=== PATIENT | female | born 1955 | race Caucasian/White ===

== ENCOUNTER 2019-09-19 19:36 | Emergency (ER) | payer OTHER, SELFPAY ==
[2019-09-19] MEDS: TETANUS,DIPHTHERIA,AC PERTUSSIS ADULT 0.5 ML (ADACEL) IM (19:48)
[2019-09-19 19:49] VITALS: BP 107/81; PULSE 84; RESP 18; TEMP 36.9; O2SAT 99
--- NOTE | 2019-09-19 20:05 | ED.LOWEXIN ---
HPI - Extremity Injury (Lower) General Chief Complaint: Extremity Injury, Lower Stated Complaint: RIGHT FOOT PAIN Time Seen by Provider: 09/19/19 19:52 Source: patient and RN notes reviewed Mode of arrival: ambulatory Limitations: no limitations History of Present Illness HPI Narrative: Patient presents today after stepping on a nail at home 1 hour prior to arrival. The nail did go through her Crocs clog shoes and into her foot. The nail did not embed itself in the foot and was removed when patient lifted her foot up. She is not up-to-date on her tetanus vaccine. History of rheumatoid arthritis for which she takes methotrexate and prednisone. MD complaint: foot injury Related Data Home Medications Medication Instructions Recorded Confirmed amitriptyline 09/19/19 escitalopram oxalate mg 09/19/19 ferrous sulfate 09/19/19 folic acid 09/19/19 leflunomide mg 09/19/19 methotrexate sodium 09/19/19 prednisone 09/19/19 Allergies Allergy/AdvReac Type Severity Reaction Status Date / Time Penicillins Allergy Mild Unknown Verified 08/25/19 15:46 Review of Systems Review of Systems: Narrative: CONSTITUTIONAL: Denies body aches, fever, chills, or sweats. EYES: Denies visual changes, redness, or discharge. ENT: Denies rhinorrhea, congestion, sore throat, or otalgia. CARDIOVASCULAR: Denies chest pain, palpitations, or edema. RESPIRATORY: Denies cough or dyspnea. GASTROINTESTINAL: Denies abdominal pain, nausea, vomiting, or diarrhea. GENITOURINARY: Denies dysuria or hematuria. SKIN: Denies rash, itching. +: Right foot puncture wound MUSCULOSKELETAL: Denies back pain, joint pain, or myalgia. NEUROLOGIC: Denies headache, numbness, tingling, or weakness. PSYCH: Denies depression or anxiety. [facility] Past Medical History Medical History (Updated 09/20/19 @ 00:00 by Sandy Mathias) Rheumatoid arthritis Social History Social History (System 08/25/19 @ 15:46 by Apoorva Ryan) Gender identity (if verbalized by the patient): Female Comments At time of signature, I have reviewed and agree with nursing past medical, surgical, social and family history unless otherwise noted. Please see nursing chart for further information. There is no relevant family history pertinent to the presenting complaint Exam Narrative: Exam Narrative: GENERAL: Well-appearing, well-nourished, and in no acute distress. HEAD: Normocephalic, atraumatic. EYES: EOMI. No redness or drainage. Conjunctivae normal. ENT: Mucous membranes pink and moist. NECK: Normal AROM. CHEST: No respiratory distress. EXTREMITIES: Normal range of motion. No edema. SKIN: Warm, dry, no rash. Normal skin turgor. 2-3mm puncture wound to the dorsum of the right foot, just distal to the arch. Upon visualization, the wound seems rather superficial, but there are small dark foreign bodies noted just under the skin. Mildly tender to palpation. No surrounding erythema, edema, induration. No active drainage. Distal sensation intact. Capillary refill normal. Pedal pulse normal. NEURO: No focal deficits. Alert and oriented x3. Gait steady. PSYCH: Normal affect. No signs of depression or anxiety. Course Course Emergency Course: Instructed patient that due to immunosuppression, she should start a course of antibiotics to cover for staph and Pseudomonas. Patient states, I do not do well on antibiotics. Discussed at least starting the antibiotics with any signs of infection. Will provide with paper prescriptions. Instructed on what to look for for signs of infection, red streaking, swelling, increased pain or drainage. Vital Signs Vital signs: Vital Signs Temperature 98.5 F 09/19/19 19:49 Pulse Rate 84 09/19/19 19:49 Respiratory Rate 18 09/19/19 19:49 Blood Pressure 107/81 09/19/19 19:49 Pulse Oximetry 99 09/19/19 19:49 Temperature 98.5 F 09/19/19 19:49 Pulse Rate 84 09/19/19 19:49 Respiratory Rate 18 09/19/19 19:49
== END 2019-09-19 20:16 | disposition home or self-care (01) ==
PROVIDERS: Emergency Provider Nurse Practitioner
DX: S91.341A Puncture wound with foreign body, right foot, initial encounter (principal); Z23 Encounter for immunization; M06.9 Rheumatoid arthritis, unspecified; F32.9 Major depressive disorder, single episode, unspecified; W45.0XXA Nail entering through skin, initial encounter
CPT/HCPCS: 90471; 90715; 99213; G0463

== ENCOUNTER 2020-10-01 07:53 | Emergency (ER) | payer OTHER, SELFPAY ==
--- NOTE | ~2020-10-01 | XR_ITS ---
XR knee LT 3V 10/01/2020 08:54 Indication: Left knee pain. Arthritis. Procedure: 4 views left knee Comparison: No prior studies for comparison. Findings: Moderate tricompartment osteoarthritis. Large joint effusion. No acute fracture or subluxat ion. No foreign bodies. Impression: 1: Moderate osteoarthritis of the left knee. 2: Large joint effusion. Reviewed, dictated and finalized at location B. Impression: 1: Moderate osteoarthritis of the left knee. 2: Large joint effusion.
--- NOTE | ~2020-10-01 | XR_ITS ---
EXAMINATION: XR foot LT min 3V EXAM DATE: 10/01/2020 08:53 INDICATION: Nontraumatic pain; gen pain Lt foot; onset x months. TECHNIQUE: Left foot dorsoplantar, lateral and oblique projections obtained and reviewed. There is n o prior study for comparison. FINDINGS: There is moderate hallux valgus, mild to moderate 1st metatarsophalangeal joint primary os teoarthritis. Mild scattered primary osteoarthritis of the mid and forefoot. No periosteal reaction o r band of sclerosis to suggest subacute stress fracture. There are no acute fractures or dislocations identified. There is no subcutaneous gas. The soft tissue is unremarkable. There are no radiopaq ue foreign bodies. IMPRESSION: 1. Hallux valgus, mild to moderate 1st MTP osteoarthritis. 2. Otherwise mild polyarticular osteoarthritis. 3. No acute findings. Reviewed, dictated and finalized at location A.
--- NOTE | 2020-10-01 08:10 | ED.LOWEXIN ---
HPI - Extremity Injury (Lower) General Chief Complaint: Extremity Injury, Lower Stated Complaint: left leg pain Time Seen by Provider: 10/01/20 08:08 Source: patient, family and RN notes reviewed Mode of arrival: ambulatory Limitations: no limitations History of Present Illness HPI Narrative: 65 years old white female presents with pain at left knee and left foot started last night. History of rheumatoid arthritis, on Humira, methotrexate and prednisone. Patient denies any recent trauma or injury. Patient also denies any fever, chills, nausea, vomiting. History of right knee I personally supervised and checked placement of the splint, neurovascular function is intact after placement.. Patient does not smoke or drink or uses drugs. Patient feels better if she keeps rubbing the front of her left knee Related Data Home Medications Medication Instructions Recorded Confirmed amitriptyline 09/19/19 escitalopram oxalate mg 09/19/19 ferrous sulfate 09/19/19 folic acid 09/19/19 leflunomide mg 09/19/19 methotrexate sodium 09/19/19 prednisone 09/19/19 Allergies Allergy/AdvReac Type Severity Reaction Status Date / Time Penicillins Allergy Mild Unknown Verified 08/25/19 15:46 Review of Systems Review of Systems: Narrative: CONSTITUTIONAL: Denies fever, chills, or sweats. EYES: Denies visual changes, redness, or discharge. ENT: Denies rhinorrhea, congestion, sore throat, or otalgia. CARDIOVASCULAR: Denies chest pain, palpitations, or edema. RESPIRATORY: Denies cough or dyspnea. GASTROINTESTINAL: Denies abdominal pain, nausea, vomiting, or diarrhea. GENITOURINARY: Denies dysuria or hematuria. SKIN: Denies rash or itching. MUSCULOSKELETAL: Left knee and foot pain NEUROLOGIC: Denies headache, numbness, or weakness. PSYCHIATRIC: Denies anxiety or depression. PMFSH Past Medical History Medical History Rheumatoid arthritis Social History Social History Gender identity (if verbalized by the patient): Female Exam Narrative: Exam Narrative: General appearance: Well-developed, well-nourished Skin: Normal color Head: Normocephalic, nontraumatic Eyes: Clear conjunctiva ENT: Oropharynx normal, ears normal, nose normal Neck: Supple, nontender Chest and respiratory: Airway patent, no respiratory distress, no accessory muscle use Heart: Regular rate/rhythm Abdomen: Soft, nontender, no organomegaly, quiet bowel sounds Vascular: Normal peripheral pulses, normal capillary refill. Musculoskeletal: Left knee is diffusely tender, no warmth, no erythema, positive deformity, left calf muscle is soft, left ankle and foot showed no deformity or localized tenderness, good range of motion. 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 1: Joint Aspiration Date: 10/01/20 Joint Aspiration Time: 11:20 Time Out Performed: Yes Side of body: left Joint Aspirated: knee Ultrasound Guidance: No Skin Prep: sterile prep and drape Local Anesthetic: lidocaine 1% a
[2020-10-01 08:37] VITALS: BP 124/55; PULSE 78; RESP 14; TEMP 36.7; O2SAT 99
[2020-10-01] MEDS: HYDROmorphone HCL INJ (*CRX) 1 MG/ML SYR IM (09:06)
[2020-10-01] MEDS: ONDANSETRON HCL ODT 4 MG TABLET PO (09:06)
[2020-10-01 11:00] VITALS: BP 117/72; PULSE 70; RESP 12; O2SAT 98
[2020-10-01 13:36] LABS: Appearance Synovial Fluid Cloudy (Clear); Color Synovial Fluid Yellow (Colorless); Source Synovial Fluid Synovial fluid
[2020-10-01 13:43] LABS: Lymphocytes Synovial Fluid 23 %; Monocytes Synovial Fluid 33 %; Neutrophils Synovial Fluid 44 % (0-25)
[2020-10-01 14:22] LABS: Crystals Synovial Fluid None Seen (None Seen)
[2020-10-04 19:19] LABS: Glucose Synovial Fluid <10 mg/dL
== END 2020-10-01 14:24 | disposition home or self-care (01) ==
PROVIDERS: Emergency Provider Emergency Medicine; PCP Internal Medicine
DX: M25.462 Effusion, left knee (principal); M06.9 Rheumatoid arthritis, unspecified; M20.12 Hallux valgus (acquired), left foot; M19.072 Primary osteoarthritis, left ankle and foot; M17.12 Unilateral primary osteoarthritis, left knee
CPT/HCPCS: 20610; 73562; 73630; 82945; 84157; 87070; 87075; 87205; 89051; 89060; 96372; 99284; A9270; J1170

== ENCOUNTER 2021-12-30 17:49 | Emergency (ER) | payer MEDICARE, SELFPAY ==
--- NOTE | ~2021-12-30 | XR_ITS ---
EXAMINATION: XR hip LT 2V w AP pelvis DATE: 12/30/2021 20:15 INDICATION: Left hip pain post fall TECHNIQUE: Anteroposterior view of the pelvis and anteroposterior and frog-leg lateral views of the l eft hip were obtained. COMPARISON: None FINDINGS: Mild thoracolumbar levoscoliosis with moderate spondylosis. Normal alignment at the bilateral hips. N o fracture or suspected avascular necrosis. Mild osteoarthritis at the bilateral sacroiliac joints. B ilateral hip joint spaces are relatively preserved. IMPRESSION: 1. No acute osseous abnormalities. 2. Mild lower lumbar levoscoliosis with moderate spondylosis. Reviewed, dictated and finalized at location A.
--- NOTE | ~2021-12-30 | XR_ITS ---
EXAMINATION: XR knee LT 2V DATE: 12/30/2021 20:15 INDICATION: Fall with swelling at the left knee. TECHNIQUE: AP and lateral views of the left knee were obtained.. COMPARISON: 10/01/2020 FINDINGS: Again seen is mild genu valgus with moderate to severe joint space narrowing in the lateral compartme nt. Marginal osteophytes in all 3 compartments of the knee. No fracture or left knee joint effusion. Prominent soft tissue swelling with increased density in the subcutaneous fat at the medial aspect of the distal left thigh suggesting a postmenopausal contusion/hematoma. IMPRESSION: 1. Moderate to severe osteoarthritis at the lateral compartment left knee. No joint effusion or acute osseous abnormality. 2. Prominent subcutaneous contusion/hematoma at the medial aspect of the distal left thigh. Reviewed, dictated and finalized at location A. IMPRESSION: 1. Moderate to severe osteoarthritis at the lateral compartment left knee. No j oint effusion or acute osseous abnormality. 2. Prominent subcutaneous contusion/hematoma at the medial aspect of the distal left thigh.
[2021-12-30 18:01] VITALS: BP 128/65; PULSE 88; RESP 20; TEMP 36.4; O2SAT 98
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
[2021-12-30 20:34] LABS: Basophils Percent Auto 0.5 % (0.2-1.2); Eosinophils Absolute Auto 0.2 K/mm3 (0-0.3); Eosinophils Percent Auto 2.1 % (0-4.4); Hematocrit 32.5 % (37.0-47.0); Hemoglobin 10.5 g/dL (12.0-15.0); Immature Granulocyte Absolute 0.03 K/mm3 (0.00-0.031); Immature Granulocyte Percent A 0.4 % (0-0.5); Lymphocytes Absolute Auto 1.09 K/mm3 (0.9-3.2); Lymphocytes Percent Auto 13.7 % (18.3-44.2); Mean Corpuscular HGB Conc 32.3 g/dl (32-36); Mean Corpuscular Hemoglobin 30.8 pg (26-34); Mean Corpuscular Volume 95.3 fl (80-100); Mean Platelet Volume 10.7 fl (7.4-10.4); Monocytes Percent Auto 12.2 % (2.6-8.5); Neutrophils Absolute Auto 5.7 K/mm3 (1.3-6.7); Neutrophils Percent Auto 71.1 % (45.5-73.1); Platelet Count Result 204 k/mm3 (150-375); Red Blood Count 3.41 M/mm3 (4.2-5.4); Red Cell Distribution Width 16.8 % (11.5-14.5)
[2021-12-30 20:40] LABS: Alanine Aminotransferase 56 U/L (6-35); Albumin Level 3.8 g/dL (3.5-5.1); Alkaline Phosphatase 88 U/L (38-126); Anion Gap 10 mmol/L (8-16); Aspartate Amino Transferase 46 U/L (14-36); Bilirubin,Total 0.6 mg/dL (0.2-1.3); Blood Urea Nitrogen 17 mg/dL (7-17); Calcium 9.7 mg/dL (8.4-10.2); Carbon Dioxide 24 mmol/L (22-30); Chloride 103 mmol/L (98-107); Estimated CRCL calculation 66 ml/min; Estimated Glomerular Filt Rate > 60; Glucose 103 mg/dL (65-110); Potassium 3.7 mmol/L (3.4-5.0); Sodium 137 mmol/L (137-145)
[2021-12-30 20:41] LABS: INR 0.9
[2021-12-30 20:42] LABS: Partial Thromboplastin Time 25.9 SECONDS (22.3-36.8)
[2021-12-30 21:52] VITALS: BP 144/60; PULSE 82; RESP 16; TEMP 36.8; O2SAT 89
[2021-12-30 21:53] VITALS: O2SAT 94
[2021-12-30] MEDS: HYDROmorphone HCL INJ (*CRX) 1 MG/ML SYR 0.5 MG IV PUSH (21:56)
[2021-12-30] MEDS: ONDANSETRON INJ 4 MG/2 ML VIAL IV PUSH (21:56)
[2021-12-30 22:30] VITALS: BP 148/60; PULSE 81; RESP 16; TEMP 36.3; O2SAT 100
[2021-12-30 23:30] VITALS: BP 145/61; PULSE 80; RESP 16; TEMP 36.4; O2SAT 99
== END 2021-12-31 00:53 | disposition short-term general hospital (02) ==
PROVIDERS: Emergency Provider Emergency Medicine; PCP Internal Medicine
DX: S70.12XA Contusion of left thigh, initial encounter (principal); G89.29 Other chronic pain; M25.552 Pain in left hip; M54.50 Low back pain, unspecified; M06.9 Rheumatoid arthritis, unspecified; M47.816 Spondylosis without myelopathy or radiculopathy, lumbar region; M17.12 Unilateral primary osteoarthritis, left knee; V19.9XXA Pedal cyclist (driver) (passenger) injured in unspecified traffic accident, initial encounter; Y93.55 Activity, bike riding
CPT/HCPCS: 36415; 73502; 73560; 80053; 85025; 85610; 85730; 96374; 96375; 99285; J1170; J2405

== ENCOUNTER 2023-08-23 15:30 | Outpatient (CLI) | payer MEDICARE, SELFPAY ==
--- NOTE | ~2023-08-23 | MR_ITS ---
EXAMINATION: MR lumbar spine wo con DATE: 08/23/2023 16:14 INDICATION: Low back pain. TECHNIQUE: Magnetic resonance imaging (MRI) of the lumbar spine was performed without intravenous con trast. Sequences included sagittal T2-weighted FSE, sagittal T2-weighted FS FSE, sagittal T1-weighted FSE, and axial T2-weighted FSE. COMPARISON: None FINDINGS: There is 22 degrees dextroscoliosis of thoracolumbar spine and 23 degrees levoscoliosis of lumbar spine. There is a chronic compression fracture of T12. There is mildly decreased disc height a t T12-L1. There is severely decreased disc height from L1-L2 through L5-S1 with endplate remodeling. The distal spinal cord signal intensity is normal. The conus medullaris is at T12-L1. There is periph eral displacement of the cauda equina at L5 and S1, consistent with arachnoiditis. The following disc levels are specifically discussed: L1-L2: The disc is bulging and has an annular fissure. There is moderate right and severe left facet joint osteoarthritis. There is mild right and moderate left neural foraminal stenosis. There is mild central canal stenosis. L2-L3: The disc is bulging with superimposed central extrusion. There is severe bilateral facet joint osteoarthritis. There is moderate right and mild left neural foraminal stenosis. There is mild centr al canal stenosis. There is severe stenosis of right lateral recess at the L3 infrapedicular level. L3-L4: The disc is bulging and has an annular fissure. There is severe bilateral facet joint osteoart hritis. There is moderate right and mild left neural foraminal stenosis. There is moderate central ca nal stenosis. L4-L5: The disc is bulging and has an annular fissure. There is severe bilateral facet joint osteoart hritis. There is moderate bilateral neural foraminal stenosis. There is mild central canal stenosis. There is moderate stenosis of the lateral recesses. L5-S1: The disc is bulging and has an annular fissure. There is severe bilateral facet joint osteoart hritis. There is mild right and moderate left neural foraminal stenosis. There is mild central canal stenosis. There is severe stenosis of left lateral recess. IMPRESSION: 1. Severe lumbar spondylosis. 2. Scoliosis. 3. Arachnoiditis. Reviewed, dictated and finalized at location E.
== END 2023-08-23 15:31 ==
LOC: GOSHIMG 15:31
PROVIDERS: PCP Internal Medicine; Visit Provider Nurse Practitioner Family
DX: M54.16 Radiculopathy, lumbar region (principal); M43.06 Spondylolysis, lumbar region; M41.86 Other forms of scoliosis, lumbar region; G03.9 Meningitis, unspecified
CPT/HCPCS: 72148

== ENCOUNTER 2024-01-06 11:03 | Emergency (ER) | payer MEDICARE, SELFPAY ==
--- NOTE | ~2024-01-06 | XR_ITS ---
EXAMINATION: XR foot LT 2V DATE: 01/06/2024 12:57 INDICATION: Lateral left foot pain TECHNIQUE: Dorsoplantar and lateral views of the left foot were obtained. COMPARISON: None. FINDINGS: Diffuse osteopenia. 30 degree hallux valgus. Alignment is otherwise normal. No fracture. Mild polyart icular osteoarthritis throughout the left foot. Prominent dorsal osteophyte at the neck of the talus. Soft tissues are otherwise unremarkable. IMPRESSION: 1. Mild polyarticular osteoarthritis throughout the left foot. No acute osseous abnormality. Reviewed, dictated and finalized at location A.
--- NOTE | ~2024-01-06 | US_ITS ---
EXAMINATION: US venous doppler [facility] DATE: 01/06/2024 11:47 INDICATION: Left lower limb pain TECHNIQUE: Grayscale ultrasound images without and with compression and Doppler ultrasound images of the left lower extremity veins were obtained. COMPARISON: None. FINDINGS: The visualized portions of left common femoral vein, profunda (deep) femoral vein, femoral vein, popl iteal vein, peroneal veins, posterior tibial veins, gastrocnemius vein and greater saphenous vein out flow are patent. IMPRESSION: 1. No deep venous thrombosis in the left lower limb. Reviewed, dictated and finalized at location A.
--- NOTE | 2024-01-06 12:39 | ED.EXTPRO ---
HPI - Extremity Problem General Chief complaint: Extremity Problem,Nontraumatic Stated complaint: LLE pain Time Seen by Provider: 01/06/24 12:33 History of Present Illness HPI Narrative: 68-year-old female presenting with left foot pain. States that she has had for the last several days. Feels like it goes along the side of her left foot and up into her calf. No swelling or redness. No injuries. She went to urgent care today who told her to come in for an ultrasound. No chest pain or shortness of breath. No further complaints. Related Data Home Medications Medication Instructions Recorded Confirmed folic acid 1 mg tablet 09/19/19 leflunomide 10 mg tablet mg 09/19/19 methotrexate sodium 2.5 mg tablet 09/19/19 prednisone 5 mg tablet 09/19/19 adalimumab 40 mg/0.8 mL 40 mg subcut ONCE 12/03/23 subcutaneous syringe kit (Humira) amlodipine 5 mg tablet 5 mg PO DAILY 12/03/23 duloxetine 30 mg capsule,delayed mg PO 12/03/23 release fluoxetine 20 mg capsule 20 mg PO DAILY 12/03/23 leflunomide 20 mg tablet 20 mg PO DAILY 12/03/23 montelukast 10 mg tablet 10 mg PO DAILY 12/03/23 vitamin#30 30 mg iron-10 cap PO 12/03/23 mg iron-folic acid 1 mg-omg3 capsule Allergies Allergy/AdvReac Type Severity Reaction Status Date / Time acetaminophen Allergy Severe Unknown Verified 01/06/24 13:12 cefdinir Allergy Severe Itching Verified 01/06/24 13:12 fluticasone Allergy Severe Itching Verified 01/06/24 13:12 Latex, Natural Rubber Allergy Severe Itching Verified 01/06/24 13:12 oxycodone [From Percocet] Allergy Severe itch Verified 01/06/24 13:12 Penicillins Allergy Mild Unknown Verified 01/06/24 13:12 codeine AdvReac Itching Verified 01/06/24 13:12 Review of Systems Review of Systems: All systems reviewed & are unremarkable except as noted in HPI and below PMFSH Past Medical History Medical History Rheumatoid arthritis Surgical History Surgical History H/O knee surgery Family History Family History Father Heart disease Cerebrovascular accident Mother Diabetes mellitus Hypertension Depression Sibling Alcoholism Cancer Grandparent Diabetes mellitus Social History Social History Smoking status: Never smoker Alcohol intake: never Substance use: never Substance use type: does not use Do You Feel Safe in your Home?: Yes Lack of Transportation: No Lack of Food: Never True Current Housing: I Have Housing Concerned About Future Housing: No Difficulty Paying Gas/Electric Bills: No Difficulty Paying for Meds: No Currently Unemployed: No Education: Master's Degree or Higher Difficulty w/ Childcare or Family Care: No Gender identity (if verbalized by the patient): Female Exam Narrative: GENERAL: Well-appearing, well-nourished, and in no acute distress. HEAD: Normocephalic, atraumatic. EYES: PERRLA and EOMI. ENT: Grossly unremarkable NECK: Supple. CHEST: Clear to auscultation. No respiratory distress. HEART: Regular rate and rhythm. No murmur heard. Normal peripheral pulses. EXTREMITIES: Normal range of motion. No edema. Left foot is tender along the bottom of the foot and to the lateral aspect and into her left lower calf, there is no swelling, no redness, no deformities, she is neurovascularly intact, no tenderness over Achilles tendon SKIN: Warm, dry, no rash. NEURO: No focal deficits. Alert and oriented x3. PSYCH: Normal mood and affect. MDM - Extremity (Nontraumatic) MDM Narrative Medical decision making narrative: 68-year-old female presenting with left foot pain. Ultrasound shows no DVT in the left leg. X-ray shows no acute abnormalities. There is evidence of polyarticular arthritis. Discussed the reass
== END 2024-01-06 13:40 | disposition home or self-care (01) ==
PROVIDERS: Emergency Provider Emergency Medicine; PCP Internal Medicine
DX: M79.672 Pain in left foot (principal); M06.9 Rheumatoid arthritis, unspecified
CPT/HCPCS: 73620; 93971; 99284

== ENCOUNTER 2024-03-17 10:53 | Outpatient (CLI) | payer MEDICARE, SELFPAY ==
--- NOTE | ~2024-03-17 | MR_ITS ---
EXAMINATION: MR ankle LT wo con DATE: 03/17/2024 11:44 INDICATION: Enthesopathy of the left foot and ankle. Lateral ankle pain with inability to bear weight for 3 months. TECHNIQUE: Magnetic resonance imaging (MRI) of the left ankle was performed without intravenous contr ast. Sequences included sagittal, coronal, and axial proton-density weighted fast spin echo without a nd with fat saturation. COMPARISON: None. FINDINGS: Medial ankle ligaments: Deep deltoid ligament is normal. Attenuation of the superomedial component of the spring ligament com plex with associated tear of the anterior tibia spring and tibionavicular components of the superfici al deltoid ligament. Lateral ankle ligaments: The anterior and posterior inferior tibiofibular ligaments are normal. The anterior talofibular, calc aneofibular and posterior talofibular ligaments are normal. Tendons: Small enthesophyte at the calcaneal insertion of the normal Achilles tendon. The peroneus longus and brevis tendons are normal. The tibialis anterior and extensor hallucis longus and extensor digitorum longus tendons are normal. The flexor digitorum longus and flexor hallucis longus tendons are normal. 1.5 cm separation of the proximal and distal margins of a full-thickness tear of the tibialis tax adjuster ior tendon which occurs between the levels of the distal tibia the medial malleolus and the medial ma rgin of the sustentaculum isaura. Plantar fascia: Plantar aponeurosis is normal. Bones/other: There is pes planus with collapse of the longitudinal arch. There is also suggestion of hindfoot valg us although this would be evaluated on weightbearing radiographs of the foot. Both findings are likel y secondary to the posterior tibial tendon tear and insufficiency of the attenuated superomedial comp onent of the spring ligament complex. Prominent periosteal reaction and some soft tissue edema surrou nding a subacute nondisplaced transverse fracture of the distal fibular diaphysis. Polyarticular oste oarthritis, moderate severity at the ankle and mild at each of the visualized joints in the mid and h indfoot. There is a somewhat poorly defined 1.8 x 1.3 x 1.1 cm region of decreased signal on both PD weighted and fluid sensitive sequences replacing the normal fat signal at the heel plantar fat pad sl ightly anterior to the calcaneal origin of the plantar aponeurosis most likely fat-pad fibrosis. Fluid: Physiologic amount fluid in the joint spaces. There is mild subcutaneous edema at the lateral aspect of the distal lower leg, ankle, mid and hindfoot. No tenosynovitis or other abnormal fluid collection s. IMPRESSION: 1. Nondisplaced subacute fracture of the distal left fibular diaphysis. 2. Complete tear of the tibialis posterior tendon and partial tear of the attenuated superomedial com ponent of the spring ligament complex and anterior superficial deltoid ligament which likely contribu barry to the apparent pes planus and hindfoot valgus. 3. Polyarticular osteoarthritis, mild to moderate at the ankle joint and mild at multiple joints in t he mid and hindfoot. 4. Small region of loss of the normal fat signal at the heel fat pad most likely due to fibrosis in s etting of heel fat pad syndrome with differential including bursitis, gouty tophus or rheumatoid nodu les in the appropriate clinical settings. Reviewed, dictated and finalized at location A. ER AND PULPER FEEDER IMPRESSION: 1. Nondisplaced subacute fracture of the distal left fibular diaphysis. 2. Complete tear of the tibialis posterior tendon and partial tear of the atten uated superomedial component of the spring ligament complex and anterior superf icial deltoid ligament which likely contributes to the apparent pes planus and hindfoot valgus. 3. Polyarticular osteoarthritis, mild to moderate at the ankle joint and mild a t multiple joints in the mid and hindfoot. 4. Small region of loss of the normal fat signal at the heel fat pad most likel y due to fibrosis in setting of heel fat pad syndrome with differential includi ng bursitis, gouty tophus or rheumatoid nodules in the appropriate clinical set tings.
== END 2024-03-17 10:54 | disposition home or self-care (01) ==
LOC: MICIMG 10:54
PROVIDERS: PCP Internal Medicine; Visit Provider Podiatrist Foot & Ankle Surgery
DX: M77.52 Other enthesopathy of left foot and ankle (principal); M13.872 Other specified arthritis, left ankle and foot; X58.XXXA Exposure to other specified factors, initial encounter; S92.145A Nondisplaced dome fracture of left talus, initial encounter for closed fracture; M66.372 Spontaneous rupture of flexor tendons, left ankle and foot
CPT/HCPCS: 73721

== ENCOUNTER 2024-06-14 08:59 | Outpatient (CLI) | payer MEDICARE, SELFPAY ==
--- NOTE | ~2024-06-14 | MR_ITS ---
EXAMINATION: MR ankle LT wo con DATE: 06/14/2024 09:40 INDICATION: Spontaneous rupture of the flexor tendon at the left ankle present with pain TECHNIQUE: Magnetic resonance imaging (MRI) of the left ankle was performed without intravenous contr ast. Sequences included sagittal, coronal, and axial proton-density weighted fast spin echo without a nd with fat saturation. COMPARISON: None. FINDINGS: Medial ankle ligaments: Deep deltoid ligament is normal. Again seen is attenuation of the superomedial component of the sprin g ligament complex with tear of the tibia spring tibionavicular component of the superficial deltoid ligament. Lateral ankle ligaments: The anterior and posterior inferior tibiofibular ligaments are normal. The anterior talofibular, calc aneofibular and posterior talofibular ligaments are normal. Tendons: Achilles tendon is normal with small enthesophytes at the calcaneal insertion. The peroneus longus an d brevis tendons are normal. The tibialis anterior and extensor hallucis longus and extensor digitoru m longus tendons are normal. The tibialis flexor digitorum longus and flexor hallucis longus tendons are normal. End seen is a full-thickness tear of the talus posterior tendon with 2.3 cm separation of the proximal distal tear margins. The proximal tear margin is located near the level of the tip of t he medial malleolus. Plantar fascia: Plantar aponeurosis is normal. There is normal signal intensity likely fibrosis present T1 hyperinten se signal the fat pad plantar to the calcaneal origin of the plantar aponeurosis. Bones/other: Pes planus with collapse of the longitudinal arch and likely associated hindfoot valgus. End seen is callus formation surrounding a transverse fracture of the distal fibular diaphysis is still readily d iscernible fracture plane suggesting delayed union. Mild to moderate polyarticular osteoarthritis at the ankle joint and multiple joints in the mid and hindfoot. Low signal intensity likely corticated m argins and a small erosion at the plantar aspect of the cuboid. Fluid: Physiologic amount fluid in the joint space. No bursitis, tenosynovitis or other abnormal fluid colle ctions. IMPRESSION: 1. Changes of healing at a nondisplaced fracture of the distal left fibular diaphysis with distal matt larry discernible fracture plane suggesting delayed union although this would be better evaluated with plain radiographs or CT. 2. Complete tear of the tibialis posterior tendon and partial tear of the attenuated medial compartme nt of the spring ligament complex and anterior aspect of the superficial deltoid ligament there is li torin secondary pes planus and hindfoot valgus. 3. Mild to moderate polyarticular osteoarthritis at the ankle and multiple joints in the mid and hind foot. 4. Unchanged small region of loss of the normal fat signal at the heel fat pad most likely due to fib rosis in setting of heel fat pad syndrome with differential including bursitis, gouty tophus or rheum atoid nodules in the appropriate clinical settings. Reviewed, dictated and finalized at location A. INE FITTER IMPRESSION: 1. Changes of healing at a nondisplaced fracture of the distal left fibular nic physis with distal clearly discernible fracture plane suggesting delayed union although this would be better evaluated with plain radiographs or CT. 2. Complete tear of the tibialis posterior tendon and partial tear of the atten uated medial compartment of the spring ligament complex and anterior aspect of the superficial deltoid ligament there is likely secondary pes planus and hindf oot valgus. 3. Mild to moderate polyarticular osteoarthritis at the ankle and multiple join ts in the mid and hindfoot. 4. Unchanged small region of loss of the normal fat signal at the heel fat pad most likely due to fibrosis in setting of heel fat pad syndrome with differenti al including bursitis, gouty tophus or rheumatoid nodules in the appropriate cl inical settings.
== END 2024-06-14 09:00 | disposition home or self-care (01) ==
LOC: MICIMG 09:00
PROVIDERS: PCP Internal Medicine; Visit Provider Podiatrist Foot & Ankle Surgery
DX: M66.372 Spontaneous rupture of flexor tendons, left ankle and foot (principal); M76.822 Posterior tibial tendinitis, left leg; M84.372D Stress fracture, left ankle, subsequent encounter for fracture with routine healing; M19.072 Primary osteoarthritis, left ankle and foot
CPT/HCPCS: 73721

== ENCOUNTER 2024-06-25 07:56 | Outpatient (CLI) | payer MEDICARE, SELFPAY ==
--- OUTSIDE RECORDS SUMMARY | 2024-06-25 08:02 | XMS_ITS | Encounter Summary ---
Author Organization [facility] Healthcare Address [address] [place] [address] Care Team Providers Care Retirement Sales Consultant Name Role Phone David Roberts MD Primary Care Provider + Encounter Details Date Type Department Care Team (Late st Contact Info) Description 04/13/2017 9:00 AM METAL BALER Hospital Encounter [facility] Procedure Holding [address] [place] [id number] Ryan Farias MD [address] [facility] [address] [address] Social History Tobacco Use Types Packs/Day Years Used Date Smoking Tobacco: Never Smokeless Tobacco: Never Alcohol Use Standard Drinks/Week Comments No 0 (1 standard drink = 0.6 oz pur e alcohol) AUDIT-C Answer Date Recorded Q1: How often do you have a drink containing alcohol? Never 03/26/2024 Q2: How many drinks containi ng alcohol do you have on a typical day when you are drinking? Patient does not drink Q3: How often do you have si x or more drinks on one occasion? Never 03/26/2024 PHQ-2 Answer Date Recorded PHQ-2 Total Score (If total score is 3 or more points, staff should administer the PHQ-9) 6 03/26/2024 Comments No Sex and Gender Information Value Date Recorded Sex Assigned at Not on file Legal Sex Female 1:48 AM METAL BALER Gender Identity Not on file Sexual Orientation Choose not to disclose 2018 12:47 PM CDT COVID-19 Exposure Response Date Recorded In the last month, have you been in contact with someone who was confirmed or suspected to have Coronavirus / COVID-19? No / Unsure 07/21/2019 2:04 PM CDT documented as of this encounter Functional Status * Audit-C Score Answer Date of Assessment Author 0 03/26/2024 3:17 PM METAL BALER Divina Cabrera MA * Question Answer Date of Assessment Author Q1: How often do you have a drink containing alcohol? Never 03/26/2024 3:17 PM METAL BALER Divina Mei MA Q2: How many drinks containing alcohol do you have on a typical day when you are drinking? Patient does not drink 03/26/2024 3:17 PM METAL BALER Divina Mei MA Q3: How often do you have six or more drinks on one occasion? Never 03/26/2024 3:17 PM METAL BALER Divina Mei MA documented as of this [...] COVID: Suspected 03/19/2023 03/19/2023 03/19/2023 11:31 PM METAL BALER COVID: Suspected 10/16/2023 10/16/2023 10/16/2023 3:46 PM CDT COVID19 10/16/2023 10/22/2023 11/01/2023 3:0 6 AM CDT COVID: Recovered Comment:Added based on recent COVID infection. 11/01/2023 11/01/2023 01/30/2024 3:05 AM C DT COVID: Suspected 03/28/2024 03/28/2024 03/28/2024 10:22 AM METAL BALER COVID: Suspected 06/03/2024 06/03/2024 06/03/2024 9:51 AM METAL BALER COVID: Suspected 06/03/2024 06/03/2024 06/03/2024 4:55 PM METAL BALER documented as of this encounter Care Teams Retirement Sales Consultant Relationship Specialty Start Date End Date David Roberts MD [address] [place] [address] PCP - General 07/21/16 12/25/17 documented as of this encounter
--- OUTSIDE RECORDS SUMMARY | 2024-06-25 08:02 | XMS_ITS | Encounter Summary ---
Author Organization [facility] Address [address] [place] [address] Phone Care Team Providers Care Paper Wrapping Machine Operator Name Role Phone David Roberts MD Primary Care Provider + Tico Mars MD Primary Care Provider [phone] Encounter Details Date Type Department Care Team (Late st Contact Info) Description 07/06/2017 Orders Only [facility] ProviderCherry [place] [address] Social History Tobacco Use Types Packs/Day Years Used Date Smoking Tobacco: Never Smokeless Tobacco: Never Alcohol Use Standard Drinks/Week Comments No 0 (1 standard drink = 0.6 oz pur e alcohol) Comments Unknown Sex and Gender Information Value Date Recorded Sex Assigned at Not on file Legal Sex Female 1:48 AM PLATE CUTTER Gender Identity Not on file Sexual Orientation Choose not to disclose 2018 12:47 PM CDT documented as of this encounter Plan of Treatment Not on file documented as of this encounter Procedures Procedure Name Priority Date/Time Associated Diagnosis Comments DISCHARGE LABORATORY CUMULATIVE REPORT 07/06/2017 12:00 AM CDT documented in this encounter Results * DISCHARGE LABORATORY CUMULATIVE REPORT (07/06/2017 12:00 AM CDT) Narrative 07/06/2017 12:00 AM CDT Ordered by an unspecified provider. us Historical Provider LAB BLOOD ORDERABLES Iva l Result documented in this encounter Visit Diagnoses Not on filedocumented [...] COVID: Suspected 03/19/2023 03/19/2023 03/19/2023 11:31 PM PLATE CUTTER COVID: Suspected 10/16/2023 10/16/2023 10/16/2023 3:46 PM CDT COVID19 10/16/2023 10/22/2023 11/01/2023 3:06 AM CDT COVID: Recovered Comment:Added based on recent COVID infection. 11/01/2023 11/01/2023 01/30/2024 3:05 AM C DT COVID: Suspected 03/28/2024 03/28/2024 03/28/2024 10:22 AM PLATE CUTTER COVID: Suspected 06/03/2024 06/03/2024 06/03/2024 9:51 AM PLATE CUTTER COVID: Suspected 06/03/2024 06/03/2024 06/03/2024 4:55 PM PLATE CUTTER documented as of this encounter Care Teams Paper Wrapping Machine Operator Relationship Specialty Start Date End Date David Roberts MD [address] [facility] [address] [place] [address] PCP - General 07/21/16 12/25/17 Tico Mars MD [address] [place] [address] PCP - General Internal Medicine 01/14/18 documented as of this encounter
--- OUTSIDE RECORDS SUMMARY | 2024-06-25 08:03 | XMS_ITS ---
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 Name Role Phone Jerad CHRISTOPHER, [place] Primary Care Provider Edita Shook Unavailable [phone] Allergies Allergen (clinical drug ingredient) Drug/Non Drug Allergy documented on EMR Reaction Allergy Type Onset Date Status Penicillin Unknown Drug Allergy Active REASON FOR VISIT follow up Medications Medication SIG (Take, Route, Frequency, Duration) Notes Start Date End Date Status Folic Acid 1 MG 1 tablet Orally Once a day Active tiZANidine HCl 2 MG 1 capsule at bedtime as needed Orally Once a day Active predniSONE 5 MG 1 tablet Orally Once a day Active amLODIPine Besylate 5 MG 1 tablet Orally Once a day Active Leflunomide 20 MG 1 tablet Orally Once a day Active Methotrexate take 6 tablets once a week Active Active Apple Cider Vinegar Active Tyrvaya Active Hair Skin & Nails Ac tive Propranolol HCl 10 MG 1 tablet Orally once a day for 90 days As needed Active buPROPion HCl ER (XL) 300 MG 1 tablet in the morning Orally Once a day for 30 days Active Miebo Active Humira Pen 40 mg sub q twice a month Active Propranolol HCl 10 MG 1 tablet Orally twice a day As needed- Do not take with Tazanidine, as it can increase concentration of Tazanidine Active Social History Tobacco Use: Social History Observation Description Date Details (start date - stop date) Never Smoker NA - NA Sex Assigned At : Social History Observation Description Sex Assigned At Female Household Question Answer Notes Marital status: Tobacco Control (Standard) Question Answer Notes Tobacco use: Nonsmoker Encounters Encounter Location Date Provider Diagnosis [facility] [employer] [address] [place] [address] 02/15/2024 Edita Aldridge Major depressive disorder, recurrent, severe with psychotic symptoms F33.3 and TUCKER (generalized anxiety disorder) F41.1 Assessments Encounter Date Diagnosis (ICD Code) Assessment Notes Treatment Notes Treatment Clinical Notes Section Notes 02/15/2024 Major depressive disorder, recurrent, severe with psychotic symptoms (ICD-10 - F33.3) Common side effects to SSRI medications include headaches, dry mouth/eye, GI upset (including indigestion, nausea, diarrhea), sleeping problems (insomnia or drowsiness), decreased libido, blurred vision, dizziness. Generally, side effects will subside or lessen with time and are common during drug initiation and dose changes. If they persist please contact the office. 02/15/2024 TUCKER (generalized anxiety disorder) (ICD-10 - F41.1) Common side effects of Wellbutrin include insomnia, increased anxiety, nausea, dizziness, decreased appetite, restlessness, irritability and anger, increased sweating or hot flashes, tremors, joint pain. Wellbutrin is not recommended in individuals with a history of seizures. If side effects persist, please contact the office. 02/15/2024 Other Stop fluoxetine-could be contributing to diarrhea. Appears to be responding well to Wellbutrin-increa se to 300mg daily. Continue propranolol 10mg qHS Patient educated on all medications including potential benefits, side effects, risks. Educated on proper dosing schedule and importance of compliance. Plan Of Treatment Medication Medication Name Sig Start Date Stop Date Notes Propranolol HCl 10 MG 1 tablet Orally on ce a day for 90 days buPROPion HCl ER (XL) 300 MG 1 tablet in the morning Orally Once a day for 30 days FLUoxetine HCl 10 MG 1 capsule Orally On ce a day for 30 days Treatment Notes Assessment Notes Major depressive disorder, r ecurrent, severe with psychotic symptoms Common side effects to SSRI medications include headaches, dry mouth/eye, GI upset (including indigestion, nausea, diarrhea), sleeping problems (insomnia or drowsiness), decreased libido, blurred vision, dizziness. Generally, side effects will subside or lessen with time and are common during drug initiation and dose changes. If they persist please contact the office. TUCKER (generalized anxiety disorder) Commo n side effects of Wellbutrin include insomnia, increased anxiety, nausea, dizziness, decreased appetite, restlessness, irritability and anger, increased sweating or hot flashes, tremors, joint pain. Wellbutrin is not recommended in individuals with a history of seizures. If side effects persist, please contact the office. Other Stop fluoxetine-could be contributing to diarrhea. Appears to be responding well to Wellbutrin-increase to 300mg daily. Continue propranolol 10mg qHS Patient educated on all medications including potential benefits, side effects, risks. Educated on proper dosing schedule and importance of compliance. Next Appt Details Follow Up: 4 Weeks, Reason: medication follow up Provider Name:Edita Aldridge, 08/04/2024 02:15:00 PM, [address], [facility] [address], [place], [address], Progress Notes * MAY CHÁVEZ:1 06/12/1954 (68 yo F)Acc No.[id number]:02/15/2024 Patient: BHARGAVI OLIVA Provider: Eliceo ALDRIDGE PMHNP :1955 A ge:68 Y S ex:Female Date:02/15/2024 Phone: Address:[address], [id number] Pcp:Tico Mars MD Subjective: * Chief Complaints: * 1 . Follow up. * HPI: H istory of Presenting Problem: Anxiety R ates anxiety 8/10 with 10 being most severe. Denies recent panic attacks. . D epression R ates depression 7/10 with 10 being most severe. Denies SI. . M ood lability n o hx kenzie. P sychosis n o hx psychosis. S leep disturbance w ith difficulty falling asleep, with difficulty staying asleep. S uicidal ideation d enies. Here for follow up. Fluoxetine decreased and Wellbutrin increased last apt. Reports her general practitioner advised her to take the propranolol at bedtime. had a brain injury, she has been trying to care for him. She also sustained a leg injury and is going through physical therapy. I have a lot to handle . Athough states the medicine must be helping , feels she would not be handling stressors as well. Feels hopeless secondary to foot pain. Denies suicidal ideation. Feels anxiety is my biggest problem . Reports she has been struggling with diarrhea for the past year, seeing a GI physician soon. Sleep is fair, getting about 7-8 hours nightly. Appetite is fair. P ast Psychiatric Hospitalizations: Previous medications: sertraline, abilify (headaches), fluoxetine. D epression screening: PHQ-9 L ittle interest or pleasure in doing things M ore than half the days, F eeling down, depressed, or hopeless M ore than half the days, T rouble falling or staying asleep, or sleeping too much N early every day, F eeling tired or having little energy N early every day, P oor appetite or overeating N ot at all, F eeling bad about yourself or that you are a failure, or have let yourself or your family down N early every day, T rouble concentrating on things, such as reading the newspaper or watching television S everal days, M oving or speaking so slowly that other people could have noticed; or the opposite, being so fidgety or restless that you have been moving around a lot more than usual?Several days, T houghts that you would be better off or of hurting yourself in some way N ot at all, T otal Score 1 5, I nterpretation M oderately Severe Depression.?Intervention D epression Screening Findings Marnie Alvarado ollow-Up for Depression Emotional support education, Management of mental health treatment, A dditional Evaluation for Depression P sychiatric interview and evaluation, N jai of the standardized tool used for adult depression screening: P atient Health Questionnaire (PHQ-9). D epression Screening: TUCKER-7 (2018 Edition) F eeling nervous, anxious, or on edge?Several days, N ot being able to stop or control worrying S everal days, W orrying too much about different things S everal days, T rouble relaxing S everal days, B eing so restless that it is hard to sit still S everal days, B ecoming easily annoyed or irritable N early every day, F eeling afraid as if something awful might happen M ore than half the days, T otal TUCKER-7 Score 1 0, I nterpretation of Total ( 10 to 14) Moderate.? * ROS: P sychiatric: Patient denies s uicidal thoughts, kenzie, psychosis. P atient complains of a nxiety, difficulty sleeping, depressed mood. Yoanna lopez [facility] for details. * Medical History: H TN, RA, OA, Dry eyes, Chronic pain. * Surgical History: h ysterectomy , Right knee replacement . * Social History: T obacco Use: T obacco Control (Standard) T obacco use: N onsmoker. D rug/Alcohol: D rugs H ave you used drugs other than those for medical reasons in the past 12 months??No. H ousehold: H ousehold M arital status: m arried. * Medications: T aking Propranolol HCl 10 MG Tablet 1 tablet Orally twice a day As needed- Do not take with Tazanidine, as it can increase concentration of Tazanidine, Taking Humira Pen , Notes to Pharmacist: 40 mg sub q twice a month, Taking Miebo , Taking Apple Cider Vinegar , Taking Hair Skin & Nails , Taking Tyrvaya , Taking , Taking Methotrexate , Notes to Pharmacist: take 6 tablets once a week, Taking Folic Acid 1 MG Tablet 1 tablet Orally Once a day , Taking predniSONE 5 MG Tablet 1 tablet Orally Once a day , Taking tiZANidine HCl 2 MG Capsule 1 capsule at bedtime as needed Orally Once a day , Taking Leflunomide 20 MG Tablet 1 tablet Orally Once a day , Taking amLODIPine Besylate 5 MG Tablet 1 tablet Orally Once a day , Taking FLUoxetine HCl 10 MG Capsule 1 capsule Orally Once a day , Taking buPROPion HCl ER (XL) 150 MG Tablet Extended Release 24 Hour 1 tablet in the morning Orally Once a day , Taking Propranolol HCl 10 MG Tablet 1 tablet Orally once a day As needed, Medication List reviewed and reconciled with the patient * Allergies: P enicillin. Objective: * Vitals: * Examination: P sychiatry: Appearance: w ell-groomed. Abnormal body movements: n one. Affect / mood: d epressed. Attention: g ood. Attitude: c ooperative. Homicidal ideation: n one. Suicidal ideation: n one. Degree of awareness of surroundings: w ithin normal limits.? Delusions: n o. Hallucinations: n o. Insight: g ood. Judgement: g ood. Orientation: a wake, alert and oriented x 3. Perceptual disorders: n o perceptual disorder noted. Psychomotor activity: w ithin normal range. Speech / language: n ormal rate, volume, and articulation (RVR), clear and coherent. Thought content: a ppropriate. Thought process: i ntact. Assessment: * Assessment: 1. M ajor depressive disorder, recurrent, severe with psychotic symptoms - F33.3 (Primary) 2 . G AD (generalized anxiety disorder) - F41.1 Plan: * Treatment: 2. G AD (generalized anxiety disorder) Increase buPROPion HCl ER (XL) Tablet Extended Release 24 Hour, 300 MG, 1 tablet in the morning, Orally, Once a day, 30 days, 30, Refills 1; R efill Propranolol HCl Tablet, 10 MG, 1 tablet, Orally, once a day As needed, 90 days, 90 Tablet, Refills 0. Notes: Common side effects of Wellbutrin include insomnia, increased anxiety, nausea, dizziness, decreased appetite, restlessness, irritability and anger, increased sweating or hot flashes, tremors, joint pain. Wellbutrin is not recommended in individuals with a history of seizures. If side effects persist, please contact the office. 3. O thers Notes: Stop fluoxetine-could be contributing to diarrhea. Appears to be responding well to Wellbutrin-increase to 300mg daily. Continue propranolol 10mg qHS Patient educated on all medications including potential benefits, side effects, risks. Educated on proper dosing schedule and importance of compliance. * Procedure Codes: 9 6127 BEHAV ASSMT W/SCORE & DOCD/STAND INSTRUMENT, G2211 VISIT COMPLEXITY INHERENT TO ONGOING CARE RELATED TO A PATIENT'S SINGLE, SERIOUS CONDITION OR A COMPLEX CONDITION, G8431 CLIN DEPRESSION SCREEN DOC, 1124F ACP DISCUSS-NO DSCNMKR DOCD * Follow Up: 4 Weeks (Reason: medication follow up) * Billing Information: * Visit Code: 67404 OFFICE OUTPATIENT VISIT 25 MINUTES DETAILED HISTORY AND EXAM/MODERATE MEDICAL DECISION MAKING. * Procedure Codes: 98538 BEHAV ASSMT W/SCORE & DOCD/STAND INSTRUMENT. G2211 VISIT COMPLEXITY INHERENT TO ONGOING CARE RELATED TO A PATIENT'S SINGLE, SERIOUS CONDITION OR A COMPLEX CONDITION. G8431 CLIN DEPRESSION SCREEN DOC. 1124F ACP DISCUSS-NO DSCNMKR DOCD. * Sign off status: Completed true * Provider: Eliceo ALDRIDGE, HNP Date: 1 Generated for Missy villagomez/Phoebe/Familia on: 0 06/25/2024 08:03 AM [employer]IMER [employer]GER History and Physical Notes * HPI (History of Present Illness) Category Sub-Category Detail Notes Category Not es History of Presenting Problem Anxiety Rates anxiety 8/10 with 10 b eing most severe. Denies recent panic attacks. Here for follow up. Fluoxetine decreased and Wellbutrin increased last apt. Reports her general practitioner advised her to take the propranolol at bedtime. had a brain injury, she has been trying to care for him. She also sustained a leg injury and is going through physical therapy. I have a lot to handle . Athough states the medicine must be helping , feels she would not be handling stressors as well. Feels hopeless secondary to foot pain. Denies suicidal ideation. Feels anxiety is my biggest problem . Reports she has been struggling with diarrhea for the past year, seeing a GI physician soon. Sleep is fair, getting about 7-8 hours nightly. Appetite is fair. Depression Rates depression 7/ 0 with 10 being most severe. Denies SI. Suicidal ideation denies Sleep disturbance with difficulty fall ing asleep, with difficulty staying asleep Psychosis no hx psychosis Mood lability no hx kenzie Past Psychiatric Hospitalizations Previous medications : sertraline, abilify (headaches), fluoxetine. Depression screening PHQ-9 Little inte rest or pleasure in doing things: More than half the days Feeling down, depressed, or hopeless: Mo re than half the days Trouble falling or staying asleep, or sl eeping too much: Nearly every day Feeling tired or having little energy: N early every day Poor appetite or overeating: Not at all Feeling bad about yourself o r that you are a failure, or have let yourself or your family down: Nearly every day Trouble concentrating on thi ngs, such as reading the newspaper or watching television: Several days Moving or speaking so slowly that other people could have noticed; or the opposite, being so fidgety or restless that you have been moving around a lot more than usual: Several days Thoughts that you would be b nathalie off or of hurting yourself in some way: Not at all Total Score: 15 Interpretation: Moderately Severe Depres martha Intervention Depression Screening Findings: P ositve Follow-Up for Depression: Em otional support education, Management of mental health treatment Additional Evaluation for Depression: Ps ychiatric interview and evaluation Name of the standardized too l used for adult depression screening:: Patient Health Questionnaire (PHQ-9) Depression Screening TUCKER-7 (2018 Edition) Feelin g nervous, anxious, or on edge: Several days Not being able to stop or control worryi ng: Several days Worrying too much about different things : Several days Trouble relaxing: Several days Being so restless that it is hard to sit still: Several days Becoming easily annoyed or irritable: Ne larry every day Feeling afraid as if something awful jennie ht happen: More than half the days Total TUCKER-7 Score: 10 Interpretation of Total: (10 to 14) Mode rate Examination Category Sub-Category Detail Notes Category Not es Psychiatry Appearance: well-groomed Attitude: cooperative Psychomotor activity: within normal rang e Abnormal body movements: none Attention: good Degree of awareness of surroundings: wit hin normal limits Orientation: awake, alert and wanda ented x 3 Affect / mood: depressed Speech / language: normal rate, volume, and articulation (RVR), clear and coherent Insight: good Judgement: good Thought process: intact Thought content: appropriate Perceptual disorders: no perceptual diso rder noted Suicidal ideation: none Homicidal ideation: none Delusions: no Hallucinations: no
--- OUTSIDE RECORDS SUMMARY | 2024-06-25 08:03 | XMS_ITS ---
Author Organization [facility] Address [address] [facility] [address] [place] [address] Care Team Providers Care Retail Management Trainee Name Role Phone Jerad CHRISTOPHER, [place] Primary Care Provider Edita Shook Unavailable [phone] Allergies Allergen (clinical drug ingredient) Drug/Non Drug Allergy documented on EMR Reaction Allergy Type Onset Date Status Penicillin Unknown Drug Allergy Active REASON FOR VISIT follow up Medications Medication SIG (Take, Route, Frequency, Duration) Notes Start Date End Date Status amLODIPine Besylate 5 MG 1 tablet Orally Once a day Active Propranolol HCl 10 MG 1 tablet Orally once a day for 90 days As needed Active buPROPion HCl ER (XL) 300 MG 1 tablet in the morning Orally Once a day for 90 days Active buPROPion HCl ER (XL) 300 MG 1 tablet every morning Oral Once a day for 90 days Active Folic Acid 1 MG 1 tablet Orally Once a day Active tiZANidine HCl 2 MG 1 capsule at bedtime as needed Orally Once a day Active predniSONE 5 MG 1 tablet Orally Once a day Active Leflunomide 20 MG 1 tablet Orally Once a day Active Methotrexate take 6 tablets once a week Active Apple Cider Vinegar Active Miebo Active Tyrvaya Active Hair Skin & Nails Ac tive Active Humira Pen 40 mg sub q [...] Nonsmoker Encounters Encounter Location Date Provider Diagnosis [facility] [address] [place] [address] 03/17/2024 Edita Aldridge Major depressive disorder, recurrent, severe with psychotic symptoms F33.3 and TUCKER (generalized anxiety disorder) F41.1 Assessments Encounter Date Diagnosis (ICD Code) Assessment Notes Treatment Notes Treatment Clinical Notes Section Notes 03/17/2024 Major depressive disorder, recurrent, severe with psychotic symptoms (ICD-10 - F33.3) 03/17/2024 TUCKER (generalized anxiety disorder) (ICD-10 - F41.1) Common side effects of Wellbutrin include insomnia, increased anxiety, nausea, dizziness, decreased appetite, restlessness, irritability and anger, increased sweating or hot flashes, tremors, joint pain. Wellbutrin is not recommended in individuals with a history of seizures. If side effects persist, please contact the office. CancelRx Response got Denied on 2024-05-05 14:06:34 for 'buPROPion HCl ER (XL) 300 MG Tablet Extended Release 24 Hour'Pharmacy Notes: Prescription not found. Contact Pharmacy by other means 03/17/2024 Other Declines need for medication adjustment today; holiday season generally trigger increased depression for her, wants to re-evaluate need for medication adjustment after . Refills sent today. Patient educated on all medications including potential benefits, side effects, risks. Educated on proper dosing schedule and importance of compliance. Plan Of Treatment Medication Medication Name Sig Start Date Stop Date Notes Propranolol HCl 10 MG 1 tablet Orally on ce a day for 90 days buPROPion HCl ER (XL) 300 MG 1 tablet in the morning Orally Once a day for 90 days Treatment Notes Assessment Notes TUCKER (generalized anxiety disorder) Commo n side effects of Wellbutrin include insomnia, increased anxiety, nausea, dizziness, decreased appetite, restlessness, irritability and anger, increased sweating or hot flashes, tremors, joint pain. Wellbutrin is not recommended in individuals with a history of seizures. If side effects persist, please contact the office. CancelRx Response got Denied on 2024-05-05 14:06:34 for 'buPROPion HCl ER (XL) 300 MG Tablet Extended Release 24 Hour'Pharmacy Notes: Prescription not found. Contact Pharmacy by other means Other Declines need for medication adjustment today; holiday season generally trigger increased depression for her, wants to re-evaluate need for medication adjustment after [place]. Refills sent today. Patient educated on all medications including potential benefits, side effects, risks. Educated on proper dosing schedule and importance of compliance. Next Appt Details Follow Up: 6 Weeks, Reason: med follow up Provider Name:Edita Aldridge, 08/04/2024 02:15:00 PM, [address], [facility] [address], [place], [address], Progress Notes * SANAZ CHÁVEZNICOLEB:1 06/12/1954 (68 yo F)Acc No.[id number]:03/17/2024 Patient: BHARGAVI OLIVA Provider: DESTINY YOUSSEF :1955 A ge:68 Y S ex:Female Date:03/17/2024 Phone: Address:[address] [place] [address] , [facility] Pcp:Tico Mars MD Subjective: * Chief Complaints: * F ollow up * HPI: H istory of Presenting Problem: Anxiety R ates anxiety 8/10 with 10 being most severe. Denies recent panic attacks. . D epression R ates depression 8/10 with 10 being most severe. Denies SI. . M ood lability n o hx kenzie. P sychosis n o hx psychosis. S leep disturbance w ith difficulty falling asleep, with difficulty staying asleep. S uicidal ideation d enies. Here for follow up. Fluoxetine discontinued and Wellbutrin increased last apt. Reports she has not noted a significant difference, although maybe a little better . Continues to feel depressed, denies feeling hopeless and helpless, no suicidal ideation. Diarrhea has improved since coming off of the fluoxetine. Anxiety is slightly worse, denies recent panic attacks. Reports the holidays are generally a tough time for her. Had MRI of ankle today, awaiting results. Sleep is good, getting about 8 hours nightly. Although reports low energy, motivation is fair. Appetite is good. P ast Psychiatric Hospitalizations: Previous medications: sertraline, abilify (headaches), fluoxetine. D epression screening: PHQ-9 L ittle interest or pleasure in doing things M ore than half the days, F eeling down, depressed, or hopeless N early every day, T rouble falling or staying asleep, or sleeping too much M ore than half the days, F eeling tired or having little energy M ore than half the days, P oor appetite or overeating M ore than half the days, F eeling bad about yourself or that you are a failure, or have let yourself or your family down M ore than half the days, T rouble concentrating on things, such as reading the newspaper or watching television N ot at all, M oving or speaking so slowly that other people could have noticed; or the opposite, being so fidgety or restless that you have been moving around a lot more than usual M ore than half the days, T houghts that you would be better off or of hurting yourself in some way N ot at all, T otal Score 1 5, I nterpretation?Moderately Severe Depression. I ntervention D epression Screening Findings P ositve, F ollow-Up for Depression [facility] treatment [facility], Patient follow-up to return when and if necessary, A dditional Evaluation for Depression P sychiatric interview and evaluation, N jai of the standardized tool used for adult depression screening: P [facility] Health Questionnaire (PHQ-9). D epression Screening: TUCKER-7 (2018 Edition) F eeling nervous, anxious, or on edge?More than half the days, N ot being able to stop or control worrying M ore than half the days, W orrying too much about different things M ore than hafl the days, T rouble relaxing M ore than half the days, B eing so restless that it is hard to sit still M ore than half the days, B ecoming easily annoyed or irritable N early every day, F eeling afraid as if something awful might happen ever, T otal TUCKER-7 Score 1 4, I nterpretation of Total ( 10 to 14) Moderate. * ROS: P sychiatric: Patient denies s uicidal thoughts, kenzie, psychosis, auditory / visual hallucinations, delusions. P atient complains of a nxiety, depressed mood. C omlaila S ee HPI for details. * Medical History: * Surgical History: h ysterectomy Right knee replacement * Hospitalization/Major Diagno stic Procedure: * Social History: T obacco Use: T obacco Control (Standard) T obacco use: N onsmoker. D rug/Alcohol: D rugs H ave you used drugs other than those for medical reasons in the past 12 months??No. H ousehold: H ousehold M arital status: m arried. * Medications: T akingPropranolol HCl 10 MG Tablet 1 tablet Orally twice a day As needed- Do not take with Tazanidine, as it can increase concentration of TazanidineHumira Pen , Notes to Pharmacist: 40 mg sub q twice a monthMiebo Apple Cider Vinegar Hair Skin & Nails Tyrvaya Methotrexate , Notes to Pharmacist: take 6 tablets once a weekFolic Acid 1 MG Tablet 1 tablet Orally Once a day predniSONE 5 MG Tablet 1 tablet Orally Once a day tiZANidine HCl 2 MG Capsule 1 capsule at bedtime as needed Orally Once a day Leflunomide 20 MG Tablet 1 tablet Orally Once a day amLODIPine Besylate 5 MG Tablet 1 tablet Orally Once a day Propranolol HCl 10 MG Tablet 1 tablet Orally once a day As neededbuPROPion HCl ER (XL) 300 MG Tablet Extended Release 24 Hour 1 tablet every morning Oral Once a day Taking Propranolol HCl 10 MG Tablet 1 tablet Orally twice a day As needed- Do not take with Tazanidine, as it can increase concentration of TazanidineTaking Humira Pen , Notes to Pharmacist: 40 mg sub q twice a monthTaking Miebo Taking Apple Cider Vinegar Taking Hair Skin & Nails Taking Tyrvaya Taking Taking Methotrexate , Notes to Pharmacist: take 6 tablets once a weekTaking Folic Acid 1 MG Tablet 1 tablet Orally Once a day Taking predniSONE 5 MG Tablet 1 tablet Orally Once a day Taking tiZANidine HCl 2 MG Capsule 1 capsule at bedtime as needed Orally Once a day Taking Leflunomide 20 MG Tablet 1 tablet Orally Once a day Taking amLODIPine Besylate 5 MG Tablet 1 tablet Orally Once a day Taking Propranolol HCl 10 MG Tablet 1 tablet Orally once a day As neededTaking buPROPion HCl ER (XL) 300 MG Tablet Extended Release 24 Hour 1 tablet every morning Oral Once a day DiscontinuedbuPROPion HCl ER (XL) 150 MG Tablet Extended Release 24 Hour 1 tablet in the morning Orally Once a day Medication List reviewed and reconciled with the patientDiscontinued buPROPion HCl ER (XL) 150 MG Tablet Extended Release 24 Hour 1 tablet in the morning Orally Once a day Medication List reviewed and reconciled with the patient * Allergies: P enicillinno[Allergies Verified] Objective: * Vitals: * Examination: P sychiatry: [...] disorder) - F41.1 Plan: * Treatment: 2. O thers Notes: Declines need for medication adjustment today; holiday season generally trigger increased depression for her, wants to re-evaluate need for medication adjustment after [place]. Refills sent today. Patient educated on all medications including potential benefits, side effects, risks. Educated on proper dosing schedule and importance of compliance. * Procedure Codes: 9 6127 BEHAV ASSMT W/SCORE & DOCD/STAND [id number] VISIT COMPLEXITY INHERENT TO ONGOING CARE RELATED TO A PATIENT'S SINGLE, SERIOUS CONDITION OR A COMPLEX [id number] CLIN DEPRESSION SCREEN DOC * Follow Up: 6 Weeks (Reason: med follow up) * Billing Information: * Visit Code: 82053 OFFICE OUTPATIENT VISIT 15 MINUTES EXPANDED HISTORY AND EXAM/LOW MEDICAL DECISION MAKING. * Procedure Codes: 09228 BEHAV ASSMT W/SCORE & DOCD/STAND INSTRUMENT. G2211 VISIT COMPLEXITY INHERENT TO ONGOING CARE RELATED TO A PATIENT'S SINGLE, SERIOUS CONDITION OR A COMPLEX CONDITION. G8431 CLIN DEPRESSION SCREEN DOC. * NSIC DNA ANALYST Sign off status: Completed true * Provider: Eliceo ALDRIDGE, HNP Date: 1 05/17/2023 Generated for Missy villagomez/Phoebe/Familia on: 0 06/25/2024 08:03 AM FORENSIC DNA ANALYST History and Physical Notes * HPI (History of Present Illness) Category Sub-Category Detail Notes Category Not es History of Presenting Problem Anxiety Rates anxiety 8/10 with 10 b eing most severe. Denies recent panic attacks. Here for follow up. Fluoxetine discontinued and Wellbutrin increased last apt. Reports she has not noted a significant difference, although maybe a little better . Continues to feel depressed, denies feeling hopeless and helpless, no suicidal ideation. Diarrhea has improved since coming off of the fluoxetine. Anxiety is slightly worse, denies recent panic attacks. Reports the holidays are generally a tough time for her. Had MRI of ankle today, awaiting results. Sleep is good, getting about 8 hours nightly. Although reports low energy, motivation is fair. Appetite is good. Depression Rates depression 8/1 0 with 10 being most severe. Denies SI. Suicidal ideation denies Sleep disturbance with difficulty fall ing asleep, with difficulty staying asleep Psychosis no hx psychosis Mood lability no hx kenzie Past Psychiatric Hospitalizations Previous medications : sertraline, abilify (headaches), fluoxetine. Depression screening PHQ-9 Little inte rest or pleasure in doing things: More than half the days Feeling down, depressed, or hopeless: Ne larry every day Trouble falling or staying a sleep, or sleeping too much: More than half the days Feeling tired or having little energy: M ore than half the days Poor appetite or overeating: More than h jairo the days Feeling bad about yourself o r that you are a failure, or have let yourself or your family down: More than half the days Trouble concentrating on thi ngs, such as reading the newspaper or watching television: Not at all Moving or speaking so slowly that other people could have noticed; or the opposite, being so fidgety or restless that you have been moving around a lot more than usual: More than half the days Thoughts that you would be b nathalie off or of hurting yourself in some way: Not at all Total Score: 15 Interpretation: Moderately Severe Depres martha Intervention Depression Screening Findings: P ositve Follow-Up for Depression: Me ntal health treatment assessment, Patient follow-up to return when and if necessary Additional Evaluation for Depression: Ps ychiatric interview and evaluation Name of the standardized too l used for adult depression screening:: Patient Health Questionnaire (PHQ-9) Depression Screening TUCKER-7 (2018 Edition) Feelin g nervous, anxious, or on edge: More than half the days Not being able to stop or control worryi ng: More than half the days Worrying too much about different things : More than hafl the days Trouble relaxing: More than half the day s Being so restless that it is hard to sit still: More than half the days Becoming easily annoyed or irritable: Ne larry every day Feeling afraid as if something awful jennie ht happen: Several days Total TUCKER-7 Score: 14 Interpretation of Total: (10 to 14) Mode [...]
--- OUTSIDE RECORDS SUMMARY | 2024-06-25 08:03 | XMS_ITS | Encounter Summary ---
Author Organization [facility] Address 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
--- OUTSIDE RECORDS SUMMARY | 2024-06-25 08:03 | XMS_ITS ---
Author Organization [facility] [employer] Address [address] [place] [address] Care Team Providers Care Security Officer Name Role Phone Jerad CHRISTOPHER, [place] Primary Care Provider Edita Shook Unavailable [phone] Allergies Allergen (clinical drug ingredient) Drug/Non Drug Allergy documented on EMR Reaction Allergy Type Onset Date Status Penicillin Unknown Drug Allergy Active REASON FOR VISIT follow up Medications Medication SIG (Take, Route, Frequency, Duration) Notes Start Date End Date Status predniSONE 5 MG 1 tablet Orally Once a day Active Folic Acid 1 MG 1 tablet Orally Once a day Active Leflunomide 20 MG 1 tablet Orally Once a day Active tiZANidine HCl 2 MG 1 capsule at bedtime as needed Orally Once a day Active amLODIPine Besylate 5 MG 1 tablet Orally Once a day Active Methotrexate take 6 tablets once a week Active Hair Skin & Nails Ac tive Apple Cider Vinegar Active Active Tyrvaya Active Miebo Active Humira Pen 40 mg sub q twice a month Active Propranolol HCl 10 MG 1 tablet Orally twice a day for 90 days Active Social History Tobacco Use: Social History Observation Description Date Details (start date - stop date) Never Smoker NA - NA Sex Assigned At : Social History Observation Description Sex Assigned At Female Household Question Answer Notes Marital status: Tobacco Control (Standard) Question Answer Notes Tobacco use: Nonsmoker Encounters Encounter Location Date Provider Diagnosis [facility] [address] [place] [address] 05/05/2024 Edita Aldridge Major depressive disorder, recurrent, severe with psychotic symptoms F33.3 and TUCKER (generalized anxiety disorder) F41.1 Assessments Encounter Date Diagnosis (ICD Code) Assessment Notes Treatment Notes Treatment Clinical Notes Section Notes 05/05/2024 Major depressive disorder, recurrent, severe with psychotic symptoms (ICD-10 - F33.3) 05/05/2024 TUCKER (generalized anxiety disorder) (ICD-10 - F41.1) 05/05/2024 Other Stop Wellbutrin per patient, no noteable difference since stopping. Increase propranolol 10mg BID for anxiety. Patient educated on all medications including potential benefits, side effects, risks. Educated on proper dosing schedule and importance of compliance. *Monitor blood pressure at next visits* -Assessment and treatment plan reviewed with patient. -Compliance with treatment plan importance discussed. -Discussed the risks/benefits of this medication -Discussed medication side effects. -Contact office if symptoms worsen. -Discussed that it can take up to 6-8 weeks to see full therapeutic effects of psychotropic medications. -Crisis prevention hotline 908. Plan Of Treatment Medication Medication Name Sig Start Date Stop Date Notes Propranolol HCl 10 MG 1 tablet Orally tw ice a day for 90 days buPROPion HCl ER (XL) 300 MG 1 tablet in the morning Orally Once a day for 90 days Treatment Notes Assessment Notes Other Stop Wellbutrin per patient, no noteable difference since stopping. Increase propranolol 10mg BID for anxiety. Patient educated on all medications including potential benefits, side effects, risks. Educated on proper dosing schedule and importance of compliance. *Monitor blood pressure at next visits* Next Appt Details Follow Up: 3 Months, Reason: medication follow up Provider Name:Edita Aldridge, 08/04/2024 02:15:00 PM, [address] [facility], [facility] [address], [address], Progress Notes * DORENE CHÁVEZB:1 06/12/1954 (69 yo F)Acc No.[id number]:05/05/2024 Patient: Yoanna BHARGAVI JAEGER Provider: EVERTON YOUSSEFHNP :1955 A ge:69 Y S ex:Female Date:05/05/2024 Phone: Address:[address], [facility] Pcp:Tico Mars MD Subjective: * Chief Complaints: * F ollow up * HPI: H istory of Presenting Problem: Anxiety R ates anxiety 7/10 with 10 being most severe. Denies recent panic attacks. . D epression R ates depression 5/10 with 10 being most severe. Denies SI. . M ood lability n o hx kenzie. P sychosis n o hx psychosis. S leep disturbance w ith difficulty falling asleep, with difficulty staying asleep. S uicidal ideation d enies. Here for follow up. No medication changes made last apt. Reports she was depressed over the holiday season, although has started to improve since getting through the holiday. Denies feeling hopeless or helpless, no suicidal ideation. Reports she generally gets more depressed in the winter. She has been going to the and exercising/physical activity almost daily. Has also been going physical therapy for her ankle. Continues to feel anxious, I worry a lot about everything . Reports she stopped taking the Wellbutrin due to diarrhea since last apt, did not notice a significant difference in depression. She had a fall a couple of weeks ago, broke her finger. Sleep is good, getting about 8-9 hours nightly. Energy is fair. Appetite is good. P ast Psychiatric Hospitalizations: Previous medications: sertraline, abilify (headaches), fluoxetine. D epression Screening: PHQ-2 (2015 Edition) L ittle interest or pleasure in doing things? M ore than half the days, F eeling down, depressed, or hopeless? M ore than half the days, T otal Score 4 . D epression screening: PHQ-9 L ittle interest or pleasure in doing things M ore than half the days, F eeling down, depressed, or hopeless M ore than half the days, T rouble falling or staying asleep, or sleeping too much S everal days, F eeling tired or having little energy M ore than half the days, P oor appetite or overeating S ever days,?Feeling bad about yourself or that you are a failure, or have let yourself or your family down Several days, T rouble concentrating on things, such as reading the newspaper or watching television S ever days, M oving or speaking so slowly that other people could have noticed; or the opposite, being so fidgety or restless that you have been moving around a lot more than usual?Not at all, T houghts that you would be better off or of hurting yourself in some way Not at all, T otal Score 1 0, I nterpretation M oderate Depression. I ntervention D epression Screening Findings P ositsundeep F ollow-Up for Depression M ental health treatment assessment, Patient follow-up to return when and if necessary, S uicide Risk Assessment Performed 0 05/05/2024, A dditional Evaluation for Depression P sychiatric interview and evaluation, N jai of the standardized tool used for adult depression screening: [facility] (PHQ-9). * ROS: P sychiatric: Patient denies s uicidal thoughts, kenzie, psychosis, auditory / visual hallucinations, delusions. P atient complains of a nxiety, depressed mood. Yoanna Wilder [facility] for details. * Medical History: * Surgical [...] M arital status: m arried. * Medications: Siddhartha Smith , Notes to Pharmacist: 40 mg sub [...] tablet Orally once a day As neededTaking Nemo Smith , Notes to Pharmacist: 40 mg sub [...] 1 tablet Orally once a day As neededNot-TakingbuPROPion HCl ER (XL) 300 MG Tablet Extended Release 24 Hour 1 tablet in the morning Orally Once a day Medication List reviewed and reconciled with the patientNot-Taking buPROPion HCl ER (XL) 300 MG Tablet Extended Release 24 Hour 1 tablet in the morning Orally Once a day Medication List reviewed and reconciled with the patient * Allergies: P enicillinno[Allergies Verified] Objective: * Vitals: * Examination: P sychiatry: Dementia S afety concern screening for dangerousness to self and environment risks provided: Y esWhat action was taken to mitigate the risk? E ducation providedTopics discussed for environmental risks: H ome safety risks that could arise from cooking or smoking, Access to firearms or other weapons, Access to potentially dangerous chemicals and other materialsTopics discussed for dangerousness to self: M edication misuse, Financial mismanagementSafety concern mitigation recommendation provided: N ot requiredScreening Result: N egativeCaregiver education and support provided Y es. Appearance: w ell-groomed. Abnormal body movements: n [...] content: a ppropriate. Thought process: i ntact. F unctional Assessment: Borjas Index of ADL S core: 6 1 point for independence, 0 for help. Physical Functioning P ersonal hygiene: including combing hair, brushing teeth, shaving, applying makeup, washing/drying face and hands (exclude baths and showers) I ndependentBathing: how client takes full-body bath/shower or sponge bath (exclude washing of back and hair). Includes how each part of body is bathed: arms, upper and lower legs, chest, abdomen, perineal area. (code for most dependent episode in last 7 days) I ndependentDressing upper body: how client dresses and undresses (street clothes, underwear) above the waist, includes prostheses, orthotics, fasteners, pullovers, etc. I ndependentEating - Including taking in food by any method, including tube feedings I ndependentToilet use: including using the toilet room or commode, bedpan, urinal, transferring on/off toilet, cleaning self after toilet use or incontinent episode, changing pad, managing any special devices required (ostomy or catheter), and adjusting clothes. I ndependentTransfer: including moving to and between surfaces--to/from bed, chair, wheelchair, standing position (excludes to/from bath/toilet) I ndependentContinence: I ndependent (1). 1 point for independence, 0 for help. Assessment: * Assessment: 1. M ajor depressive disorder, recurrent, severe with psychotic symptoms - F33.3 (Primary) 2 . G AD (generalized anxiety disorder) - F41.1 Plan: * Treatment: 2. O thers Notes: Stop Wellbutrin per patient, no noteable difference since stopping. Increase propranolol 10mg BID for anxiety. Patient educated on all medications including potential benefits, side effects, risks. Educated on proper dosing schedule and importance of compliance. *Monitor blood pressure at next visits* Clinical Notes: -Assessment and treatment plan reviewed with patient. -Compliance with treatment plan importance discussed. -Discussed the risks/benefits of this medication -Discussed medication side effects. -Contact office if symptoms worsen. -Discussed that it can take up to 6-8 weeks to see full therapeutic effects of psychotropic medications. -Crisis prevention hotline 685. * Procedure Codes: 9 6127 BEHAV ASSMT W/SCORE & DOCD/STAND [id number] VISIT COMPLEXITY INHERENT TO ONGOING CARE RELATED TO A PATIENT'S SINGLE, SERIOUS CONDITION OR A COMPLEX [id number] CLIN DEPRESSION SCREEN DOC * Preventive Medicine: Counseling: S afety: f all risk / avoidance: Y es. Screenings: F all risk screening F all Risk Assessment: O ne fall with injury in the past year. * Follow Up: 3 Months (Reason: medication follow up) * Billing Information: * Visit Code: 71586 OFFICE OUTPATIENT VISIT 25 MINUTES DETAILED HISTORY AND EXAM/MODERATE MEDICAL DECISION MAKING. * Procedure Codes: 20763 BEHAV ASSMT W/SCORE & DOCD/STAND INSTRUMENT. G2211 VISIT COMPLEXITY INHERENT TO ONGOING CARE RELATED TO A PATIENT'S SINGLE, SERIOUS CONDITION OR A COMPLEX CONDITION. G8431 CLIN DEPRESSION SCREEN DOC. * SUPERVISOR Sign off status: Completed true * Provider: DESTINY YOUSSEF Date: 0 05/05/2024 Generated for Missy villagomez/Phoebe/Familia on: 0 06/25/2024 08:02 AM DIKE SUPERVISOR History and Physical Notes * HPI (History of Present Illness) Category Sub-Category Detail Notes Category Not es History of Presenting Problem Anxiety Rates anxiety 7/10 with 10 b eing most severe. Denies recent panic attacks. Here for follow up. No medication changes made last apt. Reports she was depressed over the holiday season, although has started to improve since getting through the holiday. Denies feeling hopeless or helpless, no suicidal ideation. Reports she generally gets more depressed in the winter. She has been going to the and exercising/physical activity almost daily. Has also been going physical therapy for her ankle. Continues to feel anxious, I worry a lot about everything . Reports she stopped taking the Wellbutrin due to diarrhea since last apt, did not notice a significant difference in depression. She had a fall a couple of weeks ago, broke her finger. Sleep is good, getting about 8-9 hours nightly. Energy is fair. Appetite is good. Depression Rates depression 5/1 0 with 10 being most severe. Denies [...] staying asleep, or sl eeping too much: Several days Feeling tired or having little energy: M ore than half the days Poor appetite or overeating: Several day s Feeling bad about yourself o r that you are a failure, or have let yourself or your family down: Several days Trouble concentrating on thi ngs, such as reading the newspaper or watching television: Several days Moving or speaking so slowly that other people could have noticed; or the opposite, being so fidgety or restless that you have been moving around a lot more than usual: Not at all Thoughts that you would be b nathalie off or of hurting yourself in some way: Not at all Total Score: 10 Interpretation: Moderate Depression Intervention Depression Screening Findings: P unique Follow-Up for Depression: [facility] treatment assessment, Patient follow-up to return when and if necessary Suicide Risk Assessment Performed: 05/05 Additional Evaluation for Depression: Ps ychiatric interview and evaluation Name of the standardized too l used for adult depression screening:: Patient Health Questionnaire (PHQ-9) Depression Screening PHQ-2 (2015 Edition) Little interest or pleasure in doing things?: More than half the days Feeling down, depressed, or hopeless?: M ore than half the days Total Score: 4 Examination Category Sub-Category Detail Notes Category Not [...] Homicidal ideation: none Delusions: no Hallucinations: no Dementia Safety concern scree morales for dangerousness to self and environment risks provided:: Yes What action was taken to mitigate the risk?: Education provided Topics discussed for environmental risks:: Home safety risks that could arise from cooking or smoking, Access to firearms or other weapons, Access to potentially dangerous chemicals and other materials Topics discussed for dangerousness to self:: Medication misuse, Financial mismanagement Safety concern mitigation recommendation provided:: Not required Screening Result:: Negative Caregiver education and support provided : Yes Functional Assessment Borjas Index of ADL Score:: 6 1 point for independence, 0 for help 1 point for independence, 0 for help Physical Functioning Personal hygiene: i ncluding combing hair, brushing teeth, shaving, applying makeup, washing/drying face and hands (exclude baths and showers): Independent Bathing: how client takes fu ll-body bath/shower or sponge bath (exclude washing of back and hair). Includes how each part of body is bathed: arms, upper and lower legs, chest, abdomen, perineal area. (code for most dependent episode in last 7 days): Independent Dressing upper body: how cli ent dresses and undresses (street clothes, underwear) above the waist, includes prostheses, orthotics, fasteners, pullovers, etc.: Independent Eating - Including taking in food by any method, including tube feedings: Independent Toilet use: including using the toilet room or commode, bedpan, urinal, transferring on/off toilet, cleaning self after toilet use or incontinent episode, changing pad, managing any special devices required (ostomy or catheter), and adjusting clothes.: Independent Transfer: including moving t o and between surfaces--to/from bed, chair, wheelchair, standing position (excludes to/from bath/toilet): Independent Continence:: Independent (1)
--- OUTSIDE RECORDS SUMMARY | 2024-06-25 08:03 | XMS_ITS | Encounter Summary ---
Author Organization [facility] Address [address] [place] [address] Phone Care Team Providers Care Plate Worker Name Role Phone Tico Mars MD Primary Care Provider [phone] Toribio Pinedo MD Unavailable Geri Nath MD Unavailable [phone] Tori Pinedo APRN, PRUNE WASHER Unavailable Sandi Hicks RIGHT OF WAY CLEARER Unavailable Unavailab Lidia Cabrera MD Primary Care Provide r Tico Mars MD Primary Care Provider [phone] Reason for Visit * Reason Comments Medication Refill Encounter Details Date Type Department Care Team (Late st Contact Info) Description 05/15/2023 Refill [facility] - Internal Medicine - [place] [address] [address] Tyra Higgins, [facility] [address] [address] Medication Refill Social History Tobacco Use Types Packs/Day Years Used Date Smoking Tobacco: Never Passive Smoke Exposure: Never Smokeless Tobacco: Never Alcohol Use Standard Drinks/Week Comments Not Currently 0 (1 standard drink = 0.6 oz pur e alcohol) PHQ-2 Answer Date Recorded Total Score - Questions 1-9 0 10/3 Sexually Active Control Partners Comments Not Currently Male Comments No Sex and Gender Information Value Date Recorded Sex Assigned at Not on file Legal Sex Female 1:45 PM CDT Gender Identity Not on file Sexual Orientation Not on file 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 Not on file Not on file Not on file documented as of this encounter Plan of Treatment Upcoming Encounters Date Type Department Care Team (Late st Contact Info) Description 08/27/2024 11:15 AM CDT Office Visit [facility] - Internal Medicine [address] [place] [address] Tico Mars MD [address] [place] [address] documented as of this encounter Visit Diagnoses Not on filedocumented in this encounter Additional Health Concerns Assessment Noted Time PHQ-9 Depression Total Score: 0 02/20/20 23 9:40 AM CDT documented as of this encounter Care Teams Plate Worker Relationship Specialty Start Date End Date Tico Mars MD [address] [place] [address] PCP - General Internal Medicine 03/18/18 02/06/24 Lidia Srinivasan MD [address] [facility] [address] [place] [address] PCP - General Rheumatology 02/07/24 03/02/24 Tico Mars MD [address] [place] [address] PCP - General Internal Medicine 03/03/24 Toribio Pinedo MD [address] [address] Consulting Physician Colon and Rectal Surgery 05/17/22 Geri Nath MD [address] [place] [address] Consulting Physician Gastroenterology 06/29/22 Tori Pinedo APRN, CAMIL[facility] [address] [place] [address] Nurse Practitioner Advanced Practice Nurse 01/04/24 Sandi Hicks LSW [place] Appraiser Timber Equipment Worker 01/24/24 02/01/24 documented as of this encounter
--- OUTSIDE RECORDS SUMMARY | 2024-06-25 08:03 | XMS_ITS | Encounter Summary ---
Author Organization [facility] Address [address] [place] [address] Phone Care Team Providers Care Methods Engineer Name Role Phone Tico Mars MD Primary Care Provider [phone] Toribio Pinedo MD Unavailable Geri Nath MD Unavailable [phone] Tori Pinedo APRN, ELECTRICIAN SHIP Unavailable Sandi Hicks STRAIGHTEDGE WORKER Unavailable Unavailab Lidia Cabrera MD Primary Care Provide r Tico Mars MD Primary Care Provider Reason for Visit * Reason Comments Medication Refill Encounter Details Date Type Department Care Team (Late st Contact Info) Description 08/19/2023 Refill [facility] - Internal Medicine - [place] [address] [place] [address] Tico Mars MD [address] [place] [address] Medication Refill Social History Tobacco Use Types Packs/Day Years Used Date Smoking Tobacco: Never Passive Smoke Exposure: Never Smokeless Tobacco: Never Alcohol Use Standard Drinks/Week Comments Not Currently 0 (1 standard drink = 0.6 oz pur e alcohol) [facility] Utilities Answer Date Recorded In the past 12 months has th e electric, gas, oil, or water [employer] threatened to shut off services in your home? Patient unable to answer 05/24/2023 Social Connection and Isolation Panel [NHANES] A nswer Date Recorded In a typical week, how many times do you talk on the phone with family, friends, or neighbors? Patient unable to answer 05/24/2023 How often do you get togethe r with friends or relatives? Patient unable to answer 05/24/2023 How often do you attend chur or amish services? Patient unable to answer 05/24/2023 Do you belong to any clubs o r organizations such as baptist groups, unions, fraternal or athletic groups, or school groups? Patient unable to answer 05/24/2023 How often do you attend meet ings of the clubs or organizations you belong to? Patient unable to answer 05/24/2023 Are you , , di vorced, , never , or living with a partner? Patient unable to answer 05/24/2023 AUDIT-C Answer Date Recorded Q1: How often do you have a drink containing alcohol? Patient unable to answer 05/24/2023 Q2: How many drinks containi ng alcohol do you have on a typical day when you are drinking? Patient unable to answer Q3: How often do you have si x or more drinks on one occasion? Patient unable to answer 05/24/2023 Overall Financial Resource Strain (CARDIA) Answe r Date Recorded How hard is it for you to pa y for the very basics like food, housing, medical care, and heating? Patient unable to answer 05/24/2023 PHQ-2 Answer Date Recorded Total Score - Questions 1-9 0 05/0 04/2023 [facility] Occupat ional Health - Occupational Stress Questionnaire Answer Date Recorded Do you feel stress - tense, restless, nervous, or anxious, or unable to sleep at night because your mind is troubled all the time - these days? Patient unable to answer 05/24/2023 Exercise Vital Sign Answer Date Recorde d On average, how many days pe r week do you engage in moderate to strenuous exercise (like a brisk walk)? Patient unable to answer 05/24/2023 On average, how many minutes do you engage in exercise at this level? Patient unable to answer 05/24/2023 Hunger Vital Sign Answer Date Recorded Within the past 12 months, y ou worried that your food would run out before you got the money to buy more. Patient unable to answer 05/24/2023 Within the past 12 months, t he food you bought just didn't last and you didn't have money to get more. Patient unable to answer 05/24/2023 PRAPARE - Transportation Answer Date Re corded In the past 12 months, has l ack of transportation kept you from medical appointments or from getting medications? Patient unable to answer 05/24/2023 In the past 12 months, has l ack of transportation kept you from meetings, work, or from getting things needed for daily living? Patient unable to answer 05/24/2023 Housing Stability Vital Sign Answer Clive e Recorded In the last 12 months, was t here a time when you were not able to pay the mortgage or rent on time? Patient unable to answer 05/24/2023 Number of Places Lived in the Last Year Not on f ile 05/24/2023 In the last 12 months, was t here a time when you did not have a steady place to sleep or slept in a usp (including now)? 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 Question Answer Date of Assessment Author Patient Health Questionnaire -2 Score 0 08/22/2023 11:35 AM Kirsten Rascon CMA documented as of this encounter Miscellaneous Notes * Telephone Encounter - Yoanna Rush RN - 08/20/2023 10:57 AM CDT Medication(s) refilled and signed per [facility] Chronic Medication Refill Standing Order for Pediatricand Adult Patients. Requested Prescriptions Pending Prescriptions Disp Refills montelukast (SINGULAIR) 10 MG Tablet [Pharmacy Med Name: MONTELUKAST SOD 10 MG TABLET] 90 Tablet 1 Sig: TAKE 1 TABLET BY MOUTH EVERY DAY IN THE EVENING Leukotriene Inhibitors Protocol Passed - 08/19/2023 7:02 AM Passed - Visit with relevant provider in past 12 months or upcoming 90 days Recent Visits Date Type Provider Dept 05/24/23 Office Visit Tico Mars MD [facility] [place] 02/19/23 Office Visit Tico Mars MD [facility] [place] 11/07/22 Office Visit Tico Mars MD [facility] [place] Showing recent visits within past 365 days and meeting all other requirements Future Appointments Date Type Provider Dept 08/22/23 Appointment Tico Mars MD [facility] [place] Showing future appointments within next 90 days and meeting all other requirements documented in this encounter Plan of Treatment Upcoming Encounters Date Type Department Care Team (Late st Contact Info) Description 08/27/2024 11:15 AM CDT Office Visit [facility] - Internal Medicine [place] [address] [place] [address] Tico Mars MD [address] [place] [address] documented as of this encounter Visit Diagnoses Not on filedocumented in this encounter Additional Health Concerns Assessment Noted Time PHQ-9 Depression Total Score: 0 05/24/19 9:59 AM STAMP PAD FINISHER documented as of this encounter Care Teams Methods Engineer Relationship Specialty Start Date End Date Tico Mars MD [address] [place] [address] PCP - General Internal Medicine 03/18/18 02/06/24 Lidia Srinivasan MD [address] [facility] [address] [place] [address] PCP - General Rheumatology 02/07/24 03/02/24 Tico Mars MD [address] [place] [address] PCP - General Internal Medicine 03/03/24 Toribio Pinedo MD [address] [address] Consulting Physician Colon and Rectal Surgery 05/17/22 Geri Nath MD [address] [place] [address] Consulting Physician Gastroenterology 06/29/22 Tori Pinedo APRN, ELECTRICIAN SHIP [address] [place] [address] Nurse Practitioner Advanced Practice Nurse 01/04/24 Sandi Hicks LSW [place] Burlap Spreader Mold Breaker 01/24/24 02/01/24 documented as of this encounter
--- OUTSIDE RECORDS SUMMARY | 2024-06-25 08:03 | XMS_ITS | Encounter Summary ---
Author Organization [facility] Address [address] [place] [address] Phone Care Team Providers Care Claim Processing Specialist Name Role Phone Tico Mars MD Primary Care Provider Toribio Pinedo MD Unavailable Geri Nath MD Unavailable [phone] Tori Pinedo APRN, MARINE PIPE WELDER Unavailable Sandi Hicks DEPUTY SHERIFF Unavailable Unavailab Lidia Cabrera MD Primary Care Provide r Tico Mars MD Primary Care Provider [phone] Reason for Visit * Reason Comments Medication Refill Encounter Details Date Type Department Care Team (Late st Contact Info) Description 06/13/2020 Refill [facility] - Internal Medicine - [place] [address] [address] Tico Mars MD [address] [place] [address] Medication Refill Social History Tobacco Use Types Packs/Day Years Used Date Smoking Tobacco: Never Smokeless Tobacco: Never Alcohol Use Standard Drinks/Week Comments No 0 (1 standard drink = 0.6 oz pur e alcohol) PHQ-2 Answer Date Recorded Total Score - Questions 1-9 2 02/23 Sexually Active Control Partners Comments Yes Male Comments No Sex and Gender Information Value Date Recorded Sex Assigned at Not on file Legal Sex Female 1:45 PM CDT Gender Identity Not on file Sexual Orientation Not on file 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 TY DEMONSTRATOR * Telephone Encounter - Tori Murphy RN - 06/14/2020 8:32 AM CST Please review and sign. TY DEMONSTRATOR documented in this encounter Plan of Treatment Upcoming Encounters Date Type Department Care Team (Late st Contact Info) Description 08/27/2024 11:15 AM CDT Office Visit [facility] - Internal Medicine - [place] [address] [place] [id number] Tico Mars MD [address] [place] [address] documented as of this encounter Visit Diagnoses Not on filedocumented in this encounter Additional Health Concerns Assessment Noted Time PHQ-9 Depression Total Score: 2 03/22/20 20 1:00 PM COUNTY DEMONSTRATOR documented as of this encounter Care Teams Claim Processing Specialist Relationship Specialty Start Date End Date Tico Mars MD [address] [place] [address] PCP - General Internal Medicine 03/18/18 02/06/24 Lidia Srinivasan MD [address] [facility] [address] [place] [address] PCP - General Rheumatology 02/07/24 03/02/24 Tico Mars MD [address] [facility] [address] [address] PCP - General Internal Medicine 03/03/24 Toribio Pinedo MD [address] [address] Consulting Physician Colon and Rectal Surgery 05/17/22 Geri Nath MD [address] [place] [address] Consulting Physician Gastroenterology 06/29/22 Tori Pinedo APRN, MARINE PIPE WELDER [address] [place] [address] Nurse Practitioner Advanced Practice Nurse 01/04/24 Sandi Hicks, KAYY [place] Swat Team Member Professor Of Theatre 01/24/24 02/01/24 documented as of this encounter
--- OUTSIDE RECORDS SUMMARY | 2024-06-25 08:03 | XMS_ITS | Encounter Summary ---
Author Organization [facility] Address [address] [place] [address] Phone Care Team Providers Care Digital Analyst Name Role Phone Tico Mars MD Primary Care Provider Toribio Pinedo MD Unavailable Geri Nath MD Unavailable [phone] Tori Pinedo APRN, COMPUTER CLERK Unavailable Sandi Hicks NITRATING ACID MIXER Unavailable Unavailab Lidia Cabrera MD Primary Care Provide r Tico Mars MD Primary Care Provider Reason for Visit * Reason Comments Medication Refill Encounter Details Date Type Department Care Team (Late st Contact Info) Description 02/02/2023 Refill [facility] - Internal Medicine - [place] [address] [place] [address] Tico Mars MD [address] [place] [address] Medication Refill Social History Tobacco Use Types Packs/Day Years Used Date Smoking Tobacco: Never Passive Smoke Exposure: Never Smokeless Tobacco: Never Alcohol Use Standard Drinks/Week Comments Not Currently 0 (1 standard drink = 0.6 oz pur e alcohol) PHQ-2 Answer Date Recorded Total Score - Questions 1-9 0 12/23 Sexually Active Control Partners Comments Not Currently [...] Telephone Encounter - Yoanna Rush RN - 02/02/2023 8:24 AM CDT Medication failed the protocol, provider to review and approve the medication order if appropriate. Requested Prescriptions Pending Prescriptions Disp Refills DULoxetine (CYMBALTA) [address] Teri [Pharmacy Med Name: DULOXETINE HCL DR 30 MG CAP] 90 Capsule 1 Sig: TAKE 1 CAPSULE BY MOUTH EVERY DAY SNRI (6 Month Refill Only) Protocol Failed - 02/02/2023 1:04 AM Failed - Has an encounter in the past 6 months with a depression or anxiety visit diagnosis Failed - Patient has established therapy with Serotonin-Norepinephrine Reuptake Inhibitors for at least 6 months Passed - Visit with relevant provider in past 6 months or upcoming 90 days Recent Visits Date Type Provider Dept 11/07/22 Office Visit Tico Mars MD [facility] [place] 08/07/22 Office Visit [facility] [place] Showing recent visits within past 182 days and meeting all other requirements Future Appointments Date Type Provider Dept 02/08/23 Appointment Tico Mars MD [facility] [place] Showing future appointments within next 90 days and meeting all other requirements documented in this encounter Plan of Treatment Upcoming Encounters Date Type Department Care Team (Late st Contact Info) Description 08/27/2024 11:15 AM CDT Office Visit [facility] - Internal Medicine - [place] [address] [place] [id number] Tico Mars MD [address] [place] [address] documented as of this encounter Visit Diagnoses Not on filedocumented in this encounter Additional Health Concerns Assessment Noted Time PHQ-9 Depression Total Score: 0 01/13/20 22 2:58 PM CDT documented as of this encounter Care Teams Digital Analyst Relationship Specialty Start Date End Date Tico Mars MD [address] [place] [address] PCP - General Internal Medicine 03/18/18 02/06/24 Lidia Srinivasan MD [address] [facility] [address] [place] [address] PCP - General Rheumatology 02/07/24 03/02/24 Tico Mars MD [address] [place] [address] PCP - General Internal Medicine 03/03/24 Toribio Pinedo MD [address] [address] Consulting Physician Colon and Rectal Surgery 05/17/22 Geri Nath MD [address] [place] [address] Consulting Physician Gastroenterology 06/29/22 Tori Pinedo APRN, COMPUTER CLERK [address] [place] [address] Nurse Practitioner Advanced Practice Nurse 01/04/24 Sandi Hicks LSW [place] Sleeve Turner Paint Grinder 01/24/24 02/01/24 documented as of this encounter
--- OUTSIDE RECORDS SUMMARY | 2024-06-25 08:03 | XMS_ITS | Clinical Summary ---
Author Organization [facility] CALL C ENTER Address [address] [place] [address] Phone Care Team Providers Care Commercial Credit Specialist Name Role Phone Toribio Pinedo MD Unavailable Geri Nath MD Unavailable [phone] Tori Piendo APRN, POLYETHYLENE COMBINER Unavailable Tico Mars MD Primary Care Provider Allergies Active Allergy Reactions Criticality Noted Date Comments Cefdinir Swelling 09/03/2018 Latex Itching 09/28/2021 Penicillins Rash,Unknown 03/18/2018 Acetaminophen-Codeine Itching 09/03/2018 Medications methotrexate 2.5 MG Tablet Take by mouth every 7 days 6 tabs Active Multiple Vitamins-Mine rals (HAIR SKIN & NAILS ADVANCED) Tablet Take by mouth daily. Active Adalimumab (Humira Pen) 40 MG/0.4ML Pen-injector Kit Inject one pen subcutaneously once every two weeks. 11/20/19 20 Active Cyanocobalami n (B-12) 100 MCG Tablet Take by mouth. Acti ve folic acid (FOLVITE) 1 MG Tablet 08/28/19 22 Active cycloSPORINE (RESTASIS) 0.05 % Emulsion INSTILL 1 DROP INTO BOTH EYES TWICE A DAY 09/16/19 23 Active leflunomide (ARAVA) 20 MG Tablet Take 20 mg by mouth daily. 09/12/19 23 Active Miebo 1.338 GM/ML Solution 01/20/20 24 Active FML Forte 0.25 % Suspension Place 1 Drop in affected eye(s) every 12 hours. Active Varenicline Tartrate (Tyrvaya) 0.03 MG/ACT Solution 1 [place] by Nasal route every 12 hours. Active Multivitamin- Minerals (Hair Skin & Nails Advanced) Tablet Hair Skin & Nails Ac tive Misc. Devices Misc Lightweight wheelchair-1 DX- Impaired gait/mobility (M06.89); Rheumatoid arthritis (M06.89) 1 Each 01/21/20 24 Active colestipol (Colestid) 1 GM Tablet Take 1 g by mouth 2 times daily. Active predniSONE (DELTASONE) 5 MG Tablet Take 1 Tablet by mouth daily. 1 tab 90 Tablet 05/26/19 25 Active amLODIPine (NORVASC) 5 MG Tablet TAKE 1 TABLET BY MOUTH EVERY DAY 90 Tablet 06/18/19 25 Active amLODIPine (NORVASC) 5 MG Tablet TAKE 1 TABLET BY MOUTH EVERY DAY 90 Tablet 03/24/20 24 2024 Discontinued Active Problems Problem Noted Date Diagnosed Date Allergic rhinitis 05/24/2023 Chronic left-sided low back pain without sciatic a 02/19/2023 Essential hypertension, benign 09/28/2021 Irritable bowel syndrome wit h both constipation and diarrhea 03/22/2020 Dysthymic disorder 03/22/2020 Other specified rheumatoid arthritis, multiple s ites 03/22/2020 Generalized anxiety disorder 03/22/2020 Chronic disease anemia 03/22/2020 DNS (deviated nasal septum) 05/02/2018 Resolved Problems Problem Noted Date Diagnosed Date Resolved Date Nasal septal perforation 05/02/201812/2020 Nasal septal ulcer 05/02/2018 Epistaxis 05/02/2018 03/01/2021 Encounters Date Type Department Care Team Description 06/20/2024 Telephone [facility] - Internal Medicine [facility] [address] [place] [address] Tico Mars MD 06/18/2024 Refill [facility] Internal Medicine [facility] [address] [place] [place] [address] Tico Mars MD Medication Refill 05/28/2024 Patient Outreach [facility] Dental Scheduling Coordinator Management [address] [place] [address] Sandi Hicks LSW Care Management (Patient outreach/ referral) 05/26/2024 9:00 AM PROGRAM PROPOSALS COORDINATOR Office Visit [facility] - Internal Medicine [facility] [address] [place] [address] Tico Mars MD Impaired gait and mobility (Primary Dx); Chronic right hip pain; Other specified rheumatoid arthritis, multiple sites (HCC); Encounter for screening involving social determinants of health (SDoH); Essential hypertension, benign Discharge Disposition: Discharged to home or Selfcare 05/26/2024 Travel from Last 3 Months Immunizations Immunization Administration Dates Next Due COVID-19, MRNA, LNP-S, BIVAL ENT , PFIZER, 30 MCG/0.3 ML (12+ Y/O) 10/09/2022 Covid-19, Mrna, Lnp-s, Pf, 30 Mcg/0.3 Ml Dose (P fizer) 06/24/2020,06/05/2020 Covid-19, Mrna, Lnp-s, Pf, T ris-sucrose, 30 Mcg/0.3 Ml (Pfizer) 12/30/2023,02/02/2023 Influenza Vaccine 01/19/2014 Influenza Vaccine, Quadrivalent, PF 02/08/2021,1 Influenza, High-dose, Quadrivalent 12/22/2013 Influenza, Intradermal, Quad rivalent, Preservative Free 04/26/2016 Influenza, Quadrivalent, Adjuvanted 02/02/2023,0 01/12/2022 Influenza, Recombinant, Quadrivalent,injectable, Pf 04/26/2016 Influenza, high-dose, trivalent, PF 12/30/2023 Pneumococcal Vaccine Adult - 23 Valent 2 Pneumococcal conjugate PCV20 , polysaccharide [id number] conjugate, adjuvant, PF 03/13/2023 RSV, Recombinant, Protein Carlson bunit Rsvpref, Adjuvant Recon (Arexvy) 03/01/2023 TDAP Vaccine 02/09/2020,01/19/2014 Zoster Vaccine Recombinant 03/26/2023 Family History Medical History Relation Name Comments Cancer Brother pancratic No Known Problems Daughter Congestive Heart Failure Father Heart Disease Father Stroke Father No Known Problems Maternal Grandfather Diabetes Maternal Grandmother Diabetes Mother Hypertension Mother Other-comment Paternal Grandfather Black Lung Stroke Paternal Grandmother Rheumatoid Arthritis Sister Bipolar Disorder Son Relation Name Status Comments Brother Daughter Alive Father Maternal Grandfather Maternal Grandmother Mother Paternal Grandfather Paternal Grandmother Sister Alive Son Alive Social History Tobacco Use Types Packs/Day Years Used Date Smoking Tobacco: Never Passive Smoke Exposure: Never Smokeless Tobacco: Never Tobacco Cessation:Counseling Given: No Alcohol Use Standard Drinks/Week Comments Not Currently 0 (1 standard drink = 0.6 oz pur e alcohol) [facility] Utilities Answer Date Recorded In the past 12 months has e Max[employer], gas, oil, or water company threatened to shut off services in your home? No 05/30/2024 Social Connection and Isolat ion Panel [NHANES] Answer Date Recorded In a typical week, how many times do you talk on the phone with family, friends, or neighbors? Once a week 05/30/2024 How often do you get togethe r with friends or relatives? Once a week 05/30/2024 How often do you attend chur ch or mormonism services? 1 to 4 times per year 05/30/2024 Do you belong to any clubs o r organizations such as holiness groups, unions, fraternal or athletic groups, or school groups? Yes 05/30/2024 How often do you attend meet ings of the clubs or organizations you belong to? More than 4 times per year 05/30/2024 Are you , , di vorced, , never , or living with a partner? Living with partner 05/30/2024 AUDIT-C Answer Date Recorded Q1: How often do you have a drink containing alcohol? Never 05/30/2024 Q2: How many drinks containi ng alcohol do you have on a typical day when you are drinking? Patient does not drink Q3: How often do you have si x or more drinks on one occasion? Never 05/30/2024 Overall Financial Resource Strain (CARDIA) Answe r Date Recorded How hard is it for you to pa y for the very basics like food, housing, medical care, and heating? Not very hard 05/30/2024 PHQ-2 Answer Date Recorded Total Score - Questions 1-9 0 10/2024 [facility] Occupational Stress Questionnaire Answer Date Recorded Do you feel stress - tense, restless, nervous, or anxious, or unable to sleep at night because your mind is troubled all the time - these days? Rather much 05/30/2024 Exercise Vital Sign Answer Date Recorde d On average, how many days pe r week do you engage in moderate to strenuous exercise (like a brisk walk)? 5 days 05/30/2024 On average, how many minutes do you engage in exercise at this level? 50 min 05/30/2024 Hunger Vital Sign Answer Date Recorded Within the past 12 months, y ou worried that your food would run out before you got the money to buy more. Never true 05/30/19 25 Within the past 12 months, t he food you bought just didn't last and you didn't have money to get more. Never true 05/30/2024 PRAPARE - Transportation Answer Date Re corded In the past 12 months, has l ack of transportation kept you from medical appointments or from getting medications? No 10/2024 In the past 12 months, has l ack of transportation kept you from meetings, work, or from getting things needed for daily living? No 05/30/2024 Housing Stability Vital Sign Answer Clive e [...] place to sleep or slept in a retirement (including now)? Patient unable to answer 05/24/2023 Housing Stability Vital Sign Answer Clive e Recorded In the last 12 months, was t here a time when you were not able to pay the mortgage or rent on time? No 05/30/2024 In the past 12 months, how m any times have you moved where you were living? 0 05/30/2024 At any time in the past 12 m [facility], were you homeless or living in a retirement (including now)? 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 Not on file Not on file Not on file Last Filed Vital Signs Vital Sign Reading Time Taken Comments Blood Pressure 150/74 05/26/2024 9:04 AM PROGRAM PROPOSALS COORDINATOR Pulse 86 05/26/2024 9:04 AM PROGRAM PROPOSALS COORDINATOR Temperature 36.6 C (97.8 F) 05/26/2024 9:04 AM PROGRAM PROPOSALS COORDINATOR Respiratory Rate 12 01/17/2024 3:36 PM CDT Oxygen Saturation 97% 05/26/2024 9:04 AM PROGRAM PROPOSALS COORDINATOR Inhaled Oxygen Concentration - - Weight 69.9 kg (154 lb) 05/26/2024 9:04 AM PROGRAM PROPOSALS COORDINATOR Height 160 cm (5' 3 ) 05/26/2024 9:04 AM PROGRAM PROPOSALS COORDINATOR Body Mass Index 27.28 05/26/2024 9:04 AM PROGRAM PROPOSALS COORDINATOR Plan of Treatment Upcoming Encounters Date Type Department Care Team (Late st Contact Info) Description 08/27/2024 11:15 AM CDT Office Visit [facility] - Internal Medicine - [place] [address] [id number] Tico Mars MD [address] [place] [address] Health Maintenance Due Date Last Done Comments Hepatitis C Virus (HCV) Screening 1955 Cologuard 2006 Immunochemical Fecal Occult Blood 2006 SARS-COV-2 Immunization (9 - Pfizer risk season) 2024 12/30/2023, 02/02/2023, 10/09/2022, Additional history exists Mammogram 01/27/2025 01/28/2024, 09/21, 09/30/2021, Additional history exists Colonoscopy 09/27/2025 09/27/2020 Colorectal Cancer Screening 09/27/2025 DEXA Bone Density 02/06/2026 02/07/2024, , 11/06/2023, Additional history exists Td Immunization Every 10 Years (Adults With 1 Tdap) 02/08/2030 02/09/2020, 01/19/2014 09/27/2020 DTaP/Tdap/Td Immunization Discontinued 02/09/2020, Respiratory Syncytial Virus (RSV) Immunization (Adult) Completed 03/01/2023 Pneumococcal Immunization (50+ years) Completed 03/13/2023, 06/01/2021 Pneumococcal Immunization Combined Discontinued 03/13/2023, 06/01/2021 Zoster Immunization Discontinued 03/26/2023 Influenza Immunization Completed 4, 02/09/2023, 02/02/2023, Additional history exists Hepatitis B Immunization Aged Out No longer eligible based on patient's age to complete this topic Meningococcal Immunization (ACWY) Aged Out No longer eligible based on patient's age to complete this topic Rotavirus Immunization Aged Out No lo nger eligible based on patient's age to complete this topic Procedures Procedure Name Priority Date/Time Associated Diagnosis Comments MRI - LOWER EXTREMITY GENERIC 06/14/2024 12:00 AM PROGRAM PROPOSALS COORDINATOR IN-HOME CONSULT 05/19/2024 12:00 AM PROGRAM PROPOSALS COORDINATOR [facility] BONE DENSITOMETRY AXIAL SKELETON Routine 02/07/2024 1:21 PM CDT Screening for osteoporosis [facility] SCREENING BILATERAL DIGITAL W CAD W CHELY Routine 01/28/2024 12:28 PM CDT Encounter for screening mammogram for breast cancer from Last 3 Months or Most Recently Relevant to Health Maintenance Results * MRI - LOWER EXTREMITY GENERIC (06/14/2024 12:00 AM PROGRAM PROPOSALS COORDINATOR) 06/14/2024 us Provider Scan IMG MR ORDERABLES Final Result SCAN * IN-HOME CONSULT (05/19/2024 12:00 AM PROGRAM PROPOSALS COORDINATOR) 05/19/2024 us Provider Scan GENERIC SCAN ORDERS CONSULT Iva l Result SCAN * [facility] BONE DENSITOMETRY AXIAL SKELETON (02/07/2024 1:21 PM CDT) Anatomical Region Laterality Modality BODY N/A Computed Radiogr aphy 02/07/2024 4:35 PM CDT Impressions 02/07/2024 4:38 PM CDT IMPRESSION: Osteoporosis. REFERENCE: Bone mineral density: T-Score: Normal (T-score above or = -1.0) Low bone mass (T-score between -1.0 and -2.5) replaces the previously used term osteopenia Osteoporosis (T-score = or below -2.5) Z-Score: Within the expected range for age (Z-score above -2.0) Below the expected range for age (Z-score is -2.0 or below) Please see below follow up recommendations. Medical evaluation for secondary causes of low bone mineral density may be appropriate. FRAX is a World Health Organization validated fracture risk assessment tool that calculates a person's 10 year probability of a major osteoporosis related fracture and hip fracture. According to the National Osteoporosis Foundation guidelines, postmenopausal women and men age 50 or older with low bone mass and a 10 year probability of a major osteoporosis related fracture = or greater than 20% or a 10 year probability of a hip fracture = or greater than 3% should be considered for pharmacological treatment for the prevention of osteoporosis. For further information, including treatment recommendations, please refer to the 2019 ISCD Official Positions (http://www.iscd.org) and the NOF's Clinician's Guide to Prevention and Treatment of Osteoporosis (http://www.nof.org/professionals/clinical-guidelines) Narrative 02/07/2024 4:38 PM CDT EXAM DESCRIPTION: [facility]ONE DENSITOMETRY AXIAL SKELETON REASON FOR STUDY: 68 y/o year old F with given history of: Post menopausal status. History glucocorticoid use and rheumatoid arthritis. 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 COMPARISON: None available FINDINGS: AP LUMBAR SPINE L1-L4: Total BMD is 1.002 g/cm2 T-score is -1.6 LEFT HIP: Total BMD is 0.646 g/cm2 T-score is -2.9 Femoral neck BMD is 0.706 g/cm2 T-score is -2.4 FRAX: FRAX not reported due to T-scores of hip, femoral neck and/or spine being at or below -2.5 (Osteoporosis). THIS IS AN ELECTRONICALLY VERIFIED FINAL REPORT 02/07/2024 4:35 PM - Electronically signed by Minerva Avitia M.D. TW: Report ID: [id number] Reading Location: [id number] Procedure Note Minerva Avitia MD - 02/07/2024 EXAM DESCRIPTION: [facility] BONE DENSITOMETRY AXIAL SKELETON REASON FOR STUDY: 68 y/o year old F with given history of: Post menopausal status. History glucocorticoid use and rheumatoid arthritis. 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 COMPARISON: None available FINDINGS: AP LUMBAR SPINE L1-L4: Total BMD is 1.002 g/cm2 T-score is -1.6 LEFT HIP: Total BMD is 0.646 g/cm2 T-score is -2.9 Femoral neck BMD is 0.706 g/cm2 T-score is -2.4 FRAX: FRAX not reported due to T-scores of hip, femoral neck and/or spine being at or below -2.5 (Osteoporosis). THIS IS AN ELECTRONICALLY VERIFIED FINAL REPORT 02/07/2024 4:35 PM - Electronically signed by Minerva Avitia M.D. TW: TW Report ID: [id number] Reading Location: [id number] IMPRESSION: Osteoporosis. REFERENCE: Bone mineral density: T-Score: Normal (T-score above or = -1.0) Low bone mass (T-score between -1.0 and -2.5) replaces the previously used term osteopenia Osteoporosis (T-score = or below -2.5) Z-Score: Within the expected range for age (Z-score above -2.0) Below the expected range for age (Z-score is -2.0 or below) Please see below follow up recommendations. Medical evaluation for secondary causes of low bone mineral density may be appropriate. FRAX is a World Health Organization validated fracture risk assessment tool that calculates a person's 10 year probability of a major osteoporosis related fracture and hip fracture. According to the National Osteoporosis Foundation guidelines, postmenopausal women and men age 50 or older with low bone mass and a 10 year probability of a major osteoporosis related fracture = or greater than 20% or a 10 year probability of a hip fracture = or greater than 3% should be considered for pharmacological treatment for the prevention of osteoporosis. For further information, including treatment recommendations, please refer to the 2019 ISCD Official Positions (http://www.iscd.org) and the NOF's Clinician's Guide to Prevention and Treatment of Osteoporosis (http://www.nof.org/professionals/clinical-guidelines) us Tico Mars MD IMG DEXA ORDERABLES Final R esult * [facility] SCREENING BILATERAL DIGITAL W CAD W CHELY (01/28/2024 12:28 PM CDT) Anatomical Region Laterality Modality breast Bilateral Mammography 01/28/2024 12:5 9 PM CDT Narrative 01/29/2024 8:55 AM CDT - [facility] SCREENING BILATERAL DIGITAL W CAD W CHELY BILATERAL DIGITAL SCREENING MAMMOGRAM 3D/2D WITH CAD WITH MEDIOLATERAL OBLIQUE CRANIOCAUDAL: 01/28/2024 The study was acquired using digital technology and interpreted from soft copy. Current study was also evaluated with ICAD version 7.2. 2D digital mammographic views, as well as 3D digital tomosynthesis were performed in the CC and MLO projections. CLINICAL: Routine screening. Patient has no complaints. No personal history of cancer. No family history of breast cancer. Unable to obtain ACR quality images due to patient condition. Exam performed in a wheelchair. COMPARISONS: Comparison is made to exams dated: 10/05/2022, 09/30/2021, 03/07/2021, 08/24/2020, and 08/11/2020 [facility]. BREAST TISSUE:There are scattered areas of fibroglandular density. FINDINGS: No significant masses, calcifications, or other findings are seen in either breast. There has been no significant interval change. IMPRESSION: NEGATIVE There is no mammographic evidence of malignancy. A 1 year screening mammogram is recommended. A letter will be sent to the patient with these results. The patient will be entered into a reminder system with a target due date of 1 year for her next screening exam. Electronically signed by: Luis naranjo/raul:01/28/2024 16:57:24 Social Organization Professor(s): RT Willie(R)(M), [facility] letter sent: Normal Exam Reading location: [facility] Mammogram BI-RADS: Category 1: Negative Procedure Note Luis Daily MD - 01/29/2024 - [facility] SCREENING BILATERAL DIGITAL W CAD W CHELY BILATERAL DIGITAL SCREENING MAMMOGRAM 3D/2D WITH CAD WITH MEDIOLATERAL OBLIQUE CRANIOCAUDAL: 01/28/2024 The study was acquired using digital technology and interpreted from soft copy. Current study was also evaluated with ICAD version 7.2. 2D digital mammographic views, as well as 3D digital tomosynthesis were performed in the CC and MLO projections. CLINICAL: Routine screening. Patient has no complaints. No personal history of cancer. No family history of breast cancer. Unable to obtain ACR quality images due to patient condition. Exam performed in a wheelchair. COMPARISONS: Comparison is made to exams dated: 10/05/2022, 09/30/2021, 03/07/2021, 08/24/2020, and 08/11/2020 [facility]. BREAST TISSUE:There are scattered areas of fibroglandular density. FINDINGS: No significant masses, calcifications, or other findings are seen in either breast. There has been no significant interval change. IMPRESSION: NEGATIVE There is no mammographic evidence of malignancy. A 1 year screening mammogram is recommended. A letter will be sent to the patient with these results. The patient will be entered into a reminder system with a target due date of 1 year for her next screening exam. Electronically signed by: Luis naranjo/raul:01/28/2024 16:57:24 Social Organization Professor(s): RT Willie(R)(M), [facility] letter sent: Normal Exam Reading location: [facility] Mammogram BI-RADS: Category 1: Negative Tico Mars MD IMG MAMMO ORDERABLES Final Result from Last 3 Months or Most Recently Relevant to Health Maintenance Insurance [address] [place] [id number] MEDICARE C [employer] [address] [place] [id number] Care Teams Commercial Credit Specialist Relationship Specialty Start Date End Date Tico Mars MD [address] [place] [address] PCP - General Internal Medicine 03/03/24 Toribio Pinedo MD [address] [address] Consulting Physician Colon and Rectal Surgery 05/17/22 Geri Nath MD [address] [place] [address] Consulting Physician Gastroenterology 06/29/22 Tori Pinedo APRN, POLYETHYLENE COMBINER [address] [place] [address] Nurse Practitioner Advanced Practice Nurse 01/04/24
--- OUTSIDE RECORDS SUMMARY | 2024-06-25 08:03 | XMS_ITS | Encounter Summary ---
Author Organization [facility] Address [address] [place] [address] Phone Care Team Providers Care Veterans Service Representative Name Role Phone Tico Mars MD Primary Care Provider [phone] Toribio Pinedo MD Unavailable Geri Nath MD Unavailable [phone] Tori Pinedo APRN, MAINTENANCE AND ENGINEERING MANAGER Unavailable Sandi Hicks NURSE COORDINATOR Unavailable Unavailab Lidia Cabrera MD Primary Care Provide r Tico Mars MD Primary Care Provider [phone] Reason for Visit * Reason Comments Medication Refill Encounter Details Date Type Department Care Team (Late st Contact Info) Description 04/07/2022 Refill [facility] - Internal Medicine - [place] [address] [place] [address] Tico Mars MD [address] [place] [address] Medication Refill Social History Tobacco [...] Telephone Encounter - Tori Murphy RN - 04/07/2022 9:07 AM CST Medication failed the protocol, provider to review and approve the medication order if appropriate. Requested Prescriptions Pending Prescriptions Disp Refills DULoxetine (CYMBALTA) [address] Particles [Pharmacy Med Name: DULOXETINE HCL DR 60 MG CAP] 90 Capsule 1 Sig: TAKE 1 CAPSULE BY MOUTH EVERY DAY SNRI (6 Month Refill Only) Protocol Failed - 04/07/2022 9:05 AM Failed - Has an encounter in the past 6 months with a depression or anxiety visit diagnosis Passed - Visit with relevant provider in past 6 months or upcoming 90 days Recent Visits Date Type Provider Dept 01/12/22 Office Visit Tico Mars MD [facility] 11/24/21 Telemedicine Tico Mars MD [facility] [place] Showing recent visits within past 182 days and meeting all other requirements Future Appointments Date Type Provider Dept 04/11/22 Appointment Tico Mars MD [facility] Showing future appointments within next 90 days and meeting all other requirements Passed - Patient has established therapy with Serotonin-Norepinephrine Reuptake Inhibitors for at least 6 months L PICKLING EQUIPMENT OPERATOR documented in this encounter Plan of Treatment Upcoming Encounters Date Type Department Care Team (Late st Contact Info) Description 08/27/2024 11:15 AM CDT Office Visit [facility] - Internal Medicine - [place] [address] [place] [id number] Tico Mars MD [address] [place] [address] documented as of this encounter Visit Diagnoses Not on filedocumented in this encounter Additional Health Concerns Assessment Noted Time PHQ-9 Depression Total Score: 0 01/13/20 2:58 PM CDT documented as of this encounter Care Teams Veterans Service Representative Relationship Specialty Start Date End Date Tico Mars MD [address] [address] PCP - General Internal Medicine 03/18/18 02/06/24 Lidia Srinivasan MD [address] [facility] [address] [place] [address] PCP - General Rheumatology 02/07/24 03/02/24 Tico Mars MD [address] [place] [address] PCP - General Internal Medicine 03/03/24 Toribio Pinedo MD [address] [address] Consulting Physician Colon and Rectal Surgery 05/17/22 Geri Nath MD [address] [place] [address] Consulting Physician Gastroenterology 06/29/22 Tori Pinedo APRN, MAINTENANCE AND ENGINEERING MANAGER [address] [place] [address] Nurse Practitioner Advanced Practice Nurse 01/04/24 Sandi Hicks LSW [place] Color Weigher Structural Metal Worker 01/24/24 02/01/24 documented as of this encounter
--- OUTSIDE RECORDS SUMMARY | 2024-06-25 08:03 | XMS_ITS | Patient Health Record ---
Author Organization [facility] Address [address] [place] [address] Care Team Providers Care Locks Tender Name Role Phone Tico Mars MD Primary Care Provider Edita Shook Unavailable [phone] Terrance Toledo Unavailable [phone] Jay Linda Unavailable [phone] Allergies Allergen (clinical drug ingredient) Drug/Non Drug Allergy documented on EMR Reaction Allergy Type Onset Date Status Penicillin Unknown Drug Allergy Active Results Component Value Reference Range Notes UDT Reviewed date:11/28/2023 01:16:41 PM Interpretation: Performing Lab: Notes/Report: THC Neg 0 - 50 ng/ml Cocaine Neg 0 - 300 ng/ml Amphetamine Neg 0 - 1000 ng/ml Buprenorphine (BUP) Neg 0 - 10 ng/ml Secobarbital (Bar) Neg 0 - 300 ng/ml Oxazepam (BZO) Neg 0 - 300 ng/ml 0-iklxeyqghd-8,3-cylwrrtj-7,3-diphenylpyrrolidine (MICHAEL P) Neg 0 - 300 ng/ml Methamphetamine (MET) Neg 0 - 1000 ng/ml Methylenedioxymethamphetamine (MDMA) Neg 0 - 500 ng/ml Morphine (MOP 300/OFB4004) Neg 0 - 300 ng/ml Methadone (MTD) Neg 0 - 300 ng/ml Phencyclidine (PCP) Neg 0 - 25 ng/ml Nortriptyline (TCA) Neg 0 - 1000 ng/ml Oxycodone Neg 0 - 300 ng/ml x Neg 0 - 300 ng/ml Reason For Referral No Information Medications Medication SIG (Take, Route, Frequency, Duration) Notes Start Date End Date Status Methotrexate take 6 tablets once a week Active predniSONE 5 MG 1 tablet Orally Once a day Active Folic Acid 1 MG 1 tablet Orally Once a day Active Leflunomide 20 MG 1 tablet Orally Once a day Active tiZANidine HCl 2 MG 1 capsule at bedtime as needed Orally Once a day Active Miebo Active Humira Pen 40 mg sub q twice a month Active amLODIPine Besylate 5 MG 1 tablet Orally Once a day Active Hair Skin & Nails Ac tive Apple Cider Vinegar Active Active Tyrvaya Active Propranolol HCl 10 MG 1 tablet Orally twice a day for 90 days Active Social History Tobacco Use: Social History Observation Description Date Details (start date - stop date) Never Smoker NA - NA Sex Assigned At : Social History Observation Description Sex Assigned At Female Household Question Answer Notes Marital status: Tobacco Control (Standard) Question Answer Notes Tobacco use: Nonsmoker Problems Problem Type SNOMED Code ICD Code Onset Dates Problem Status W/U Status Risk Notes Problem [id number] Major depressive disorder, recurrent, 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) Active confirmed Problem Generalized anxiety disorder (24858459) TUCKER (generalized anxiety disorder) (F41.1) Active confirmed Problem Anxiety (65749839) Anxiety (F41.9) Active confirmed Vital Signs Heart Rate 82 /min 12/12/2023 Blood pressure diastolic 77 mm Hg 12/12/2023 Weight-kg 68.31 kg 12/12/2023 Blood pressure systolic 131 mm Hg 12/12/2023 Weight 150.6 lbs 12/12/2023 Encounters Encounter Location Date Provider Diagnosis [facility] [employer] [facility] [address] [facility] [address] [facility] [address] [place] [address] 11/28/2023 Jay Clubb Major depressive disorder, recurrent, severe with psychotic symptoms F33.3 and Anxiety F41.9 [facility] [employer] [facility] [address] [place] [address] 12/12/2023 Jay Clubb Major depressive disorder, recurrent, severe with psychotic symptoms F33.3 and Anxiety F41.9 [facility] [employer] [facility] [address] [place] [address] 01/16/2024 Edita Luis Carlos Major depressive disorder, recurrent, severe with psychotic symptoms F33.3 and TUCKER (generalized anxiety disorder) F41.1 [facility] [employer] [facility] [address] [place] [address] 02/15/2024 Edita Luis Carlos Major depressive disorder, recurrent, severe with psychotic symptoms F33.3 and TUCKER (generalized anxiety disorder) F41.1 [facility] [employer] [facility] [address] [place] [address] 03/17/2024 Edita Aldridge Major depressive disorder, recurrent, severe with psychotic symptoms F33.3 and TUCKER (generalized anxiety disorder) F41.1 [facility] [employer] [facility] [address] [place] [address] 05/05/2024 Edita Aldridge Major depressive disorder, recurrent, severe with psychotic symptoms F33.3 and TUCKER (generalized anxiety disorder) F41.1 [employer] [facility] [address] [place] [address] 11/28/2023 Terrance Toledo Major depressive disorder, recurrent, severe with psychotic symptoms F33.3 Assessments Encounter Date Diagnosis (ICD Code) Assessment Notes Treatment Notes Treatment Clinical Notes Section Notes 11/28/2023 Major depressive disorder, recurrent, severe with psychotic symptoms (ICD-10 - F33.3) 1. Major Depressive Disorder with Psychotic Features - Continue fluoxetine (Prozac) for depression management - Initiate aripiprazole (Abilify) 2 mg once daily as an antipsychotic and mood stabilizer to address psychotic symptoms and anger - Reassess her response to aripiprazole in 2 weeks - Consider using aripiprazole as needed during depressive flare-ups if effective 2. Cognitive decline and memory loss - Differential diagnosis: Long COVID or anxiety-related forgetfulness - Monitor her cognitive function during follow-up visits - Encourage her to continue engaging in brain exercises and activities 3. Anxiety - Address anxiety symptoms with aripiprazole as part of the treatment plan for Major Depressive Disorder with Psychotic Features - Monitor her anxiety levels during follow-up visits 4. Sleep - Encourage her to maintain a consistent sleep schedule and aim for 8-9 hours of sleep per night - Monitor her sleep quality during follow-up visits 5. Possible medication resistance - If aripiprazole is not effective, consider performing a genetic test to determine which medications may work best for her 6. Metabolic monitoring - Obtain baseline lab work to monitor for potential metabolic side effects of aripiprazole, including weight gain, increased triglycerides, and cholesterol levels - Monitor her metabolic status during follow-up visits 7. Follow-up - Schedule a follow-up appointment in 2 weeks to assess her response to aripiprazole and overall mental health status 11/28/2023 Anxiety (ICD-10 - F41.9) 1. Major Depressive Disorder with Psychotic Features - Continue fluoxetine (Prozac) for depression management - Initiate aripiprazole (Abilify) 2 mg once daily as an antipsychotic and mood stabilizer to address psychotic symptoms and anger - Reassess her response to aripiprazole in 2 weeks - Consider using aripiprazole as needed during depressive flare-ups if effective 2. Cognitive decline and memory loss - Differential diagnosis: Long COVID or anxiety-related forgetfulness - Monitor her cognitive function during follow-up visits - Encourage her to continue engaging in brain exercises and activities 3. Anxiety - Address anxiety symptoms with aripiprazole as part of the treatment plan for Major Depressive Disorder with Psychotic Features - Monitor her anxiety levels during follow-up visits 4. Sleep - Encourage her to maintain a consistent sleep schedule and aim for 8-9 hours of sleep per night - Monitor her sleep quality during follow-up visits 5. Possible medication resistance - If aripiprazole is not effective, consider performing a genetic test to determine which medications may work best for her 6. Metabolic monitoring - Obtain baseline lab work to monitor for potential metabolic side effects of aripiprazole, including weight gain, increased triglycerides, and cholesterol levels - Monitor her metabolic status during follow-up visits 7. Follow-up - Schedule a follow-up appointment in 2 weeks to assess her response to aripiprazole and overall mental health status 12/12/2023 Major depressive disorder, recurrent, severe with psychotic symptoms (ICD-10 - F33.3) 1. Memory loss and disorientation - Continue monitoring cognitive function - Encourage her to engage in cognitive activities (e.g., word searches, current events) - patient denied any memory issues during this visit and reported that this is no longer a concern for her. 2. Anxiety - Initiate propranolol for reactive anxiety management - Educate her on checking heart rate and contraindication if heart rate is below 60 bpm - Consider Vistaril as an alternative if propranolol is not effective or tolerated - initiate therapy services. a list of therapists in the [place] area was provided to the patient. 3. Depression with psychotic features - Monitor for psychotic symptoms during high anxiety or major depression - Encourage her to seek talk therapy; provide referrals to local therapists - Pt rated her depression 5/10. - She denied any psychotic features since her last visit. 4. Medication management - Monitor tizanidine usage and potential interaction with propranolol - Discussed not to take Tizanidine with Propranolol as Propranolol can increase concentrations of Tizanidine. 5. Follow-up and coordination of care - Schedule a follow-up appointment in one month with an upstairs provider for medication refills and ongoing management - Encourage her to return to the clinic if any issues arise or medication changes are needed 6. Patient education - Instruct her on how to check heart rate and when to avoid taking propranolol - Discuss potential side effects of propranolol and Vistaril - Inform her about the interaction between propranolol and tizanidine 01/16/2024 Major depressive disorder, recurrent, severe with psychotic symptoms (ICD-10 - F33.3) Common side effects to SSRI medications include headaches, dry mouth/eye, GI upset (including indigestion, nausea, diarrhea), sleeping problems (insomnia or drowsiness), decreased libido, blurred vision, dizziness. Generally, side effects will subside or lessen with time and are common during drug initiation and dose changes. If they persist please contact the office. 01/16/2024 TUCKER (generalized anxiety disorder) (ICD-10 - F41.1) Common side effects of Wellbutrin include insomnia, increased anxiety, nausea, dizziness, decreased appetite, restlessness, irritability and anger, increased sweating or hot flashes, tremors, joint pain. Wellbutrin is not recommended in individuals with a history of seizures. If side effects persist, please contact the office. 02/15/2024 Major depressive disorder, recurrent, severe with psychotic symptoms (ICD-10 - F33.3) Common side effects to SSRI medications include headaches, dry mouth/eye, GI upset (including indigestion, nausea, diarrhea), sleeping problems (insomnia or drowsiness), decreased libido, blurred vision, dizziness. Generally, side effects will subside or lessen with time and are common during drug initiation and dose changes. If they persist please contact the office. 05/05/2024 Major depressive disorder, recurrent, severe with psychotic symptoms (ICD-10 - F33.3) 03/17/2024 Major depressive disorder, recurrent, severe with psychotic symptoms (ICD-10 - F33.3) 11/28/2023 Major depressive disorder, recurrent, severe with psychotic [...] not found. Contact Pharmacy by other means 05/05/2024 TUCKER (generalized anxiety disorder) (ICD-10 - F41.1) 02/15/2024 TUCKER (generalized anxiety disorder) (ICD-10 - F41.1) Common side effects of Wellbutrin include insomnia, increased anxiety, nausea, dizziness, decreased appetite, restlessness, irritability and anger, increased sweating or hot flashes, tremors, joint pain. Wellbutrin is not recommended in individuals with a history of seizures. If side effects persist, please contact the office. 12/12/2023 Anxiety (ICD-10 - F41.9) 1. Memory loss and disorientation - Continue monitoring cognitive function - Encourage her to engage in cognitive activities (e.g., word searches, current events) - patient denied any memory issues during this visit and reported that this is no longer a concern for her. 2. Anxiety - Initiate propranolol for reactive anxiety management - Educate her on checking heart rate and contraindication if heart rate is below 60 bpm - Consider Vistaril as an alternative if propranolol is not effective or tolerated - initiate therapy services. a list of therapists in the [place] area was provided to the patient. 3. Depression with psychotic features - Monitor for psychotic symptoms during high anxiety or major depression - Encourage her to seek talk therapy; provide referrals to local therapists - Pt rated her depression 5/10. - She denied any psychotic features since her last visit. 4. Medication management - Monitor tizanidine usage and potential interaction with propranolol - Discussed not to take Tizanidine with Propranolol as Propranolol can increase concentrations of Tizanidine. 5. Follow-up and coordination of care - Schedule a follow-up appointment in one month with an upstairs provider for medication refills and ongoing management - Encourage her to return to the clinic if any issues arise or medication changes are needed 6. Patient education - Instruct her on how to check heart rate and when to avoid taking propranolol - Discuss potential side effects of propranolol and Vistaril - Inform her about the interaction between propranolol and tizanidine 11/28/2023 Other Learning About Depression Screening material was printed 1. Major Depressive Disorder with Psychotic Features - Continue fluoxetine (Prozac) for depression management - Initiate aripiprazole (Abilify) 2 mg once daily as an antipsychotic and mood stabilizer to address psychotic symptoms and anger - Reassess her response to aripiprazole in 2 weeks - Consider using aripiprazole as needed during depressive flare-ups if effective 2. Cognitive decline and memory loss - Differential diagnosis: Long COVID or anxiety-related forgetfulness - Monitor her cognitive function during follow-up visits - Encourage her to continue engaging in brain exercises and activities 3. Anxiety - Address anxiety symptoms with aripiprazole as part of the treatment plan for Major Depressive Disorder with Psychotic Features - Monitor her anxiety levels during follow-up visits 4. Sleep - Encourage her to maintain a consistent sleep schedule and aim for 8-9 hours of sleep per night - Monitor her sleep quality during follow-up visits 5. Possible medication resistance - If aripiprazole is not effective, consider performing a genetic test to determine which medications may work best for her 6. Metabolic monitoring - Obtain baseline lab work to monitor for potential metabolic side effects of aripiprazole, including weight gain, increased triglycerides, and cholesterol levels - Monitor her metabolic status during follow-up visits 7. Follow-up - Schedule a follow-up appointment in 2 weeks to assess her response to aripiprazole and overall mental health status 01/16/2024 Other Decrease fluoxetine to 10mg daily Start Wellbutrin 150mg daily for mood, motivation. Continue propranolol 10mg qd Patient educated on all medications including potential benefits, side effects, risks. Educated on proper dosing schedule and importance of compliance. 02/15/2024 Other Stop fluoxetine-coul d be contributing to diarrhea. Appears to be responding well to Wellbutrin-incr ease to 300mg daily. Continue propranolol 10mg qHS Patient educated on all medications including potential benefits, side effects, risks. Educated on proper dosing schedule and importance of compliance. 03/17/2024 Other Declines need for medication adjustment today; holiday season generally trigger increased depression for her, wants to re-evaluate need for medication adjustment after [place]. Refills sent today. Patient educated on all medications including potential benefits, side effects, risks. Educated on proper dosing schedule and importance of compliance. 05/05/2024 Other Stop Wellbutrin per patient, no [...] effects of psychotropic medications. -Crisis prevention hotline 668. Plan Of Treatment Next Appt Details Provider Name:Edita Aldridge, 08/04/2024 02:15:00 PM, [address], [place], [address], Insurance Providers Payer Name Payer Address Payer Phone Subscriber Number Group Number Insured Name Patient Relationship to Insured Coverage Start Date Coverage End Date [place] [address] [place] [address] [id number] BHARGAVI HANSON Self - patient is the insured [facility] Medicare Supplement [address] [place] [address] [id number] BHARGAVI HANSON Self - patient is the insured Medical (General) History Medical History History ICD Code HTN RA OA Dry eyes Chronic pain Surgical History Surgery Date(Month/Year) hysterectomy Right knee replacement
--- OUTSIDE RECORDS SUMMARY | 2024-06-25 08:03 | XMS_ITS | Clinical Summary ---
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 Gender Identity Not on file Sexual Orientation Not on file Plan of Treatment Health Maintenance Due Date Last Done Comments DTAP/TDAP/TD VACCINES (1 - Tdap) 1975 BREAST CANCER SCREENING 1996 COLORECTAL SCREENING 2001 Colorectal Cancer Screening 2001 FIT-DNA Q 3 years 2001 FIT/FOBT Q 1 year 2001 Flex Sig/CT Colonography Q 5 years 2001 PNEUMOCOCCAL VACCINE 50+ YEARS (1 of 1 - PCV) 04/11/20 06 ZOSTER VACCINE (1 of 2) 2006 OSTEOPOROSIS SCREENING 2021 INFLUENZA VACCINE (#1) 2023 RSV VACCINE (60+ or ) (1 - 1-dose 75+ series) 2031 Care Teams Men'S Garment Fitter Relationship Specialty Start Date End Date Iain Lowery MD [address] [id number] PCP - General 11/16/06
--- OUTSIDE RECORDS SUMMARY | 2024-06-25 08:04 | XMS_ITS | Encounter Summary ---
Author Organization [facility] Address 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
--- OUTSIDE RECORDS SUMMARY | 2024-06-25 08:04 | XMS_ITS | Encounter Summary ---
Author Organization [facility] Health Address [address] [place] [address] Care Team Providers Care Wrinkle Chaser Name Role Phone Tico Mars MD Primary Care Provider [phone] Encounter Details Date Type Department Care Team (Late st Contact Info) Description 09/27/2022 Lab Requisition [facility] - Derm[facility] Lab [address] [place] [id number] Jose Alejandro Lopez MD [address] [place] [address] Social History Tobacco Use Types Packs/Day Years Used Date Smoking Tobacco: Never Smokeless Tobacco: Never Alcohol Use Standard Drinks/Week Comments Never 0 (1 standard drink = 0.6 oz pur e alcohol) AUDIT-C Answer Date Recorded Frequency of Alcohol Consumption Never 01/20/2019 Average Number of Drinks Not on file 019 Frequency of Binge Drinking Not on file 12/24 Sex and Gender Information Value Date Recorded Sex Assigned at Not on file Gender Identity Not on file Sexual Orientation Not on file documented as of this encounter Plan of Treatment Not on file documented as of this encounter Procedures Procedure Name Priority Date/Time Associated Diagnosis Comments DERMATOPATHOLOGY Routine 09/26/2022 12:0 0 AM CDT documented in this encounter Results * DERMATOPATHOLOGY (09/26/2022 12:00 AM CDT) Case Report Dermatopathology Report Case: [id number] Authorizing Provider: Jose Alejandro Lopez MD Collected: 09/26/2022 12:00 AM Ordering Location: [facility] Lab Received: 09/28/2022 06:38 AM Pathologist: Flaquita Isaacs MD Specimens: A) - Skin, left medial groin B) - Skin, left lateral groin 1:04 PM [facility] Final Diagnosis Specimen A. SKIN, left medial groin: LENTIGINOUS MELANOCYTIC NEVUS, COMPOUND TYPE (D22.5) (see microscopic description and comment) Specimen B. SKIN, left lateral groin: COMPOUND MELANOCYTIC NEVUS (D22.5) (see microscopic description) 1:04 PM [facility] Clinical History A: nevus Path#[id number] B: nevus Path#[id number] 1:04 PM T DERMATOPATHOLOGY LABORATORY Gross Description Specimen A: Received is one formalin filled container labeled with the patient's name and designated left medial groin. The specimen consists of a shave biopsy measuring 9x6x2 mm. Jar 0. Specimen B: Received is one formalin filled container labeled with the patient's name and designated left lateral groin. The specimen consists of a shave biopsy measuring 6x2x1 mm. Jar 0. 1:04 PM [facility] Microscopic Description Specimen A. SKIN, left medial groin: This is a compound nevus. There is a lentiginous proliferation of melanocytes between nevus nests of cells along the dermal-epidermal junction. There is underlying lamellar fibroplasia of the papillary dermis. The intradermal component is bland in appearance and matures with depth. (Compound Evan's Nevus) This lesion is present at the margin of the specimen. COMMENT: If this specimen is sampled from a larger lesion, these findings may not be product sales representative of the entire lesion. Clinicopathologic correlation is recommended. Specimen B. SKIN, left lateral groin: There are nests of melanocytes at the dermal-epidermal junction and within the dermis. Additional deeper sections were obtained and reviewed. 1:04 PM CDT DERMATOPATHOLOGY LABORATORY Disclaimer An external and internal positive and negative controls are appropriate for the histochemical, immunohistochemical and immunofluorescence stain(s) in this case (if any), except where stated explicitly. The performance characteristics of the stain(s) cited in this report were developed and its performance characteristic determined by the Dermatopathology Laboratory at [facility], directed by Dr. Nelia Schaeffer. These tests need not be, and therefore are not, approved by the [place] Food and Drug Administration. The tests are used for clinical purposes. Billing Codes Specimen Charges Stain Charges 30794 70980 1 1 3 1:04 PM CDT DERMATOPATHOLOGY LABORATORY Embedded Images 3 1:04 PM CDT DERMATOPATHOLOGY LABORATORY Pathology/Cytology TISSUE SPECIMEN FROM SKIN / Unknown 09/26/2022 09/28/2022 6:38 AM CDT Miscellaneous samples (specimen) TISSUE SPECIMEN FROM SKIN / Unknown 09/26/2022 09/28/2022 6:38 AM CDT Jose Alejandro Lopez MD LAB - PATHOLOGY/CYTO LOGY ORDERABLES DERMATOPATHOLOGY LABORATORY [facility] - Department of Dermatology [facility] Medicine [address] [place] [address], [address] [phone] documented in this encounter Visit Diagnoses Not on filedocumented in this encounter Care Teams Wrinkle Chaser Relationship Specialty Start Date End Date Tico Mars MD [address] [address] PCP - General 01/20/19 documented as of this encounter
--- OUTSIDE RECORDS SUMMARY | 2024-06-25 08:04 | XMS_ITS | Clinical Summary ---
Author Organization Formerly [facility] Address [address] [place] [address] Care Team Providers Care Surgical Lead Name Role Phone Tico Mars MD Primary Care Provider [phone] Allergies Active Allergy Reactions Criticality Noted Date Comments Cefdinir Swelling Medium 09/03/2018 Fluticasone Itching Low 01/20/2019 Latex Blisters High 04/14/2019 Lifitegrast Unknown 12/19/2023 Penicillin G Rash Medium Oxycodone-Acetaminophe n Other (See comments) Low 04/14/2019 Extreme sleepiness Tissue Adhesive Redness Low 06/13/2019 Medications vit D3-vit P-nqxahbqxl-fk ps [phone] nwdw-rwq-bc-mg tablet Take by mouth Active dicyclomine (BENTYL) 10 mg capsule Take 1 capsule (10 mg total) by mouth daily 06/16/19 21 Active Besivance 0.6 % drops,suspensi on 3 (three) times a day 06/17/19 22 Active Prolensa 0.07 % drops daily 06/17/19 22 Active Lotemax SM 0.38 % drops,gel 3 (three) times a day 06/17/19 22 Active amLODIPine (NORVASC) 5 mg tablet Take 1 tablet (5 mg total) by mouth daily 10/22/19 22 Active olopatadine (PATADAY) 0.2 % ophthalmic solution Administer 1 drop into affected eye(s) daily Active cycloSPORINE (RESTASIS) 0.05 % ophthalmic emulsion 1 drop 2 (two) times a day Active tiZANidine (ZANAFLEX) 2 mg tablet Take 1 tablet (2 mg total) by mouth 2 (two) times a day as needed 04/27/19 24 Active Miebo 100 % drops 07/09/19 24 Active folic acid (FOLVITE) 1 mg tablet TAKE 1 TABLET BY MOUTH EVERY DAY 90 tablet 3 09/26/19 24 Active tobramycin-dex AMETHasone (TOBRADEX) ophthalmic solution USE 1 DROP INTO BOTH EYES 4 TIMES A DAY 5 DAYS THEN TWICE A DAY 5 DAYS 08/23/[address] (CYMBALTA) 30 mg capsule Take by mouth daily 09/12/19 24 Active colestipoL (COLESTID) 1 gram tablet Take 1 tablet (1 g total) by mouth 2 (two) times a day 01/04/20 24 Active FLUoxetine (PROzac) 20 mg capsule Take 1 capsule (20 mg total) by mouth daily 10/16/19 24 Active propranoloL (INDERAL) 10 mg tablet Take 1 tablet (10 mg total) by mouth 2 (two) times a day 12/12/19 24 Active leflunomide (ARAVA) 20 mg tablet TAKE 1 TABLET BY MOUTH EVERY DAY 90 tablet 1 03/26/20 24 Active buPROPion XL (WELLBUTRIN XL) 300 mg 24 hr tablet 1 tablet in the morning Orally Once a day for 90 days Active Tyrvaya 0.03 mg/spray spray, metered, non-aerosol SPRAY 1 SPRAY PER NOSTRIL TWICE A DAY 03/24/20 24 Active adalimumab (Humira,CF, Pen) 40 mg/0.4 mL pen injector kit Inject 0.4 mL (40 mg total) under the skin every 14 (fourteen) days 2 each 2 05/09/19 25 Active predniSONE (DELTASONE) 5 mg tablet TAKE 1 TABLET BY MOUTH EVERY DAY 30 tablet 2 05/26/19 25 Active methotrexate 2.5 mg tablet TAKE 6 TABLETS BY MOUTH EVERY 7 DAYS. 72 tablet 2 06/16/19 25 Active methotrexate 2.5 mg tablet TAKE 6 TABLETS BY MOUTH EVERY 7 DAYS. 72 tablet 2 10/17/19 24 025 Discontinued doxycycline (VIBRAMYCIN) 100 mg capsuleIndicat ions:Flu-like symptoms Take 1 tablet/capsule (100 mg total) by mouth 2 (two) times a day for 10 days 20 tablet/capsu le 06/03/19 25 025 Active Problems Problem Noted Date Diagnosed Date Allergic rhinitis 05/24/2023 Chronic left-sided low back pain without sciatic a 02/19/2023 Essential hypertension, benign 09/28/2021 Acute bilateral low back pain without sciatica 0 06/21/2020 Generalized anxiety disorder 03/22/2020 Irritable bowel syndrome wit h both constipation and diarrhea 03/22/2020 Drainage from wound 04/14/2019 Overview (04/14/2019): Added automatically from request for surgery [id number] Long-term use of high-risk medication 03/14/2019 Assessment & Plan (03/14/2019 12:29 AM [employer]): Recent labs reviewed without sxs of toxicity Osteopenia 03/14/2019 Assessment & Plan (03/14/2019 12:30 AM [employer] AND [employer]): Lifestyle modifications are important for the prevention and treatment of bone loss. Lifestyle changes include weight bearing exercises (walking or lifting light weights), quitting smoking, not drinking excessively, and ensuring an adequate daily intake of calcium and vitamin D. If dietary intake is not adequate , then supplements may be taken. For good bone health you need 1200mg calcium daily between supplements and food. Every cup of milk and ounce of cheese contains 200mg calcium and a cup of yogurt may contain 300mg calcium. Most multivitamins contain up to 500mg calcium and supplements may contain from 200mg to 500mg calcium. Pay attention to elemental calcium on the label and to the number of pills a serving represents. Try not to take more than 500mg elemental calcium in supplements at one time and drink with full 16 ounces of water to prevent kidney stones and stress on the heart. On prednisone therapy 03/14/2019 BMI 31.0-31.9,adult 03/14/2019 Assessment & Plan (03/14/2019 12:29 AM [employer]): Hopefully you can develop an exercise regimen after you heal for surgery. A BMI or body mass index between 20 and 25 is considered healthy. A combination of diet and exercise can help to attain/maintain a healthy BMI to improve vascular risk factors and diabetes risk. Each pound of weight lost unloads 3-4 pounds per square inch pressure from weight bearing joint. Primary osteoarthritis of right knee 02/03/2019 Overview (02/03/2019): Added automatically from request for surgery [id number] Assessment & Plan (03/14/2019 12:31 AM [employer]): Scheduled for RTKR tomorrow with Dr. Gaines. Medications on hold. May resume same 2 weeks after surgery if healing as expected. Right ear pain 01/20/2019 DNS (deviated nasal septum) 05/02/2018 Maxillary sinusitis 04/19/2017 Assessment & Plan (04/19/2017 1:01 PM [employer]): Doxycycline #20 sent to pharmacy. Pt does not want to get surgeries done that ENT has recommended at this time. Lung nodule 01/11/2017 Overview (01/11/2017): Diagnosed 01/11/[address] 6mm nodule left lung base. Assessment & Plan (04/19/2017 3:49 PM PA[employer] AND [employer]ADER [employer]): noncontrast CT scan of chest to be done in early June already ordered. Will have MA contact patient to make sure she has scheduled this. Assessment & Plan (01/11/2017 2:33 PM CDT): 6mm nodule L lung base. Repeat noncontrast chest CT ordered, told patient to schedule June 2017. Microscopic hematuria 01/11/2017 Assessment & Plan (04/19/2017 12:58 PM [employer]): S/p evaluation by urology. Assessment & Plan (01/11/2017 11:39 PM CDT): CT scan abd / pelvis without stones. Continue urology eval. BMI 29.0-29.9,adult 11/28/2016 Assessment & Plan (04/19/2017 11:33 AM [employer]): BMI Follow-up includes: nutrition counseling, exercise counseling and bmi done today. Assessment & Plan (01/11/2017 2:19 PM CDT): BMI Follow-up includes: bmi done today . Assessment & Plan (11/28/2016 11:16 AM CDT): BMI Follow-up includes: bmi done today . Annual physical exam 11/28/2016 Assessment & Plan (11/28/2016 11:42 PM CDT): Colon cancer screening: Evan in My 2011, repeat 2019. Breast cancer screening: No longer going to moving worker 2/2 hysterectomy. Cervical cancer screening: No longer going to moving worker due to hysterectomy. Osteoporosis screening: As above Vaccinations: Influenza: Gets yearly. Pneumonia: 2012 Prevnar 13: At 66 Shingles: not indicated Tetanus: 07/11/13 Bleeding from the nose 11/28/2016 Assessment & Plan (11/28/2016 11:37 AM CDT): Will give [facility] ph # for her to see physician she saw a few years ago at [facility]. Age-related osteoporosis wit hout current pathological fracture 11/28/2016 Assessment & Plan (11/28/2016 11:38 PM CDT): Prolia today. Check Vitamin D. Due for bone density, ordered today. Memory loss 11/28/2016 Assessment & Plan (04/19/2017 1:00 PM [employer]): No improvement by decreasing amitriptyline. Will try to increase cognitive activities. Encouraged trying to increase cardiovascular activities, but RA issues make it difficult. Asked her to investigate Aricept / Namenda. She is concerned about side effects of meds, opts to pass at present. Assessment & Plan (01/11/2017 11:37 PM CDT): Continue Lexapro ,cut amitriptyline down to 10mg QHS to see if this helps her symptoms. Assessment & Plan (11/28/2016 11:43 PM CDT): MMSE 29/30. Missed a point on recall of 3 objects. However, patient appears to have difficulty with short term memory during appointment, has difficulty remembering instructions / med changes and has to write everything down. Will refer to memory and aging department at [facility] for more detailed evaluation. Prediabetes 11/28/2016 Assessment & Plan (04/19/2017 12:58 PM [employer]): Reassess Osteoporosis 11/28/2016 Assessment & Plan (04/19/2017 3:40 PM [employer]): Prolia today Knee pain 08/08/2016 Overview (09/15/2016): Right knee pain, unspecified chronicity Arthralgia of hip 08/08/2016 Overview (09/15/2016): Pain of right hip joint Peptic ulcer 09/16/2015 Overview (07/28/2016): Peptic ulcer disease Rheumatoid arthritis of [facility] sites with negative rheumatoid factor 09/16/2015 Overview (07/28/2016): RHEUMATOID ARTHRITIS Assessment & Plan (03/14/2019 12:34 AM [employer]): RA clinically stable. Scheduled for RTKR tomorrow with Dr. Gaines. Healing R. fibula stress fracture with no known trauma (per Dr. Mir). Medications on hold for planned surgery. Can resume same 2 weeks after surgery as long as you are healing as expected without signs of infection. Reactive depression 09/16/2015 Overview (07/28/2016): Depressive reaction Assessment & Plan (01/11/2017 11:38 PM CDT): Better on Lexapro. Try to wean off amitriptyline. Assessment & Plan (11/28/2016 11:33 AM CDT): Try lexapro 10 (5mg x 1 week). Reassess in 6 weeks. Will try to cut back on amitriptyline + / - clonazepam at that point. Anemia 06/11/2015 Overview (07/28/2016): Anemia Syncope and collapse 04/13/2015 Overview (07/27/2016): Syncope and collapse Dyslipidemia 04/13/2015 Overview (07/27/2016): Dyslipidemia Assessment & Plan (04/19/2017 1:00 PM [employer]): Reassess when she is feeling better. Discussed that acute illness can decrease cholesterol PVC (premature ventricular contraction) 04/13/20 15 Overview (07/27/2016): PVC's (premature ventricular contractions) Elevated blood pressure 04/13/2015 Overview (07/27/2016): Elevated blood pressure Hearing loss 09/22/2014 Pain of foot 07/22/2014 Talipes valgus 05/19/2014 Overview (07/27/2016): Pes valgus Fatigue 02/17/2014 Overview (07/26/2016): Fatigue Drug indicated 06/27/2013 Overview (07/27/2016): LONG-TERM USE MEDS NEC Ankle pain 06/05/2012 Overview (07/28/2016): Left ankle pain Swelling of knee joint 06/05/2012 Overview (07/28/2016): Swollen L knee Swelling of lower extremity 02/02/2012 Overview (07/26/2016): Leg swelling Decreased hearing 11/01/2011 Overview (07/28/2016): Decreased hearing Rheumatoid arthritis 08/03/2011 Acquired deformity of ankle and foot 08/03/2011 Arthralgia of ankle 07/31/2011 Encounters Date Type Department Care Team Description 06/16/2024 7:27 PM [employer] - 06/16/2024 11:59 PM [employer] Hospital Encounter [facility] [address] [place] [address] Discharge Disposition: Discharge to home or self care 06/16/2024 1:10 PM [employer] Office Visit [facility] Orthopaedic Surgery [address] [facility] [address] [place] [address] [place] [address] Manjit Rangel MD Stress fracture of left fibula, initial encounter (Primary Dx); Chronic pain of left ankle; Left ankle pain, unspecified chronicity 06/16/2024 1:01 PM [employer] - 06/16/2024 11:59 PM [employer] Hospital Encounter [facility] [address] [place] [id number] Manjit Rangel MD Chronic pain of left ankle Discharge Disposition: Discharge to home or self care 06/03/2024 10:11 AM [employer] - 06/03/2024 11:59 PM [employer] Hospital Encounter [address] [address] Flu-like symptoms Discharge Disposition: Discharge to home or self care 06/03/2024 8:45 AM [employer] Office Visit [facility] at [address] [phone] Crystal Baca NP Flu-like symptoms (Primary Dx); Exposure to influenza 05/30/2024 10:45 AM [employer] Ancillary Procedure [facility] Imaging at [address] [address] Other chronic pain 05/08/2024 Telephone [facility] Rheumatology at [facility] [address] [place] [address] Kourtney Soto DO Med Management ([place] Approved on Humira (2 pen) auto injector kit) 05/06/2024 Telephone [facility] [address] [place] [phone] Norberto Figueroa RPh 05/05/2024 Telephone [facility] Rheumatology at [place] [address] [place] [address] Lidia Srinivasan MD Prior Auth 05/05/2024 Telephone [facility] Rheumatology at [facility] [address] [place] [address] Lidia Srinivasan MD Medication 04/09/2024 2:19 PM [employer] - 04/09/2024 11:59 PM [employer] Hospital Encounter [address] [address] Iron deficiency Discharge Disposition: Discharge to home or self care 04/09/2024 2:15 PM [employer] Lab [facility] Outpatient Lab at [address] [phone] Iron deficiency (Primary Dx) 03/28/2024 9:45 AM [employer] Office Visit [facility] at [address] [phone] Crystal Baca, CHUYITA Acute non-recurrent frontal sinusitis (Primary Dx); Constipation, unspecified constipation type from Last 3 Months Immunizations Immunization Administration Dates Next Due COVID-19 mRNA (Imprivata) 0.3 m L (30 mcg) vaccine (12 years and up) 12/30/2023,02/02/2023 Influenza, Quad, Adjuvantate d, Intramuscular 01/12/2022 Influenza, Quadrivalent, Hig h Dose, Preservative Free, Intrr 02/02/2023 Influenza, Quadrivalent, Rec ombinant, Egg Free, Preservative Free, Intramuscular 04/26/2016 Influenza, Quadrivalent, Spl it, Preservative Free, Intradermal 04/26/2016 Influenza, Quadrivalent, Spl it, Preservative Free, Intramuscular 02/08/2021,02/09/2020 Influenza, Trivalent, High D ose, Split, Preservative Free, Intramuscular 12/30/2023,12/22/2013 Influenza, Trivalent, IM (MDV) 02/01/2012 Influenza, Trivalent, Preser vative Free, Intramuscular 01/19/2014 Influenza, Trivalent, Split, Preservative Free, Intradermal 03/12/2015 Influenza, Unspecified 02/09/2023 Pfizer SARS-CoV-2 Monovalent Vaccination (12+ Yrs) PURPLE 10/09/2022,06/24/2020,06/05/2020 Pneumococcal Conjugate Pcv20 03/13/2023 Pneumococcal Polysaccharide PPV23 06/01/2021,03/2008 RSV Vaccine, Pref, Recombina nt, Subunit, Adjuvanted, PF, IM (Arexvy) 03/01/2023 Tdap 02/09/2020,01/19/2014 ZOSTER Recombinant 03/26/2023 Surgical History Surgery Date Site/Laterality Comments HYSTERECTOMY Hysterectomy BACK SURGERY Back surgery NOSE SURGERY plug placed in hole in nose REPLACEMENT TOTAL KNEE 03/15/2019 Right CATARACT EXTRACTION 07/22/2021 - 08/20/2021 Right Medical History Medical History Date Comments Rheumatoid arthritis(714.0) Hypertension Peptic ulceration Anemia Depression Bipolar 1 disorder (HCC) Anxiety Fracture of right lower leg 01/21/2019 per patient eye durgery bi-lateral eyes 07/2020 Family History Medical History Relation Name Comments Pancreatic cancer Brother 2 Cancer -pa ncreatic; Cause of : Cancer -pancreatic Congenital heart disease Father Con genital heart disease; Cause of : Congenital heart disease Heart disease Father Stroke Father Diabetes Mother Diabetes type II Mother Diabetes -T ype 2; Hypertension Mother Hypertension; Hyperlipidemia Sister Hyperlipidemi a; Relation Name Status Comments Brother 1 (Age 48) Brother 2 Father (Age 73) Mother Sister Social History Tobacco Use Types Packs/Day Years Used Date Smoking Tobacco: Never Smokeless Tobacco: Never Tobacco Cessation:Counseling Given: Not Answered Alcohol Use Standard Drinks/Week Comments No 0 [...] on file Legal Sex Female 1:48 AM [employer] Gender Identity Not on file Sexual Orientation Choose not to disclose 2018 12:47 PM CDT Obstetrics History Last Filed Vital Signs Vital Sign Reading Time Taken Comments Blood Pressure 169/98 06/03/2024 8:56 AM [employer] Pulse 82 06/03/2024 8:56 AM [employer] Temperature 36.9 C (98.4 F) 06/03/2024 8:56 AM [employer] Respiratory Rate 18 06/03/2024 8:56 AM [employer] Oxygen Saturation 98% 06/03/2024 8:56 AM [employer] Inhaled Oxygen Concentration - - Weight 70.1 kg (154 lb 8 oz) 06/03/2024 8:56 AM [employer] Height 157.5 cm (5' 2.01 ) 06/03/2024 8:56 AM CS T Body Mass Index 28.25 06/03/2024 8:56 AM [employer] Plan of Treatment Health Maintenance Due Date Last Done Comments Colon Cancer Screening-Colonoscopy 1955 Hepatitis C Screening 1955 Hepatitis B Screening 1974 Fall Risk Assessment 08/03/2019 08/02/2018 Well Visit 65+ 2021 11/28/2016 Zoster Vaccine (2 of 2) 05/21/2023 03/26/2023 Covid-19 Vaccine (6 - Pfizer risk season) 2024 12/30/2023, 02/02/2023, 10/09/2022, Additional history exists Breast Cancer Screening-Mammogram 01/27/2025 01/28/2024, 01/28/2024, 10/05/2022, Additional history exists Depression Screening 03/26/2025 03/26/2024, 03/26/2024, 08/02/2018 Osteoporosis Screening-Bone Density Scan 02/06/2026 02/07/2024, 02/07/2024, 11/06/2023, Additional history exists DTaP/Tdap/Td Vaccine (3 - Td or Tdap) 02/08/2030 02/09/2020, 01/19/2014 Pneumococcal vaccine 65+ Completed 023, 06/01/2021, 02/02/2008 Influenza Vaccine Completed 12/30/2023, , 02/02/2023, Additional history exists Medical Devices Implanted Type Area Autopsy Pathologist Device Identifier Shelf Expiration Date Model / Serial / Lot [employer] 3122-040 Smartset Medium Viscosity Cement 40gm Bone Sterile - Sn/A - [id number] Implanted:Qty: 1 on 03/13/2019 by Jose Gaines MD at [facility] Other - see comments Right: Knee [employer] 06/20/2020 3122-040 / N/A / [id number] [employer] [id number] Smartset Medium Viscosity Cement 40gm Bone Gentamicin - Sn/A - [id number] Implanted:Qty: 1 on 03/13/2019 by Jose Gaines MD at [facility] Other - see comments Right: Knee [employer] 06/20/2020 [id number] / N/A / [id number] [employer]o [id number] Joanne Ii Base Right Total Knee 5 Baseplate Tibial Nonporous - Sn/A - [id number] Implanted:Qty: 1 on 03/13/2019 by Jose Gaines MD at [facility] Other - see comments Right: Knee [employer]/ Ortho [id number] 12/10/2028 [id number] / N/A / [id number] [employer]o [id number] Joanne Ii Legion Spc Cruciate Retain Knee Right 7 Component - Sn/A - [id number] Implanted:Qty: 1 on 03/13/2019 by Jose Gaines MD at [facility] Other - see comments Right: Knee [employer]/ Ortho [id number] 11/23/2028 [id number] / N/A / [id number] [employer]O [employer]tho [id number] Legion 12mm Cruciate Retaining High Flexion Knee 5-6 Insert - Sn/A - [id number] Implanted:Qty: 1 on 03/13/2019 by Jose Gaines MD at [facility] Other - see comments Right: Knee [employer]/ Ortho [id number] 03/22/2026 [id number] / N/A / [id number] Nasal Plug Nose Procedures Procedure Name Priority Date/Time Associated Diagnosis Comments XR TRANSFER OF OUTSIDE FILMS Routine 06/16/2024 7:27 PM [employer] XR FOOT LEFT 3 OR MORE VIEWS Schedule Routine, Read Routine (OP Routine) 06/16/2024 1:15 PM [employer] Chronic pain of left ankle XR ANKLE LEFT 2 VIEWS Schedule Routine, Read Routine (OP Routine) 06/16/2024 1:15 PM [employer] Chronic pain of left ankle INFLUENZA A/B, RSV, AND COVID-19 PCR Routine 06/03/2024 10:11 AM [employer] Flu-like symptoms POC INFLUENZA A/B, COVID-19 ANTIGEN Routine 06/03/2024 9:50 AM [employer] Flu-like symptoms XR HIP RIGHT 2 OR 3 VIEWS Schedule Routine, Read Routine (OP Routine) 05/30/2024 10:34 AM [employer] Other chronic pain METHYLMALONIC ACID, SERUM Routine 04/09/2024 2:19 PM [employer] Iron deficiency VITAMIN B12 Routine 04/09/2024 2:19 PM [employer] Iron deficiency IRON PROFILE W/ IBC Routine 04/09/2024 2 :19 PM [employer] Iron deficiency FERRITIN Routine 04/09/2024 2:19 PM [employer] Iron deficiency SEX HORMONE BINDING GLOBULIN Routine 04/09/2024 2:19 PM [employer] Iron deficiency DHEA-SULFATE Routine 04/09/2024 2:19 PM [employer] Iron deficiency TOTAL TESTOSTERONE Routine 04/09/2024 2: 19 PM [employer] Iron deficiency POC INFLUENZA A/B, COVID-19 ANTIGEN Routine 03/28/2024 10:21 AM [employer] Acute non-recurrent frontal sinusitis DEXA AXIAL SKELETON BONE DENSITY 1 OR MORE SITES Schedule Routine, Read Routine (OP Routine) 11/06/2023 11:21 AM CDT Osteopenia, unspecified location Age-related osteoporosis without current pathological fracture SCREENING MAMMOGRAM Routine 11/29/2015 1 2:50 PM CDT from Last 3 Months or Most Recently Relevant to Health Maintenance Results * XR Outside Reference (06/16/2024 7:27 PM [employer]) Impressions [facility] - 06/16/2024 7:27 PM [employer] These images are for Reference purposes only and have not been reviewed by [facility]iology. There will be no report generated by a [facility] Radiologist. Narrative [facility] - 06/16/2024 7:27 PM [employer] EXAMINATION: Images For Reference Purposes Only us Manjit Rangel MD IMG XR PROCEDURES Final Res ult [facility] * XR Foot Left 3 or More Views (06/16/2024 1:15 PM [employer]) Anatomical Region Laterality Modality Lower Extremities, Foot Left Computed Radiography 06/16/2024 2:34 PM [employer] Impressions 06/16/2024 2:55 PM [employer] 1. Chronic fracture of the distal left fibular shaft. 2. Polyarticular osteoarthritis throughout the foot, worse and moderate at the 1st metatarsal-phalangeal joint Dictated by: Gil Sevilla M.D. The radiology attending physician has personally reviewed this study, and had reviewed and/or edited this written report and agrees with it. Electronically signed by: Glenn Coreas D.O. Narrative 06/16/2024 2:55 PM [employer] EXAMINATION: XR FOOT LEFT 3 OR MORE VIEWS, XR ANKLE LEFT 2 VIEWS HISTORY: Left foot and ankle pain. COMPARISON: 03/10/2019 FINDINGS: Chronic fracture of the distal left fibular shaft. Talar dome is intact. Ankle mortise is intact. No acute fracture or dislocation is the ankle or foot. Polyarticular osteoarthritis throughout the foot, worse than moderate at the 1st metatarsal-phalangeal joint. Calcaneal spur. Distal Achilles tendon enthesophyte. Pes planus. Procedure Note Glenn Coreas, DO - 06/16/2024 EXAMINATION: XR FOOT LEFT 3 OR MORE VIEWS, XR ANKLE LEFT 2 VIEWS HISTORY: Left foot and ankle pain. COMPARISON: 03/10/2019 FINDINGS: Chronic fracture of the distal left fibular shaft. Talar dome is intact. Ankle mortise is intact. No acute fracture or dislocation is the ankle or foot. Polyarticular osteoarthritis throughout the foot, worse than moderate at the 1st metatarsal-phalangeal joint. Calcaneal spur. Distal Achilles tendon enthesophyte. Pes planus. IMPRESSION: 1. Chronic fracture of the distal left fibular shaft. 2. Polyarticular osteoarthritis throughout the foot, worse and moderate at the 1st metatarsal-phalangeal joint Dictated by: Gil Sevilla M.D. The radiology attending physician has personally reviewed this study, and had reviewed and/or edited this written report and agrees with it. Electronically signed by: Glenn Coreas D.O. us Manjit Rangel MD IM XR PROCEDURES Final Res ult * XR Ankle Left 2 Views (06/16/2024 1:15 PM [employer]) Anatomical Region Laterality Modality Lower Extremities, Ankle Left Compute d Radiography 06/16/2024 2:34 PM [employer] Impressions 06/16/2024 2:55 PM [employer] 1. Chronic fracture of the distal left fibular shaft. 2. Polyarticular osteoarthritis throughout the foot, worse and moderate at the 1st metatarsal-phalangeal joint Dictated by: Gil Sevilla M.D. The radiology attending physician has personally reviewed this study, and had reviewed and/or edited this written report and agrees with it. Electronically signed by: Glenn Coreas D.O. Narrative 06/16/2024 2:55 PM [employer] EXAMINATION: XR FOOT LEFT 3 OR MORE VIEWS, XR ANKLE LEFT 2 VIEWS HISTORY: Left foot and ankle pain. COMPARISON: 03/10/2019 FINDINGS: Chronic fracture of the distal left fibular shaft. Talar dome is intact. Ankle mortise is intact. No acute fracture or dislocation is the ankle or foot. Polyarticular osteoarthritis throughout the foot, worse than moderate at the 1st metatarsal-phalangeal joint. Calcaneal spur. Distal Achilles tendon enthesophyte. Pes planus. Procedure Note Coreas, Glenn Hoang, DO - 06/16/2024 EXAMINATION: XR FOOT LEFT 3 OR MORE VIEWS, XR ANKLE LEFT 2 VIEWS HISTORY: Left foot and ankle pain. COMPARISON: 03/10/2019 FINDINGS: Chronic fracture of the distal left fibular shaft. Talar dome is intact. Ankle mortise is intact. No acute fracture or dislocation is the ankle or foot. Polyarticular osteoarthritis throughout the foot, worse than moderate at the 1st metatarsal-phalangeal joint. Calcaneal spur. Distal Achilles tendon enthesophyte. Pes planus. IMPRESSION: 1. Chronic fracture of the distal left fibular shaft. 2. Polyarticular osteoarthritis throughout the foot, worse and moderate at the 1st metatarsal-phalangeal joint Dictated by: Gil Sevilla M.D. The radiology attending physician has personally reviewed this study, and had reviewed and/or edited this written report and agrees with it. Electronically signed by: Glenn Coreas D.O. us Manjit Rangel MD IMG XR PROCEDURES Final Res ult * Influenza A/B, RSV, and COVID-19 PCR Nasopharyngeal (06/03/2024 10:11 AM [employer]) COVID-19 RNA Negative Negative [facility] Influenza A RNA Negative Negative [facility] CH Influenza B RNA Negative Negative [facility] CH RSV RNA Negative Negative [facility]ER Comment: Interpretive data: Testing performed by [facility]. This test is performed using the Cepheid Xpert Xpress CoV-2/Flu/RSV plus assay. This is a multiplex, real-time reverse transcriptase PCR assay intended for the qualitative detection of nucleic acid from SARS-CoV-2, influenza A, influenza B, and respiratory syncytial virus. This assay has been cleared by the [place] Food and Drug administration. The performance characteristics have been verified by the [facility]. Results must be considered in the clinical context, and a negative result does not rule out infection. Interpretive Data last revised 2023 Nasopharyngeal 06/03/2024 10 :11 AM [employer] 06/03/2024 2:57 PM [employer] Narrative [facility]IYAD [facility] 06/03/2024 4:54 PM [employer] Is the Patient experiencing symptoms consistent with COVID?->Yes Reason for testing?->Symptomatic Is the patient experiencing any symptoms consistent with COVID (eg. Fever, cough, shortness of breath)?->Yes Crystal Baca NP LAB MICROBIOLOGY - GENERAL ORDERABLES Final Result Performing Organization Address City/[facility] [address]/ZIP Co de Phone Number ZIYAD [address] Department [place] [address] * POC Influenza A/B, COVID-19 antigen (06/03/2024 9:50 AM [employer]) Influenza A Ag, POC Negative Negative [facility] [place] [place] [facility] Influenza B Ag, POC Negative Negative [facility] [place] [place] [facility] COVID-19 Ag POC Presumptive Negative Presumptive Negative, Invalid [facility] Nasal 06/03/2024 9:50 AM [employer] Crystal Baca [employer] POINT OF CARE TEST ORDERAB LES Final Result Performing Organization Address City/[facility] [address]/ZIP Co de Phone Number [facility] [address] [place] [address] * XR Hip Right 2 or 3 Views (05/30/2024 10:34 AM [employer]) Anatomical Region Laterality Modality Lower Extremities, Hip, Pelvis Right D igital Radiography 06/01/2024 11:0 5 PM [employer] Narrative 06/01/2024 11:09 PM [employer] EXAM DESCRIPTION: XR HIP RIGHT 2 OR 3 VIEWS REASON FOR STUDY: pain Pt complains of chronic hip pain. Pt had a fall in December. No prior fx or surgery FINDINGS: Two views submitted with comparison 01/11/2017. No acute fracture. Alignment is normal. The right hip joint space height is normal. Os acetabulum is noted. IMPRESSION: Normal right hip joint space height. THIS IS AN ELECTRONICALLY VERIFIED FINAL REPORT 06/01/2024 11:09 PM - Electronically signed by Alessio Woodward M.D. T: Report ID: [id number] Reading Location: [id number] Procedure Note Alessio Woodward MD - 06/01/2024 EXAM DESCRIPTION: XR HIP RIGHT 2 OR 3 VIEWS REASON FOR STUDY: pain Pt complains of chronic hip pain. Pt had a fall in December. No prior fxor surgery FINDINGS: Two views submitted with comparison 01/11/2017. No acute fracture. Alignment is normal. The right hip joint space heightis normal. Os acetabulum is noted. IMPRESSION: Normal right hip joint space height. THIS IS AN ELECTRONICALLY VERIFIED FINAL REPORT 06/01/2024 11:09 PM - Electronically signed by Alessio Woodward M.D. T: Report ID: [id number] Reading Location: [id number] Tico Mars MD IMG XR PROCEDURES Final Re sult * Sex hormone binding globulin (04/09/2024 2:19 PM [employer]) Sex steroid binding globulin 69.5 16.8 - 125.2 nmol/L [facility] Comment: Test Performed by: [facility] [place] [id number] Recreation Engineer: Suki Monge Ph.D.; CLIA# [id number] Blood 04/09/2024 2:19 PM [employer] 04/09/2024 9:16 PM [employer] Narrative [facility] - 2024 11:45 AM [employer] Fax results to [phone] Sindi aguilar us Not In File Miscellaneous LAB BLOOD ORDERABLES F inal Result Performing Organization Address [facility] [address]/[facility] Co de Phone Number ZIYAD ESCALANTE [address] [facility] [place] [address] [facility] * Iron profile w/ IBC (04/09/2024 2:19 PM [employer]) Pathologist [facility] Iron 85 35 - 145 mcg/dL Comment:Testing performed by : [facility], [place], [address] TIBC 265 250 - 400 mcg/dL [facility] Comment:Testing performed by : [facility], [place], [address] Transferrin saturation 32 20 - 50 % [facility] Comment:Testing performed by : [place], [address] Blood 04/09/2024 2:19 PM [employer] 04/09/2024 9:16 PM [employer] Narrative [facility] - 04/10/2024 9:39 AM [employer] Fax results to [phone] Sindi aguilar us Not In File Miscellaneous LAB BLOOD ORDERABLES F inal Result Performing Organization Address [facility] de Phone Number ZIYAD ESCALANTE [address] [facility] [place] [place] [address] * Methylmalonic acid, serum (04/09/2024 2:19 PM [employer]) Pathologist [facility] MMA 0.12 <=0.40 nmol/mL [facility] Comment: ADDITIONAL INFORMATION This test was developed and its performance characteristics determined by [facility] in a manner consistent with CLIA requirements. This test has not been cleared or approved by the U.S. Food and Drug Administration. Test Performed by: [facility] [address] [address] Recreation Engineer: Suki Monge Ph.D.; CLIA# [id number] Blood Venous blood specimen / Unknown 04/09/2024 2:19 PM [employer] 04/09/2024 9:16 PM [employer] Narrative ZIYAD - 04/14/2024 12:14 PM [employer] Fax results to [phone] Sindi aguilar us Not In File Miscellaneous LAB BLOOD ORDERABLES F inal Result Performing Organization Address City/[facility] [address]/ZIP Co de Phone Number CANDEERIC ESCALANTE [address] Department [place] [address] [facility] * (ABNORMAL) DHEA-sulfate (04/09/2024 2:19 PM [employer]) DHEA-S 6.2(L) 9.4 - 246.0 mcg/dL Comment:Testing performed by : [facility], [address] [place]., [address] Blood 04/09/2024 2:19 PM [employer] 04/10/2024 9:55 AM [employer] Narrative ZIYAD - 2024 4:26 PM [employer] Fax results to [phone] Sindi jeff us Not In File Miscellaneous LAB BLOOD ORDERABLES F inal Result Performing Organization Address [facility] [address]/[facility] Co de Phone Number ZIYAD ESCALANTE [address] [address] Department [place] [address] * Total testosterone (04/09/2024 2:19 PM [employer]) Testosterone <3 3 - 41 ng/dL Blood Venous blood specimen / Unknown 04/09/2024 2:19 PM [employer] 04/09/2024 9:16 PM [employer] Narrative ZIYAD - 04/09/2024 11:03 PM [employer] Fax results to [phone] Sindi aguilar us Not In File Miscellaneous LAB BLOOD ORDERABLES F inal Result ZIYAD ESCALANTE [address] [facility] [place] [address] * (ABNORMAL) Ferritin (04/09/2024 2:19 PM [employer]) [facility] Ferritin 278(H) 15 - 150 ng/mL Blood Venous blood specimen / Unknown 04/09/2024 2:19 PM [employer] 04/09/2024 9:16 PM [employer] Narrative [facility] 04/09/2024 11:02 PM [employer] Fax results to [phone] Sindi horneya us Not In File Miscellaneous LAB BLOOD ORDERABLES F inal Result Performing Organization Address [facility] [address]/[facility] Co de Phone Number ZIYAD ESCALANTE [address] [facility] [place] [address] * Vitamin B12 (04/09/2024 2:19 PM [employer]) [facility] Vitamin B12 487 230 - 1,250 pg/mL Blood Venous blood specimen / Unknown 04/09/2024 2:19 PM [employer] 04/09/2024 9:16 PM [employer] Narrative [facility] 04/09/2024 11:02 PM [employer] Fax results to [phone] Sindi jeff us Not In File Miscellaneous LAB BLOOD ORDERABLES F inal Result Performing Organization Address [facility] [address]/ZIP Co de Phone Number ZIYAD ESCALANTE [address] [place] [address] * POC Influenza A/B, COVID-19 antigen (03/28/2024 10:21 AM [employer]) [facility] Influenza A Ag, POC Negative Negative [facility] Influenza B Ag, POC Negative Negative [facility] COVID-19 Ag POC Presumptive Negative Presumptive Negative, Invalid [facility] [place] [facility] Nasal 03/28/2024 10:2 1 AM [employer] us Crystal Baca NP POINT OF CARE TEST ORDERAB LES Final Result [facility] [address] [place] [address], [facility] * DEXA Axial Skeleton Bone Density Multi Site (11/06/2023 11:21 AM CDT) Anatomical Region Laterality Modality Body N/A Radiographic Mireya ging Narrative 11/06/2023 4:13 PM CDT Patient Name: Claire Bond Date of : 1955 Date of scan: 11/06/2023 Bone mineral density was performed on a HoloCross Current Discovery Densitometer. Based on machine cross-calibration and precision studies the least significant changes of this densitometer is 0.024 g/cm2 at the spine, 0.020 g/cm2 at the total proximal femur, and 0.014g/cm2 at the forearm. HISTORY: This is a 68 y.o. postmenopausal female with a history of low bone mass and rheumatoid arthritis. She reports that she has never smoked. She has never used smokeless tobacco. Currently on treatment with glucocorticoids, previously treated with alendronate (Fosamax) and hormone replacement therapy, and current complaint of back pain and leg pain. INDICATIONS: Menopause status, treatment monitoring, history of prior vertebral fracture, currently on 5-60 mg of glucocorticoids for the past >20 year(s), history of low bone mass, and screening for osteoporosis. FINDINGS: BONE MINERAL DENSITY OF THE LUMBAR SPINE Bone Mineral Density (BMD) of the lumbar spine was measured from L1-L4 and the average density was calculated to be 0.919 gm/cm2. This corresponds to a T-score (standard deviations from the mean of young adults) of -1.2. There is no previous study available for comparison. BONE MINERAL DENSITY OF THE PROXIMAL FEMUR Bone Mineral Density (BMD) of the left hip total was found to be 0.615 gm/cm2. This corresponds to a T-score standard deviations from the mean of young adults of -2.7. Femoral neck is 0.604 gm/cm2 with a T-score (standard deviations from the mean of young adults) of -2.2. There is no previous study available for comparison. BONE MINERAL DENSITY OF THE FOREARM Bone Mineral density (BMD) of the left proximal 1/3 of the radius measures 0.497 gm/cm2. This corresponds to a T-score (standard deviations from the mean of young adults) of -3.3. There is no previous study available for comparison. A forearm bone density study was performed in addition to the routine study per physician's order. SUMMARY: Bone mineral density shows evidence of osteoporosis and marked increase risk of fracture. ADDITIONAL COMMENTS: Postmenopausal Women and Men Over 50: Diagnostic criteria: Osteoporosis: BMD at or below -2.5 T-score; Osteopenia (low bone mass): BMD between -1.0 and -2.5 T-score. If the patient has a history of a fragility fracture, a fracture that occurred with trauma equivalent to a fall from a standing position or less, then the diagnosis is osteoporosis regardless of bone density. The history and data sections of the bone mineral density scan were prepared by Lisa Reilly)([facility])who is accredited by the International Society of Clinical Densitometry. The overall patient assessment and scan interpretation were performed by Marva Napier M.D.who is certified by the International Society of Clinical Densitometry. [id number] Juan Dent MD IMG DXA PROCEDURES F inal Result * Screening Mammogram (11/29/2015 12:50 PM CDT) Anatomical Region Laterality Modality Breast N/A Mammography 11/29/2015 12:5 0 PM CDT Narrative 12/01/2015 4:10 PM CDT ROBERTO BECK M.D. FINAL REPORT ACC# Date Time Exam [id number] Nov 29, 2015 12:50:00 WMM [id number] Screening Mamm Bilat 2v Technologist(s): Iveth Martínez; ; EXAMINATION: Mammogram Technique: Bilateral Full-Field Digital Screening Mammogram was performed. Views obtained: bilateral craniocaudal and bilateral mediolateral oblique. Computer Aided Detection was performed with MessageMe.3 version 9.3. Mammogram Findings: The present examination has been compared to prior imaging studies performed at [facility] on 09/28/2014, 07/11/2013 and 07/27/2011. There are scattered areas of fibroglandular density. There are coarse heterogeneous in the posterior outer breast on the craniocaudal view of the left breast. There is no suspicious abnormality in the right breast. IMPRESSION: Calcifications in the left breast require additional evaluation. Additional views are recommended. OVERALL FINAL ASSESSMENT: BI-RADS CATEGORY 0: Incomplete: Need additional imaging evaluation. Requested By: Dictated By: ROBERTO BECK M.D. on Dec 01 2015 4:10P This document has been electronically signed by: ROBERTO BECK M.D. on Dec 01 2015 4:10P [id number] Procedure Note Provider, Cherry, - 08/19/2016 ROBERTO BECK M.D. FINAL REPORT ACC# Date Time Exam [id number] Nov 29, 2015 12:50:00 WMM [id number] Screening Mamm Bilat 2v Technologist(s): Iveth Martínez; ; EXAMINATION: Mammogram Technique: Bilateral Full-Field Digital Screening Mammogram was performed. Views obtained: bilateral craniocaudal and bilateral mediolateral oblique. Computer Aided Detection was performed with MessageMe.3 version 9.3. Mammogram Findings: The present examination has been compared to prior imaging studies performed at [facility] on 09/28/2014, 07/11/2013 and 07/27/2011. There are scattered areas of fibroglandular density. There are coarse heterogeneous in the posterior outer breast on the craniocaudal view of the left breast. There is no suspicious abnormality in the right breast. IMPRESSION: Calcifications in the left breast require additional evaluation. Additional views are recommended. OVERALL FINAL ASSESSMENT: BI-RADS CATEGORY 0: Incomplete: Need additional imaging evaluation. Requested By: Dictated By: ROBERTO BECK M.D. on Dec 01 2015 4:10P This document has been electronically signed by: ROBERTO BECK M.D. on Dec 01 2015 4:10P [id number] Historical Provider MD LEHMAN MAMMO PROCEDURES Iva l Result from Last 3 Months or Most Recently Relevant to Health Maintenance Insurance [facility] MEDICARE [facility] MEDICARE [facility] MEDICARE Advance Directives For more information, please contact: [phone] * Full Code (Latest Code Status on File) Date Activated Date Inactivated Comments 04/14/2019 8:36 PM 04/15/2019 6:03 PM * Full Code Date Activated Date Inactivated Comments 03/13/2019 11:11 AM 03/14/2019 5:37 PM Care Teams Surgical Lead Relationship Specialty Start Date End Date Tico Mars MD [address] [place] [place] [address] PCP - General Internal Medicine 01/14/18
--- OUTSIDE RECORDS SUMMARY | 2024-06-25 08:04 | XMS_ITS | Referral Summary ---
Author Organization [facility] Address [address] [place] [address] Care Team Providers Care Car Wash Supervisor Name Role Phone Tico Mars MD Primary Care Provider Source Comments [facility],non-owned Affiliates and Associated Physician Practices is amultiple site organization consisting of ambulatory clinics and hospital sitesin [place], [place], [place] and [place]. This disclosure is being madepursuant to the Care Everywhere program and may not contain all information available regarding this patient. Last updated 18.[facility] Allergies Active Allergy Reactions Criticality Noted Date Comments Acetaminophen-Codeine Itching Low 09/03/2018 Cefdinir Swelling Medium 09/03/2018 Fluticasone Other Low 01/20/2019 ruined the lining of her nose . Penicillins Rash Medium 03/18/2018 Medications * Be aware that medications may not be up to date on this document. Alwaysverify current medications with the patient. Medication Sig Dispensed Refills Start Date End Date Status adalimumab (HUMIRA PEN) 40 MG/0.4ML injection Inject one pen subcutaneously once every two weeks. 02/22/2018 Active amitriptyline (ELAVIL) 10 MG tablet TAKE 1 TABLET (5 MG TOTAL) BY MOUTH NIGHTLY. 11/29/2017 Active vitamin D3-cholecalciferol (CHOLECACIFEROL) 1000 units tablet Take 1,000 Units by mouth once daily Active escitalopram (LEXAPRO) 10 MG tablet Take 10 mg by mouth once daily 02/19/2018 Active ferrous sulfate 325 (65 FE) MG tablet TAKE 1 TABLET BY MOUTH EVERY DAY 11/14/2016 Active folic acid (FOLVITE) 1 MG tablet Take 1,000 mcg by mouth once daily 02/16/2018 Active leflunomide (ARAVA) 10 MG tablet Take 10 mg by mouth once daily 01/20/2019 Active meloxicam (MOBIC) 7.5 MG tablet TAKE 1 TABLET BY MOUTH EVERY DAY 11/22/2018 Active methotrexate 2.5 MG tablet Take 15 mg by mouth every 7 days 01/14/2019 Active predniSONE (DELTASONE) 5 MG tablet TAKE 3 TABLETS BY MOUTH EVERY DAY 01/24/2019 Active lidocaine (Lidoderm) 5 % patch Apply 3 (three) patches to skin once daily Apply patch to most painful area and remove after 12 hours. May reapply a new patch 12 hours later. 6 patch 1 12/31/2021 Active Active Problems Problem Noted Date Diagnosed Date Primary osteoarthritis of right knee 02/03/2019 Overview (02/07/2019): Added automatically from request for surgery [id number] Right ear pain 01/20/2019 DNS (deviated nasal septum) 05/02/2018 Maxillary sinusitis 04/19/2017 Overview (01/20/2019): Last Assessment & Plan: Doxycycline #20 sent to pharmacy. Pt does not want to get surgeries done that ENT has recommended at this time. Lung nodule 01/11/2017 Overview (01/20/2019): Diagnosed 01/11/[address] 6mm nodule left lung base. Last Assessment & Plan: noncontrast CT scan of chest to be done in early June already ordered. Will have MA contact patient to make sure she has scheduled this. Microscopic hematuria 01/11/2017 Overview (01/20/2019): Last Assessment & Plan: S/p evaluation by urology. Age-related osteoporosis wit hout current pathological fracture 11/28/2016 Overview (01/20/2019): Last Assessment & Plan: Prolia today. Check Vitamin D. Due for bone density, ordered today. Annual physical exam 11/28/2016 Overview (01/20/2019): Last Assessment & Plan: Colon cancer screening: [place] in My 2012, repeat 2019. Breast cancer screening: No longer going to [facility] 2/2 hysterectomy. Cervical cancer screening: No longer going to [employer] due to hysterectomy. Osteoporosis screening: As above Vaccinations: Influenza: Gets yearly. Pneumonia: 2012 Prevnar 13: At 66 Shingles: not indicated Tetanus: 07/11/13 BMI 29.0-29.9,adult 11/28/2016 Overview (01/20/2019): Last Assessment & Plan: BMI Follow-up includes: nutrition counseling, exercise counseling and bmi done today. Epistaxis 11/28/2016 Overview (01/20/2019): Last Assessment & Plan: Will give [facility] ph # for her to see physician she saw a few years ago at [facility]. Memory loss 11/28/2016 Overview (01/20/2019): Last Assessment & Plan: No improvement by decreasing amitriptyline. Will try to increase cognitive activities. Encouraged trying to increase cardiovascular activities, but RA issues make it difficult. Asked her to investigate Aricept / Namenda. She is concerned about side effects of meds, opts to pass at present. Osteoporosis 11/28/2016 Overview (01/20/2019): Last Assessment & Plan: Prolia today Prediabetes 11/28/2016 Overview (01/20/2019): Last Assessment & Plan: Reassess Knee pain 08/08/2016 Overview (01/20/2019): Left ankle pain Right knee pain, unspecified chronicity Arthralgia of hip 08/08/2016 Overview (01/20/2019): Pain of right hip joint Peptic ulcer 09/16/2015 Overview (01/20/2019): Peptic ulcer disease Reactive depression 09/16/2015 Overview (01/20/2019): Depressive reaction Last Assessment & Plan: Better on Lexapro. Try to wean off amitriptyline. Rheumatoid arthritis of [facility] with negative rheumatoid factor 09/16/2015 Overview (01/20/2019): RHEUMATOID ARTHRITIS Anemia 06/11/2015 Overview (01/20/2019): Anemia Dyslipidemia 04/13/2015 Overview (01/20/2019): Dyslipidemia Last Assessment & Plan: Reassess when she is feeling better. Discussed that acute illness can decrease cholesterol Elevated blood pressure 04/13/2015 Overview (01/20/2019): Elevated blood pressure PVC (premature ventricular contraction) 04/13/20 15 Overview (01/20/2019): PVC's (premature ventricular contractions) Syncope and collapse 04/13/2015 Overview (01/20/2019): Syncope and collapse Hearing loss 09/22/2014 [place] valgus 05/19/2014 Overview (01/20/2019): Pes valgus Fatigue 02/17/2014 Overview (01/20/2019): Fatigue Unknown and unspecified causes of morbidity 10/2013 Overview (01/20/2019): LONG-TERM USE MEDS NEC Swelling of lower extremity 02/02/2012 Overview (01/20/2019): Leg swelling Decreased hearing 11/01/2011 Overview (01/20/2019): Decreased hearing Irritable bowel syndrome 11/01/2011 Overview (01/20/2019): IBS (irritable bowel syndrome) Acquired deformity of ankle and foot 08/03/2011 Immunizations Name Administration Dates Next Due INFLUENZA VACCINE, TRIV. (AF LURIA, FLUZONE TRIVALENT; 6MO+) (IIV3) 02/01/2012 FLU VACCINE QUAD IIV4 PF ID 04/26/2016 INFLUENZA VACCINE, HIGH-DOSE , QUADR. (FLUZONE HIGH-DOSE QUADRIVALENT; 65Y+), 0.7 ML (HD-IIV4) 12/22/2013 Influenza Intradermal 03/12/2015 PNEUMOCOCCAL PPSV23 02/02/2008 Social History Tobacco Use Types Packs/Day Years [...] on file Sexual Orientation Not on file Last Filed Vital Signs Vital Sign Reading Time Taken Comments Blood Pressure 124/70 12/31/2021 12:00 PM CDT Pulse 85 12/31/2021 12:00 PM CDT Temperature 36.6 C (97.9 F) 12/31/2021 12:00 PM CDT Respiratory Rate 16 12/31/2021 12:00 PM CDT Oxygen Saturation 99% 12/31/2021 12:00 PM CDT Inhaled Oxygen Concentration - - Weight 68 kg (150 lb) 12/31/2021 1:34 AM CDT Height 162.6 cm (5' 4 ) 12/31/2021 1:34 AM CDT Body Mass Index 25.75 12/31/2021 1:34 AM CDT Plan of Treatment Not on file Procedures Procedure Name Priority Date/Time Associated Diagnosis Comments COMPREHENSIVE METABOLIC PANEL STAT 12/31/2021 1:40 AM CDT from Last 3 Months or Most Recently Relevant to Health Maintenance Results * (ABNORMAL) COMPREHENSIVE METABOLIC PANEL (12/31/2021 1:40 AM CDT) BUN 16 7 - 26 mg/dL 12/31/2021 2:19 AM CDT [facility] Creatinine 0.71 0.56 - 0.96 mg/dL 12/31/2021 2:19 AM CDT [facility] Sodium 137 136 - 145 mmol/L 12/31/2021 2:19 AM [facility] Potassium 3.7 3.5 - 4.5 mmol/L 12/31/2021 2:19 AM [facility] Chloride 107 98 - 107 mmol/L 12/31/2021 2:19 AM [facility] CO2 25 22 - 29 mmol/L 12/31/2021 2:19 AM [facility] Glucose 104 70 - 115 mg/dL 12/31/2021 2:19 AM [facility] Calcium 10.0 8.4 - 10.2 mg/dL 12/31/2021 2:19 AM [facility] Protein Total 5.9(L) 6.0 - 8.3 g/dL 12/31/2021 2:19 AM [facility] Albumin 3.2(L) 3.4 - 5.0 g/dL 12/31/2021 2:19 AM [facility] Bilirubin Total 0.8 0.2 - 1.2 mg/dL 12/31/2021 2:19 AM [facility] Alkaline Phosphatase 79 40 - 150 U/L 12/31/2021 2:19 AM [facility] ALT 45 5 - 55 U/L 12/31/2021 2:19 AM [facility] AST 29 5 - 34 U/L 12/31/2021 2:19 AM [facility] Anion Gap 9 8 - 18 12/31/2021 2:19 AM [facility] BUN/Creatinine Ratio 23 7 - 23 12/31/2021 2:19 AM [facility] Osmolality Calculated 285 270 - 300 mOsm/kg 12/31/2021 2:19 AM [facility] Albumin/Globulin Ratio 1.2 1.1 - 2.3 12/31/2021 2:19 AM [facility] eGFR by CKD-EPI >90 >=90 mL/min/1.7 3 m2 12/31/2021 2:19 AM [facility] Blood BLOOD SPECIMEN / Unknown Venipuncture / Unknown 12/31/2021 1:40 AM T 12/31/2021 1:47 AM CDT Nasir Seymour MD LAB - CHEMISTRY [facility] Organization Address City/State/ZIP Co de Phone Number [facility] [address] [place] [address], [place] [phone] from Last 3 Months or Most Recently Relevant to Health Maintenance Care Teams Car Wash Supervisor Relationship Specialty Start Date End Date Tico Mars MD [address] [place] [id number] PCP - General 01/20/19
--- OUTSIDE RECORDS SUMMARY | 2024-06-25 08:04 | XMS_ITS | Patient Health Summary ---
Author Organization [facility] Address [address] [place] [address] Care Team Providers Care Veterinarian Small Animal Name Role Phone Tico Mars MD Primary Care Provider Note from [facility],non-owned Affiliates and Associated Physician Practices is amultiple site organization consisting of ambulatory clinics and hospital sitesin [place], [place], [place] and [place]. This disclosure is being madepursuant to the Care Everywhere program and may not contain all information available regarding this patient. Last updated 18.[facility] Allergies * Acetaminophen-Codeine(Itching) -Low Criticality * Cefdinir(Swelling) -Medium Criticality * Fluticasone(Other) -Low Criticality * Penicillins(Rash) -Medium Criticality Medications * Be aware that medications may not be up to date on this document. Alwaysverify current medications with the patient. * adalimumab (HUMIRA PEN) 40 MG/0.4ML injection(Started 02/22/2018) Inject one pen subcutaneously once every two weeks. * amitriptyline (ELAVIL) 10 MG tablet(Started 11/29/2017) TAKE 1 TABLET (5 MG TOTAL) BY MOUTH NIGHTLY. * vitamin D3-cholecalciferol (CHOLECACIFEROL) 1000 units tablet Take 1,000 Units by mouth once daily * escitalopram (LEXAPRO) 10 MG tablet(Started 02/19/2018) Take 10 mg by mouth once daily * ferrous sulfate 325 (65 FE) MG tablet(Started 11/14/2016) TAKE 1 TABLET BY MOUTH EVERY DAY * folic acid (FOLVITE) 1 MG tablet(Started 02/16/2018) Take 1,000 mcg by mouth once daily * leflunomide (ARAVA) 10 MG tablet(Started 01/20/2019) Take 10 mg by mouth once daily * meloxicam (MOBIC) 7.5 MG tablet(Started 11/22/2018) TAKE 1 TABLET BY MOUTH EVERY DAY * methotrexate 2.5 MG tablet(Started 01/14/2019) Take 15 mg by mouth every 7 days * predniSONE (DELTASONE) 5 MG tablet(Started 01/24/2019) TAKE 3 TABLETS BY MOUTH EVERY DAY * lidocaine (Lidoderm) 5 % patch(Started 12/31/2021) Apply 3 (three) patches to skin once daily Apply patch to most painful area and remove after 12 hours. May reapply a new patch 12 hours later. 1 refill by 12/31/2022 Active Problems Problem Noted Date Diagnosed Date Primary osteoarthritis of right knee 02/03/2019 Right ear pain 01/20/2019 DNS (deviated nasal septum) 05/02/2018 Maxillary sinusitis 04/19/2017 Lung nodule 01/11/2017 Microscopic hematuria 01/11/2017 Age-related osteoporosis wit hout current pathological fracture 11/28/2016 Annual physical exam 11/28/2016 BMI 29.0-29.9,adult 11/28/2016 Epistaxis 11/28/2016 Memory loss 11/28/2016 Osteoporosis 11/28/2016 Prediabetes 11/28/2016 Knee pain 08/08/2016 Arthralgia of hip 08/08/2016 Peptic ulcer 09/16/2015 Reactive depression 09/16/2015 Rheumatoid arthritis of [facility] with negative rheumatoid factor 09/16/2015 Anemia 06/11/2015 Dyslipidemia 04/13/2015 Elevated blood pressure 04/13/2015 PVC (premature ventricular contraction) 04/13/20 15 Syncope and collapse 04/13/2015 Hearing loss 09/22/2014 Talipes valgus 05/19/2014 Fatigue 02/17/2014 Unknown and unspecified causes of morbidity 10/2013 Swelling of lower extremity 02/02/2012 Decreased hearing 11/01/2011 Irritable bowel syndrome 11/01/2011 Acquired deformity of ankle and foot 08/03/2011 Immunizations * INFLUENZA VACCINE, TRIV. (AFLURIA, FLUZONE TRIVALENT; 6MO+) (IIV3)(Given 02/01/2012) * FLU VACCINE QUAD IIV4 PF ID(Given 04/26/2016) * INFLUENZA VACCINE, HIGH-DOSE, QUADR. (FLUZONE HIGH-DOSE QUADRIVALENT; 65Y+), 0.7 ML (HD-IIV4)(Given 12/22/2013) * Influenza Intradermal(Given 03/12/2015) * PNEUMOCOCCAL PPSV23(Given 02/02/2008) Social History Tobacco Use Types Packs/Day Years [...] Mass Index 25.75 12/31/2021 1:34 AM CDT Procedures * DERMATOPATHOLOGY(Performed 09/26/2022) * CBC W AUTO DIFFERENTIAL(Performed 12/31/2021) * CK BLOOD(Performed 12/31/2021) * XR FEMUR LEFT 2VW(Performed 12/31/2021) Performed for Contusion of left lower extremity, initial encounter * XR KNEE LEFT 3VW(Performed 12/31/2021) Performed for Contusion of left lower extremity, initial encounter * PT-INR [facility](Performed 12/31/2021) * COMPREHENSIVE METABOLIC PANEL(Performed 12/31/2021) * CBC W AUTO DIFFERENTIAL(Performed 12/31/2021) * SC INSERT NASAL SEPTAL PROSTHESIS(Performed 12/23/2019) Performed for Nasal septal perforation, Nasal congestion, Nasal dryness, Epistaxis * SC NASAL ENDOSCOPY,DX(Performed 03/12/2019) Performed for Nasal septal perforation, Nasal congestion * SC INSERT NASAL SEPTAL PROSTHESIS(Performed 02/12/2019) Performed for Nasal septal perforation * SC INCISION EARDRUM,ASPIR(Performed 02/10/2019) Performed for Dysfunction of right eustachian tube * SC NASAL ENDOSCOPY,DX(Performed 01/20/2019) Performed for Nasal septal perforation Results * DERMATOPATHOLOGY (09/26/2022 12:00 AM CDT) Case Report Dermatopathology Report Case: [id number] Authorizing Provider: Jose Alejandro Lopez MD Collected: 09/26/2022 12:00 AM Ordering Location: [facility] DermPath Lab Received: 09/28/2022 06:38 AM Pathologist: Flaquita Isaacs MD Specimens: A) - Skin, left medial groin B) - Skin, left lateral groin 1:04 PM CDT DERMATOPATHOLOGY LABORATORY Final Diagnosis Specimen A. SKIN, left medial groin: LENTIGINOUS MELANOCYTIC NEVUS, COMPOUND TYPE (D22.5) (see microscopic description and comment) Specimen B. SKIN, left lateral groin: COMPOUND MELANOCYTIC NEVUS (D22.5) (see microscopic description) 1:04 PM CDT DERMATOPATHOLOGY LABORATORY Clinical History A: nevus Path#[id number] B: nevus Path#[id number] 3 1:04 PM CDT DERMATOPATHOLOGY LABORATORY Gross Description Specimen A: Received [...] shave biopsy measuring 6x2x1 mm. Jar 0. 3 1:04 PM CDT DERMATOPATHOLOGY LABORATORY Microscopic Description Specimen A. SKIN, [...] larger lesion, these findings may not be provider relations representative of the entire lesion. Clinicopathologic correlation is recommended. Specimen B. SKIN, left lateral groin: There are nests of melanocytes at the dermal-epidermal junction and within the dermis. Additional deeper sections were obtained and reviewed. 3 1:04 PM T DERMATOPATHOLOGY LABORATORY Disclaimer An external and internal positive and negative controls are appropriate for the histochemical, immunohistochemical and immunofluorescence stain(s) in this case (if any), except where stated explicitly. The performance characteristics of the stain(s) cited in this report were developed and its performance characteristic determined by the Dermatopathology Laboratory at [facility], directed by Dr. Nelia Schaeffer. These tests need not be, and therefore are not, approved by the [place] Food and Drug Administration. The tests are used for clinical purposes. Billing Codes Specimen Charges Stain Charges 40592 62297 1 1 3 1:04 PM CDT DERMATOPATHOLOGY LABORATORY Embedded Images 3 1:04 PM CDT DERMATOPATHOLOGY LABORATORY Pathology/Cytology TISSUE SPECIMEN FROM SKIN / Unknown 09/26/2022 09/28/2022 6:38 AM CDT Miscellaneous samples (specimen) TISSUE SPECIMEN FROM SKIN / Unknown 09/26/2022 09/28/2022 6:38 AM CDT Jose Alejandro Lopez MD LAB - PATHOLOGY/CYTO LOGY ORDERABLES DERMATOPATHOLOGY LABORATORY [facility] - Department of Dermatology [address], [address] [phone] * (ABNORMAL) CBC W AUTO DIFFERENTIAL (12/31/2021 7:02 AM CDT) Only the most recent of2 resultswithin the time period is included. WBC 9.0 3.5 - 10.5 10 3/uL 12/31/2021 7:13 AM [facility] RBC 3.30(L) 3.80 - 5.20 10 6/uL 12/31/2021 7:13 AM [facility] Hemoglobin 10.1(L) 12.0 - 15.6 g/dL 12/31/2021 7:13 AM [facility] Hematocrit 31.4(L) 35.0 - 45.0 % 12/31/2021 7:13 AM [facility] MCV 95.2 80.7 - 98.3 fL 12/31/2021 7:13 AM [facility] MCH 30.6 26.7 - 34.0 pg 12/31/2021 7:13 AM [facility] MCHC 32.2 30.8 - 35.9 g/dL 12/31/2021 7:13 AM [facility] Platelet Count 225 150 - 400 10 3/uL 12/31/2021 7:13 AM [facility] RDW-SD 54.9(H) 36.0 - 50.0 fL 12/31/2021 7:13 AM [facility] RDW-CV 16.4(H) 11.2 - 14.8 % 12/31/2021 7:13 AM [facility] MPV 10.4 9.4 - 12.9 fL 12/31/2021 7:13 AM [facility] nRBC Absolute 0.00 0 10 3/uL 12/31/2021 7:13 AM [facility] nRBC Auto 0.0 0 /100 WBC 12/31/2021 7:13 AM [facility] Neutrophils % 65.3 35.0 - 70.0 % 12/31/2021 7:13 AM [facility] Lymphocytes % 17.9(L) 20.0 - 43.0 % 12/31/2021 7:13 AM [facility] Monocytes % 13.1(H) 5.0 - 13.0 % 12/31/2021 7:13 AM [facility] Eosinophils % 2.9 0.0 - 6.0 % 12/31/2021 7:13 AM T [facility] LAB[facility] Basophil % 0.4 0.0 - 2.0 % 12/31/2021 7:13 AM T [facility] Neutrophils Absolute 5.85 1.60 - 7.00 10 3/uL 12/31/2021 7:13 AM [facility] Lymphocyte Absolute 1.61 1.10 - 3.90 10 3/uL 12/31/2021 7:13 AM [facility] Monocytes Absolute 1.18(H) 0.26 - 1.07 10 3/uL 12/31/2021 7:13 AM T [facility] Eosinophils Absolute 0.26 0.00 - 0.47 10 3/uL 12/31/2021 7:13 AM [facility] Basophils Absolute 0.04 0.00 - 0.08 10 3/uL 12/31/2021 7:13 AM [facility] Immature Granulocytes % 0.4 0.0 - 1.0 % 12/31/2021 7:13 AM [facility] Immature Granulocytes Absolute 0.04 12/31/2021 7:13 AM [facility] Blood BLOOD SPECIMEN / Unknown Venipuncture / Unknown 12/31/2021 7:02 AM CDT 12/31/2021 7:09 AM CDT Nasir Seymour MD LAB - HEMATOLOGY ORD ANGELA [facility] [address] [place] [address], [facility] [phone] * CK BLOOD (12/31/2021 7:02 AM CDT) CK Total 35 30 - 200 U/L 12/31/2021 7:35 AM T [facility] Blood BLOOD SPECIMEN / Unknown Venipuncture / Unknown 12/31/2021 7:02 AM CDT 12/31/2021 7:09 AM CDT Nasir Seymour MD LAB - CHEMISTRY ORDEmani [facility] [address] [place] [address], [facility] [phone] * XR FEMUR LEFT 2VW (12/31/2021 2:27 AM CDT) Anatomical Region Laterality Modality Lower Extremity Radiographic Mireya ging 12/31/2021 2:45 AM CDT Impressions 12/31/2021 11:50 AM CDT IMPRESSION: No acute fracture or dislocation in the left femur or knee. A large distal medial thigh contusion/hematoma. Primary osteoarthritis of the knee. > Dictated by Toño Ramsey MD (outside residential sales professional). I, CESAR LUIS MD have personally reviewed and interpreted this examination/study. > Interpreting Provider: CESAR LUIS MD on 12/31/2021 11:50 AM Narrative 12/31/2021 11:50 AM CDT EXAMINATION: XR KNEE LEFT 3VW, XR FEMUR LEFT 2VW HISTORY: S80.12XA: Contusion of left lower extremity, initial encounter COMPARISON: None. FINDINGS: Left femur: No acute fracture or dislocation is identified. Osteoarthritis of the knee is partially imaged. Soft tissue density corresponding to the known contusion/hematoma is identified over the distal medial thigh. This measures up to 11.8 cm in length. Displacement of the associated extensor musculature is noted. Left knee: The osseous structures are intact and well aligned without acute fracture or dislocation. Mild tricompartmental osteoarthritis is noted. No joint effusion is noted. Bone density and texture are normal. Procedure Note Cesar Luis MD - 12/31/2021 EXAMINATION: XR KNEE LEFT 3VW, XR FEMUR LEFT 2VW HISTORY: S80.12XA: Contusion of left lower extremity, initial encounter COMPARISON: None. FINDINGS: Left femur: No acute fracture or dislocation is identified. Osteoarthritis of theknee is partially imaged. Soft tissue density corresponding to the known contusion/hematoma is identified over the distal medial thigh. This measures up to 11.8 cm in length. Displacement of the associatedextensor musculature is noted. Left knee: The osseous structures are intact and well aligned without acutefracture or dislocation. Mild tricompartmental osteoarthritis is noted. No joint effusion is noted. Bone density and texture are normal. IMPRESSION: No acute fracture or dislocation in the left femur or knee. A large distal medial thigh contusion/hematoma. Primary osteoarthritis of the knee. > Dictated by Toño Ramsey MD (outside residential sales professional). CESAR Gill MD have personally reviewed and interpreted this examination/study. > Interpreting Provider: CESAR LUIS MD on 12/31/2021 11:50 AM Nasir Seymour MD DIAGNOSTIC IMAGING O RDERABLES * XR KNEE LEFT 3VW (12/31/2021 2:27 AM CDT) Anatomical Region Laterality Modality Lower Extremity Radiographic Mireya ging 12/31/2021 2:45 AM CDT Impressions 12/31/2021 11:50 AM CDT IMPRESSION: No acute fracture or dislocation in the left femur or knee. A large distal medial thigh contusion/hematoma. Primary osteoarthritis of the knee. > Dictated by Toño Ramsey MD (outside residential sales professional). CESAR Gill MD have personally reviewed and interpreted this examination/study. > Interpreting Provider: CESAR LUIS MD on 12/31/2021 11:50 AM Narrative 12/31/2021 11:50 AM CDT EXAMINATION: XR KNEE LEFT 3VW, XR FEMUR LEFT 2VW HISTORY: S80.12XA: Contusion of left lower extremity, initial encounter COMPARISON: None. FINDINGS: Left femur: No acute fracture or dislocation is identified. Osteoarthritis of the knee is partially imaged. Soft tissue density corresponding to the known contusion/hematoma is identified over the distal medial thigh. This measures up to 11.8 cm in length. Displacement of the associated extensor musculature is noted. Left knee: The osseous structures are intact and well aligned without acute fracture or dislocation. Mild tricompartmental osteoarthritis is noted. No joint effusion is noted. Bone density and texture are normal. Procedure Note Cesar Luis MD - 12/31/2021 EXAMINATION: XR KNEE LEFT 3VW, XR FEMUR LEFT 2VW HISTORY: S80.12XA: Contusion of left lower extremity, initial encounter COMPARISON: None. FINDINGS: Left femur: No acute fracture or dislocation is identified. Osteoarthritis of theknee is partially imaged. Soft tissue density corresponding to the known contusion/hematoma is identified over the distal medial thigh. This measures up to 11.8 cm in length. Displacement of the associatedextensor musculature is noted. Left knee: The osseous structures are intact and well aligned without acutefracture or dislocation. Mild tricompartmental osteoarthritis is noted. No joint effusion is noted. Bone density and texture are normal. IMPRESSION: No acute fracture or dislocation in the left femur or knee. A large distal medial thigh contusion/hematoma. Primary osteoarthritis of the knee. > Dictated by Toño Ramsey MD (outside residential sales professional). I, CESAR LUIS MD have personally reviewed and interpreted this examination/study. > Interpreting Provider: CESAR LUIS MD on 12/31/2021 11:50 AM Nasir Seymour MD DIAGNOSTIC IMAGING O RDERABLES * PT-INR [facility] (12/31/2021 1:40 AM CDT) PT 12.3 12.1 - 14.8 Seconds 12/31/2021 2:13 AM CDT [facility] INR 0.9 See Comment 12/31/2021 2:13 AM CDT [facility] Comment:The suggested therap eutic range for standard coumadin (warfarin) therapy is an INR of 2.0-3.0. For high-risk patients (Mechanical Mitral Valve Prosthesis, etc.), the suggested prophylactic therapeutic range is an INR of 2.5-3.5. Blood BLOOD SPECIMEN / Unknown Venipuncture / Unknown 12/31/2021 1:40 AM CDT 12/31/2021 1:47 AM CDT Nasir Seymour MD LAB - COAGULATION OR DERABLES [facility] [address] [place] [id number], [facility] [phone] * (ABNORMAL) COMPREHENSIVE METABOLIC PANEL (12/31/2021 1:40 AM CDT) BUN 16 7 - 26 mg/dL 12/31/2021 2:19 AM CDT [facility] Creatinine 0.71 0.56 - 0.96 mg/dL 12/31/2021 2:19 AM [facility] Sodium 137 136 - 145 mmol/L 12/31/2021 2:19 AM [facility] Potassium 3.7 3.5 - 4.5 mmol/L 12/31/2021 2:19 AM [facility] Chloride 107 98 - 107 mmol/L 12/31/2021 2:19 AM [facility] CO2 25 22 - 29 mmol/L 12/31/2021 2:19 AM [facility] Glucose 104 70 - 115 mg/dL 12/31/2021 2:19 AM [facility] Calcium 10.0 8.4 - 10.2 mg/dL 12/31/2021 2:19 AM [facility] Protein Total 5.9(L) 6.0 - 8.3 g/dL 12/31/2021 2:19 AM [facility] Albumin 3.2(L) 3.4 - 5.0 g/dL 12/31/2021 2:19 AM [facility] Bilirubin Total 0.8 0.2 - 1.2 mg/dL 12/31/2021 2:19 AM [facility] Alkaline Phosphatase 79 40 - 150 U/L 12/31/2021 2:19 AM [facility] ALT 45 5 - 55 U/L 12/31/2021 2:19 AM [facility] AST 29 5 - 34 U/L 12/31/2021 2:19 AM [facility] Anion Gap 9 8 - 18 12/31/2021 2:19 AM [facility] BUN/Creatinine Ratio 23 7 - 23 12/31/2021 2:19 AM [facility] Osmolality Calculated 285 270 - 300 mOsm/kg 12/31/2021 2:19 AM [facility] Albumin/Globulin Ratio 1.2 1.1 - 2.3 12/31/2021 2:19 AM [facility] eGFR by CKD-EPI >90 >=90 mL/min/1.7 3 m2 12/31/2021 2:19 AM [facility] Blood BLOOD SPECIMEN / Unknown Venipuncture / Unknown 12/31/2021 1:40 AM CDT 12/31/2021 1:47 AM CDT Nasir Seymour MD LAB - CHEMISTRY [facility] Organization Address City/State/ZIP Co de Phone Number [facility] [address] [place] [address], [facility] [phone] * SC INSERT NASAL SEPTAL PROSTHESIS (12/23/2019 2:03 PM CDT) Narrative Jermaine Hussein MD - 12/23/2019 2:03 PM CDT Jermaine Hussein MD 12/23/2019 2:14 PM Due to the findings on physical examination, in correlation with the patient's symptomatology, the decision was made to perform a procedure today in clinic. Consent obtained prior to starting procedure. Procedure note: Procedure: Rigid Nasal Endoscopy with placement of septal button Pre Op Dx: Nasal secretions Post Op: same Anesthesia: Bilateral Nasal Cavities sprayed with Lidocaine and Neosynephrine Detail: Rigid nasal endoscopy performed bilaterally. Septal window with crusting. Right nasal cavity showed crusting, septal perf. Left nasal cavity showed crusting, septal perf, some purulence. Septal button was inserted via endoscopic guidance as well as nasal speculum and Calderon's forceps. Purulence suctioned. Jermaine Hussein MD PROCEDURE/MINOR CLEMENTS RGICAL ORDERABLES * SC NASAL ENDOSCOPY,DX (03/12/2019 12:15 PM PATIENT SERVICES COORDINATOR) Narrative Jermaine Hussein MD - 03/12/2019 12:15 PM PATIENT SERVICES COORDINATOR Jermaine Hussein MD 03/12/2019 12:16 PM Due to the findings on physical examination, in correlation with the patient's symptomatology, the decision was made to perform a procedure today in clinic. Consent obtained prior to starting procedure. Procedure note: Procedure: Rigid Nasal Endoscopy Pre Op Dx: Nasal secretions Post Op: same Anesthesia: Bilateral Nasal Cavities sprayed with Lidocaine and Neosynephrine Detail: Rigid nasal endoscopy performed bilaterally. Septum shows perforation. Right nasal cavity showed perf, there were no polyps or purulence. Left nasal cavity showed severe crusting, purulence, surrounding the septal button which was dislodged into the left nasal cavity. This was replaced in the midline.. Jermaine Hussein MD PROCEDURE/MINOR CLEMENTS RGICAL ORDERABLES * SC INSERT NASAL SEPTAL PROSTHESIS (02/12/2019 5:43 PM CDT) Jermaine Sawant MD - 02/12/2019 5:43 PM CDT Jermaine Hussein MD 02/12/2019 5:45 PM Due to the findings on physical examination, in correlation with the patient's symptomatology, the decision was made to perform a procedure today in clinic. Consent obtained prior to starting procedure. Procedure note: Procedure: Rigid Nasal Endoscopy with insertion of septal button Pre Op Dx: Nasal secretions Post Op: same Anesthesia: Bilateral Nasal Cavities sprayed with Lidocaine and Neosynephrine. Tetracaine was placed topically using pledgets. Detail: Rigid nasal endoscopy performed bilaterally. Septum with perforation in the Little's area. A septal button was trimmed down small enough to fit through the nares, the septal button was placed and pulled through to the midline. Jermaine Hussein MD PROCEDURE/MINOR CLEMENTS RGICAL ORDERABLES * SC INCISION EARDRUM,ASPIR (02/10/2019 8:55 AM CDT) Jermaine Sawant MD - 02/10/2019 8:55 AM CDT Jermaine Hussein MD 02/10/2019 8:57 AM Due to the findings on physical examination, in correlation with the patient's symptomatology, the decision was made to perform a procedure today in clinic. Consent obtained prior to starting procedure. Procedure Note: Pre Op Dx: Eustachian tube dysfunction. Post Op Dx: same Procedure performed: Right Myringotomy without tube placement Surgeon: Keenan Procedure in detail: Claire Matos is a 63 year old female with a history of Eustachian tube dysfunction who presented today with right ear fullness. The risks, benefits, alternatives, and indications of the procedure were discussed in great detail and the patient understood these and wished to proceed. First, phenol was used to numb the eardrum in the inferior quadrant. Then the myringotomy blade was used to make the incision. Patient was able to autoinsufflate. This concluded the procedure. Jermaine Hussein MD PROCEDURE/MINOR CLEMENTS RGICAL ORDERABLES * SC NASAL ENDOSCOPY,DX (01/20/2019 10:26 AM CDT) Jermaine Sawant MD - 01/20/2019 10:26 AM CDT Jermaine Hussein MD 01/20/2019 10:28 AM Due to the findings on physical examination, in correlation with the patient's symptomatology, the decision was made to perform a procedure today in clinic. Consent obtained prior to starting procedure. Procedure note: Procedure: Rigid Nasal Endoscopy Pre Op Dx: Nasal secretions Post Op: same Anesthesia: Bilateral Nasal Cavities sprayed with Lidocaine and Neosynephrine Detail: Rigid nasal endoscopy performed bilaterally. Septal perforation, 10mm AP x 7mm superior. Right nasal cavity showed septal body swell superiorly, crusting and scabs surrounding perf, there were no polyps or purulence. Left nasal cavity showed crusting and scabs and bright red blood around the perforation, there were no polyps or purulence. Jermaine Hussein MD PROCEDURE/MINOR CLEMENTS RGICAL ORDERABLES Care Teams Veterinarian Small Animal Relationship Specialty Start Date End Date Tico Mars MD [address] [place] [address] PCP - General 01/20/19
--- OUTSIDE RECORDS SUMMARY | 2024-06-25 08:04 | XMS_ITS | Encounter Summary ---
Author Organization [facility] Address [address] [place] [address] Phone Care Team Providers Care Tester Electronic Scale Name Role Phone Tico Mars MD Primary Care Provider Toribio Pinedo MD Unavailable Geri Nath MD Unavailable [phone] Tori Pinedo APRN, LINE ERECTOR APPRENTICE Unavailable Sandi Hicks ELECTROMEDICAL SERVICE ENGINEER Unavailable Unavailab Lidia Cabrera MD Primary Care Provide r Tico Mars MD Primary Care Provider Reason for Visit * Reason Comments Medication Refill Encounter Details Date Type Department Care Team (Late st Contact Info) Description 02/10/2021 Refill [facility] - Internal Medicine - [place] [address] [address] Tico Mars MD [address] [address] Medication Refill Social History Tobacco Use Types Packs/Day Years Used Date Smoking Tobacco: Never Smokeless Tobacco: Never Alcohol Use Standard Drinks/Week Comments Not Currently 0 (1 standard drink = 0.6 oz pur e alcohol) PHQ-2 Answer Date Recorded Total Score - Questions 1-9 2 02/23 Sexually Active Control Partners Comments Not Currently [...] [facility] - Internal Medicine - [place] [address] [place] [id number] Tico Mars MD [address] [place] [id number] documented as of this encounter Visit Diagnoses Not on filedocumented in this encounter Additional Health Concerns Assessment Noted Time PHQ-9 Depression Total Score: 2 03/22/20 20 1:00 PM PAPER CUTTER documented as of this encounter Care Teams Tester Electronic Scale Relationship Specialty Start Date End Date Tico Mars MD [address] [place] [id number] PCP - General Internal Medicine 03/18/18 02/06/24 Lidia Srinivasan MD [address] [facility] [address] [place] [address] PCP - General Rheumatology 02/07/24 03/02/24 Tico Mars MD [address] [place] [id number] PCP - General Internal Medicine 03/03/24 Toribio Pinedo MD [address] [address] Consulting Physician Colon and Rectal Surgery 05/17/22 Geri Nath MD [address] [place] [address] Consulting Physician Gastroenterology 06/29/22 Tori Pinedo APRN, LINE ERECTOR APPRENTICE [address] [place] [address] Nurse Practitioner Advanced Practice Nurse 01/04/24 Sandi Hicks LSW ID Engineer Geophysical Laboratory Manager Clinical 01/24/24 02/01/24 documented as of this encounter
--- OUTSIDE RECORDS SUMMARY | 2024-06-25 08:04 | XMS_ITS | Encounter Summary ---
Author Organization [facility] Address [address] [place] [address] Care Team Providers Care Loan Inspector Name Role Phone Iain Lowery MD Primary Care Provider [phone] Encounter Details Date Type Department Care Team (Latest Contact Info) Description 11/16/2006 Outpatient Historical [facility] Unspecified Anemia (Primary Dx) Social History Tobacco Use Types Packs/Day Years Used Date Smoking Tobacco: Never Assessed Comments Unknown Sex and Gender Information Value Date Recorded Sex Assigned at Not on file Legal Sex Female 4:26 AM CSW Gender Identity Not on file Sexual Orientation Not on file documented as of this encounter Plan of Treatment Not on file documented as of this encounter Procedures Procedure Name Priority Date/Time Associated Diagnosis Comments IRON PANEL Routine 12/12/2006 3:18 PM CDT CBC WITH DIFFERENTIAL Routine 12/12/2006 3:18 PM CDT CBC WITH DIFFERENTIAL Routine 12/12/2006 3:18 PM CDT FERRITIN Routine 12/12/2006 3:18 PM CDT IRON PANEL Routine 11/16/2006 3:58 PM CDT CBC WITH DIFFERENTIAL Routine 11/16/2006 3:58 PM CDT CBC WITH DIFFERENTIAL Routine 11/16/2006 3:58 PM CDT CBC WITH DIFFERENTIAL Routine 11/16/2006 3:58 PM CDT RETICULOCYTES Routine 11/16/2006 3:58 PM CDT LACTATE DEHYDROGENASE Routine 11/16/2006 3:58 PM CDT HAPTOGLOBIN Routine 11/16/2006 3:58 PM CDT FOLATE RBC AND HEMATOCRIT Routine 11/16/2006 3:58 PM CDT FERRITIN Routine 11/16/2006 3:58 PM CDT VITAMIN B12 LEVEL Routine 11/16/2006 3:5 8 PM CDT COMPREHENSIVE METABOLIC PANEL Routine 11/16/2006 3:58 PM CDT documented in this encounter Results * (ABNORMAL) CBC WITH DIFFERENTIAL (12/12/2006 3:18 PM CDT) NEUTROPHIL ABSOLUTE 8.02(H) 1.90 - 7.00 K/uL INTERFACE SYSTEM LYMPHOCYTE ABSOLUTE 1.58 0.70 - 4.50 K/uL INTERFACE SYSTEM MONOCYTE ABSOLUTE 1.47(H) 0.10 - 1.30 K/uL INTERFACE SYSTEM EOSINOPHIL ABSOLUTE 0.23 0.00 - 0.70 K/uL INTERFACE SYSTEM BASOPHILS ABSOLUTE 0.00 0.00 - 0.20 K/uL INTERFACE SYSTEM NEUTROPHILS, SEG 71(H) 45 - 70 % INT ERFACE SYSTEM LYMPHOCYTES 14(L) 16 - 45 % INTERFAC E SYSTEM MONOCYTES 13 3 - 13 % INTERFACE SYSTEM EOSINOPHILS 2 0 - 7 % INTERFAC E SYSTEM BASOPHILS 0 0 - 2 % INTERFACE SYSTEM PLATELET EST. Consistent w/ count Normal INTERFACE SYSTEM ANISOCYTOSIS Slight INTERFA CE SYSTEM POIKILOCYTES Slight INTERFA CE SYSTEM MICROCYTES Slight INTERFACE SYSTEM OVALOCYTES Slight INTERFACE SYSTEM 12/12/2006 3:18 PM CDT us Igor Aly MD HEMATOLOGY ORDERABLES Edited INTERFACE SYSTEM Refer to clinic/hospital department * (ABNORMAL) CBC WITH DIFFERENTIAL (12/12/2006 3:18 PM CDT) WBC 11.3(H) 4.0 - 9.8 K/uL INTERFACE SYSTEM RBC 4.58 3.90 - 4.90 M/uL INTERFACE SYSTEM HEMOGLOBIN 10.6(L) 11.8 - 14.8 g/dL INTERFACE SYSTEM HEMATOCRIT 34.4(L) 35.5 - 44.0 % INTERFACE SYSTEM MCV 75.1(L) 82.0 - 99.0 fL INTERFACE SYSTEM MCH 23.1(L) 27.2 - 32.6 pg INTERFACE SYSTEM MCHC 30.8(L) 31.5 - 35.5 % INTERFACE SYSTEM RDW 24.8(H) 11.5 - 14.5 % INTERFACE SYSTEM RDW-STDEV 64.6(H) 37.1 - 48.7 fL INTERFACE SYSTEM PLATELETS 244 140 - 350 K/uL INTERFACE SYSTEM MPV 9.9 9.3 - 12.4 fL INTERFACE SYSTEM 12/12/2006 3:18 PM CDT Igor Aly MD HEMATOLOGY ORDERABLES Edited Performing Organization Address [facility] Phone Number INTERFACE SYSTEM Refer to clinic/hospital department * (ABNORMAL) IRON PANEL (12/12/2006 3:18 PM CDT) IRON 38 37 - 160 ug/dL INTERFACE SYSTEM TRANSFERRIN 219 200 - 360 mg/dL INTERFACE SYSTEM IRON % SATURATION 14(L) 15 - 50 % INTERFACE SYSTEM TIBC 278 250 - 450 ug/dL INTERFACE SYSTEM 12/12/2006 3:18 PM CDT Igor Aly MD CHEMISTRY ORDERABLES Edited Performing Organization Address [facility] Phone Number INTERFACE SYSTEM Refer to clinic/hospital department * FERRITIN (12/12/2006 3:18 PM CDT) Pathologist [facility] FERRITIN 124 13 - 150 ng/mL INTERFACE SYSTEM 12/12/2006 3:18 PM CDT Igor Aly MD CHEMISTRY ORDERABLES Edited Performing Organization Address [facility] Phone Number INTERFACE SYSTEM Refer to clinic/hospital department * CBC WITH DIFFERENTIAL (11/16/2006 3:58 PM CDT) ANISOCYTOSIS Slight INTERFA CE SYSTEM POIKILOCYTES Slight INTERFA CE SYSTEM MICROCYTES Moderate INTERFACE SYSTEM MACROCYTES Slight INTERFACE SYSTEM POLYCHROMASIA Slight INTERF DAREN SYSTEM HYPOCHROMIA Moderate INTERFAC E SYSTEM OVALOCYTES Slight INTERFACE SYSTEM TEAR DROP CELLS Slight INTE RFACE SYSTEM 11/16/2006 3:58 PM CDT Igor Aly MD HEMATOLOGY ORDERABLES Edited Performing Organization Address [facility] de Phone Number INTERFACE SYSTEM Refer to clinic/hospital department * CBC WITH DIFFERENTIAL (11/16/2006 3:58 PM CDT) NEUTROPHILS 68 45 - 70 % INTERFAC E SYSTEM LYMPHOCYTES 20 16 - 45 % INTERFAC E SYSTEM MONOCYTES 10 3 - 13 % INTERFACE SYSTEM EOSINOPHILS 2 0 - 7 % INTERFAC E SYSTEM BASOPHILS 0 0 - 2 % INTERFACE SYSTEM NEUTROPHIL ABSOLUTE 6.14 1.90 - 7.00 K/uL INTERFACE SYSTEM LYMPHOCYTE ABSOLUTE 1.77 0.70 - 4.50 K/uL INTERFACE SYSTEM MONOCYTE ABSOLUTE 0.94 0.10 - 1.30 K/uL INTERFACE SYSTEM EOSINOPHIL ABSOLUTE 0.14 0.00 - 0.70 K/uL INTERFACE SYSTEM BASOPHILS ABSOLUTE 0.01 0.00 - 0.20 K/uL INTERFACE SYSTEM 11/16/2006 3:58 PM CDT Igor Aly MD HEMATOLOGY ORDERABLES Edited Performing Organization Address [facility] de Phone Number INTERFACE SYSTEM Refer to clinic/hospital department * (ABNORMAL) CBC WITH DIFFERENTIAL (11/16/2006 3:58 PM CDT) WBC 9.0 4.0 - 9.8 K/uL INTERFACE SYSTEM RBC 3.97 3.90 - 4.90 M/uL INTERFACE SYSTEM MCV 67.0(L) 82.0 - 99.0 fL INTERFACE SYSTEM MCH 19.9(L) 27.2 - 32.6 pg INTERFACE SYSTEM MCHC 29.7(L) 31.5 - 35.5 % INTERFACE SYSTEM RDW 18.5(H) 11.5 - 14.5 % INTERFACE SYSTEM RDW-STDEV 45.2 37.1 - 48.7 fL INTERFACE SYSTEM PLATELETS 356(H) 140 - 350 K/uL INTERFACE SYSTEM MPV 10.0 9.3 - 12.4 fL INTERFACE SYSTEM HEMOGLOBIN 8.0(L) 11.8 - 14.8 g/dL INTERFACE SYSTEM HEMATOCRIT 26.7(L) 35.5 - 44.0 % INTERFACE SYSTEM 11/16/2006 3:58 PM CDT Igor Aly MD HEMATOLOGY ORDERABLES Edited Performing Organization Address [facility] Phone Number INTERFACE SYSTEM Refer to clinic/hospital department * (ABNORMAL) HAPTOGLOBIN (11/16/2006 3:58 PM CDT) HAPTOGLOBIN 292(H) 30 - 200 mg/dL INTERFACE SYSTEM 11/16/2006 3:58 PM CDT Igor Aly MD CHEMISTRY ORDERABLES Edited Performing Organization Address [facility] Phone Number INTERFACE SYSTEM Refer to clinic/hospital department * VITAMIN B12 (11/16/2006 3:58 PM CDT) VITAMIN B12 303 211 - 946 pg/mL INTERFACE SYSTEM Comment: It has been reported that between 5 to 10% of patients with values between 200 and 400 pg/mL may experience neuropsychiatric and hematologic abnormalities due to occult B12 deficiency. Less than 1% of patients with values above 400 pg/mL will have symptoms. 11/16/2006 3:58 PM CDT Igor Aly MD CHEMISTRY ORDERABLES Edited Performing Organization Address [facility] Phone Number INTERFACE SYSTEM Refer to clinic/hospital department * RETICULOCYTES (11/16/2006 3:58 PM CDT) RETICULOCYTES 1.6 0.5 - 2.0 % INTERFACE SYSTEM IMMATURE RETIC FRACTION 16 0 - 16 % INTERFACE SYSTEM 11/16/2006 3:58 PM CDT Igor Aly MD HEMATOLOGY ORDERABLES Edited Performing Organization Address [facility] Phone Number INTERFACE SYSTEM Refer to clinic/hospital department * LACTATE DEHYDROGENASE (11/16/2006 3:58 PM CDT) LD (LACTATE DEHYDROGENASE) 149 135 - 214 U/L INTERFACE SYSTEM 11/16/2006 3:58 PM CDT us Igor Aly MD CHEMISTRY ORDERABLES Edited Performing Organization Address [facility] Phone Number INTERFACE SYSTEM Refer to clinic/hospital department * (ABNORMAL) IRON PANEL (11/16/2006 3:58 PM CDT) IRON 351(H) 37 - 160 ug/dL INTERFACE SYSTEM TRANSFERRIN 286 200 - 360 mg/dL INTERFACE SYSTEM IRON % SATURATION 97(H) 15 - 50 % INTERFACE SYSTEM TIBC 363 250 - 450 ug/dL INTERFACE SYSTEM 11/16/2006 3:58 PM CDT Igor Aly MD CHEMISTRY ORDERABLES Edited Performing Organization Address [facility] Phone Number INTERFACE SYSTEM Refer to clinic/hospital department * (ABNORMAL) FOLATE RBC AND HEMATOCRIT (11/16/2006 3:58 PM CDT) HEMATOCRIT, FOLATE 26.7(L) 35.5 - 44.0 % INTERFACE SYSTEM RBC FOLATE 1393 >=533 ng/mL INTERFACE SYSTEM Comment: RBC Folate Interpretation: Deficient <110 ng/mL 11/16/2006 3:58 PM CDT Igor Aly MD CHEMISTRY ORDERABLES Edited Performing Organization Address [facility] Phone Number INTERFACE SYSTEM Refer to clinic/hospital department * FERRITIN (11/16/2006 3:58 PM CDT) FERRITIN 15 13 - 150 ng/mL INTERFACE SYSTEM 11/16/2006 3:58 PM CDT Igor Aly MD CHEMISTRY ORDERABLES Edited Performing Organization Address City/[facility]/ZIP Co de Phone Number INTERFACE SYSTEM Refer to clinic/hospital department * (ABNORMAL) COMPREHENSIVE METABOLIC PANEL (11/16/2006 3:58 PM CDT) GLUCOSE 81 65 - 99 mg/dL INTERFACE SYSTEM CREATININE 0.65 0.51 - 0.95 mg/dL INTERFACE SYSTEM CALCIUM 8.2(L) 8.4 - 10.2 mg/dL INTERFACE SYSTEM ALKALINE PHOSPHATASE 76 35 - 104 U/L INTERFACE SYSTEM AST 14 12 - 32 U/L INTERFACE SYSTEM ALT 9 0 - 31 U/L INTERFACE SYSTEM TOTAL PROTEIN 7.1 6.3 - 8.6 g/dL INTERFACE SYSTEM ALBUMIN 3.4 3.4 - 4.8 g/dL INTERFACE SYSTEM BILIRUBIN TOTAL 0.4 0.2 - 1.0 mg/dL INTERFACE SYSTEM BUN 10 6 - 20 mg/dL INTERFACE SYSTEM SODIUM 145 135 - 145 mmol/L INTERFACE SYSTEM POTASSIUM 3.8 3.5 - 4.9 mmol/L INTERFACE SYSTEM CHLORIDE 110(H) 96 - 108 mmol/L INTERFACE SYSTEM CO2 27 22 - 30 mmol/L INTERFACE SYSTEM GFR, >60 >=60 mL/min/1. 7 sq meter INTERFACE SYSTEM GFR >60 >=60 mL/min/1. 7 sq meter INTERFACE SYSTEM Comment: Estimated GFR rate interpretative information for both Americans and non- Americans is available on the [facility] Intranet at: [email or web address] Select: Lab Policies and Procedures Select: Reference Ranges - GFR 11/16/2006 3:58 PM CDT Igor Aly MD CHEMISTRY ORDERABLES Edited INTERFACE SYSTEM Refer to clinic/hospital department documented in this encounter Visit Diagnoses Diagnosis Anemia, unspecified- Primary documented in this encounter Care Teams Loan Inspector Relationship Specialty Start Date End Date Iain Lowery MD [address] [facility] [address] [place] [address] PCP - General 11/16/06 documented as of this encounter
--- OUTSIDE RECORDS SUMMARY | 2024-06-25 08:04 | XMS_ITS | Encounter Summary ---
Author Organization [facility] Address [address] [place] [address] Phone Care Team Providers Care Financial Aid Name Role Phone Tico Mars MD Primary Care Provider [phone] Toribio Pinedo MD Unavailable Geri Nath MD Unavailable [phone] Tori Pinedo APRN, PHOTO GRAPHICS LIBRARIAN Unavailable Sandi Hicks INSULATION EXTRUDER OPERATOR Unavailable Unavailab Lidia Cabrera MD Primary Care Provide r Tico Mars MD Primary Care Provider Reason for Visit * Reason Comments Medication Refill Encounter Details Date Type Department Care Team (Late st Contact Info) Description 10/03/2023 Refill [facility] - Internal Medicine - [place] [address] [place] [address] Tico Mars MD [address] [place] [address] Medication Refill Social History Tobacco Use Types Packs/Day Years Used Date Smoking Tobacco: Never Passive Smoke Exposure: Never Smokeless Tobacco: Never Alcohol Use Standard Drinks/Week Comments Not Currently 0 (1 standard drink = 0.6 oz pur e alcohol) [facility] Utilities Answer Date Recorded In the past 12 months has th e electric, gas, oil, or water [employer] threatened to shut off services in your [...] How often do you attend chur or hinduism services? Patient unable to answer 05/24/2023 Do you belong to any clubs o r organizations such as temple groups, unions, fraternal or athletic groups, or [...] Score - Questions 1-9 0 05/0 04/2023 [facility] - Occupational Stress [...] place to sleep or slept in a prison (including now)? Patient unable to answer 05/24/2023 [...] Telephone Encounter - Yoanna Rush RN - 10/03/2023 8:56 AM CDT Medication(s) refilled and signed per [facility] Chronic Medication Refill Standing Order for Pediatricand Adult Patients. Requested Prescriptions Pending Prescriptions Disp Refills amLODIPine (NORVASC) 5 MG Tablet [Pharmacy Med Name: AMLODIPINE BESYLATE 5 MG TAB] 90 Tablet 0 Sig: TAKE 1 TABLET BY MOUTH EVERY DAY Calcium-Channel Blockers Protocol Passed - 10/03/2023 1:27 AM Passed - BP on record in the past year Clinician-entered: BP Readings from Last 3 Encounters: 08/22/23 160/88 05/24/23 160/84 02/19/23 140/70 Patient-entered: No data recorded Passed - Visit with relevant provider in past 12 months or upcoming 90 days Recent Visits Date Type Provider Dept 08/22/23 Office Visit Tico Mars MD [facility] [place] 05/24/23 Office Visit Tico Mars MD [facility] [place] 02/19/23 Office Visit Tico Mars MD [facility] [place] 11/07/22 Office Visit Tico Mars MD [facility] [place] Showing recent visits within past 365 days and meeting all other requirements Future Appointments Date Type Provider Dept 11/22/23 Appointment Tico Mars MD [facility] [place] Showing future appointments within next 90 days and meeting all other requirements documented in this encounter Plan of Treatment Upcoming Encounters Date Type Department Care Team (Late st Contact Info) Description 08/27/2024 11:15 AM CDT Office Visit [facility] - Internal Medicine - [place] [address] [place] [address] Tico Mars MD [address] [place] [address] documented as of this encounter Visit Diagnoses Not on filedocumented in this encounter Additional Health Concerns Assessment Noted Time PHQ-9 Depression Total Score: 0 08/22/19 11:35 AM CDT documented as of this encounter Care Teams Financial Aid Relationship Specialty Start Date End Date Tico Mars MD [address] [place] [address] PCP - General Internal Medicine 03/18/18 02/06/24 Lidia Srinivasan MD [address] [facility] [address] [place] [address] PCP - General Rheumatology 02/07/24 03/02/24 Tico Mars MD [address] [facility] [place] [address] PCP - General Internal Medicine 03/03/24 Toribio Pinedo MD [address] [address] Consulting Physician Colon and Rectal Surgery 05/17/22 Geri Nath MD [address] [place] [address] Consulting Physician Gastroenterology 06/29/22 Tori Pinedo APRN, PHOTO GRAPHICS LIBRARIAN [address] [place] [address] Nurse Practitioner Advanced Practice Nurse 01/04/24 Sandi Hicks, KAY[employer] [place] [employer] Media Specialist Width Stripper 01/24/24 02/01/24 documented as of this encounter
--- OUTSIDE RECORDS SUMMARY | 2024-06-25 08:04 | XMS_ITS | Encounter Summary ---
Author Organization [facility] Address [address] [place] [address] Phone Care Team Providers Care Speedboat Driver Name Role Phone Tico Mars MD Primary Care Provider Toribio Pinedo MD Unavailable Geri Nath MD Unavailable [phone] Tori Pinedo APRN, FISCAL CLERK Unavailable Sandi Hicks ELECTRIC LINEMAN Unavailable Unavailab Lidia Cabrera MD Primary Care Provide r Tico Mras MD Primary Care Provider [phone] Reason for Visit * Reason Comments Medication Refill Encounter Details Date Type Department Care Team (Late st Contact Info) Description 09/12/2023 Refill [facility] Medical Group - Internal Medicine - [place] [address] [place] [address] Tyra Higgins, [facility] [address] [place] [address] Medication Refill Social History Tobacco Use Types Packs/Day Years Used Date Smoking Tobacco: Never Passive Smoke Exposure: Never Smokeless Tobacco: Never Alcohol Use Standard Drinks/Week Comments Not Currently 0 (1 standard drink = 0.6 oz pur e alcohol) [facility] Utilities Answer Date Recorded In the past 12 months has th e electric, gas, oil, or water [employer] threatened to shut off services in your [...] How often do you attend chur or temple services? Patient unable to answer 05/24/2023 Do you belong to any clubs o r organizations such as buddhism groups, unions, fraternal or athletic groups, or [...] Score - Questions 1-9 0 05/0 04/2023 [facility] - Occupational Stress [...] place to sleep or slept in a penitentiary (including now)? Patient unable to answer 05/24/2023 [...] Telephone Encounter - Yoanna Rush RN - 09/12/2023 10:58 AM CDT Medication failed the protocol, provider to review and approve the medication order if appropriate. Requested Prescriptions Pending Prescriptions Disp Refills DULoxetine (CYMBALTA) [address] [place] [Pharmacy Med Name: DULOXETINE HCL DR 30 MG CAP] 90 Capsule 1 Sig: TAKE 1 CAPSULE BY MOUTH EVERY DAY SNRI (6 Month Refill Only) Protocol Failed - 09/12/2023 10:49 AM Failed - Patient has established therapy with Serotonin-Norepinephrine Reuptake Inhibitors for at least 6 months Passed - Visit with relevant provider in past 6 months or upcoming 90 days Recent Visits Date Type Provider Dept 08/22/23 Office Visit Tico Mras MD [facility] 05/24/23 Office Visit Tico Mars MD [facility] Showing recent visits within past 182 days and meeting all other requirements Future Appointments Date Type Provider Dept 11/22/23 Appointment Tico Mars MD [facility] [place] Showing future appointments within next 90 days and meeting all other requirements Passed - Has an encounter in the past 6 months with a depression or anxiety visit diagnosis documented in this encounter Plan of Treatment Upcoming Encounters Date Type Department Care Team (Late st Contact Info) Description 08/27/2024 11:15 AM CDT Office Visit [facility] Medical Group - Internal Medicine [place] [address] [place] [id number] Tico Mars MD [address] [place] [id number] documented as of this encounter Visit Diagnoses Not on filedocumented in this encounter Additional Health Concerns Assessment Noted Time PHQ-9 Depression Total Score: 0 08/22/19 11:35 AM CDT documented as of this encounter Care Teams Speedboat Driver Relationship Specialty Start Date End Date Tico Mars MD [address] [place] [id number] PCP - General Internal Medicine 03/18/18 02/06/24 Lidia Srinivasan MD [address] [facility] [address] [place] [address] PCP - General Rheumatology 02/07/24 03/02/24 Tico Mars MD [address] [place] [id number] PCP - General Internal Medicine 03/03/24 Toribio Pinedo MD [address] [address] Consulting Physician Colon and Rectal Surgery 05/17/22 Geri Nath MD [address] [place] [address] Consulting Physician Gastroenterology 06/29/22 Tori Pinedo APRN, FISCAL CLERK [address] [place] [address] Nurse Practitioner Advanced Practice Nurse 01/04/24 Sandi Hicks LSW [place] [employer] Kil[employer] Brim Molder 01/24/24 02/01/24 documented as of this encounter
--- OUTSIDE RECORDS SUMMARY | 2024-06-25 08:04 | XMS_ITS | Encounter Summary ---
Author Organization [facility] Address [address] [place] [address] Phone Care Team Providers Care Cellular Equipment Installer Name Role Phone Tico Mars MD Primary Care Provider [phone] Toribio Pinedo MD Unavailable Geri Nath MD Unavailable [phone] Tori Pinedo APRN, OWNER/OPERATOR Unavailable Sandi Hicks RIGHT OF WAY MANAGER Unavailable Unavailab Lidia Cabrera MD Primary Care Provide r Tico Mars MD Primary Care Provider [phone] Reason for Visit * Reason Comments Medication Refill Encounter Details Date Type Department Care Team (Late st Contact Info) Description 09/12/2023 Refill [facility] - Internal Medicine - [place] [address] [place] [address] Tico Mars MD [address] [place] [address] Medication Refill Social History Tobacco Use Types Packs/Day Years Used Date Smoking Tobacco: Never Passive Smoke Exposure: Never Smokeless Tobacco: Never Alcohol Use Standard Drinks/Week Comments Not Currently 0 (1 standard drink = 0.6 oz pur e alcohol) [facility] Utilities Answer Date Recorded In the past 12 months has th e electric, gas, oil, or water [employer] threatened to shut off services in your [...] How often do you attend chur or gnosticist services? Patient unable to answer 05/24/2023 Do you belong to any clubs o r organizations such as yarsani groups, unions, fraternal or athletic groups, or [...] Score - Questions 1-9 0 05/0 04/2023 [facility] - Occupational [...] place to sleep or slept in a [place] [facility] [place] facility (including now)? Patient unable to answer 05/24/2023 [...] Encounter - Yoanna Rush RN - 09/12/2023 10:50 AM CDT Medication failed the protocol, provider to review and approve the medication order if appropriate. Requested Prescriptions Pending Prescriptions Disp Refills tiZANidine (ZANAFLEX) 2 MG Tablet [Pharmacy Med Name: TIZANIDINE HCL 2 MG TABLET] 60 Tablet 0 Sig: Take 1 Tablet by mouth 2 times daily as needed for Muscle spasms. Not Delegated - Muscle Relaxants Protocol Failed - 09/12/2023 10:49 AM Failed - This refill cannot be delegated Failed - Not delegated, patient not between 1 and 65 years of age Failed - ALT less than 90 and AST less than 55 on record in past 12 months No results found for: SGOTAST No results found for: SGPTALT Passed - Visit with relevant provider in past 12 months or upcoming 90 days Recent Visits Date Type Provider Dept 08/22/23 Office Visit Tico Mars MD [facility] [place] 05/24/23 Office Visit Tico Mars MD [facility] [place] 02/19/23 Office Visit Tico Mars MD [facility] [place] 11/07/22 Office Visit Tico Mars MD [facility] [place] Showing recent visits within past 365 days and meeting all other requirements Future Appointments Date Type Provider Dept 11/22/23 Appointment Tico Mars MD [facility] [place] Showing future appointments within next 90 days and meeting all other requirements documented in this encounter Plan of Treatment Upcoming Encounters Date Type Department Care Team (Late st Contact Info) Description 08/27/2024 11:15 AM CDT Office Visit [facility] - Internal Medicine - [place] [address] [place] [address] Tico Mars MD [address] [place] [address] documented as of this encounter Visit Diagnoses Not on filedocumented in this encounter Additional Health Concerns Assessment Noted Time PHQ-9 Depression Total Score: 0 08/22/19 11:35 AM CDT documented as of this encounter Care Teams Cellular Equipment Installer Relationship Specialty Start Date End Date Tico Mars MD [address] [place] [address] PCP - General Internal Medicine 03/18/18 02/06/24 Lidia Srinivasan MD [address] [facility] [address] [place] [address] PCP - General Rheumatology 02/07/24 03/02/24 Tico Mars MD [address] [place] [address] PCP - General Internal Medicine 03/03/24 Toribio Pinedo MD [address] [address] Consulting Physician Colon and Rectal Surgery 05/17/22 Geri Nath MD [address] [place] [address] Consulting Physician Gastroenterology 06/29/22 Tori Pinedo APRN, OWNER/OPERATOR [address] [place] [address] Nurse Practitioner Advanced Practice Nurse 01/04/24 Sandi Hicks, KAYY [place] Senior Customer Service Representative Operators Teacher 01/24/24 02/01/24 documented as of this encounter
--- OUTSIDE RECORDS SUMMARY | 2024-06-25 08:04 | XMS_ITS | Referral Summary ---
Author Organization [facility] Address [address] [place] [address] Care Team Providers Care Tool And Machine Maintainer Name Role Phone Tico Mars MD Primary Care Provider [phone]- [phone] Encounters Date Type Department Care Team Description 06/16/2024 7:27 PM CALENDER LET OFF HELPER - 06/16/2024 11:59 PM CALENDER LET OFF HELPER Hospital Encounter [facility] Radiology [facility] ([facility]) [address] [place] [id number] Discharge Disposition: Discharge to home or self care 06/16/2024 1:01 PM CALENDER LET OFF HELPER - 06/16/2024 11:59 PM CALENDER LET OFF HELPER Hospital Encounter [facility] Radiology [facility] ([facility]) [address] [place] [phone] Manjit Rangel MD Chronic pain of left ankle Discharge Disposition: Discharge to home or self care 06/16/2024 1:10 PM CALENDER LET OFF HELPER Office Visit [facility] Orthopaedic Surgery [address] [place] [address] Advanced Medicine 6th [place] [address] [place] [address] Manjit Rangel MD Stress fracture of left fibula, initial encounter (Primary Dx); Chronic pain of left ankle; Left ankle pain, unspecified chronicity 06/03/2024 10:11 AM CALENDER LET OFF HELPER - 06/03/2024 11:59 PM CALENDER LET OFF HELPER Hospital Encounter [address] [address] Flu-like symptoms Discharge Disposition: Discharge to home or self care 06/03/2024 8:45 AM CALENDER LET OFF HELPER Office Visit [facility] at [address] [phone] Crystal Baca NP Flu-like symptoms (Primary Dx); Exposure to influenza 05/30/2024 10:45 AM CALENDER LET OFF HELPER Ancillary Procedure [facility] Imaging at [address] [phone] Other chronic pain 05/08/2024 Telephone [facility] Rheumatology at [address] [place] [phone] Kourtney Soto DO Med Management ([place] Approved on Humira (2 pen) auto injector kit) 05/06/2024 Telephone [facility] [address] [facility] [address] [place] [phone] Norberto Figueroa yoli 05/05/2024 Telephone [facility] Rheumatology at [address] [place] [phone] Lidia Srinivasan MD Prior Auth 05/05/2024 Telephone [facility] Rheumatology at [address] [place] [phone] Lidia Srinivasan MD Medication 04/09/2024 2:19 PM CALENDER LET OFF HELPER - 04/09/2024 11:59 PM CALENDER LET OFF HELPER Hospital Encounter [address] [address] Iron deficiency Discharge Disposition: Discharge to home or self care 04/09/2024 2:15 PM CALENDER LET OFF HELPER Lab [facility] Outpatient Lab at [address] [phone] Iron deficiency (Primary Dx) 03/28/2024 9:45 AM CALENDER LET OFF HELPER Office Visit [facility] at [address] [phone] Crystal Baca NP Acute non-recurrent frontal sinusitis (Primary Dx); Constipation, unspecified constipation type from Last 3 Months Allergies Active Allergy Reactions Criticality Noted Date Comments Cefdinir Swelling Medium 09/03/2018 Fluticasone Itching Low 01/20/2019 Latex Blisters High 04/14/2019 Lifitegrast Unknown 12/19/2023 Penicillin G Rash Medium Oxycodone-Acetaminophe n Other (See comments) Low 04/14/2019 Extreme sleepiness Tissue Adhesive Redness Low 06/13/2019 Medications vit D3-vit Z-wgmcutenh-bj ps [phone] iolf-uzl-pm-mg tablet Take by mouth Active dicyclomine (BENTYL) [...] (04/14/2019): Added automatically from request for surgery [id number] Long-term use of high-risk medication 03/14/2019 Assessment & Plan (03/14/2019 12:29 AM CALENDER LET OFF HELPER): Recent labs reviewed without sxs of toxicity Osteopenia 03/14/2019 Assessment & Plan (03/14/2019 12:30 AM CALENDER LET OFF HELPER): Lifestyle modifications are important for the prevention [...] 03/14/2019 Assessment & Plan (03/14/2019 12:29 AM CALENDER LET OFF HELPER): Hopefully you can develop an exercise regimen [...] (02/03/2019): Added automatically from request for surgery [id number] Assessment & Plan (03/14/2019 12:31 AM CALENDER LET OFF HELPER): Scheduled for RTKR tomorrow with Dr. Gaines. Medications on hold. May resume same 2 weeks after surgery if healing as expected. Right ear pain 01/20/2019 DNS (deviated nasal septum) 05/02/2018 Maxillary sinusitis 04/19/2017 Assessment & Plan (04/19/2017 1:01 PM CALENDER LET OFF HELPER): Doxycycline #20 sent to pharmacy. Pt does not want to get surgeries done that ENT has recommended at this time. Lung nodule 01/11/2017 Overview (01/11/2017): Diagnosed 01/11/[address] 6mm nodule left lung base. Assessment & Plan (04/19/2017 3:49 PM CALENDER LET OFF HELPER): noncontrast CT scan of chest to be done in early June already ordered. Will have MA contact patient to make sure she has scheduled this. Assessment & Plan (01/11/2017 2:33 PM CDT): 6mm nodule L lung base. Repeat noncontrast chest CT ordered, told patient to schedule June 2017. Microscopic hematuria 01/11/2017 Assessment & Plan (04/19/2017 12:58 PM CALENDER LET OFF HELPER): S/p evaluation by urology. Assessment & Plan (01/11/2017 11:39 PM CDT): CT scan abd / pelvis without stones. Continue urology eval. BMI 29.0-29.9,adult 11/28/2016 Assessment & Plan (04/19/2017 11:33 AM CALENDER LET OFF HELPER): BMI Follow-up includes: nutrition counseling, exercise counseling and bmi done today. Assessment & Plan (01/11/2017 2:19 PM CDT): BMI Follow-up includes: bmi done today . Assessment & Plan (11/28/2016 11:16 AM CDT): BMI Follow-up includes: bmi done today . Annual physical exam 11/28/2016 Assessment & Plan (11/28/2016 11:42 PM CDT): Colon cancer screening: Evan in My 2012, repeat 2019. Breast cancer screening: No longer going to denture model maker 2/2 hysterectomy. Cervical cancer screening: No longer going to [facility]ure model [facility] due to hysterectomy. Osteoporosis screening: As above Vaccinations: Influenza: Gets yearly. Pneumonia: 2012 Prevnar 13: At 66 Shingles: not indicated Tetanus: 07/11/13 Bleeding from the nose 11/28/2016 Assessment & Plan (11/28/2016 11:37 AM CDT): Will give [facility] ENT ph # for her to see physician she saw a few years ago at [facility]. Age-related osteoporosis wit hout current pathological fracture 11/28/2016 Assessment & Plan (11/28/2016 11:38 PM CDT): Prolia today. Check Vitamin D. Due for bone density, ordered today. Memory loss 11/28/2016 Assessment & Plan (04/19/2017 1:00 PM CALENDER LET OFF HELPER): No improvement by decreasing amitriptyline. Will try [...] refer to memory and aging department at [facility] for more detailed evaluation. Prediabetes 11/28/2016 Assessment & Plan (04/19/2017 12:58 PM CALENDER LET OFF HELPER): Reassess Osteoporosis 11/28/2016 Assessment & Plan (04/19/2017 3:40 PM CALENDER LET OFF HELPER): Prolia today Knee pain 08/08/2016 Overview (09/15/2016): Right knee pain, unspecified chronicity Arthralgia of hip 08/08/2016 Overview (09/15/2016): Pain of right hip joint Peptic ulcer 09/16/2015 Overview (07/28/2016): Peptic ulcer disease Rheumatoid arthritis of [facility] with negative rheumatoid factor 09/16/2015 Overview (07/28/2016): RHEUMATOID ARTHRITIS Assessment & Plan (03/14/2019 12:34 AM CALENDER LET OFF HELPER): RA clinically stable. Scheduled for RTKR tomorrow [...] Dyslipidemia Assessment & Plan (04/19/2017 1:00 PM CALENDER LET OFF HELPER): Reassess when she is feeling better. Discussed [...] and foot 08/03/2011 Arthralgia of ankle 07/31/2011 Immunizations Immunization Administration Dates Next Due COVID-19 mRNA (MysteryD) 0.3 m L (30 mcg) vaccine (12 [...] (Arexvy) 03/01/2023 Tdap 02/09/2020,01/19/2014 ZOSTER Recombinant 03/26/2023 Social History Tobacco Use Types Packs/Day Years [...] on file Legal Sex Female 1:48 AM CALENDER LET OFF HELPER Gender Identity Not on file Sexual Orientation Choose not to disclose 2018 12:47 PM CDT Last Filed Vital Signs Vital Sign Reading Time Taken Comments Blood Pressure 169/98 06/03/2024 8:56 AM CALENDER LET OFF HELPER Pulse 82 06/03/2024 8:56 AM CALENDER LET OFF HELPER Temperature 36.9 C (98.4 F) 06/03/2024 8:56 AM CALENDER LET OFF HELPER Respiratory Rate 18 06/03/2024 8:56 AM CALENDER LET OFF HELPER Oxygen Saturation 98% 06/03/2024 8:56 AM CALENDER LET OFF HELPER Inhaled Oxygen Concentration - - Weight 70.1 kg (154 lb 8 oz) 06/03/2024 8:56 AM CALENDER LET OFF HELPER Height 157.5 cm (5' 2.01 ) 06/03/2024 8:56 AM CS T Body Mass Index 28.25 06/03/2024 8:56 AM CALENDER LET OFF HELPER Plan of Treatment Not on file Medical Devices Implanted Type Area Street Cleaning Equipment Operator Device Identifier Shelf Expiration Date Model / Serial / Lot [employer] 3122-040 Smartset Medium Viscosity Cement 40gm Bone Sterile - Sn/A - [id number] Implanted:Qty: 1 on 03/13/2019 by Jose Gaines MD at [facility] Other - see comments Right: Knee [employer] 06/20/2020 3122-040 / N/A / [id number] [employer] [id number] Smartset Medium Viscosity Cement 40gm Bone Gentamicin - Sn/A - [id number] Implanted:Qty: 1 on 03/13/2019 by Jose Gaines MD at [facility] Other - see comments Right: Knee [employer] 06/20/2020 [id number] / N/A / [id number] [employer]/O rtho [id number] Joanne Ii Base Right Total Knee 5 Baseplate Tibial Nonporous - Sn/A - [id number] Implanted:Qty: 1 on 03/13/2019 by Jose Gaines MD at [facility] Other - see comments Right: Knee [employer]/ Ortho [id number] 12/10/2028 [id number] / N/A / [id number] [employer]/O rtho [id number] Joanne Ii Legion Spc Cruciate Retain Knee Right 7 Component - Sn/A - [id number] Implanted:Qty: 1 on 03/13/2019 by Jose Gaines MD at [facility] Other - see comments Right: Knee [employer]/ Ortho [id number] 11/23/2028 [id number] / N/A / [id number] [employer]O rtho [id number] Legion 12mm Cruciate Retaining High Flexion Knee 5-6 Insert - Sn/A - [id number] Implanted:Qty: 1 on 03/13/2019 by Jose Gaines MD at [facility] Other - see comments Right: Knee [employer]/ Ortho [id number] 03/22/2026 [id number] / N/A / [id number] Nasal Plug Nose Procedures Procedure Name Priority Date/Time Associated Diagnosis Comments XR TRANSFER OF OUTSIDE FILMS Routine 06/16/2024 7:27 PM CALENDER LET OFF HELPER XR FOOT LEFT 3 OR MORE VIEWS Schedule Routine, Read Routine (OP Routine) 06/16/2024 1:15 PM CALENDER LET OFF HELPER Chronic pain of left ankle XR ANKLE LEFT 2 VIEWS Schedule Routine, Read Routine (OP Routine) 06/16/2024 1:15 PM CALENDER LET OFF HELPER Chronic pain of left ankle INFLUENZA A/B, RSV, AND COVID-19 PCR Routine 06/03/2024 10:11 AM CALENDER LET OFF HELPER Flu-like symptoms POC INFLUENZA A/B, COVID-19 ANTIGEN Routine 06/03/2024 9:50 AM CALENDER LET OFF HELPER Flu-like symptoms XR HIP RIGHT 2 OR 3 VIEWS Schedule Routine, Read Routine (OP Routine) 05/30/2024 10:34 AM CALENDER LET OFF HELPER Other chronic pain METHYLMALONIC ACID, SERUM Routine 04/09/2024 2:19 PM CALENDER LET OFF HELPER Iron deficiency VITAMIN B12 Routine 04/09/2024 2:19 PM CALENDER LET OFF HELPER Iron deficiency IRON PROFILE W/ IBC Routine 04/09/2024 2 :19 PM CALENDER LET OFF HELPER Iron deficiency FERRITIN Routine 04/09/2024 2:19 PM CALENDER LET OFF HELPER Iron deficiency SEX HORMONE BINDING GLOBULIN Routine 04/09/2024 2:19 PM CALENDER LET OFF HELPER Iron deficiency DHEA-SULFATE Routine 04/09/2024 2:19 PM CALENDER LET OFF HELPER Iron deficiency TOTAL TESTOSTERONE Routine 04/09/2024 2: 19 PM CALENDER LET OFF HELPER Iron deficiency POC INFLUENZA A/B, COVID-19 ANTIGEN Routine 03/28/2024 10:21 AM CALENDER LET OFF HELPER Acute non-recurrent frontal sinusitis DEXA AXIAL SKELETON BONE DENSITY 1 OR MORE SITES Schedule Routine, Read Routine (OP Routine) 11/06/2023 11:21 AM CDT Osteopenia, unspecified location Age-related osteoporosis without current pathological fracture SCREENING MAMMOGRAM Routine 11/29/2015 1 2:50 PM CDT from Last 3 Months or Most Recently Relevant to Health Maintenance Results * XR Outside Reference (06/16/2024 7:27 PM CALENDER LET OFF HELPER) Impressions [facility] - 06/16/2024 7:27 PM CALENDER LET OFF HELPER These images are for Reference purposes only and have not been reviewed by [facility] Radiology. There will be no report generated by a [facility] Radiologist. Narrative [facility] - 06/16/2024 7:27 PM CALENDER LET OFF HELPER EXAMINATION: Images For Reference Purposes Only us Manjit Rangel MD IMG XR PROCEDURES Final Res ult [facility] * XR Foot Left 3 or More Views (06/16/2024 1:15 PM CALENDER LET OFF HELPER) Anatomical Region Laterality Modality Lower Extremities, Foot Left Computed Radiography 06/16/2024 2:34 PM CALENDER LET OFF HELPER Impressions 06/16/2024 2:55 PM CALENDER LET OFF HELPER 1. Chronic fracture of the distal left fibular shaft. 2. Polyarticular osteoarthritis throughout the foot, worse and moderate at the 1st metatarsal-phalangeal joint Dictated by: Gil Sevilla M.D. The radiology attending physician has personally reviewed this study, and had reviewed and/or edited this written report and agrees with it. Electronically signed by: Glenn Coreas D.O. Narrative 06/16/2024 2:55 PM CALENDER LET OFF HELPER EXAMINATION: XR FOOT LEFT 3 OR MORE [...] Ankle Left 2 Views (06/16/2024 1:15 PM CALENDER LET OFF HELPER) Anatomical Region Laterality Modality Lower Extremities, Ankle Left Compute d Radiography 06/16/2024 2:34 PM CALENDER LET OFF HELPER Impressions 06/16/2024 2:55 PM CALENDER LET OFF HELPER 1. Chronic fracture of the distal left fibular shaft. 2. Polyarticular osteoarthritis throughout the foot, worse and moderate at the 1st metatarsal-phalangeal joint Dictated by: Gil Sevilla M.D. The radiology attending physician has personally reviewed this study, and had reviewed and/or edited this written report and agrees with it. Electronically signed by: Glenn Coreas D.O. Narrative 06/16/2024 2:55 PM CALENDER LET OFF HELPER EXAMINATION: XR FOOT LEFT 3 OR MORE [...] Achilles tendon enthesophyte. Pes planus. Procedure Note Lyudmila Glenn Bernstein, - 06/16/2024 EXAMINATION: XR FOOT LEFT 3 [...] it. Electronically signed by: Glenn Coreas D.O. Manjit Rangel MD IMG XR PROCEDURES Final Res ult * Influenza A/B, RSV, and COVID-19 PCR Nasopharyngeal (06/03/2024 10:11 AM CALENDER LET OFF HELPER) COVID-19 RNA Negative Negative [facility] Influenza A RNA Negative Negative [facility] Influenza B RNA Negative Negative [facility] CH RSV RNA Negative Negative [facility] Comment: Interpretive data: Testing performed by [facility]. This test is performed using the Cepheid Xpert Xpress CoV-2/Flu/RSV plus assay. This is a multiplex, real-time reverse transcriptase PCR assay intended for the qualitative detection of nucleic acid from SARS-CoV-2, influenza A, influenza B, and respiratory syncytial virus. This assay has been cleared by the [place] Food and Drug administration. The performance characteristics have been verified by the [facility]. Results must be considered in the clinical context, and a negative result does not rule out infection. Interpretive Data last revised 2023 Nasopharyngeal 06/03/2024 10 :11 AM CALENDER LET OFF HELPER 06/03/2024 2:57 PM CALENDER LET OFF HELPER Narrative [facility] 06/03/2024 4:54 PM CALENDER LET OFF HELPER Is the Patient experiencing symptoms consistent with COVID?->Yes Reason for testing?->Symptomatic Is the patient experiencing any symptoms consistent with COVID (eg. Fever, cough, shortness of breath)?->Yes Crystal Baca NP LAB MICROBIOLOGY - GENERAL ORDERABLES Final Result Performing Organization Address City/[facility] Co de Phone Number ZIYAD [address] [address] Department [place] [address] * POC Influenza A/B, COVID-19 antigen (06/03/2024 9:50 AM CALENDER LET OFF HELPER) Influenza A Ag, POC Negative Negative [facility] Influenza B Ag, POC Negative Negative [facility] COVID-19 Ag POC Presumptive Negative Presumptive Negative, Invalid [facility] Nasal 06/03/2024 9:50 AM CALENDER LET OFF HELPER Crystal Baca LEAD DATA ARCHITECT POINT OF CARE TEST ORDERAB LES Final Result Performing Organization Address [facility] Co de Phone Number [facility] [address] [place] [address] * XR Hip Right 2 or 3 Views (05/30/2024 10:34 AM CALENDER LET OFF HELPER) Anatomical Region Laterality Modality Lower Extremities, Hip, Pelvis Right D igital Radiography 06/01/2024 11:0 5 PM CALENDER LET OFF HELPER Narrative 06/01/2024 11:09 PM CALENDER LET OFF HELPER EXAM DESCRIPTION: XR HIP RIGHT 2 OR [...] by Alessio Woodward M.D. T: Report ID: [id number] Reading Location: [id number] Procedure Note Alessio Woodward MD - 06/01/2024 [...] by Alessio Woodward M.D. T: Report ID: [id number] Reading Location: [id number] us Tico Mars MD IMG XR PROCEDURES Final Re sult * Sex hormone binding globulin (04/09/2024 2:19 PM CALENDER LET OFF HELPER) Sex steroid binding globulin 69.5 16.8 - 125.2 nmol/L [facility] ref Lab Comment: Test Performed by: [facility] - [address] [address] Terrazzo Installer: Suki Monge Ph.D.; CLIA# [id number] Blood 04/09/2024 2:19 PM CALENDER LET OFF HELPER 04/09/2024 9:16 PM CALENDER LET OFF HELPER Narrative [facility] - 2024 11:45 AM CALENDER LET OFF HELPER Fax results to [phone] Sindi aguilar us Not In File Miscellaneous LAB BLOOD ORDERABLES F inal Result Performing Organization Address [facility] Co de Phone Number ZIYAD ESCALANTE [address] [address] [facility] [place] [address] [facility]ella ref Lab * Iron profile w/ IBC (04/09/2024 2:19 PM CALENDER LET OFF HELPER) Pathologist [facility] Iron 85 35 - 145 mcg/dL Comment:Testing performed by : [facility], [place], [address] TIBC 265 250 - 400 mcg/dL [facility] Comment:Testing performed by : [place], [address] Transferrin saturation 32 20 - 50 % [facility] Comment:Testing performed by : [place], [address] Blood 04/09/2024 2:19 PM CALENDER LET OFF HELPER 04/09/2024 9:16 PM CALENDER LET OFF HELPER Narrative [facility] - 04/10/2024 9:39 AM CALENDER LET OFF HELPER Fax results to [phone] Sindi aguilar us Not In File Miscellaneous LAB BLOOD ORDERABLES F inal Result Performing Organization Address [facility] de Phone Number ZIYAD ESCALANTE [address] [address] Department [place] [address] * Methylmalonic acid, serum (04/09/2024 2:19 PM CALENDER LET OFF HELPER) Pathologist [facility] MMA 0.12 <=0.40 nmol/mL [facility] ref [facility] Comment: ADDITIONAL INFORMATION This test was developed and its performance characteristics determined by [facility] in a manner consistent with CLIA requirements. This test has not been cleared or approved by the [place].S. Food and Drug Administration. Test Performed by: [facility] - [address] [address] Terrazzo Installer: Suki Monge Ph.D.; CLIA# [id number] Blood Venous blood specimen / Unknown 04/09/2024 2:19 PM CALENDER LET OFF HELPER 04/09/2024 9:16 PM CALENDER LET OFF HELPER Narrative ZIYAD - 04/14/2024 12:14 PM CALENDER LET OFF HELPER Fax results to [phone] Sindi aguilar us Not In File Miscellaneous LAB BLOOD ORDERABLES F inal Result ZIYAD ESCALANTE [address] [address] Department of Laboratories [place], [place] [id number] [facility] ref [facility] * (ABNORMAL) DHEA-sulfate (04/09/2024 2:19 PM CALENDER LET OFF HELPER) DHEA-S 6.2(L) 9.4 - 246.0 mcg/dL Comment:Testing performed by : [facility], [address] [place]., [address] Blood 04/09/2024 2:19 PM CALENDER LET OFF HELPER 04/10/2024 9:55 AM CALENDER LET OFF HELPER Narrative ZIYAD - 2024 4:26 PM CALENDER LET OFF HELPER Fax results to [phone] Sindi jeff us Not In File Miscellaneous LAB BLOOD ORDERABLES F inal Result Performing Organization Address [facility] Co de Phone Number ZIYAD AVA [address] [address] Department [place] [address] * Total testosterone (04/09/2024 2:19 PM CALENDER LET OFF HELPER) Testosterone <3 3 - 41 ng/dL Blood Venous blood specimen / Unknown 04/09/2024 2:19 PM CALENDER LET OFF HELPER 04/09/2024 9:16 PM CALENDER LET OFF HELPER Narrative ZIYAD - 04/09/2024 11:03 PM CALENDER LET OFF HELPER Fax results to [phone] Sindi aguilar us Not In File Miscellaneous LAB BLOOD ORDERABLES F inal Result ZIYAD ESCALANTE [address] [address] [facility] [place] [address] * (ABNORMAL) Ferritin (04/09/2024 2:19 PM CALENDER LET OFF HELPER) [facility] Ferritin 278(H) 15 - 150 ng/mL Blood Venous blood specimen / Unknown 04/09/2024 2:19 PM CALENDER LET OFF HELPER 04/09/2024 9:16 PM CALENDER LET OFF HELPER Narrative [facility] 04/09/2024 11:02 PM CALENDER LET OFF HELPER Fax results to [phone] Sindi jeff us Not In File Miscellaneous LAB BLOOD ORDERABLES F inal Result Performing Organization Address [facility] Co de Phone Number ZIYAD ESCALANTE [address] [address] [facility] [place] [address] * Vitamin B12 (04/09/2024 2:19 PM CALENDER LET OFF HELPER) [facility] Vitamin B12 487 230 - 1,250 pg/mL Blood Venous blood specimen / Unknown 04/09/2024 2:19 PM CALENDER LET OFF HELPER 04/09/2024 9:16 PM CALENDER LET OFF HELPER Narrative [facility] 04/09/2024 11:02 PM CALENDER LET OFF HELPER Fax results to [phone] [place] us Not In File Miscellaneous LAB BLOOD ORDERABLES F inal Result Performing Organization Address City/[facility]/ZIP Co de Phone Number ZIYAD ESCALANTE [address] [address] Department [place] [address] * POC Influenza A/B, COVID-19 antigen (03/28/2024 10:21 AM CALENDER LET OFF HELPER) [facility] Influenza A Ag, POC Negative Negative [facility] Influenza B Ag, POC Negative Negative [facility] COVID-19 Ag POC Presumptive Negative Presumptive Negative, Invalid [facility] Nasal 03/28/2024 10:2 1 AM CALENDER LET OFF HELPER us Crystal Baca NP POINT OF CARE TEST ORDERAB LES Final Result [facility] [address] [place] [address], [facility] * DEXA Axial Skeleton Bone Density Multi Site (11/06/2023 11:21 AM CDT) Anatomical Region Laterality Modality Body N/A Radiographic Mireya ging Narrative 11/06/2023 4:13 PM CDT Patient Name: Claire Bond Date of : 1955 Date of scan: 11/06/2023 Bone mineral density was performed on a HoloAccruent Discovery Densitometer. Based on machine cross-calibration and [...] by the International Society of Clinical Densitometry. [id number] Juan Dent MD IMG DXA PROCEDURES F inal Result * Screening Mammogram (11/29/2015 12:50 PM CDT) Anatomical Region Laterality Modality Breast N/A Mammography 11/29/2015 12:5 0 PM CDT Narrative 12/01/2015 4:10 PM CDT ROBERTO BECK M.D. FINAL REPORT ACC# Date Time Exam [id number] Nov 29, 2015 12:50:00 WMM [id number] Screening Mamm Bilat 2v Technologist(s): Iveth Martínez; ; EXAMINATION: Mammogram Technique: Bilateral Full-Field Digital Screening Mammogram was performed. Views obtained: bilateral craniocaudal and bilateral mediolateral oblique. Computer Aided Detection was performed with [employer].3 version 9.3. Mammogram Findings: The present examination has been compared to prior imaging studies performed at [facility] on 09/28/2014, 07/11/2013 and 07/27/2011. There are [...] BECK M.D. on Dec 01 2015 4:10P [id number] Procedure Note Provider, MD Cherry - 08/19/2016 ROBERTO BECK M.D. FINAL REPORT ACC# Date Time Exam [id number] Nov 29, 2015 12:50:00 WMM [id number] Screening Mamm Bilat 2v Technologist(s): Iveth Martínez; ; EXAMINATION: Mammogram Technique: Bilateral Full-Field Digital Screening Mammogram was performed. Views obtained: bilateral craniocaudal and bilateral mediolateral oblique. Computer Aided Detection was performed with [employer]3 version 9.3. Mammogram Findings: The present examination has been compared to prior imaging studies performed at [facility] on 09/28/2014, 07/11/2013 and 07/27/2011. There are [...] BECK M.D. on Dec 01 2015 4:10P [id number] Historical Provider MD LEHMAN MAMMO PROCEDURES Iva l Result from Last 3 Months or Most Recently Relevant to Health Maintenance Insurance [facility] MEDIC[facility] MEDICARE Advance Directives For more information, please contact: [phone] * Full Code (Latest Code Status on File) Date Activated Date Inactivated Comments 04/14/2019 8:36 PM 04/15/2019 6:03 PM * Full Code Date Activated Date Inactivated Comments 03/13/2019 11:11 AM 03/14/2019 5:37 PM Care Teams Tool And Machine Maintainer Relationship Specialty Start Date End Date Tico Mars MD [address] [place] [address] PCP - General Internal Medicine 01/14/18
--- OUTSIDE RECORDS SUMMARY | 2024-06-25 08:04 | XMS_ITS | Clinical Summary ---
Author Organization [facility] Address [address] [place] [address] Care Team Providers Care Developer Programmer Analyst Name Role Phone Tico Mars MD Primary Care Provider Source Comments [facility],non-owned Affiliates and Associated Physician Practices is amultiple site organization consisting of ambulatory clinics and hospital sitesin [place], [place], [place] and [place]. This disclosure is being madepursuant to the Care Everywhere program and may not contain all information available regarding this patient. Last updated 18.[facility] Allergies Active Allergy Reactions Criticality Noted Date [...] (02/07/2019): Added automatically from request for surgery [id number] Right ear pain 01/20/2019 DNS (deviated nasal [...] Breast cancer screening: No longer going to electrician journeyman wireman 2/2 hysterectomy. Cervical cancer screening: No longer going to electrician journeyman wireman due to hysterectomy. Osteoporosis screening: As above [...] she saw a few years ago at [facility]. Memory loss 11/28/2016 Overview (01/20/2019): Last [...] to wean off amitriptyline. Rheumatoid arthritis of [facility] sites with negative rheumatoid factor 09/16/2015 Overview [...] 12/22/2013 Influenza Intradermal 03/12/2015 PNEUMOCOCCAL PPSV23 02/02/2008 Family History Medical History Relation Name Comments Alcohol abuse Brother Cancer - Pancreatic Brother Other - Hepatic/Liver Brother CAD (Coronary Artery Disease) Father CVA Mother Diabetes - Type 2 Mother Hypertension Mother Hyperlipidemia Sister Relation Name Status Comments Brother Father Mother Sister Social History Tobacco Use Types [...] 12/31/2021 1:34 AM CDT Plan of Treatment Health Maintenance Due Date Last Done Comments BONE DENSITY TESTING 1955 COLOGUARD (AGES 45-75) - COLON CA SCREENING 1956 COLON MONITORING 1956 COLONOSCOPY - COLON CA SCREENING 1956 CT COLONOGRAPHY - COLON CA SCREENING 1956 Colorectal Cancer Screening 1956 FIT - COLON CA SCREENING 1956 FLEX SIG - COLON CA SCREENING 1956 LIPID TESTING 1956 MAMMOGRAM 1956 HEPATITIS C SCREENING 04/07/1974 DTAP/TDAP/TD VACCINES (1 - Tdap) 1975 ZOSTER VACCINE (1 of 2) 2006 PNEUMOCOCCAL VACCINE 50+ (2 of 2 - PCV) 02/01/2009 02/02/2008 Respiratory Syncytial Virus (RSV) Vaccine Pt: or over 60 yrs (1 - Risk 60-74 years 1-dose series) 2016 COVID-19 VACCINE (5 - season) 2023 08/10/2021, 02/02/2021, 06/24/2020, Additional history exists INFLUENZA VACCINE (#1) 2023 , 02/09/2020, 04/26/2016, Additional history exists DEPRESSION SCREENING 04/23/2024 MEDICARE AWV CALENDAR YEAR 2024 SCREENING FOR DIABETES 12/31/2024 12/31/2021 HEPATITIS B VACCINE Aged Out No longe r eligible based on patient's age to complete this topic HIB VACCINE Aged Out No longer eligi ble based on patient's age to complete this topic HPV VACCINE Aged Out No longer eligi ble based on patient's age to complete this topic MENINGOCOCCAL (Group B) VACCINE Aged Out No longer eligible based on patient's age to complete this topic MENINGOCOCCAL VACCINE Aged Out No frida willy eligible based on patient's age to complete this topic Procedures Procedure Name Priority Date/Time Associated Diagnosis Comments COMPREHENSIVE METABOLIC PANEL STAT 12/31/2021 1:40 AM CDT from Last 3 Months or Most Recently Relevant to Health Maintenance Results * (ABNORMAL) COMPREHENSIVE METABOLIC PANEL (12/31/2021 1:40 AM CDT) BUN 16 7 - 26 mg/dL 12/31/2021 2:[address] [facility] Creatinine 0.71 0.56 - 0.96 mg/dL 12/31/2021 2:[address] [facility] Sodium 137 136 - 145 mmol/L 12/31/2021 2:[address] [facility] Potassium 3.7 3.5 - 4.5 mmol/L 12/31/2021 2:19 AM [facility] Chloride 107 98 - 107 mmol/L 12/31/2021 2:19 AM [facility] CO2 25 22 - 29 mmol/L 12/31/2021 2:19 AM [facility] Glucose 104 70 - 115 mg/dL 12/31/2021 2:19 AM [facility] Calcium 10.0 8.4 - 10.2 mg/dL 12/31/2021 2:19 AM [facility] Protein Total 5.9(L) 6.0 - 8.3 g/dL 12/31/2021 2:19 AM [facility] Albumin 3.2(L) 3.4 - 5.0 g/dL 12/31/2021 2:19 AM [facility] Bilirubin Total 0.8 0.2 - 1.2 mg/dL 12/31/2021 2:19 AM [facility] Alkaline Phosphatase 79 40 - 150 U/L 12/31/2021 2:19 AM [facility] ALT 45 5 - 55 U/L 12/31/2021 2:19 AM [facility] AST 29 5 - 34 U/L 12/31/2021 2:19 AM [facility] Anion Gap 9 8 - 18 12/31/2021 2:19 AM [facility] BUN/Creatinine Ratio 23 7 - 23 12/31/2021 2:19 AM [facility] Osmolality Calculated 285 270 - 300 mOsm/kg 12/31/2021 2:19 AM [facility] Albumin/Globulin Ratio 1.2 1.1 - 2.3 12/31/2021 2:19 AM [facility] eGFR by CKD-EPI >90 >=90 mL/min/1.7 3 m2 12/31/2021 2:19 AM [facility] Blood BLOOD SPECIMEN / Unknown Venipuncture / Unknown 12/31/2021 1:40 AM CDT 12/31/2021 1:47 AM T Nasir Seymour MD LAB - CHEMISTRY ORDE RIVER[facility] Organization Address City/State/ZIP Co de Phone Number [facility] [address] [place] [address], [facility] [phone] from Last 3 Months or Most Recently Relevant to Health Maintenance Care Teams Developer Programmer Analyst Relationship Specialty Start Date End Date Tico Mars MD [address] [place] [address] PCP - General 01/20/19
== END 2024-06-25 07:57 | disposition home or self-care (01) ==
LOC: ANHAUDASC 07:57
PROVIDERS: PCP Internal Medicine; Visit Provider Otolaryngology
DX: H92.02 Otalgia, left ear (principal); R42 Dizziness and giddiness; H93.13 Tinnitus, bilateral; H90.6 Mixed conductive and sensorineural hearing loss, bilateral; H69.90 Unspecified Eustachian tube disorder, unspecified ear; J34.89 Other specified disorders of nose and nasal sinuses
CPT/HCPCS: 92557; 92567

== ENCOUNTER 2024-11-10 15:13 | Outpatient (CLI) | payer MEDICARE, SELFPAY ==
--- OUTSIDE RECORDS SUMMARY | 2024-11-10 14:49 | XMS_ITS | Encounter Summary ---
Author Organization [facility] Address [address] [place] [address] Care Team Providers Care University Dean Name Role Phone David Roberts MD Primary Care Provider + Encounter Details Date Type Department Care Team (Late st Contact Info) Description 04/13/2017 9:00 AM OIL AND GAS RECRUITER Hospital Encounter [facility] Procedure Holding [address] [place] [id number] Ryan Farias MD [address] [facility] [address], [place] [address] Social History Tobacco Use Types [...] on file Legal Sex Female 1:48 AM OIL AND GAS RECRUITER Gender Identity Not on file Sexual Orientation [...] COVID: Suspected 03/19/2023 03/19/2023 03/19/2023 11:31 PM OIL AND GAS RECRUITER COVID: Suspected 10/16/2023 10/16/2023 10/16/2023 3:46 PM CDT COVID19 10/16/2023 10/22/2023 11/01/2023 3:06 AM CDT COVID: Recovered Comment:Added based on recent COVID infection. 11/01/2023 11/01/2023 01/30/2024 3:05 AM C DT COVID: Suspected 03/28/2024 03/28/2024 03/28/2024 10:22 AM OIL AND GAS RECRUITER COVID: Suspected 06/03/2024 06/03/2024 06/03/2024 9:51 AM OIL AND GAS RECRUITER COVID: Suspected 06/03/2024 06/03/2024 06/03/2024 4:55 PM OIL AND GAS RECRUITER documented as of this encounter Care Teams University Dean Relationship Specialty Start Date End Date David Roberts MD [address] [facility] [address] [place] [address] PCP - General 07/21/16 12/25/17 documented as of this encounter
--- OUTSIDE RECORDS SUMMARY | 2024-11-10 14:49 | XMS_ITS | Clinical Summary ---
Author Organization [facility] Address [address] [facility] Attn: Epic Prelude ADT [place]RAU[place] [address] Care Team Providers Care Internal Specialist Name Role Phone Iain Lowery MD Primary Care Provider Social History Tobacco Use Types Packs/Day Years Used Date Smoking Tobacco: Never Assessed Comments Unknown Sex and Gender Information Value Date Recorded Sex Assigned at Not on file Legal Sex Female 4:26 AM PIPE INSULATOR Gender Identity Not on file Sexual Orientation [...] 2006 OSTEOPOROSIS SCREENING 2021 INFLUENZA VACCINE (#1) 2024 RSV VACCINE (60+ or ) (1 - 1-dose 75+ series) 2031 Care Teams Internal Specialist Relationship Specialty Start Date End Date Iain Lowery MD [address] [phone] PCP - General 11/16/06
--- OUTSIDE RECORDS SUMMARY | 2024-11-10 14:49 | XMS_ITS | Encounter Summary ---
Author Organization [facility] Address [address] [place] [address] Phone Care Team Providers Care Control Director Name Role Phone David Roberts MD Primary Care Provider + Tico Mars MD Primary Care Provider [phone] Encounter Details Date Type Department Care Team (Late st Contact Info) Description 07/06/2017 Orders Only [facility] ProviderCherry [place] [facility] [place] [address] Social History Tobacco Use Types Packs/Day Years Used Date Smoking Tobacco: Never Smokeless Tobacco: Never Alcohol Use Standard Drinks/Week Comments No 0 (1 standard drink = 0.6 oz pur e alcohol) Comments Unknown Sex and Gender Information Value Date Recorded Sex Assigned at Not on file Legal Sex Female 1:48 AM SUPERINTENDENT MAINTENANCE AIRPORTS Gender Identity Not on file Sexual Orientation [...] COVID: Suspected 03/19/2023 03/19/2023 03/19/2023 11:31 PM SUPERINTENDENT MAINTENANCE AIRPORTS COVID: Suspected 10/16/2023 10/16/2023 10/16/2023 3:46 PM CDT COVID19 10/16/2023 10/22/2023 11/01/2023 3:06 AM CDT COVID: Recovered Comment:Added based on recent COVID infection. 11/01/2023 11/01/2023 01/30/2024 3:05 AM C DT COVID: Suspected 03/28/2024 03/28/2024 03/28/2024 10:22 AM SUPERINTENDENT MAINTENANCE AIRPORTS COVID: Suspected 06/03/2024 06/03/2024 06/03/2024 9:51 AM SUPERINTENDENT MA[employer]TENA[employer]CE [employer]PORTS COVID: Suspected 06/03/2024 06/03/2024 06/03/2024 4:55 PM SUPERINTENDENT MAINTENA[employer]PORTS documented as of this encounter Care Teams Control Director Relationship Specialty Start Date End Date David Roberts MD [address] [facility] [address] [place] [address] PCP - General 07/21/16 12/25/17 Tico Mars MD [address] [place] [address] PCP - General Internal Medicine 01/14/18 documented as of this encounter
--- OUTSIDE RECORDS SUMMARY | 2024-11-10 14:49 | XMS_ITS | Encounter Summary ---
Author Organization [facility] Address [address] [place] [address] Phone Care Team Providers Care Auto Parts Handler Name Role Phone Tico Mars MD Primary Care Provider Toribio Pinedo MD Unavailable Geri Nath MD Unavailable [phone] Tori Pinedo APRN, BARBER OR BEAUTY SHOP MANAGER Unavailable Sandi Hicks ZINC PLATER Unavailable Unavailab Lidia Cabrera MD Primary Care Provide r Tico Mars MD Primary Care Provider [phone] Reason for Visit * Reason Comments Medication Refill Encounter Details Date Type Department Care Team (Late st Contact Info) Description 04/07/2022 Refill [facility] Medical Group - Internal Medicine - [place] [address] [place] [address] Tico Mars MD [address] [place] [address] Medication Refill Social History Tobacco [...] Dept 01/12/22 Office Visit Tico Mars MD [facility] 11/24/21 Telemedicine [facility] [place] Show[facility] recent visits within past 182 days and meeting all other requirements Future Appointments Date Type Provider Dept 04/11/22 Appointment Tico Mars MD [facility] [place] Showing future appointments within next 90 days and meeting all other requirements Passed - Patient has established therapy with Serotonin-Norepinephrine Reuptake Inhibitors for at least 6 months ANICAL TECHNOLOGIST documented in this encounter Plan of Treatment Upcoming Encounters Date Type Department Care Team (Late st Contact Info) Description 12/24/2024 7:00 AM CDT Hospital Encounter [facility] Periop [address] [place] [phone] Nasir Tang MD [address] [place] [address] 12/24/2024 7:00 AM CDT - 12/24/2024 7:30 AM CDT [facility] [address] [place] [phone] Nasir Tang MD [address] [facility] [address] [place] [address] COLONOSCOPY 03/03/2025 2:00 PM MECHANICAL TECHNOLOGIST Office Visit [facility] Medical Group - Internal Medicine [place] [address] [place] [phone] Tico Mars MD [address] [place] [address] Scheduled Procedures Name Priority Associated Diagnoses Date/Ti me COLONOSCOPY DIARRHEA 12/24/2024 7:00 AM CDT documented as of this encounter Visit Diagnoses Not on filedocumented in this encounter Additional Health Concerns Assessment Noted Time PHQ-9 Depression Total Score: 0 01/13/20 22 2:58 PM CDT documented as of this encounter Care Teams Auto Parts Handler Relationship Specialty Start Date End Date Tico Mars MD [address] [place] [address] PCP - General Internal Medicine 03/18/18 02/06/24 Lidia Srinivasan MD [address] [facility] [address] [place] [address] PCP - General Rheumatology 02/07/24 03/02/24 Tico Mars MD [address] [place] [address] PCP - General Internal Medicine 03/03/24 Toribio Pinedo MD [address] [address] Consulting Physician Colon and Rectal Surgery 05/17/22 Geri Nath MD [address] [place] [address] Consulting Physician Gastroenterology 06/29/22 Tori Pinedo APRN, BARBER OR BEAUTY SHOP MANAGER [address] [place] [address] Nurse Practitioner Advanced Practice Nurse 01/04/24 Sandi Hicks LSW [place] Surgical Supervisor Deputy Chief Sheriff 01/24/24 02/01/24 documented as of this encounter
--- OUTSIDE RECORDS SUMMARY | 2024-11-10 14:50 | XMS_ITS | Encounter Summary ---
Author Organization [facility] Address [address] [place] [address] Phone Care Team Providers Care Supervisor Corduroy Cutting Name Role Phone Tico Mars MD Primary Care Provider Toribio Pinedo MD Unavailable Geri Nath MD Unavailable [phone] Tori Pinedo APRN, ACID CLEANER Unavailable Sandi Hicks PROOF CARRIER Unavailable Unavailab Lidia Cabrera MD Primary Care Provide r Tico Mars MD Primary Care Provider Reason for Visit * Reason Comments Medication Refill Encounter Details Date Type Department Care Team (Late st Contact Info) Description 05/15/2023 Refill [facility] Medical Group - Internal Medicine - [place] [address] [place] [address] Tyra Higgins, [facility] [address] [place] [address] Medication Refill Social History Tobacco [...] Description 12/24/2024 7:00 AM CDT [facility] [address] [facility] [place] [address] Nasir Tang MD [facility] [address] [address] 12/24/2024 7:00 AM CDT - 12/24/2024 7:30 AM CDT [facility] [address] [facility] [place] [address] Nasir Tang MD 2 [facility] [address] [place] [address] COLONOSCOPY 03/03/2025 2:00 PM OVEN LABORER Office Visit [facility] Medical Group - Internal Medicine - [place] [address] [place] [phone] Tico Mars MD [address] [place] [address] Scheduled Procedures Name Priority Associated Diagnoses Date/Ti me COLONOSCOPY DIARRHEA 12/24/2024 7:00 AM CDT documented as of this encounter Visit Diagnoses Not on filedocumented in this encounter Additional Health Concerns Assessment Noted Time PHQ-9 Depression Total Score: 0 02/20/20 23 9:40 AM CDT documented as of this encounter Care Teams Supervisor Corduroy Cutting Relationship Specialty Start Date End Date Tico Mars MD [address] [place] [address] PCP - General Internal Medicine 03/18/18 02/06/24 Lidia Srinivasan MD [address] [facility] [address] [place] [address] PCP - General Rheumatology 02/07/24 03/02/24 Tico Mars MD [address] [place] [address] PCP - General Internal Medicine 03/03/24 Toribio Pinedo MD [address] [address] Consulting Physician Colon and Rectal Surgery 05/17/22 Geri Nath MD [address] [place] [address] Consulting Physician Gastroenterology 06/29/22 Tori Pinedo APRN, ACID CLEANER [address] [place] [address] Nurse Practitioner Advanced Practice Nurse 01/04/24 Sandi Hicks, KAYY [place] Research Consultant Cutter V Groove 01/24/24 02/01/24 documented as of this encounter
--- OUTSIDE RECORDS SUMMARY | 2024-11-10 14:50 | XMS_ITS | Encounter Summary ---
Author Organization [facility] Address [address] [place] [address] Phone Care Team Providers Care Roll Forming Machine Set Up Mechanic Name Role Phone Tico Mars MD Primary Care Provider Toribio Pinedo MD Unavailable Geri Nath MD Unavailable [phone] Tori Pinedo APRN, ROUGH AND TRUING MACHINE OPERATOR Unavailable Sandi Hicks ASSOCIATE ATTORNEY Unavailable Unavailab Lidia Cabrera MD Primary Care Provide r Tico Mars MD Primary Care Provider Reason for Visit * Reason Comments Medication Refill Encounter Details Date Type Department Care Team (Late st Contact Info) Description 02/02/2023 Refill [facility] Medical Group - Internal Medicine - [place] [address] [place] [address] Tico Mars MD [address] [place] [address] Medication Refill Social History Tobacco [...] Refills DULoxetine (CYMBALTA) [address] Particles [Pharmacy Med Name: DULOXETINE HCL DR 30 [...] Dept 11/07/22 [facility] [place] 08/07/22 [facility] visits within past 182 days and meeting all other requirements Future Appointments Date Type Provider Dept 02/08/23 Appointment [facility] Show[facility] future appointments within next 90 days and meeting all other requirements documented in this encounter Plan of Treatment Upcoming Encounters Date Type Department Care Team (Late st Contact Info) Description 12/24/2024 7:00 AM CDT [facility] [address] [facility] [place] [address] Nasir Tang MD 2 [facility] [address] [facility] [address] [place] [address] 12/24/2024 7:00 AM CDT - 12/24/2024 7:30 AM CDT [facility] [address] [place] [address] Nasir Tang MD [address] [facility] [address] [place] [address] COLONOSCOPY 03/03/2025 2:00 PM CAR RESTORER Office Visit [facility] Medical Group - Internal Medicine - [place] [address] [place] [address] Tico Mars MD [address] [place] [address] Scheduled Procedures Name Priority Associated Diagnoses Date/Ti me COLONOSCOPY DIARRHEA 12/24/2024 7:00 AM CDT documented as of this encounter Visit Diagnoses Not on filedocumented in this encounter Additional Health Concerns Assessment Noted Time PHQ-9 Depression Total Score: 0 01/13/20 22 2:58 PM CDT documented as of this encounter Care Teams Roll Forming Machine Set Up Mechanic Relationship Specialty Start Date End Date Tico Mars MD [address] [place] [address] PCP - General Internal Medicine 03/18/18 02/06/24 Lidia Srinivasan MD [address] [facility] [address] [place] [address] PCP - General Rheumatology 02/07/24 03/02/24 Tico Mars MD [address] [place] [address] PCP - General Internal Medicine 03/03/24 Toribio Pinedo MD [address] [address] Consulting Physician Colon and Rectal Surgery 05/17/22 Geri Nath MD [address] [place] [address] Consulting Physician Gastroenterology 06/29/22 Tori Pinedo APRN, ROUGH AND TRUING MACHINE OPERATOR [address] [place] [address] Nurse Practitioner Advanced Practice Nurse 01/04/24 Sandi Hicks LSW [place] Assistant Shift Supervisor Stripping Shovel Operator 01/24/24 02/01/24 documented as of this encounter
--- OUTSIDE RECORDS SUMMARY | 2024-11-10 14:50 | XMS_ITS | Clinical Summary ---
Author Organization [facility] Address [address] [place] [address] Care Team Providers Care Line Driver Name Role Phone Tico Mars MD Primary Care Provider [phone] Source Comments [facility],non-owned Affiliates and Associated Physician Practices is amultiple site organization consisting of ambulatory clinics and hospital sitesin [place], [place], [place] and [place]. This disclosure is being madepursuant to the Care Everywhere program and may not contain all information available regarding this patient. Last updated 18.[facility] Allergies Active Allergy Reactions Criticality Noted Date Comments Acetaminophen-Codeine Itching Low 09/03/2018 Cefdinir Swelling Medium 09/03/2018 Fluticasone Other Low 01/20/2019 ruined the lining of her nose. Penicillins Rash Medium 03/18/2018 Medications * Be aware that medications may not be up to date on this document. Alwaysverify current medications with the patient. adalimumab (HUMIRA PEN) 40 MG/0.4ML injection Inject one pen subcutaneously once every two weeks. 8 Active amitriptyline (ELAVIL) 10 MG tablet TAKE 1 TABLET (5 MG TOTAL) BY MOUTH NIGHTLY. 8 Active vitamin D3-cholecalcif carlie (CHOLECACIFERO L) 1000 units tablet Take 1,000 Units by mouth once daily Active escitalopram (LEXAPRO) 10 MG tablet Take 10 mg by mouth once daily 8 Active ferrous sulfate 325 (65 FE) MG tablet TAKE 1 TABLET BY MOUTH EVERY DAY 7 Active folic acid (FOLVITE) 1 MG tablet Take 1,000 mcg by mouth once daily 8 Active leflunomide (ARAVA) 10 MG tablet Take 10 mg by mouth once daily 9 Active meloxicam (MOBIC) 7.5 MG tablet TAKE 1 TABLET BY MOUTH EVERY DAY 9 Active methotrexate 2.5 MG tablet Take 15 mg by mouth every 7 days 9 Active predniSONE (DELTASONE) 5 MG tablet TAKE 3 TABLETS BY MOUTH EVERY DAY 9 Active lidocaine (Lidoderm) 5 % patch Apply 3 (three) patches to skin once daily Apply patch to most painful area and remove after 12 hours. May reapply a new patch 12 hours later. 6 patch 1 2 Active Active Problems Problem Noted Date Diagnosed Date Primary osteoarthritis of right knee 02/03/2019 Overview (02/07/2019): Added automatically from request for surgery [id number] Right ear pain 01/20/2019 DNS (deviated nasal [...] Breast cancer screening: No longer going to sorting grapple operator 2/2 hysterectomy. Cervical cancer screening: No longer going to sorting grapple operator due to hysterectomy. Osteoporosis screening: As above [...] she saw a few years ago at [facility]. Memory loss 11/28/2016 Overview (01/20/2019): Last Assessment [...] to wean off amitriptyline. Rheumatoid arthritis of [facility] with negative rheumatoid factor 09/16/2015 Overview [...] deformity of ankle and foot 08/03/2011 Immunizations Immunization Administration Dates Next Due INFLUENZA VACCINE, TRIV. [...] of Binge Drinking Not on file 12/24 Comments Unknown Sex and Gender Information Value Date Recorded Sex Assigned at Not on file Legal Sex Female 6:25 AM USED CAR MAKE READY WORKER Gender Identity Not on file Sexual Orientation [...] 1:34 AM CDT Height 162.6 cm (5' 4) 12/31/2021 1:34 AM CDT Body Mass Index [...] 60-74 years 1-dose series) 2016 COVID-19 VACCINE ( season) 2023 08/10/2021, 02/02/2021, 06/24/2020, Additional history exists DEPRESSION SCREENING 04/23/2024 MEDICARE AWV CALENDAR YEAR 2024 INFLUENZA VACCINE (#1) 2024 , 02/09/2020, 04/26/2016, Additional history exists SCREENING FOR DIABETES 12/31/2024 12/31/2021 HEPATITIS B VACCINE Aged Out No longe r eligible based on patient's age to complete this topic HIB VACCINE Aged Out No longer eligi ble based on patient's age to complete this topic HPV VACCINE Aged Out No longer eligi ble based on patient's age to complete this topic MENINGOCOCCAL (Group B) VACCINE SHARED DECISION-MAKING Aged Out No longer eligible based on patient's age to complete this topic MENINGOCOCCAL GROUPS A/C/Y/W VACCINE Aged Out No longer eligible based on patient's age to complete this topic Procedures Procedure Name Priority Date/Time Associated Diagnosis Comments COMPREHENSIVE METABOLIC PANEL STAT 12/31/2021 1:40 AM CDT from Last 3 Months or Most Recently Relevant to Health Maintenance Results * (ABNORMAL) COMPREHENSIVE METABOLIC PANEL (12/31/2021 1:40 AM CDT) BUN 16 7 - 26 mg/dL 12/31/2021 2:19 AM CDT [facility] Creatinine 0.71 0.56 - 0.96 mg/dL 12/31/2021 [facility] Sodium 137 136 - 145 mmol/L 12/31/2021 2:19 AM [facility] Potassium 3.7 3.5 - 4.5 mmol/L 12/31/2021 2:19 AM [facility] Chloride 107 98 - 107 mmol/L 12/31/2021 2:19 AM [facility] CO2 25 22 - 29 mmol/L 12/31/2021 2:19 AM [facility] Glucose 104 70 - 115 mg/dL 12/31/2021 2:19 AM [facility] Calcium 10.0 8.4 - 10.2 mg/dL 12/31/2021 2:19 AM [facility] Protein Total 5.9(L) 6.0 - 8.3 g/dL 12/31/2021 2:19 AM [facility] Albumin 3.2(L) 3.4 - 5.0 g/dL 12/31/2021 2:19 AM [facility] Bilirubin Total 0.8 0.2 - 1.2 mg/dL 12/31/2021 2:19 AM [facility] Alkaline Phosphatase 79 40 - 150 U/L 12/31/2021 2:19 AM [facility] ALT 45 5 - 55 U/L 12/31/2021 2:19 AM [facility] AST 29 5 - 34 U/L 12/31/2021 2:19 AM [facility] Anion Gap 9 8 - 18 12/31/2021 2:19 AM [facility] BUN/Creatinine Ratio 23 7 - 23 12/31/2021 2:19 AM [facility] Osmolality Calculated 285 270 - 300 mOsm/kg 12/31/2021 2:19 AM [facility] Albumin/Globulin Ratio 1.2 1.1 - 2.3 12/31/2021 2:19 AM [facility] eGFR by CKD-EPI >90 >=90 mL/min/1.7 3 m2 12/31/2021 2:19 AM [facility] Blood BLOOD SPECIMEN / Unknown Venipuncture / Unknown 12/31/2021 1:40 AM CDT 12/31/2021 1:47 AM CDT us Nasir Seymour MD LAB - CHEMISTRY ORDERABLES Fi nal Result [facility] [address] [place] [address], [facility] [phone] from Last 3 Months or Most Recently Relevant to Health Maintenance Insurance [employer] UHC MANAGED MEDICARE ADV [employer] AETNA MEDICARE ADV * Guarantor: BHARGAVI RADFORD Swathi Account Type Relation to Patient Date of Phone Billing Address Personal/Family 1955 [address] [place] [address] [employer] Care Teams Line Driver Relationship Specialty Start Date End Date Tico Mars MD [address] [address] PCP - General 01/20/19
--- OUTSIDE RECORDS SUMMARY | 2024-11-10 14:50 | XMS_ITS | Clinical Summary ---
Author Organization [facility] Address [address] [place] [address] Phone Care Team Providers Care Fuel Efficient Aircraft Designer Name Role Phone Toribio Pinedo MD Unavailable Geri Nath MD Unavailable Tori Pinedo APRN, PRIVATE BRANCH EXCHANGE REPAIRER Unavailable Tico Mars MD Primary Care Provider Allergies Active Allergy Reactions Criticality Noted Date Comments Cefdinir Swelling 09/03/2018 Latex Itching 09/28/2021 Penicillins Rash,Unknown 03/18/2018 Acetaminophen-Codeine Itching 09/03/2018 Medications methotrexate 2.5 MG Tablet Take by mouth every 7 days 6 tabs Active Multiple Vitamins-Residential Life Director als (HAIR SKIN & NAILS ADVANCED) Tablet Take by mouth daily. Active Adalimumab (Humira Pen) 40 MG/0.4ML Pen-injector Kit Inject one pen subcutaneously once every two weeks. 0 Active Cyanocobalamin (B-12) 100 MCG Tablet Take by mouth. Activ e folic acid (FOLVITE) 1 MG Tablet 2 Active cycloSPORINE (RESTASIS) 0.05 % Emulsion INSTILL 1 DROP INTO BOTH EYES TWICE A DAY 3 Active leflunomide (ARAVA) 20 MG Tablet Take 20 mg by mouth daily. 3 Active Miebo 1.338 GM/ML Solution 4 Active FML Forte 0.25 % Suspension Place 1 Drop in affected eye(s) every 12 hours. Active Varenicline Tartrate (Tyrvaya) 0.03 MG/ACT Solution 1 [place] by Nasal route every 12 hours. Active Multivitamin-M inerals (Hair Skin & Nails Advanced) Tablet Hair Skin & Nails Ac tive Misc. Devices Misc Lightweight wheelchair-1 DX- Impaired gait/mobility (M06.89); Rheumatoid arthritis (M06.89) 1 Each 4 Active colestipol (Colestid) 1 GM Tablet Take 1 g by mouth 2 times daily. Active predniSONE (DELTASONE) 5 MG Tablet TAKE 1 TABLET BY MOUTH EVERY DAY 90 Tablet 5 Active buPROPion (WELLBUTRIN) 300 MG TABLET SR 24 HR XL tablet Take 300 mg by mouth every morning. Active propranolol (INDERAL) 10 MG Tablet Take 10 mg by mouth 2 times daily. Active amLODIPine (NORVASC) 5 MG Tablet TAKE 1 TABLET BY MOUTH EVERY DAY 90 Tablet 5 Active DULoxetine (CYMBALTA) [address] Particles take 1 capsule by mouth every day for 90 days 5 Active omeprazole (PriLOSEC) 40 MG CAPSULE DELAYED RELEASE TAKE 1 CAPSULE DAILY IN THE MORNING ON EMPTY STOMACH AND WAIT 15 MINUTES TO EAT OR DRINK Active Active Problems Problem Noted Date Diagnosed [...] septal perforation 05/02/201812/2020 Nasal septal ulcer 05/02/2018 1 Epistaxis 05/02/2018 03/01/2021 Encounters Date Type Department Care Team Description 11/04/2024 2:30 PM CDT [facility] - [place] [address] [place] [address] Tori Pinedo APRN, PRIVATE BRANCH EXCHANGE REPAIRER Irritable bowel syndrome with both constipation and diarrhea (Primary Dx); Diarrhea, unspecified type Discharge Disposition: Discharged to home or Selfcare 11/04/2024 Telephone [facility] [address] [place] [address] Tori Pinedo APRN, PRIVATE BRANCH EXCHANGE REPAIRER 11/04/2024 Travel 11/02/20[facility] [place] [address] Tori Pinedo APRN, PRIVATE BRANCH EXCHANGE REPAIRER Medication Refill 09/23/2024 Telephone [facility] [address] [address] Tico Mars MD 09/12/20[facility] [address] [address] Tico Mars MD Medication Refill 08/27/2024 11:15 AM CDT [facility] [address] [address] Tico Mars MD Essential hypertension, benign (Primary Dx); Chronic diarrhea; Hyperglycemia; Other specified rheumatoid arthritis, multiple sites (HCC) Discharge Disposition: Discharged to home or Selfcare 08/27/2024 Results Follow-Up [facility] [address] [address] Tico Mars MD POCT GLUCOSE 08/27/2024 Travel 08/21/2024 Refill [facility] [address] [address] Tico Mars MD Medication Refill from Last 3 Months Immunizations Immunization Administration [...] 12/30/2023 Pneumococcal Vaccine Adult - 23 Valent Pneumococcal conjugate PCV20 , polysaccharide [id number] conjugate, adjuvant, PF 03/13/2023 RSV, Recombinant, Protein [...] drink = 0.6 oz pur e alcohol) [facility] Utilities Answer Date Recorded In the past 12 months has [employer], oil, or water [employer]rik threatened to shut off services in your home? No 05/30/2024 Social Connection and Isolation Panel Answer Date Recorded In a typical week, how many times do you talk on the phone with family, friends, or neighbors? Once a week 05/30/2024 How often do you get togethe r with friends or relatives? Once a week 05/30/2024 How often do you attend chur ch or pentecostalism services? 1 to 4 times per year 05/30/2024 Do you belong to any clubs o r organizations such as muslim groups, unions, fraternal or athletic groups, or [...] Total Score - Questions 1-9 0 05/0 10/2024 [facility] - Occupational Stress Questionnaire Answer [...] place to sleep or slept in a senior living (including now)? Patient unable to answer 05/24/2023 [...] any time in the past 12 m [facility], were you homeless or living in a senior living (including now)? No 05/30/2024 Sexually Active Control [...] Sign Reading Time Taken Comments Blood Pressure 124/62 11/04/2024 1:52 PM CDT Pulse 97 11/04/2024 1:52 PM CDT Temperature 36.8 C (98.2 F) 11/04/2024 1:52 PM CDT Respiratory Rate 16 11/04/2024 1:52 PM CDT Oxygen Saturation 96% 11/04/2024 1:52 PM CDT Inhaled Oxygen Concentration - - Weight 68 kg (149 lb 14.4 oz) 11/04/2024 1:52 PM CDT Height 160 cm (5' 3) 11/04/2024 1:52 PM CDT Body Mass Index 26.55 11/04/2024 1:52 PM CDT Plan of Treatment Upcoming Encounters Date Type Department Care Team (Late st Contact Info) Description 12/24/2024 7:00 AM CDT [facility] [address] [facility] [place] [place] [address] Nasir Tang MD [address] [address] 12/24/2024 7:00 AM CDT - 12/24/2024 7:30 AM CDT [facility] [address] [facility] [place] [place] [address] Nasir Tang MD 2 [facility] [address] [address] COLONOSCOPY 03/03/2025 2:00 PM REVERSE UNIT OPERATOR Office Visit [facility] - Internal Medicine - [place] [address] [place] [address] Tico Mars MD [address] [facility] [place] [address] Scheduled Procedures Name Priority Associated Diagnoses Date/Ti me COLONOSCOPY DIARRHEA 12/24/2024 7:00 AM CDT Health Maintenance Due Date Last Done Comments Hepatitis C Virus (HCV) Screening 1955 Cologuard 2001 Immunochemical Fecal Occult Blood 2001 SARS-COV-2 Immunization (9 - Pfizer risk season) 2024 12/30/2023, 02/02/2023, 10/09/2022, Additional history exists Influenza Immunization (#1) 2024 09/0 11/2023, 02/09/2023, 02/02/2023, Additional history exists Mammogram 01/27/2025 01/28/2024, 09/21, 09/30/2021, Additional history exists Colonoscopy 09/27/2025 09/27/2020 Colorectal Cancer Screening 09/27/2025 DEXA Bone Density 02/06/2026 02/07/2024, , 11/06/2023, Additional history exists Td Immunization Every 10 Years (Adults With 1 Tdap) 02/08/2030 02/09/2020, 01/19/2014 DTaP/Tdap/Td Immunization Discontinued 02/09/2020, Respiratory Syncytial Virus (RSV) Immunization (Adult) Completed 03/01/2023 Pneumococcal Immunization (50+ years) Completed 03/13/2023, 06/01/2021 Pneumococcal Immunization Combined Discontinued 03/13/2023, 06/01/2021 Zoster Immunization Discontinued 03/26/2023 Hepatitis B Immunization Aged Out No longer eligible based on patient's age to complete this topic Human Papillomavirus (HPV) Immunization Aged Out No longer eligible based on patient's age to complete this topic Meningococcal Immunization (ACWY) Aged Out No longer eligible based on patient's age to complete this topic Rotavirus Immunization Aged Out No lo nger eligible based on patient's age to complete this topic Procedures Procedure Name Priority Date/Time Associated Diagnosis Comments POCT GLUCOSE Routine 08/27/2024 11:34 AM CDT Hyperglycemia [facility] BONE DENSITOMETRY AXIAL SKELETON Routine 02/07/2024 1:21 PM CDT Screening for osteoporosis [facility] SCREENING BILATERAL DIGITAL W CAD W CHELY Routine 01/28/2024 12:28 PM CDT Encounter for screening mammogram for breast cancer from Last 3 Months or Most Recently Relevant to Health Maintenance Results * (ABNORMAL) POCT GLUCOSE (08/27/2024 11:34 AM CDT) GLUCOSE 105(A) 70 - 99 mg/dL 08/27/2024 11:3 4 AM CDT Tico Mars MD POINT OF CARE TESTING (NAHEED AL) Final Result * [facility] BONE DENSITOMETRY AXIAL SKELETON (02/07/2024 1:21 PM [...] Narrative 02/07/2024 4:38 PM CDT EXAM DESCRIPTION: [facility] BONE DENSITOMETRY AXIAL SKELETON REASON FOR STUDY: 68 y/o year old F with given history of: Post menopausal status. History glucocorticoid use and rheumatoid arthritis. 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 TW: TW Report ID: [id number] Reading Location: [id number] Procedure Note Minerva Avitia MD - 02/07/2024 EXAM DESCRIPTION: [facility] BONE DENSITOMETRY AXIAL SKELETON REASON FOR STUDY: 68 y/o year old F with given history of: Post menopausal status. History glucocorticoid use and rheumatoid arthritis. 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 TW: Report ID: [id number] Reading Location: [id number] IMPRESSION: Osteoporosis. REFERENCE: Bone mineral density: T-Score: [...] dated: 10/05/2022, 09/30/2021, 03/07/2021, 08/24/2020, and 08/11/2020 [facility]. BREAST TISSUE:There are scattered areas of fibroglandular [...] exam. Electronically signed by: Luis naranjo/raul:01/28/2024 16:57:24 Nut Tightener(s): RT Willie(R)(M), [facility] letter sent: Normal Exam Reading location: [facility] Mammogram BI-RADS: Category 1: Negative Procedure Note uLis Daily MD - 01/29/2024 - [facility] SCREENING [...] dated: 10/05/2022, 09/30/2021, 03/07/2021, 08/24/2020, and 08/11/2020 [facility]. BREAST TISSUE:There are scattered areas of fibroglandular [...] exam. Electronically signed by: Luis naranjo/raul:01/28/2024 16:57:24 Nut Tightener(s): Iva Chris RT(R)(M), [facility] letter sent: Normal Exam Reading location: [facility] Mammogram BI-RADS: Category 1: Negative Tico Mars MD IMG MAMMO ORDERABLES Final Result from Last 3 Months or Most Recently Relevant to Health Maintenance Insurance MEDICARE C AET Care Teams Fuel Efficient Aircraft Designer Relationship Specialty Start Date End Date Tico Mars MD [address] [place] [address] PCP - General Internal Medicine 03/03/24 Toribio Pinedo MD [address] [address] Consulting Physician Colon and Rectal Surgery 05/17/22 Geri Nath MD [address] [place] [address] Consulting Physician Gastroenterology 06/29/22 Tori Pinedo APRN, PRIVATE BRANCH EXCHANGE REPAIRER [address] [place] [address] Nurse Practitioner Advanced Practice Nurse 01/04/24
--- OUTSIDE RECORDS SUMMARY | 2024-11-10 14:50 | XMS_ITS | Encounter Summary ---
Author Organization [facility] Address [address] [place] [address] Phone Care Team Providers Care Environmental Engineering Intern Name Role Phone Tico Mars MD Primary Care Provider [phone] Toribio Pinedo MD Unavailable Geri Nath MD Unavailable [phone] Tori Pinedo APRN, PUBLIC HEALTH TECHNICIAN Unavailable Sandi Hicks FUR DRESSING SUPERVISOR Unavailable Unavailab Lidia Cabrera MD Primary Care Provide r Tico Mars MD Primary Care Provider Reason for Visit * Reason Comments Medication Refill Encounter Details Date Type Department Care Team (Late st Contact Info) Description 06/13/2020 Refill [facility] - Internal Medicine - [place] [address] [address] Tico Mars MD [address] [place] [address] Medication Refill Social History Tobacco [...] 8:32 AM CST Please review and sign. ATORIUM OPERATOR * Telephone Encounter - Tori Murphy RN - 06/14/2020 8:32 AM CST Please review and sign. ATORIUM OPERATOR documented in this encounter Plan of Treatment Upcoming Encounters Date Type Department Care Team (Late st Contact Info) Description 12/24/2024 7:00 AM CDT [facility] [address] [facility] [address] Nasir Tang MD 2 [facility] [address] [address] 12/24/2024 7:00 AM CDT - 12/24/2024 7:30 AM CDT [facility] [place] [address] Nasir Tang MD 2 [facility] [address] [address] COLONOSCOPY 03/03/2025 2:00 PM CREMATORIUM OPERATOR [facility] - [place] [address] [address] Tico Mars MD [address] [address] Scheduled Procedures Name Priority Associated Diagnoses Date/Ti me COLONOSCOPY DIARRHEA 12/24/2024 7:00 AM CDT documented as of this encounter Visit Diagnoses Not on filedocumented in this encounter Additional Health Concerns Assessment Noted Time PHQ-9 Depression Total Score: 2 03/22/20 20 1:00 PM CREMATORIUM OPERATOR documented as of this encounter Care Teams Environmental Engineering Intern Relationship Specialty Start Date End Date Tico Mars MD [address] [place] [address] PCP - General Internal Medicine 03/18/18 02/06/24 Lidia Srinivasan MD [address] [place] [address] PCP - General Rheumatology 02/07/24 03/02/24 Tico Mars MD [address] [address] PCP - General Internal Medicine 03/03/24 Toribio Pinedo MD #[address] [address] Consulting Physician Colon and Rectal Surgery 05/17/22 Geri Nath MD #2 [place] [address] Consulting Physician Gastroenterology 06/29/22 Tori Pinedo APRN, PUBLIC HEALTH TECHNICIAN [address] [place] [address] Nurse Practitioner Advanced Practice Nurse 01/04/24 Sandi Hicks LSW [place] Concrete Stone Finisher Director Of Special Services 01/24/24 02/01/24 documented as of this encounter
--- OUTSIDE RECORDS SUMMARY | 2024-11-10 14:50 | XMS_ITS | Referral Summary ---
Author Organization [facility] Healthcare Address [address] [place] [address] Care Team Providers Care [employer] Name Role Phone Tico Mars MD Primary Care Provider [phone]- [phone] Encounters Date Type Department Care Team Description 11/05/2024 3:26 PM CDT - 11/05/2024 11:59 PM CDT Hospital Encounter [id number] [place] [address] Discharge Disposition: Discharge to home or self care 11/05/2024 2:30 PM CDT Office Visit [facility] Medical Group Rheumatology at [facility] [address] [place] [address] Lidia Srinivasan MD Rheumatoid arthritis of multiple sites with negative rheumatoid factor (HCC) (Primary Dx); Long-term use of high-risk medication; Chronic bilateral low back pain with sciatica, sciatica laterality unspecified 09/08/2024 1:04 PM CDT - 09/08/2024 11:59 PM CDT Hospital Encounter [facility] [address] [place] [id number] Stress fracture of left fibula with routine healing, subsequent encounter Discharge Disposition: Discharge to home or self care 09/08/2024 1:15 PM CDT Office Visit [facility] Orthopaedic Surgery [facility] 6[address] [place] [address] [place] [id number] Manjit Rangel MD Stress fracture of left fibula with routine healing, subsequent encounter (Primary Dx); Left ankle pain, unspecified chronicity 09/05/2024 6:00 PM CDT Office Visit [facility] Medical Group [facility] Care at [address] [address] Diana Montero, CHUYITA Herpes zoster without complication (Primary Dx) from Last 3 Months Allergies Active Allergy Reactions Criticality Noted Date Comments Cefdinir Swelling Medium 09/03/2018 Fluticasone Itching Low 01/20/2019 Latex Blisters High 04/14/2019 Lifitegrast Unknown 12/19/2023 Penicillin G Rash Medium Penicillins Rash Medium 12/19/2023 Oxycodone-Acetaminophe n Other (See comments) Low 04/14/2019 Extreme sleepiness Tissue Adhesive Redness Low 06/13/2019 Medications vit D3-vit I-colyehgxr-og ps [phone] oxfx-mas-jn-mg tablet Take by mouth Active dicyclomine (BENTYL) 10 mg capsule Take 1 capsule (10 mg total) by mouth daily 1 Active Besivance 0.6 % drops,suspensi on 3 (three) times a day 2 Active Prolensa 0.07 % drops daily 2 Active Lotemax SM 0.38 % drops,gel 3 (three) times a day 2 Active amLODIPine (NORVASC) 5 mg tablet Take 1 tablet (5 mg total) by mouth daily 2 Active olopatadine (PATADAY) 0.2 % ophthalmic solution Administer 1 drop into affected eye(s) daily Active cycloSPORINE (RESTASIS) 0.05 % ophthalmic emulsion 1 drop 2 (two) times a day Active tiZANidine (ZANAFLEX) 2 mg tablet Take 1 tablet (2 mg total) by mouth 2 (two) times a day as needed 4 Active Miebo 100 % drops 4 Active tobramycin-dex AMETHasone (TOBRADEX) ophthalmic solution USE 1 DROP INTO BOTH EYES 4 TIMES A DAY 5 DAYS THEN TWICE A DAY 5 DAYS [address] (CYMBALTA) 30 mg capsule Take by mouth daily 4 Active colestipoL (COLESTID) 1 gram tablet Take 1 tablet (1 g total) by mouth 2 (two) times a day 4 Active FLUoxetine (PROzac) 20 mg capsule Take 1 capsule (20 mg total) by mouth daily 4 Active propranoloL (INDERAL) 10 mg tablet Take 1 tablet (10 mg total) by mouth 2 (two) times a day 4 Active buPROPion XL (WELLBUTRIN XL) 300 mg 24 hr tablet 1 tablet in the morning Orally Once a day for 90 days Active Tyrvaya 0.03 mg/spray spray, metered, non-aerosol SPRAY 1 SPRAY PER NOSTRIL TWICE A DAY 4 Active predniSONE (DELTASONE) 5 mg tablet TAKE 1 TABLET BY MOUTH EVERY DAY 30 tablet 2 5 Active methotrexate 2.5 mg tablet TAKE 6 TABLETS BY MOUTH EVERY 7 DAYS. 72 tablet 2 5 Active leflunomide (ARAVA) 20 mg tablet TAKE 1 TABLET BY MOUTH EVERY DAY 90 tablet 1 5 Active Humira,CF, Pen 40 mg/0.4 mL pen injector kit INJECT 1 PEN SUBCUTANEOUSLY EVERY OTHER WEEK 2 each 2 5 Active busPIRone (BUSPAR) 5 mg tablet Take 1 tablet (5 mg total) by mouth 3 (three) times a day 5 Active omeprazole (PriLOSEC) 40 mg capsule TAKE 1 CAPSULE EVERY DAY AM ON EMPTY STOMACH AND WAIT 15 MINUTES TO EAT OR DRINK 5 Active vit-iron fum-folic ac ( Vitamin) 27 mg iron- 800 mcg tablet Take by mouth daily Active folic acid (FOLVITE) 1 mg tablet TAKE 1 TABLET BY MOUTH EVERY DAY 90 tablet 3 5 Active ascorbic acid/vitamin E/biotin (HAIR, SKIN, NAILS WITH BIOTIN ORAL) Hair Skin & Nails Active pseudoephedrin e ER (SUDAFED) 120 mg 12 hr tablet Take 1 tablet (120 mg total) by mouth every 12 (twelve) hours Active fluorometholon e (FML Forte) 0.25 % ophthalmic suspension Administer 1 drop into affected eye(s) every 12 hours Active Active Problems Problem Noted Date Diagnosed Date Anxiety 11/05/2024 Disorder of lacrimal gland 11/05/2024 Major depressive disorder, r ecurrent, severe with psychotic symptoms 11/05/2024 Meibomian gland dysfunction (MGD) of upper and lower eyelid of left eye 11/05/2024 Meibomian gland dysfunction (MGD) of upper and lower eyelid of right eye 11/05/2024 Severe recurrent major depression with psychotic features 11/05/2024 Allergic rhinitis 05/24/2023 Chronic left-sided low back pain without sciatic a 02/19/2023 Essential hypertension, benign 09/28/2021 Acute bilateral low back pain without sciatica 0 06/21/2020 Generalized anxiety disorder 03/22/2020 Irritable bowel syndrome wit h both constipation and diarrhea 03/22/2020 Drainage from wound 04/14/2019 Overview (04/14/2019): Added automatically from request for surgery [id number] Long-term use of high-risk medication 03/14/2019 Assessment & Plan (03/14/2019 12:29 AM ROPE SILICA MACHINE OPERATOR): Recent labs reviewed without sxs of toxicity Osteopenia 03/14/2019 Assessment & Plan (03/14/2019 12:30 AM ROPE SILICA MACHINE OPERATOR): Lifestyle modifications are important for the prevention [...] 03/14/2019 Assessment & Plan (03/14/2019 12:29 AM ROPE SILICA MACHINE OPERATOR): Hopefully you can develop an exercise regimen [...] (02/03/2019): Added automatically from request for surgery [id number] Assessment & Plan (03/14/2019 12:31 AM ROPE SILICA MACHINE OPERATOR): Scheduled for RTKR tomorrow with Dr. Gaines. Medications on hold. May resume same 2 weeks after surgery if healing as expected. Right ear pain 01/20/2019 DNS (deviated nasal septum) 05/02/2018 Maxillary sinusitis 04/19/2017 Assessment & Plan (04/19/2017 1:01 PM ROPE SILICA MACHINE OPERATOR): Doxycycline #20 sent to pharmacy. Pt does not want to get surgeries done that ENT has recommended at this time. Lung nodule 01/11/2017 Overview (01/11/2017): Diagnosed 01/11/[address] 6mm nodule left lung base. Assessment & Plan (04/19/2017 3:49 PM ROPE SILICA MACHINE OPERATOR): noncontrast CT scan of chest to be done in early June already ordered. Will have MA contact patient to make sure she has scheduled this. Assessment & Plan (01/11/2017 2:33 PM CDT): 6mm nodule L lung base. Repeat noncontrast chest CT ordered, told patient to schedule June 2017. Microscopic hematuria 01/11/2017 Assessment & Plan (04/19/2017 12:58 PM ROPE SILICA MACHINE OPERATOR): S/p evaluation by urology. Assessment & Plan (01/11/2017 11:39 PM CDT): CT scan abd / pelvis without stones. Continue urology eval. BMI 29.0-29.9,adult 11/28/2016 Assessment & Plan (04/19/2017 11:33 AM ROPE SILICA MACHINE OPERATOR): BMI Follow-up includes: nutrition counseling, exercise counseling [...] Breast cancer screening: No longer going to [facility] 2/2 hysterectomy. Cervical cancer screening: No longer going to [facility] due to hysterectomy. Osteoporosis screening: As above Vaccinations: Influenza: Gets yearly. Pneumonia: 2012 Prevnar 13: At 66 Shingles: not indicated Tetanus: 07/11/13 Bleeding from the nose 11/28/2016 Assessment & Plan (11/28/2016 11:37 AM CDT): Will give [facility] ph # for her to see physician she saw a few years ago at [facility]. Age-related osteoporosis wit hout current pathological fracture 11/28/2016 Assessment & Plan (11/28/2016 11:38 PM CDT): Prolia today. Check Vitamin D. Due for bone density, ordered today. Memory loss 11/28/2016 Assessment & Plan (04/19/2017 1:00 PM ROPE SILICA MACHINE OPERATOR): No improvement by decreasing amitriptyline. Will try [...] refer to [facility] and [facility] department at [facility] for more detailed evaluation. Prediabetes 11/28/2016 Assessment & Plan (04/19/2017 12:58 PM ROPE SILICA MACHINE OPERATOR): Reassess Osteoporosis 11/28/2016 Assessment & Plan (04/19/2017 3:40 PM ROPE SILICA MACHINE OPERATOR): Prolia today Knee pain 08/08/2016 Overview (09/15/2016): Right knee pain, unspecified chronicity Arthralgia of hip 08/08/2016 Overview (09/15/2016): Pain of right hip joint Peptic ulcer 09/16/2015 Overview (07/28/2016): Peptic ulcer disease [facility]oid [facility] with negative rheumatoid factor 09/16/2015 Overview (07/28/2016): RHEUMATOID ARTHRITIS Assessment & Plan (03/14/2019 12:34 AM ROPE SILICA MACHINE OPERATOR): RA clinically stable. Scheduled for RTKR tomorrow [...] Dyslipidemia Assessment & Plan (04/19/2017 1:00 PM ROPE SILICA MACHINE OPERATOR): Reassess when she is feeling better. Discussed [...] Immunization Administration Dates Next Due COVID-19 mRNA (NovaPlanner) 0.3 m L (30 mcg) vaccine (12 years and up) 12/30/2023,02/02/2023 Influenza, Quad, Adjuvantate d, Intramuscular 01/12/2022 Influenza, Quadrivalent, Hig h Dose, Preservative Free, Intrr 02/02/2023,12/22/2013 Influenza, Quadrivalent, Rec ombinant, Egg Free, Preservative Free, Intramuscular 04/26/2016 Influenza, Quadrivalent, Spl it, Preservative Free, Intradermal 04/26/2016 Influenza, Quadrivalent, Spl it, Preservative Free, Intramuscular 02/08/2021,02/09/2020 Influenza, Trivalent, High D ose, Split, Preservative Free, Intramuscular 12/30/2023,12/22/2013 Influenza, Trivalent, IM (MDV) 02/01/2012 Influenza, Trivalent, Preser vative Free, Intramuscular 01/19/2014 Influenza, Trivalent, Split, Preservative Free, Intradermal 03/12/2015 Influenza, Unspecified 02/09/2023 [employer] Machine SARS-CoV-2 Monovalent Vaccination (12+ Yrs) PURPLE 10/09/2022,06/24/2020,06/05/2020 [...] on file Legal Sex Female 1:48 AM ROPE SILICA MACHINE OPERATOR Gender Identity Not on file Sexual Orientation Choose not to disclose 2018 12:47 PM CDT Last Filed Vital Signs Vital Sign Reading Time Taken Comments Blood Pressure 156/82 11/05/2024 2:20 PM CDT Pulse 77 11/05/2024 2:20 PM CDT Temperature 36.7 C (98.1 F) 11/05/2024 2:20 PM CDT Respiratory Rate 18 09/05/2024 6:02 PM CDT Oxygen Saturation 99% 11/05/2024 2:20 PM CDT Inhaled Oxygen Concentration - - Weight 67.7 kg (149 lb 4.8 oz) 11/05/2024 2:20 P M CDT Height 157.5 cm (5' 2.01) 11/05/2024 2:20 PM CD T Body Mass Index 27.3 11/05/2024 2:20 PM CDT Plan of Treatment Not on file Medical Devices Implanted Type Area Parts Inspector Device Identifier Shelf Expiration Date Model / Serial / Lot [employer] 3122-040 Smartset Medium Viscosity Cement 40gm Bone Sterile - Sn/A - [id number] Implanted:Qty: 1 on 03/13/2019 by Jose Gaines MD at [facility] Other - see comments Right: Knee [employer] 06/20/2020 3122-040 / N/A / [id number] [employer] [id number] Smartset Medium Viscosity Cement 40gm Bone Gentamicin - Sn/A - [id number] Implanted:Qty: 1 on 03/13/2019 by Jose Gaines MD at [facility] Other - see comments Right: Knee [employer] 06/20/2020 [id number] / N/A / [id number] [employer]/O rtho [id number] Joanne Ii Base Right Total Knee 5 Baseplate Tibial Nonporous - Sn/A - [id number] Implanted:Qty: 1 on 03/13/2019 by Jose Gaines MD at [facility] Other - see comments Right: Knee [employer]/ Ortho [id number] 12/10/2028 [id number] / N/A / [id number] [employer]/O rtho [id number] Joanne Ii Legion Spc Cruciate Retain Knee Right 7 Component - Sn/A - [id number] Implanted:Qty: 1 on 03/13/2019 by Jose Gaines MD at [facility] Other - see comments Right: Knee [employer]/ Ortho [id number] 11/23/2028 [id number] / N/A / [id number] [employer]/O rtho [id number] Legion 12mm Cruciate Retaining High Flexion Knee 5-6 Insert - Sn/A - [id number] Implanted:Qty: 1 on 03/13/2019 by Jose Gaines MD at [facility] Other - see comments Right: Knee [employer]/ Ortho [id number] 03/22/2026 [id number] / N/A / [id number] Nasal Plug Nose Procedures Procedure Name Priority Date/Time Associated Diagnosis Comments EGFR Routine 11/05/2024 3:22 PM CDT Long-term use of high-risk medication CBC WITHOUT DIFFERENTIAL Routine 11/05/2024 3:22 PM CDT Long-term use of high-risk medication COMPREHENSIVE METABOLIC PANEL Routine 11/05/2024 3:22 PM CDT Long-term use of high-risk medication ERYTHROCYTE SEDIMENTATION RATE Routine 11/05/2024 3:22 PM CDT Rheumatoid arthritis of multiple sites with negative rheumatoid factor (HCC) XR FOOT LEFT 3 OR MORE VIEWS Schedule Routine, Read Routine (OP Routine) 09/08/2024 1:17 PM CDT Stress fracture of left fibula with routine healing, subsequent encounter XR ANKLE LEFT 2 VIEWS Schedule Routine, Read Routine (OP Routine) 09/08/2024 1:17 PM CDT Stress fracture of left fibula with routine healing, subsequent encounter DEXA AXIAL SKELETON BONE DENSITY 1 OR MORE SITES Schedule Routine, Read Routine (OP Routine) 11/06/2023 11:21 AM CDT Osteopenia, unspecified location Age-related osteoporosis without current pathological fracture SCREENING MAMMOGRAM Routine 11/29/2015 1 2:50 PM CDT from Last 3 Months or Most Recently Relevant to Health Maintenance Results * eGFR (11/05/2024 3:22 PM CDT) eGFR >90 >=60 mL/min/1. 73 m2 Comment: Interpretive Data Reference Interval Normal >/= 90 mL/min/1.73m2 Mildly decreased* 60 - 89 mL/min/1.73m2 Mildly to moderately decreased 45 - 59 mL/min/1.73m2 Moderately to severely decreased 30 - 44 mL/min/1.73m2 Severely decreased 15 - 29 mL/min/1.73m2 Kidney Failure < 15 mL/min/1.73m2 *Relative to young adult level Estimated glomerular filtration rate is determined by the 2020 CKD-EPI equation recommended by the National Kidney Foundation (A Unifying Approach to GFR Estimation: Recommendations of the NKF-ASK Task Force on Reassessing the Inclusion of Race in Diagnosing Kidney Disease, JASN 2020). The CKD-EPI equation should not be used for patients with unstable renal function and has not been validated in children and those over 70. Current interpretive data was last reviewed 2021. Blood 11/05/2024 3:22 PM CDT 11/05/2024 6:22 PM CDT Lidia Srinivasan MD LAB BLOOD ORDERABLES Final Result Performing Organization Address City/[facility]/ZIP Co de Phone Number [facility] [address] [facility] [place] [address] * Erythrocyte sedimentation rate (11/05/2024 3:22 PM CDT) Pathologist [facility] Erythrocyte sedimentation rate 20 1 - 30 mm/hr Blood 11/05/2024 3:22 PM CDT 11/05/2024 6:22 PM CDT Lidia Srinivasan MD LAB BLOOD ORDERABLES Final Result Performing Organization Address [facility] Co de Phone Number [facility] [address] [facility] [place] [address] * (ABNORMAL) CBC without differential (11/05/2024 3:22 PM CDT) Pathologist [facility] WBC 7.59 3.80 - 9.90 K/cumm Hgb 12.8 11.9 - 15.5 g/dL [facility] Hct 40.1 35.6 - 45.5 % [facility] Plt 186 150 - 400 K/cumm [facility] MPV 12.0 9.1 - 12.3 fL [facility] RBC 4.29 3.90 - 5.20 M/cumm [facility] MCV 93.5 81.3 - 96.4 fL [facility] MCH 29.8 27.1 - 33.3 pg [facility] MCHC 31.9(L) 32.3 - 35.7 g/dL [facility] RDW CV 15.9(H) 11.1 - 14.9 % [facility] RDW SD 53.7(H) 35.7 - 48.1 fL [facility] NRBC abs 0.00 0.00 - 0.01 K/cumm [facility] Blood 11/05/2024 3:22 PM CDT 11/05/2024 6:22 PM CDT Lidia Srinivasan MD LAB BLOOD ORDERABLES Final Result [facility] [address] Department [place] [address] * (ABNORMAL) Comprehensive metabolic panel (11/05/2024 3:22 PM CDT) Sodium 142 135 - 145 mmol/L Potassium, pl 4.0 3.3 - 4.9 mmol/L [facility] Chloride 107 97 - 110 mmol/L [facility] CO2 23 22 - 32 mmol/L [facility] Anion gap 12 2 - 15 mmol/L [facility] BUN 16 6 - 25 mg/dL [facility] Creatinine 0.54(L) 0.60 - 1.10 mg/dL [facility] Glucose 91 70 - 199 mg/dL [facility] Comment: Interpretive Data Fasting glucose >/= 126 mg/dl is diagnostic for diabetes. Fasting is defined as no caloric intake for at least 8 hours. Fasting glucose between 100 mg/dl to 125 mg/dl is diagnostic of prediabetes. In a patient with classic symptoms of hyperglycemia or hyperglycemic crisis, a random glucose >/= 200 mg/dl is diagnostic for diabetes. In the absence of unequivocal hyperglycemia, results should be confirmed by repeat testing. The classification and Diagnosis of Diabetes Diabetes Care 2021; 46: S19-S40. Current interpretive data was last revised 2022. Calcium 9.9 8.5 - 10.3 mg/dL [facility] Bilirubin, total 0.4 0.1 - 1.2 mg/dL [facility] Protein, pl 6.7 6.5 - 8.5 g/dL [facility] Albumin 4.1 3.5 - 5.0 g/dL [facility] Alk phos 109 40 - 130 Units/L [facility] ALT 29 7 - 45 Units/L [facility] AST 26 10 - 45 Units/L [facility] Blood 11/05/2024 3:22 PM CDT 11/05/2024 6:22 PM CDT us Lidia Srinivasan MD LAB BLOOD ORDERABLES Final Result [facility] [address] Department [place] [address] * XR Foot Left 3 or More Views (09/08/2024 1:17 PM CDT) Anatomical Region Laterality Modality Lower Extremities, Foot Left Computed Radiography 09/08/2024 2:13 PM CDT Impressions 09/08/2024 2:24 PM CDT 1. Chronic left distal fibular shaft fracture. Dictated by: Vanesa Carbone MD PHD The radiology attending physician has personally reviewed this study, and had reviewed and/or edited this written report and agrees with it. Electronically signed by: Dougie Toribio D.O. Narrative 09/08/2024 2:24 PM CDT EXAMINATION: XR ANKLE LEFT 2 VIEWS, XR FOOT LEFT 3 OR MORE VIEWS HISTORY: Left foot and ankle pain. FINDINGS: 2 views of the left ankle and 3 views of the left foot are obtained. Comparison is made to prior radiographs dated 06/16/2024. Chronic fracture of the distal fibular shaft with hypertrophic callus but persistent fracture lucency. The ankle mortise and talar dome are intact. No syndesmotic widening. Moderate to severe pes planovalgus. Mild polyarticular osteoarthritis of the midfoot and first and second metatarsophalangeal joints. Small calcaneal spur. Distal Achilles tendon enthesophyte. Osteopenia. Procedure Note Dougie Toribio, DO - 09/08/2024 EXAMINATION: XR ANKLE LEFT 2 VIEWS, XR FOOT LEFT 3 OR MORE VIEWS HISTORY: Left foot and ankle pain. FINDINGS: 2 views of the left ankle and 3 views of the left foot are obtained. Comparison is made to prior radiographs dated 06/16/2024. Chronic fracture of the distal fibular shaft with hypertrophic callus but persistent fracture lucency. The ankle mortise and talar dome are intact. No syndesmotic widening. Moderate to severe pes planovalgus. Mild polyarticular osteoarthritis of the midfoot and first and second metatarsophalangeal joints. Small calcaneal spur. Distal Achilles tendon enthesophyte. Osteopenia. IMPRESSION: 1. Chronic left distal fibular shaft fracture. Dictated by: Vanesa Carbone MD PHD The radiology attending physician has personally reviewed this study, and had reviewed and/or edited this written report and agrees with it. Electronically signed by: Dougie Toribio D.O. us Manjit Rangel MD IMG XR PROCEDURES Final Res ult * XR Ankle Left 2 Views (09/08/2024 1:17 PM CDT) Anatomical Region Laterality Modality Lower Extremities, Ankle Left Compute d Radiography 09/08/2024 2:13 PM CDT Impressions 09/08/2024 2:24 PM CDT 1. Chronic left distal fibular shaft fracture. Dictated by: Vanesa Carbone MD PHD The radiology attending physician has personally reviewed this study, and had reviewed and/or edited this written report and agrees with it. Electronically signed by: Dougie Toribio D.O. Narrative 09/08/2024 2:24 PM CDT EXAMINATION: XR ANKLE LEFT 2 VIEWS, XR FOOT LEFT 3 OR MORE VIEWS HISTORY: Left foot and ankle pain. FINDINGS: 2 views of the left ankle and 3 views of the left foot are obtained. Comparison is made to prior radiographs dated 06/16/2024. Chronic fracture of the distal fibular shaft with hypertrophic callus but persistent fracture lucency. The ankle mortise and talar dome are intact. No syndesmotic widening. Moderate to severe pes planovalgus. Mild polyarticular osteoarthritis of the midfoot and first and second metatarsophalangeal joints. Small calcaneal spur. Distal Achilles tendon enthesophyte. Osteopenia. Procedure Note Dougie Toribio, DO - 09/08/2024 EXAMINATION: XR ANKLE LEFT 2 VIEWS, XR FOOT LEFT 3 OR MORE VIEWS HISTORY: Left foot and ankle pain. FINDINGS: 2 views of the left ankle and 3 views of the left foot are obtained. Comparison is made to prior radiographs dated 06/16/2024. Chronic fracture of the distal fibular shaft with hypertrophic callus but persistent fracture lucency. The ankle mortise and talar dome are intact. No syndesmotic widening. Moderate to severe pes planovalgus. Mild polyarticular osteoarthritis of the midfoot and first and second metatarsophalangeal joints. Small calcaneal spur. Distal Achilles tendon enthesophyte. Osteopenia. IMPRESSION: 1. Chronic left distal fibular shaft fracture. Dictated by: Vanesa Carbone MD PHD The radiology attending physician has personally reviewed this study, and had reviewed and/or edited this written report and agrees with it. Electronically signed by: Dougie Toribio D.O. us Manjit Rangel MD IMG XR PROCEDURES Final Res ult * DEXA Axial Skeleton Bone Density Multi Site (11/06/2023 11:21 AM CDT) Anatomical Region Laterality Modality Body N/A Radiographic Mireya ging Narrative 11/06/2023 4:13 PM CDT Patient Name: Claire Bond Date of : 1955 Date of scan: 11/06/2023 Bone mineral density was performed on a HoloTipstar Discovery Densitometer. Based on machine cross-calibration and [...] mineral density scan were prepared by Lisa Reilly)([facility])who is accredited by the International Society of Clinical Densitometry. The overall patient assessment and scan interpretation were performed by Marva Napier M.D.who is certified by the International Society of Clinical Densitometry. [id number] Juan Dent MD [facility] DXA PROCEDURES F inal Result * Screening Mammogram (11/29/2015 12:50 PM CDT) Anatomical Region Laterality Modality Breast N/A Mammography 11/29/2015 12:5 0 PM CDT Narrative 12/01/2015 4:10 PM CDT ROBERTO BECK M.D. FINAL REPORT ACC# Date Time Exam [id number] Nov 29, 2015 12:50:00 WMM [id number] Screening Mamm Bilat 2v Technologist(s): Iveth Martínez; ; EXAMINATION: Mammogram Technique: Bilateral Full-Field Digital Screening Mammogram was performed. Views obtained: bilateral craniocaudal and bilateral mediolateral oblique. Computer Aided Detection was performed with PixelTalents 1.3 version 9.3. Mammogram Findings: The present examination has been compared to prior imaging studies performed at [facility] on 09/28/2014, 07/11/2013 and 07/27/2011. There are [...] BECK M.D. on Dec 01 2015 4:10P [id number] Procedure Note Provider, MD Cherry - 08/19/2016 ROBERTO BECK M.D. FINAL REPORT ACC# Date Time Exam [id number] Nov 29, 2015 12:50:00 WMM [id number] Screening Mamm Bilat 2v Technologist(s): Iveth Martínez; ; EXAMINATION: Mammogram Technique: Bilateral Full-Field Digital Screening Mammogram was performed. Views obtained: bilateral craniocaudal and bilateral mediolateral oblique. Computer Aided Detection was performed with PixelTalents 1.3 version 9.3. Mammogram Findings: The present examination has been compared to prior imaging studies performed at [facility] on 09/28/2014, 07/11/2013 and 07/27/2011. There are [...] BECK M.D. on Dec 01 2015 4:10P [id number] Historical Provider MD LEHMAN MAMMO PROCEDURES Iva l Result from Last 3 Months or Most Recently Relevant to Health Maintenance Insurance AETNA MEDICARE AETNA MEDICARE [address] [place] [address] AET MEDICARE Advance Directives For more information, please contact: [phone] * Full Code (Latest Code Status on File) Date Activated Date Inactivated Comments 04/14/2019 8:36 PM 04/15/2019 6:03 PM * Full Code Date Activated Date Inactivated Comments 03/13/2019 11:11 AM 03/14/2019 5:37 PM Care Teams [employer] Relationship Specialty Start Date End Date Tico Mars MD [address] [place] [address] PCP - General Internal Medicine 01/14/18
--- OUTSIDE RECORDS SUMMARY | 2024-11-10 14:50 | XMS_ITS | Encounter Summary ---
Author Organization [facility] Address 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
--- OUTSIDE RECORDS SUMMARY | 2024-11-10 14:50 | XMS_ITS | Encounter Summary ---
Author Organization [facility] Address [address] [place] [address] Phone Care Team Providers Care Ton Container Shipper Name Role Phone Tico Mars MD Primary Care Provider [phone] Toribio Pinedo MD Unavailable Geri Nath MD Unavailable [phone] Tori Pinedo APRN, MODEL MAKER SCALE Unavailable Sandi Hicks ENDLESS BELT FINISHER Unavailable Unavailab Lidia Cabrera MD Primary Care Provide r Tico Mars MD Primary Care Provider [phone] Reason for Visit * Reason Comments Medication Refill Encounter Details Date Type Department Care Team (Late st Contact Info) Description 10/03/2023 Refill [facility] - Internal Medicine - [place] [address] [place] [address] Tico Mars MD [address] [place] [address] Medication Refill Social History Tobacco Use Types Packs/Day Years Used Date Smoking Tobacco: Never Passive Smoke Exposure: Never Smokeless Tobacco: Never Alcohol Use Standard Drinks/Week Comments Not Currently 0 (1 standard drink = 0.6 oz pur e alcohol) [facility] Utilities Answer Date Recorded In the past 12 months has th e electric, gas, oil, or water [employer] threatened to shut off services in your home? Patient unable to answer 05/24/2023 Social Connection and Isolation Panel Answer Date Recorded In a typical week, how many times do you talk on the phone with family, friends, or neighbors? Patient unable to answer 05/24/2023 How often do you get togethe r with friends or relatives? Patient unable to answer 05/24/2023 How often do you attend [facility] or mandaen services? Patient unable to answer 05/24/2023 Do you belong to any clubs o r organizations such as gnosticist groups, unions, fraternal or athletic groups, or [...] Score - Questions 1-9 0 05/0 04/2023 [facility] of Occupat ional Health - Occupational Stress [...] place to sleep or slept in a long-term (including now)? Patient unable to answer 05/24/2023 [...] 08/22/23 Office Visit Tico Mars MD [facility] [place] 05/24/23 Office Visit Tico Mars MD [facility] [place] 02/19/23 Office Visit Tico Mars MD [facility] [place] 11/07/22 Office Visit Tico Mars MD [facility] [place] Showing recent visits within past 365 days and meeting all other requirements Future Appointments Date Type Provider Dept 11/22/23 Appointment Tico Mars MD [facility] [place] Showing future appointments within next 90 days and meeting all other requirements documented in this encounter Plan of Treatment Upcoming Encounters Date Type Department Care Team (Late st Contact Info) Description 12/24/2024 7:00 AM CDT Hospital Encounter [facility] 1 [facility] [place] [address] Nasir Tang MD [facility] [address] [place] [address] 12/24/2024 7:00 AM CDT - 12/24/2024 7:30 AM CDT Surgery [facility] Per[facility] 1 [facility] [place] [address] Nasir Tang MD [facility] [address] [place] [address] COLONOSCOPY 03/03/2025 2:00 PM BIOMASS FACILITATOR Office Visit [facility] - Internal Medicine - [place] [address] [place] [phone] Tico Mars MD [address] [place] [address] Scheduled Procedures Name Priority Associated Diagnoses Date/Ti me COLONOSCOPY DIARRHEA 12/24/2024 7:00 AM CDT documented as of this encounter Visit Diagnoses Not on filedocumented in this encounter Additional Health Concerns Assessment Noted Time PHQ-9 Depression Total Score: 0 08/22/19 11:35 AM CDT documented as of this encounter Care Teams Ton Container Shipper Relationship Specialty Start Date End Date Tico Mars MD [address] [place] [address] PCP - General Internal Medicine 03/18/18 02/06/24 Lidia Srinivasan MD [address] [address] PCP - General Rheumatology 02/07/24 03/02/24 Tico Mars MD [address] [place] [address] PCP - General Internal Medicine 03/03/24 Toribio Pinedo MD #[address] [address] Consulting Physician Colon and Rectal Surgery 05/17/22 Geri Nath MD [address] [place] [address] Consulting Physician Gastroenterology 06/29/22 Tori Pinedo APRN, MODEL MAKER SCALE [address] [place] [address] Nurse Practitioner Advanced Practice Nurse 01/04/24 Sandi Hicks LSW [place] Environmental Journalist Communications Senior Associate 01/24/24 02/01/24 documented as of this encounter
--- OUTSIDE RECORDS SUMMARY | 2024-11-10 14:50 | XMS_ITS | Encounter Summary ---
Author Organization [facility] Address [address] [place] [address] Phone Care Team Providers Care Certified Nursing Assistant Instructor Name Role Phone Tico Mars MD Primary Care Provider [phone] Toribio Pinedo MD Unavailable Geri Nath MD Unavailable [phone] Tori Pinedo APRN, MOSAIC TILE MAKER Unavailable Sandi Hicks CHIEF OPERATOR HYDROFORMER Unavailable Unavailab Lidia Cabrera MD Primary Care Provide r Tico Mars MD Primary Care Provider [phone] Reason for Visit * Reason Comments Medication Refill Encounter Details Date Type Department Care Team (Late st Contact Info) Description 09/12/[address] [facility] - Internal Medicine - [place] [address] [place] [address] Tico Mars MD [address] [place] [address] Medication Refill Social History Tobacco Use Types Packs/Day Years Used Date Smoking Tobacco: Never Passive Smoke Exposure: Never Smokeless Tobacco: Never Alcohol Use Standard Drinks/Week Comments Not Currently 0 (1 standard drink = 0.6 oz pur e alcohol) [facility] Utilities Answer Date Recorded In the past 12 months has th e electric, gas, oil, or water [employer] threatened to shut off services in [...] answer 05/24/2023 How often do you attend [facility] or catholic services? Patient unable to answer 05/24/2023 Do you belong to any clubs o r organizations such as religion groups, unions, fraternal or athletic groups, or [...] Score - Questions 1-9 0 05/0 04/2023 [facility] of Occupat ional Health - Occupational [...] place to sleep or slept in a halfway (including now)? Patient unable to answer 05/24/2023 [...] Office Visit Tico Mars MD [facility] [place] 05/24/23 Office Visit Tico Mars MD [facility] [place] 02/19/23 Office Visit Tico Mars MD [facility] [place] 11/07/22 Office Visit Tico Mars MD [facility] [place] Showing recent visits within past 365 days and meeting all other requirements Future Appointments Date Type Provider Dept 11/22/23 Appointment Tico Mars MD [facility] [place] Showing future appointments within next 90 days and meeting all other requirements documented in this encounter Plan of Treatment Upcoming Encounters Date Type Department Care Team (Late st Contact Info) Description 12/24/2024 7:00 AM CDT Hospital Encounter [facility] Periop 1 [facility] [place] [address] Nasir Tang MD [address] [address] 12/24/2024 7:00 AM CDT - 12/24/2024 7:30 AM CDT [facility] 1 [facility] [place] [address] Nasir Tang MD 2 [facility] [address] [address] COLONOSCOPY 03/03/2025 2:00 PM CUSTOMER CONTACT SPECIALIST Office Visit [facility] - Internal Medicine - [place] [address] [place] [place] [phone] Tico Mars MD [address] [place] [address] Scheduled Procedures Name Priority Associated Diagnoses Date/Ti me COLONOSCOPY DIARRHEA 12/24/2024 7:00 AM CDT documented as of this encounter Visit Diagnoses Not on filedocumented in this encounter Additional Health Concerns Assessment Noted Time PHQ-9 Depression Total Score: 0 08/22/19 11:35 AM CDT documented as of this encounter Care Teams Certified Nursing Assistant Instructor Relationship Specialty Start Date End Date Tico Mars MD [address] [place] [address] PCP - General Internal Medicine 03/18/18 02/06/24 Lidia Srinivasan MD [address] [address] PCP - General Rheumatology 02/07/24 03/02/24 Tico Mars MD [address] [place] [address] PCP - General Internal Medicine 03/03/24 Toribio Pinedo MD [address] [address] Consulting Physician Colon and Rectal Surgery 05/17/22 Geri Nath MD [address]2 [place] [address] Consulting Physician Gastroenterology 06/29/22 Tori Pinedo APRN, MOSAIC TILE MAKER [address] [place] [address] Nurse Practitioner Advanced Practice Nurse 01/04/24 Sandi Hicks LSW [place] Hospice Plan Administrator Addiction Specialist 01/24/24 02/01/24 documented as of this encounter
--- OUTSIDE RECORDS SUMMARY | 2024-11-10 14:50 | XMS_ITS | Encounter Summary ---
Author Organization [facility] Address [address] [facility] [place] [address] Care Team Providers Care Poultry Offal Icer Name Role Phone Tico Mars MD Primary Care Provider Encounter Details Date Type Department Care Team (Late st Contact Info) Description 09/27/[address] 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 Received: 09/28/2022 06:38 AM Pathologist: [...] microscopic description) 1:04 PM CDT DERMATOPATHOLOGY LABORATORY at 1304 CDT Clinical History A: [facility] Path#[id number] B: [facility] Path#[id number] 1:04 PM CDT DERMATOPATHOLOGY LABORATORY Gross Description [...] measuring 6x2x1 mm. Jar 0. 1:04 PM CDT DERMATOPATHOLOGY LABORATORY Microscopic Description [...] larger lesion, these findings may not be scheduling representative of the entire lesion. Clinicopathologic correlation is recommended. Specimen B. SKIN, left lateral groin: There are nests of melanocytes at the dermal-epidermal junction and within the dermis. Additional deeper sections were obtained and reviewed. 3 1:04 PM CDT DERMATOPATHOLOGY LABORATORY Disclaimer An external and internal positive and negative controls are appropriate for the histochemical, immunohistochemical and immunofluorescence stain(s) in this case (if any), except where stated explicitly. The performance characteristics of the stain(s) cited in this report were developed and its performance characteristic determined by the Dermatopathology Laboratory at [facility], directed by Dr. Nelia Schaeffer. These tests need not be, and therefore are not, approved by the [place] Food and Drug Administration. The tests are used for clinical purposes. Billing Codes Specimen Charges Stain Charges 54404 51699 1 1 3 1:04 PM CDT DERMATOPATHOLOGY LABORATORY Embedded Images 3 1:04 PM CDT DERMATOPATHOLOGY LABORATORY Pathology/Cytology TISSUE SPECIMEN FROM SKIN / Unknown 09/26/2022 09/28/2022 6:38 AM CDT Miscellaneous samples (specimen) TISSUE SPECIMEN FROM SKIN / Unknown 09/26/2022 09/28/2022 6:38 AM CDT us Joes Alejandro Lopez MD LAB - PATHOLOGY/CYTOLOGY ORDER LORENA Final Result DERMATOPATHOLOGY LABORATORY [facility] - Department of Dermatology [address], [address] [phone] documented in this encounter Visit Diagnoses Not on filedocumented in this encounter Care Teams Poultry Offal Icer Relationship Specialty Start Date End Date Tico Mars MD [address] [place] [address] PCP - General 01/20/19 documented as of this encounter
--- OUTSIDE RECORDS SUMMARY | 2024-11-10 14:50 | XMS_ITS | Encounter Summary ---
Author Organization [facility] Address [address] [place] [address] Care Team Providers Care Technical Services Librarian Name Role Phone Iain Lowery MD Primary Care Provider [phone] Encounter Details Date Type Department Care Team (Late st Contact Info) Description 12/18/[address] [facility] Social History Tobacco Use Types Packs/Day Years Used Date Smoking Tobacco: Never Assessed Comments Unknown Sex and Gender Information Value Date Recorded Sex Assigned at Not on file Legal Sex Female 4:26 AM DIRECTOR OF UNDERGRADUATE ADMISSIONS Gender Identity Not on file Sexual Orientation Not on file documented as of this encounter Plan of Treatment Not on file documented as of this encounter Visit Diagnoses Not on filedocumented in this encounter Care Teams Technical Services Librarian Relationship Specialty Start Date End Date Iain Lowery MD [address] [address] PCP - General 11/16/06 documented as of this encounter
--- OUTSIDE RECORDS SUMMARY | 2024-11-10 14:50 | XMS_ITS | Clinical Summary ---
Author Organization [facility] Address [address] [place] [address] Care Team Providers Care Manager Line Name Role Phone Tico Mars MD Primary Care Provider [phone] Allergies Active Allergy Reactions Criticality Noted Date Comments Cefdinir Swelling Medium 09/03/2018 Fluticasone Itching Low 01/20/2019 Latex Blisters High 04/14/2019 Lifitegrast Unknown 12/19/2023 Penicillin G Rash Medium Penicillins Rash Medium 12/19/2023 Oxycodone-Acetaminophe n Other (See comments) Low 04/14/2019 Extreme sleepiness Tissue Adhesive Redness Low 06/13/2019 Medications vit D3-vit U-pvzdbtsac-ka ps [id number] sekt-rrn-lx-mg tablet Take by mouth Active dicyclomine (BENTYL) [...] drop into affected eye(s) every 12 hours 5 Active Active Problems Problem Noted Date Diagnosed [...] (04/14/2019): Added automatically from request for surgery [id number] Long-term use of high-risk medication 03/14/2019 Assessment & Plan (03/14/2019 12:29 AM DYNAMICS AX SOLUTION ARCHITECT): Recent labs reviewed without sxs of toxicity Osteopenia 03/14/2019 Assessment & Plan (03/14/2019 12:30 AM DYNAMICS AX SOLUTION ARCHITECT): Lifestyle modifications are important for the prevention [...] 03/14/2019 Assessment & Plan (03/14/2019 12:29 AM DYNAMICS AX SOLUTION ARCHITECT): Hopefully you can develop an exercise regimen [...] (02/03/2019): Added automatically from request for surgery [id number] Assessment & Plan (03/14/2019 12:31 AM DYNAMICS AX SOLUTION ARCHITECT): Scheduled for RTKR tomorrow with Dr. Gaines. Medications on hold. May resume same 2 weeks after surgery if healing as expected. Right ear pain 01/20/2019 DNS (deviated nasal septum) 05/02/2018 Maxillary sinusitis 04/19/2017 Assessment & Plan (04/19/2017 1:01 PM DYNAMICS AX SOLUTION ARCHITECT): Doxycycline #20 sent to pharmacy. Pt does not want to get surgeries done that ENT has recommended at this time. Lung nodule 01/11/2017 Overview (01/11/2017): Diagnosed 01/11/[address] 6mm nodule left lung base. Assessment & Plan (04/19/2017 3:49 PM DYNAMICS AX SOLUTION ARCHITECT): noncontrast CT scan of chest to be done in early June already ordered. Will have MA contact patient to make sure she has scheduled this. Assessment & Plan (01/11/2017 2:33 PM CDT): 6mm nodule L lung base. Repeat noncontrast chest CT ordered, told patient to schedule June 2017. Microscopic hematuria 01/11/2017 Assessment & Plan (04/19/2017 12:58 PM DYNAMICS AX SOLUTION ARCHITECT): S/p evaluation by urology. Assessment & Plan (01/11/2017 11:39 PM CDT): CT scan abd / pelvis without stones. Continue urology eval. BMI 29.0-29.9,adult 11/28/2016 Assessment & Plan (04/19/2017 11:33 AM DYNAMICS AX SOLUTION ARCHITECT): BMI Follow-up includes: nutrition counseling, exercise counseling [...] Breast cancer screening: No longer going to physician office assistant 2/2 hysterectomy. Cervical cancer screening: No longer going to physician office assistant due to hysterectomy. Osteoporosis screening: As above Vaccinations: Influenza: Gets yearly. Pneumonia: 2012 Prevnar 13: At 66 Shingles: not indicated Tetanus: 07/11/13 Bleeding from the nose 11/28/2016 Assessment & Plan (11/28/2016 11:37 AM CDT): Will give [facility] ph # for her to see physician she saw a few years ago at [facility]. Age-related osteoporosis wit hout current pathological fracture 11/28/2016 Assessment & Plan (11/28/2016 11:38 PM CDT): Prolia today. Check Vitamin D. Due for bone density, ordered today. Memory loss 11/28/2016 Assessment & Plan (04/19/2017 1:00 PM DYNAMICS AX SOLUTION ARCHITECT): No improvement by decreasing amitriptyline. Will try [...] refer to memory and aging department at [facility] for more detailed evaluation. Prediabetes 11/28/2016 Assessment & Plan (04/19/2017 12:58 PM DYNAMICS AX SOLUTION ARCHITECT): Reassess Osteoporosis 11/28/2016 Assessment & Plan (04/19/2017 3:40 PM DYNAMICS AX SOLUTION ARCHITECT): Prolia today Knee pain 08/08/2016 Overview (09/15/2016): Right knee pain, unspecified chronicity Arthralgia of hip 08/08/2016 Overview (09/15/2016): Pain of right hip joint Peptic ulcer 09/16/2015 Overview (07/28/2016): Peptic ulcer disease Rheumatoid arthritis of [facility] sites with negative rheumatoid factor 09/16/2015 Overview (07/28/2016): RHEUMATOID ARTHRITIS Assessment & Plan (03/14/2019 12:34 AM DYNAMICS AX SOLUTION ARCHITECT): RA clinically stable. Scheduled for RTKR tomorrow [...] Dyslipidemia Assessment & Plan (04/19/2017 1:00 PM DYNAMICS AX SOLUTION ARCHITECT): Reassess when she is feeling better. Discussed [...] - 11/05/2024 11:59 PM CDT Hospital Encounter [facility] [address] [place] [phone] Discharge Disposition: Discharge to home or self care 11/05/2024 2:30 PM CDT Office Visit [facility] Rheumatology at [facility] [address] [place] [id number] Lidia Srinivasan MD Rheumatoid arthritis of multiple sites with negative rheumatoid factor (HCC) (Primary Dx); Long-term use of high-risk medication; Chronic bilateral low back pain with sciatica, sciatica laterality unspecified 09/08/2024 1:15 PM CDT Office Visit [facility] Orthopaedic Surgery [address] [place] [address] [address] [place] [address] [place] [phone] Manjit Rangel MD Stress fracture of left fibula with routine healing, subsequent encounter (Primary Dx); Left ankle pain, unspecified chronicity 09/08/2024 1:04 PM CDT - 09/08/2024 11:59 PM CDT Hospital Encounter [facility] [address] [place] [address] Stress fracture of left fibula with routine healing, subsequent encounter Discharge Disposition: Discharge to home or self care 09/05/2024 6:00 PM CDT Office Visit [facility] at [address] [address] Diana Montero, SILK SCREEN FRAME ASSEMBLER Herpes zoster without complication (Primary Dx) from Last 3 Months Immunizations Immunization Administration Dates Next Due COVID-19 mRNA (Omnireliant) 0.3 m L (30 mcg) vaccine (12 [...] Preservative Free, Intradermal 03/12/2015 Influenza, Unspecified 02/09/2023 Episencial SARS-CoV-2 Monovalent Vaccination (12+ Yrs) PURPLE 10/09/2022,06/24/2020,06/05/2020 [...] per patient eye durgery bi-lateral eyes 07/2020 Broken ankle 12/2022 Family History Medical History Relation Name Comments [...] on file Legal Sex Female 1:48 AM DYNAMICS AX SOLUTION ARCHITECT Gender Identity Not on file Sexual Orientation [...] 11/05/2024 2:20 PM CDT Plan of Treatment Health Maintenance Due Date Last Done Comments Colon Cancer Screening-Colonoscopy 1955 Hepatitis C Screening 1955 Hepatitis B Screening 1974 Fall Risk Assessment 08/03/2019 08/02/2018 Well Visit 65+ 2021 11/28/2016 Zoster Vaccine (2 of 2) 05/21/2023 03/26/2023 Covid-19 Vaccine (6 - Pfizer risk season) 2024 12/30/2023, 02/02/2023, 10/09/2022, Additional history exists Influenza Vaccine (#1) 2024 , 02/09/2023, 02/02/2023, Additional history exists Breast Cancer Screening-Mammogram 01/27/2025 01/28/2024, 01/28/2024, 10/05/2022, Additional history exists Depression Screening 03/26/2025 03/26/2024, 03/26/2024, 08/02/2018 Osteoporosis Screening-Bone Density Scan 02/06/2026 02/07/2024, 02/07/2024, 11/06/2023, Additional history exists DTaP/Tdap/Td Vaccine (3 - Td or Tdap) 02/08/2030 02/09/2020, 01/19/2014 Pneumococcal vaccine 65+ Completed 023, 06/01/2021, 02/02/2008 Medical Devices Implanted Type Area Review Trainer Device Identifier Shelf Expiration Date Model / Serial / Lot [employer] 3122-040 Smartset Medium Viscosity Cement 40gm Bone Sterile - Sn/A - [id number] Implanted:Qty: 1 on 03/13/2019 by Jose Gaines MD at [facility] Other - see comments Right: Knee [employer] 06/20/2020 3122-040 / N/A / [id number] [employer] [id number] Smartset Medium Viscosity Cement 40gm Bone Gentamicin - Sn/A - [id number] Implanted:Qty: 1 on 03/13/2019 by Jose Gaines MD at [facility] Other - see comments Right: Knee [employer] 06/20/2020 [id number] / N/A / [id number] [employer]/O rtho [id number] Joanne Ii Base Right Total Knee 5 Baseplate Tibial Nonporous - Sn/A - [id number] Implanted:Qty: 1 on 03/13/2019 by Jose Gaines MD at [facility] Other - see comments Right: Knee [employer]/ Ortho [id number] 12/10/2028 [id number] / N/A / [id number] [employer]/O rtho [id number] Joanne Ii Legion Spc Cruciate Retain Knee Right 7 Component - Sn/A - [id number] Implanted:Qty: 1 on 03/13/2019 by Jose Gaines MD at [facility] Other - see comments Right: Knee [employer]/ Ortho [id number] 11/23/2028 [id number] / N/A / [id number] [employer]/O rtho [id number] Legion 12mm Cruciate Retaining High Flexion Knee 5-6 Insert - Sn/A - [id number] Implanted:Qty: 1 on 03/13/2019 by Jose Gaines MD at [facility] Other - see comments Right: Knee [employer]/ Ortho [id number] 03/22/2026 [id number] / N/A / [id number] Nasal Plug Nose Procedures Procedure Name Priority [...] BLOOD ORDERABLES Final Result Performing Organization Address [facility] Co de Phone Number [facility] [address] [facility] [place] [address] * Erythrocyte sedimentation rate (11/05/2024 3:22 PM CDT) Pathologist [facility] Erythrocyte sedimentation rate 20 1 - 30 mm/hr Blood 11/05/2024 3:22 PM CDT 11/05/2024 6:22 PM CDT Lidia Srinivasan MD LAB BLOOD ORDERABLES Final Result Performing Organization Address [facility] de Phone Number [facility] [address] [facility] [place] [address] * (ABNORMAL) CBC without differential (11/05/2024 3:22 PM CDT) [facility] WBC 7.59 3.80 - 9.90 K/cumm Hgb 12.8 11.9 - 15.5 g/dL [facility] Hct 40.1 35.6 - 45.5 % [facility] Plt 186 150 - 400 K/cumm [facility] MPV 12.0 9.1 - 12.3 fL [facility] RBC 4.29 3.90 - 5.20 M/cumm [facility] MCV 93.5 81.3 - 96.4 fL [facility] MCH 29.8 27.1 - 33.3 pg [facility] MCHC 31.9(L) 32.3 - 35.7 g/dL [facility] RDW CV 15.9(H) 11.1 - 14.9 % [facility] RDW SD 53.7(H) 35.7 - 48.1 fL [facility] NRBC abs 0.00 0.00 - 0.01 K/cumm [facility] Blood 11/05/2024 3:22 PM CDT 11/05/2024 6:22 PM CDT Lidia Srinivasan MD LAB BLOOD ORDERABLES Final Result [facility] [address] Department [place] [address] * (ABNORMAL) Comprehensive metabolic panel (11/05/2024 3:22 PM CDT) Sodium 142 135 - 145 mmol/L Potassium, pl 4.0 3.3 - 4.9 mmol/L [facility] Chloride 107 97 - 110 mmol/L [facility] CO2 23 22 - 32 mmol/L [facility] Anion gap 12 2 - 15 mmol/L [facility] BUN 16 6 - 25 mg/dL [facility] Creatinine 0.54(L) 0.60 - 1.10 mg/dL [facility] Glucose 91 70 - 199 mg/dL [facility] Comment: Interpretive Data Fasting glucose >/= 126 [...] classification and Diagnosis of Diabetes Diabetes Care 202; 46: S19-S40. Current interpretive data was last revised 2022. Calcium 9.9 8.5 - 10.3 mg/dL [facility] Bilirubin, total 0.4 0.1 - 1.2 mg/dL [facility] Protein, pl 6.7 6.5 - 8.5 g/dL [facility] Albumin 4.1 3.5 - 5.0 g/dL [facility] Alk phos 109 40 - 130 Units/L [facility] ALT 29 7 - 45 Units/L [facility] AST 26 10 - 45 Units/L [facility] Blood 11/05/2024 3:22 PM CDT 11/05/2024 6:22 PM CDT us Lidia Srinivasan MD LAB BLOOD ORDERABLES Final Result [facility] [address] [place] [address] * XR Foot Left 3 or More [...] Bone mineral density was performed on a [employer] Vision Discovery Densitometer. Based on machine cross-calibration and [...] mineral density scan were prepared by Lisa Reilly)(CBDT)who is accredited by the International Society of Clinical Densitometry. The overall patient assessment and scan interpretation were performed by Marva Napier M.D.who is certified by the International Society of Clinical Densitometry. [id number] us Juan Dent MD [facility] DXA PROCEDURES F inal Result * Screening Mammogram (11/29/2015 12:50 PM CDT) Anatomical Region Laterality Modality Breast N/A Mammography 11/29/2015 12:5 0 PM CDT Narrative 12/01/2015 4:10 PM CDT ROBERTO BECK M.D. FINAL REPORT ACC# Date Time Exam [id number] Nov 29, 2015 12:50:00 WMM [id number] Screening Mamm Bilat 2v Technologist(s): Iveth Martínez; ; EXAMINATION: Mammogram Technique: Bilateral Full-Field Digital Screening Mammogram was performed. Views obtained: bilateral craniocaudal and bilateral mediolateral oblique. Computer Aided Detection was performed with Android App Review Source 1.3 version 9.3. Mammogram Findings: The present examination has been compared to prior imaging studies performed at [facility] on 09/28/2014, 07/11/2013 and 07/27/2011. There are [...] BECK M.D. on Dec 01 2015 4:10P [id number] Procedure Note Provider, MD Cherry - 08/19/2016 ROBERTO BECK M.D. FINAL REPORT ACC# Date Time Exam [id number] Nov 29, 2015 12:50:00 WMM [id number] Screening Mamm Bilat 2v Technologist(s): Iveth Martínez; ; EXAMINATION: Mammogram Technique: Bilateral Full-Field Digital Screening Mammogram was performed. Views obtained: bilateral craniocaudal and bilateral mediolateral oblique. Computer Aided Detection was performed with Android App Review Source 1.3 version 9.3. Mammogram Findings: The present examination has been compared to prior imaging studies performed at [facility] on 09/28/2014, 07/11/2013 and 07/27/2011. There are [...] BECK M.D. on Dec 01 2015 4:10P [id number] Historical Provider MD [facility] MAMMO PROCEDURES Iva l Result from Last 3 Months or Most Recently Relevant to Health Maintenance Insurance [facility] MEDICARE [facility] MEDICARE [employer] MEDICARE Advance Directives For more information, please contact: [phone] * Full Code (Latest Code Status on File) Date Activated Date Inactivated Comments 04/14/2019 8:36 PM 04/15/2019 6:03 PM * Full Code Date Activated Date Inactivated Comments 03/13/2019 11:11 AM 03/14/2019 5:37 PM Care Teams Manager Line Relationship Specialty Start Date End Date Tico Mars MD [address] [address] PCP - General Internal Medicine 01/14/18
--- OUTSIDE RECORDS SUMMARY | 2024-11-10 14:50 | XMS_ITS | Encounter Summary ---
Author Organization [facility] Address [address] [place] [address] Phone Care Team Providers Care Kettle Fry Cook Operator Name Role Phone Tico Mars MD Primary Care Provider Toribio Pinedo MD Unavailable Geri Nath MD Unavailable [phone] Troi Pinedo APRN, ATHLETICS DIRECTOR Unavailable Sandi Hicks WELLNESS ASSISTANT Unavailable Unavailab Lidia Cabrera MD Primary Care Provide r Tico Mars MD Primary Care Provider [phone] Reason for Visit * Reason Comments Medication Refill Encounter Details Date Type Department Care Team (Late st Contact Info) Description 08/19/2023 Refill [facility] - Internal Medicine - [place] [address] [place] [address] Tico Mars MD [address] [place] [address] Medication Refill Social History Tobacco Use Types Packs/Day Years Used Date Smoking Tobacco: Never Passive Smoke Exposure: Never Smokeless Tobacco: Never Alcohol Use Standard Drinks/Week Comments Not Currently 0 (1 standard drink = 0.6 oz pur e alcohol) [facility] Utilities Answer Date Recorded In the past 12 months has th e electric, gas, oil, or water [place] [employer] threatened to shut off services in your [...] answer 05/24/2023 How often do you attend [facility] or worship services? Patient unable to answer 05/24/2023 Do you belong to any clubs o r organizations such as jain groups, unions, fraternal or athletic groups, or [...] Score - Questions 1-9 0 05/0 04/2023 [facility] - Occupational Stress [...] AM CDT Medication(s) [facility] Medication Refill Standing Order for Pediatricand [...] 05/24/23 Office Visit Tico Mars MD [facility] 02/19/23 Office Visit Tico Mars MD [facility] 11/07/22 Office Visit Tico Mars MD [facility] Showing recent visits within past 365 days and meeting all other requirements Future Appointments Date Type Provider Dept 08/22/23 Appointment Tico Mars MD [facility] Showing future appointments within next 90 days and meeting all other requirements documented in this encounter Plan of Treatment Upcoming Encounters Date Type Department Care Team (Late st Contact Info) Description 12/24/2024 7:00 AM CDT Hospital Encounter [facility] [place] [address] Nasir Tang [facility] [address] [place] [address] 12/24/2024 7:00 AM CDT - 12/24/2024 7:30 AM CDT [facility] [place] [address] Nasir Tang MD 2 [facility] [address] [place] [address] COLONOSCOPY 03/03/2025 2:00 PM GOLF BALL TRIMMER Office Visit [facility] - Internal Medicine [facility] [address] [place] [address] Tico Mars MD [address] [place] [address] Scheduled Procedures Name Priority Associated Diagnoses Date/Ti me COLONOSCOPY DIARRHEA 12/24/2024 7:00 AM CDT documented as of this encounter Visit Diagnoses Not on filedocumented in this encounter Additional Health Concerns Assessment Noted Time PHQ-9 Depression Total Score: 0 05/24/19 9:59 AM GOLF BALL TRIMMER documented as of this encounter Care Teams Kettle Fry Cook Operator Relationship Specialty Start Date End Date Tico Mars MD [address] [place] [address] PCP - General Internal Medicine 03/18/18 02/06/24 Lidia Srinivasan MD [address] [place] [address] PCP - General Rheumatology 02/07/24 03/02/24 Tico Mars MD [address] [place] [address] PCP - General Internal Medicine 03/03/24 Toribio Pinedo MD [address] [address] Consulting Physician Colon and Rectal Surgery 05/17/22 Geri Nath MD [address] [place] [address] Consulting Physician Gastroenterology 06/29/22 Tori Pinedo APRN, ATHLETICS DIRECTOR [address] [place] [address] Nurse Practitioner Advanced Practice Nurse 01/04/[address] Engineering Librarian Manpower Development Advisor 01/24/24 02/01/24 documented as of this encounter
--- OUTSIDE RECORDS SUMMARY | 2024-11-10 14:50 | XMS_ITS | Encounter Summary ---
Author Organization [facility] Address [address] [place] [address] Care Team Providers Care Imager Name Role Phone Iain Lowery MD Primary Care Provider [phone] Encounter Details Date Type Department Care Team (Latest Contact Info) Description 11/16/2006 Outpatient Historical [facility] Unspecified Anemia (Primary Dx) Social History Tobacco Use Types Packs/Day Years Used Date Smoking Tobacco: Never Assessed Comments Unknown Sex and Gender Information Value Date Recorded Sex Assigned at Not on file Legal Sex Female 4:26 AM CHILD STUDY TEAM DIRECTOR Gender Identity Not on file Sexual Orientation [...] MD HEMATOLOGY ORDERABLES Edited Performing Organization Address [facility] Phone Number INTERFACE SYSTEM Refer to clinic/hospital department * (ABNORMAL) IRON PANEL (12/12/2006 3:18 PM CDT) IRON 38 37 - 160 ug/dL INTERFACE SYSTEM TRANSFERRIN 219 200 - 360 mg/dL INTERFACE SYSTEM IRON % SATURATION 14(L) 15 - 50 % INTERFACE SYSTEM TIBC 278 250 - 450 ug/dL INTERFACE SYSTEM 12/12/2006 3:18 PM CDT Igor Aly MD CHEMISTRY ORDERABLES Edited Performing Organization Address [facility] Phone Number INTERFACE SYSTEM Refer to clinic/hospital department * FERRITIN (12/12/2006 3:18 PM CDT) Pathologist [facility] FERRITIN 124 13 - 150 ng/mL INTERFACE SYSTEM 12/12/2006 3:18 PM CDT Igor Aly MD CHEMISTRY ORDERABLES Edited Performing Organization Address [facility] Phone Number INTERFACE SYSTEM Refer to clinic/hospital [...] MD HEMATOLOGY ORDERABLES Edited Performing Organization Address [facility] de Phone Number INTERFACE SYSTEM Refer to [...] MD HEMATOLOGY ORDERABLES Edited Performing Organization Address [facility] de Phone Number INTERFACE SYSTEM Refer to [...] MD HEMATOLOGY ORDERABLES Edited Performing Organization Address [facility] Phone Number INTERFACE SYSTEM Refer to clinic/hospital department * (ABNORMAL) HAPTOGLOBIN (11/16/2006 3:58 PM CDT) HAPTOGLOBIN 292(H) 30 - 200 mg/dL INTERFACE SYSTEM 11/16/2006 3:58 PM CDT Igor Aly MD CHEMISTRY ORDERABLES Edited Performing Organization Address [facility] Phone Number INTERFACE SYSTEM Refer to clinic/hospital [...] MD CHEMISTRY ORDERABLES Edited Performing Organization Address [facility] Phone Number INTERFACE SYSTEM Refer to clinic/hospital department * RETICULOCYTES (11/16/2006 3:58 PM CDT) RETICULOCYTES 1.6 0.5 - 2.0 % INTERFACE SYSTEM IMMATURE RETIC FRACTION 16 0 - 16 % INTERFACE SYSTEM 11/16/2006 3:58 PM CDT Igor Aly MD HEMATOLOGY ORDERABLES Edited Performing Organization Address [facility] Phone Number INTERFACE SYSTEM Refer to clinic/hospital department * LACTATE DEHYDROGENASE (11/16/2006 3:58 PM CDT) LD (LACTATE DEHYDROGENASE) 149 135 - 214 U/L INTERFACE SYSTEM 11/16/2006 3:58 PM CDT us Igor Aly MD CHEMISTRY ORDERABLES Edited Performing Organization Address [facility] Phone Number INTERFACE SYSTEM Refer to clinic/hospital department * (ABNORMAL) IRON PANEL (11/16/2006 3:58 PM CDT) IRON 351(H) 37 - 160 ug/dL INTERFACE SYSTEM TRANSFERRIN 286 200 - 360 mg/dL INTERFACE SYSTEM IRON % SATURATION 97(H) 15 - 50 % INTERFACE SYSTEM TIBC 363 250 - 450 ug/dL INTERFACE SYSTEM 11/16/2006 3:58 PM CDT Igor Aly MD CHEMISTRY ORDERABLES Edited Performing Organization Address [facility] Phone Number INTERFACE SYSTEM Refer to clinic/hospital department * (ABNORMAL) FOLATE RBC AND HEMATOCRIT (11/16/2006 3:58 PM CDT) HEMATOCRIT, FOLATE 26.7(L) 35.5 - 44.0 % INTERFACE SYSTEM RBC FOLATE 1393 >=533 ng/mL INTERFACE SYSTEM Comment: RBC Folate Interpretation: Deficient <110 ng/mL 11/16/2006 3:58 PM CDT Igor Aly MD CHEMISTRY ORDERABLES Edited Performing Organization Address [facility] Phone Number INTERFACE SYSTEM Refer to clinic/hospital department * FERRITIN (11/16/2006 3:58 PM CDT) FERRITIN 15 13 - 150 ng/mL INTERFACE SYSTEM 11/16/2006 3:58 PM CDT Igor Aly MD CHEMISTRY ORDERABLES Edited Performing Organization Address City/[facility]/ZIP Co de Phone Number INTERFACE SYSTEM Refer [...] and non- Americans is available on the [facility] Intranet at: [email or web address] Select: Lab Policies and Procedures Select: Reference Ranges - GFR 11/16/2006 3:58 PM CDT Igor Aly MD CHEMISTRY ORDERABLES Edited INTERFACE SYSTEM Refer to clinic/hospital department documented in this encounter Visit Diagnoses Diagnosis Anemia, unspecified- Primary documented in this encounter Care Teams Imager Relationship Specialty Start Date End Date Iain Lowery MD [address] [facility] [address] [place] [address] PCP - General 11/16/06 documented as of this encounter
--- OUTSIDE RECORDS SUMMARY | 2024-11-10 14:50 | XMS_ITS | Encounter Summary ---
Author Organization [facility] Address [address] [place] [address] Phone Care Team Providers Care Music Supervisor Name Role Phone Toribio Pinedo MD Unavailable Geri Nath MD Unavailable [phone] Tori Pinedo APRN, RIB PULLER Unavailable Tico Mars MD Primary Care Provider [phone] Reason for Visit * Reason Comments Medication Refill Encounter Details Date Type Department Care Team (Late st Contact Info) Description 11/02/2024 [facility]ill [facility] [address] [place] [address] Tori Pinedo APRN, RIB PULLER [address] [place] [address] Medication Refill Social History Tobacco Use Types Packs/Day Years Used Date Smoking Tobacco: Never Passive Smoke Exposure: Never Smokeless Tobacco: Never Alcohol Use Standard Drinks/Week Comments Not Currently 0 (1 standard drink = 0.6 oz pur e alcohol) [facility] Utilities Answer Date Recorded In the past 12 months has [employer] electric, gas, oil, or water company threatened to [...] often do you attend chur ch or worship services? 1 to 4 times per year 05/30/2024 Do you belong to any clubs o r organizations such as adventist groups, unions, fraternal or athletic groups, or [...] Score - Questions 1-9 0 05/0 10/2024 [facility] of Occupat ional Health - Occupational Stress [...] place to sleep or slept in a long term (including now)? Patient unable to answer 05/24/2023 [...] any time in the past 12 m [facility], were you homeless or living in a long term (including now)? No 05/30/2024 Sexually Active Control [...] encounter Miscellaneous Notes * Telephone Encounter - Meli Garrett RN - 11/04/2024 9:05 AM CDT Medication failed the protocol, provider to review and approve the medication order if appropriate. Requested Prescriptions Pending Prescriptions Disp Refills colestipol (COLESTID) 1 GM Tablet [Pharmacy Med Name: COLESTIPOL HCL 1 GM TABLET] 180 Tablet Sig: TAKE 1 TABLET BY MOUTH TWICE A DAY Bile Acid Sequestrants Protocol Failed - 11/04/2024 9:05 AM Failed - Lipid panel in past year No results found for: LDL, HDLCHOLESTE, CHOLESTEROL, TRIGLYCRIDES, VLDL, CHDL, HDLNON Passed - Visit with relevant provider in past year or upcoming 90 days Recent Visits Date Type Provider Dept 08/27/24 Office Visit Tico Mars MD [facility] [place] 05/26/24 Office Visit Tico Mars, MD [facility] [place] 03/03/24 Office Visit Tico Mars MD [facility] [place] 01/17/24 Office Visit Tico Mars MD [facility] [place] 01/04/24 Office Visit Tori Pinedo APRN, RIB PULLER [facility] [place] Showing recent visits within past 365 days and meeting all other requirements Today's Visits Date Type Provider Dept 11/04/24 Appointment Tori Pinedo APRN, RIB PULLER [facility] [place] Showing today's visits and meeting all other requirements Future Appointments No visits were found meeting these conditions. Showing future appointments within next 90 days and meeting all other requirements documented in this encounter Plan of Treatment Upcoming Encounters Date Type Department Care Team (Late st Contact Info) Description 12/24/2024 7:00 AM CDT Hospital Encounter [facility] Gi Lab Periop [address] [place] [address] Nasir Tang MD 2 [facility] [address] [place] [address] 12/24/2024 7:00 AM CDT - 12/24/2024 7:30 AM CDT [facility] [address] [facility] [place] [address] Nasir Tang MD 2 [facility] [address] [place] [address] COLONOSCOPY 03/03/2025 2:00 PM TECHNICAL OPERATIONS VICE PRESIDENT Office Visit [facility] - Internal Medicine [facility] [address] [place] [address] Tico Mars MD [address] [place] [address] Scheduled Procedures Name Priority Associated Diagnoses Date/Ti me COLONOSCOPY DIARRHEA 12/24/2024 7:00 AM CDT documented as of this encounter Visit Diagnoses Not on filedocumented in this encounter Additional Health Concerns Assessment Noted Time PHQ-9 Depression Total Score: 0 08/28/19 7:24 AM CDT documented as of this encounter Care Teams Music Supervisor Relationship Specialty Start Date End Date Tico Mars MD [address] [place] [address] PCP - General Internal Medicine 03/03/24 Toribio Pinedo MD [address] [address] Consulting Physician Colon and Rectal Surgery 05/17/22 Geri Nath MD [address] [place] [address] Consulting Physician Gastroenterology 06/29/22 Tori Pinedo APRN, RIB PULLER [address] [place] [address] Nurse Practitioner Advanced Practice Nurse 01/04/24 documented as of this encounter
--- OUTSIDE RECORDS SUMMARY | 2024-11-10 14:50 | XMS_ITS | Encounter Summary ---
Author Organization [facility] Address [address] [place] [address] Phone Care Team Providers Care Maintenance Technician Name Role Phone Tico Mars MD Primary Care Provider Toribio Pinedo MD Unavailable Geri Nath MD Unavailable [phone] Tori Pinedo APRN, DEBT RECOVERY OFFICER Unavailable Sandi Hicks BULK STATION OPERATOR Unavailable Unavailab Lidia Cabrera MD Primary Care Provide r Tico Mars MD Primary Care Provider [phone] Reason for Visit * Reason Comments Medication Refill Encounter Details Date Type Department Care Team (Late st Contact Info) Description 09/12/2023 Refill [facility] - Internal Medicine - [place] [address] [place] [address] Tyra Higgins, [facility] [address] [place] [address] Medication Refill Social History Tobacco Use Types Packs/Day Years Used Date Smoking Tobacco: Never Passive Smoke Exposure: Never Smokeless Tobacco: Never Alcohol Use Standard Drinks/Week Comments Not Currently 0 (1 standard drink = 0.6 oz pur e alcohol) [facility] Utilities Answer Date Recorded In the past 12 months has th e electric, gas, oil, or water [employer] threatened to shut off services in your [...] answer 05/24/2023 How often do you attend [facility] or christian services? Patient unable to answer 05/24/2023 Do you belong to any clubs o r organizations such as spiritism groups, unions, fraternal or athletic groups, or [...] Score - Questions 1-9 0 05/0 04/2023 [facility] of Occupat ional Health - [...] place to sleep or slept in a nursing home (including now)? Patient unable to answer 05/24/2023 [...] Dept 08/22/23 Office Visit [facility] MD [facility] Jennifer García 05/24/23 Office Visit Tico Mars MD [facility] [place] Showing recent visits within past 182 days and meeting all other requirements Future Appointments Date Type Provider Dept 11/22/23 Appointment Tico Mars MD [facility] [place] Showing future appointments within next 90 days and meeting all other requirements Passed - Has an encounter in the past 6 months with a depression or anxiety visit diagnosis documented in this encounter Plan of Treatment Upcoming Encounters Date Type Department Care Team (Late st Contact Info) Description 12/24/2024 7:00 AM CDT Hospital Encounter [facility] Gi Lab Periop [address] [place] [address] Nasir Tang MD [address] [address] 12/24/2024 7:00 AM CDT - 12/24/2024 7:30 AM CDT Surgery [facility] Lab Periop [address] [place] [address] Nasir Tang MD 2 [facility] [address] [address] COLONOSCOPY 03/03/2025 2:00 PM HELICOPTER REPAIRER Office Visit [facility] Group - Internal Medicine - [place] [address] [place] [id number] Tico Mars MD [address] [place] [address] Scheduled Procedures Name Priority Associated Diagnoses Date/Ti me COLONOSCOPY DIARRHEA 12/24/2024 7:00 AM CDT documented as of this encounter Visit Diagnoses Not on filedocumented in this encounter Additional Health Concerns Assessment Noted Time PHQ-9 Depression Total Score: 0 08/22/19 11:35 AM CDT documented as of this encounter Care Teams Maintenance Technician Relationship Specialty Start Date End Date Tico Mars MD [address] [place] [address] PCP - General Internal Medicine 03/18/18 02/06/24 Lidia Srinivasan MD [address] [facility] [address] [place] [address] PCP - General Rheumatology 02/07/24 03/02/24 Tico Mars MD [address] [place] [address] PCP - General Internal Medicine 03/03/24 Toribio Pinedo MD #[address] [address] Consulting Physician Colon and Rectal Surgery 05/17/22 Geri Nath MD [address]2 [place] [address] Consulting Physician Gastroenterology 06/29/22 Tori Pinedo APRN, DEBT RECOVERY OFFICER [address] [place] [address] Nurse Practitioner Advanced Practice Nurse 01/04/24 Sandi Hicks, KAYY [place] Industrial Technology Teacher Casing Wringer Operator 01/24/24 02/01/24 documented as of this encounter
--- OUTSIDE RECORDS SUMMARY | 2024-11-10 14:50 | XMS_ITS | Encounter Summary ---
Author Organization [facility] Address [address] [place] [address] Phone Care Team Providers Care Rn Bsn Name Role Phone Tico Mars MD Primary Care Provider [phone] Toribio Pinedo MD Unavailable Geri Nath MD Unavailable [phone] Tori Pinedo APRN, LICENSED CLINICAL PSYCHOLOGIST Unavailable Sandi Hicks STATE MANAGER Unavailable Unavailab Lidia Cabrera MD Primary Care Provide r Tico Mars MD Primary Care Provider Reason for Visit * Reason Comments Medication Refill Encounter Details Date Type Department Care Team (Late st Contact Info) Description 02/10/2021 Refill [facility] - Internal Medicine - [place] [address] [place] [address] Tico Mars MD [address] [place] [address] Medication Refill Social History Tobacco [...] Description 12/24/2024 7:00 AM CDT [facility] [address] [place] [address] Nasir Tang MD 2 [facility] [address] [address] 12/24/2024 7:00 AM CDT - 12/24/2024 7:30 AM CDT [facility] 1 [facility] [place] [address] Nasir Tang MD 2 [facility] [address] [address] COLONOSCOPY 03/03/2025 2:00 PM DIESEL AUTOMOTIVE TECHNICIAN Office [facility] - Internal Medicine [place] [address] [place] [address] Tico Mars MD [address] [place] [address] Scheduled Procedures Name Priority Associated Diagnoses Date/Ti me COLONOSCOPY DIARRHEA 12/24/2024 7:00 AM CDT documented as of this encounter Visit Diagnoses Not on filedocumented in this encounter Additional Health Concerns Assessment Noted Time PHQ-9 Depression Total Score: 2 03/22/20 20 1:00 PM DIESEL AUTOMOTIVE TECHNICIAN documented as of this encounter Care Teams Rn Bsn Relationship Specialty Start Date End Date Tico Mars MD [address] [place] [address] PCP - General Internal Medicine 03/18/18 02/06/24 Lidia Srinivasan MD [address] [facility] [address] [place] [address] PCP - General Rheumatology 02/07/24 03/02/24 Tico Mars MD [address] [place] [address] PCP - General Internal Medicine 03/03/24 Toribio Pinedo MD #[address] [address] Consulting Physician Colon and Rectal Surgery 05/17/22 Geri Nath MD #2 [place] [address] Consulting Physician Gastroenterology 06/29/22 Tori Pinedo APRN, LICENSED CLINICAL PSYCHOLOGIST [address] [place] [address] Nurse Practitioner Advanced Practice Nurse 01/04/24 Sandi Hicks LSW [place] Electrical Construction Project Manager Cigarette Machines Mechanic 01/24/24 02/01/24 documented as of this encounter
--- OUTSIDE RECORDS SUMMARY | 2024-11-10 15:18 | XMS_ITS | Clinical Summary ---
Author Organization [facility] Address [address] [facility] Attn: Epic Prelude ADT [place] [address] Care Team Providers Care Ross Furnace Operator Name Role Phone Iain Lowery MD Primary Care Provider [phone] Social History Tobacco Use Types Packs/Day Years Used Date Smoking Tobacco: Never Assessed Comments Unknown Sex and Gender Information Value Date Recorded Sex Assigned at Not on file Legal Sex Female 4:26 AM ENTRY LEVEL JAVA DEVELOPER Gender Identity Not on file Sexual Orientation [...] - 1-dose 75+ series) 2031 Care Teams Ross Furnace Operator Relationship Specialty Start Date End Date Iain Lowery MD [address] [id number] PCP - General 11/16/06
--- OUTSIDE RECORDS SUMMARY | 2024-11-10 15:18 | XMS_ITS | Clinical Summary ---
Author Organization [facility] Address [address] [place] [address] Phone Care Team Providers Care Prekindergarten Teacher Name Role Phone Toribio Pinedo MD Unavailable Geri Nath MD Unavailable [phone] Tori Pinedo APRN, TANKER SERVICE ATTENDANT Unavailable Tico Mars MD Primary Care Provider Allergies Active Allergy Reactions Criticality Noted Date Comments Cefdinir Swelling 09/03/2018 Latex Itching 09/28/2021 Penicillins Rash,Unknown 03/18/2018 Acetaminophen-Codeine Itching 09/03/2018 Medications methotrexate 2.5 MG Tablet Take by mouth every 7 days 6 tabs Active Multiple Vitamins-Financial Wellness Coach als (HAIR SKIN & NAILS ADVANCED) Tablet [...] Varenicline Tartrate (Tyrvaya) 0.03 MG/ACT Solution 1 [place] by Nasal route every 12 hours. 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); Diarrhea, unspecified type Discharge Disposition: Discharged to home or Selfcare 11/04/2024 Telephone [facility] Gastroenterology [facility] #2 [facility] [place] [address] Tori Pinedo APRN, TANKER SERVICE ATTENDANT 11/04/2024 Travel 11/02/2024 [facility] [place] [address] Tori Pinedo APRN, TANKER SERVICE ATTENDANT Medication Refill 09/23/2024 Telephone [facility] Internal [facility] [address] [place] [address] [place] [address] Tico Mars MD 09/12/2024 [facility] [address] [place], [place] [address] Tico Mars MD Medication Refill 08/27/2024 11:15 AM CDT [facility] [address] [place] [address] Tico Mars MD Essential hypertension, benign (Primary Dx); Chronic diarrhea; Hyperglycemia; Other specified rheumatoid arthritis, multiple sites (HCC) Discharge Disposition: Discharged to home or Selfcare 08/27/2024 Results Follow-Up [facility] Internal [facility] [address] [place] [address] Tico Mars MD POCT GLUCOSE 08/27/2024 Travel 08/21/2024 Refill [facility] [address] [place] [address] Tico Mars MD Medication Refill from [...] 23 Valent Pneumococcal conjugate PCV20 , polysaccharide SPX323 conjugate, adjuvant, PF 03/13/2023 RSV, Recombinant, Protein [...] 0.6 oz pur e alcohol) [facility] Utilities Answer Date Recorded In the past 12 months has [employer], oil, or water [employer] threatened to shut off services in your home? No 05/30/2024 Social Connection and Isolation Panel Answer Date Recorded In a typical week, how many times do you talk on the phone with family, friends, or neighbors? Once a week 05/30/2024 How often do you get togethe r with friends or relatives? Once a week 05/30/2024 How often do you attend chur ch or shinto services? 1 to 4 times per year 05/30/2024 Do you belong to any clubs o r organizations such as mormonism groups, unions, fraternal or athletic groups, or [...] Score - Questions 1-9 0 05/0 10/2024 [facility] - Occupational Stress Questionnaire [...] place to sleep or slept in a longterm (including now)? Patient unable to answer 05/24/2023 [...] any time in the past 12 m [facility], were you homeless or living in a longterm (including now)? No 05/30/2024 Sexually Active Control [...] 12/24/2024 7:00 AM CDT [facility] 1 [facility] [address] Nasir Tang MD [address] [address] 12/24/2024 7:00 AM CDT - 12/24/2024 7:30 AM CDT [facility] 1 [facility] [place] [address] Nasir Tang MD 2 [facility] [address] [address] COLONOSCOPY 03/03/2025 2:00 PM ARCHITECT INTERNSHIP Office Visit [facility] - Internal Medicine - [place] [address] [place] [address] Tico Mars MD [address] [facility] [place] [address] Scheduled Procedures Name Priority Associated Diagnoses Date/Ti [...] GLUCOSE Routine 08/27/2024 11:34 AM CDT Hyperglycemia [facility] BONE DENSITOMETRY AXIAL SKELETON Routine 02/07/2024 1:21 PM CDT Screening for osteoporosis [facility] SCREENING BILATERAL DIGITAL W CAD W CHELY Routine 01/28/2024 12:28 PM CDT Encounter for screening mammogram for breast cancer from Last 3 Months or Most Recently Relevant to Health Maintenance Results * (ABNORMAL) POCT GLUCOSE (08/27/2024 11:34 AM CDT) GLUCOSE 105(A) 70 - 99 mg/dL 08/27/2024 11:3 4 AM CDT Tico Mars MD POINT OF CARE TESTING (NAHEED AL) Final Result * [facility] BONE DENSITOMETRY AXIAL SKELETON (02/07/2024 1:21 PM [...] Narrative 02/07/2024 4:38 PM CDT EXAM DESCRIPTION: [facility] BONE DENSITOMETRY AXIAL SKELETON REASON FOR STUDY: 68 y/o year old F with given history of: Post menopausal status. History glucocorticoid use and rheumatoid arthritis. Patient has taken/is taking multivitamin, vitamin-D, methotrexate and prednisone Manufacturing Quality Manager/Model: [employer] (S/N [id number]) CLINICAL INFORMATION: Current height: 63.75 inches Maximum [...] Minerva Avitia M.D. TW: TW Report ID: [id number] Reading Location: [id number] Procedure Note Minerva Avitia MD - 02/07/2024 EXAM DESCRIPTION: [facility] BONE DENSITOMETRY AXIAL SKELETON REASON FOR STUDY: 68 y/o year old F with given history of: Post menopausal status. History glucocorticoid use and rheumatoid arthritis. Patient has taken/is taking multivitamin, vitamin-D, methotrexate and prednisone Manufacturing Quality Manager/Model: [employer] (S/N [id number]) CLINICAL INFORMATION: Current height: 63.75 inches Maximum [...] by Minerva Avitia M.D. TW: Report ID: [id number] Reading Location: [id number] IMPRESSION: Osteoporosis. REFERENCE: Bone mineral density: T-Score: [...] dated: 10/05/2022, 09/30/2021, 03/07/2021, 08/24/2020, and 08/11/2020 [facility]. BREAST TISSUE:There are scattered areas of fibroglandular [...] exam. Electronically signed by: Luis naranjo/raul:01/28/2024 16:57:24 Business Center Manager(s): RT Willie(R)(M), [facility] letter sent: Normal Exam Reading location: [...] dated: 10/05/2022, 09/30/2021, 03/07/2021, 08/24/2020, and 08/11/2020 [facility]. BREAST TISSUE:There are scattered areas of fibroglandular [...] exam. Electronically signed by: Luis naranjo/raul:01/28/2024 16:57:24 Business Center Manager(s): Iva Chris RT(R)(M), [facility] letter sent: Normal Exam Reading location: [place] Mammogram BI-RADS: Category 1: Negative Tico Mars MD IMG MAMMO ORDERABLES Final Result from Last 3 Months or Most Recently Relevant to Health Maintenance Insurance MEDICARE C AET Care Teams Prekindergarten Teacher Relationship Specialty Start Date End Date Tico Mars MD [address] [place] [address] PCP - General Internal Medicine 03/03/24 Toribio Pinedo MD #[address] [address] Consulting Physician Colon and Rectal Surgery 05/17/22 Geri Nath MD #2 [place] [address] Consulting Physician Gastroenterology 06/29/22 Tori Pineod APRN, TANKER SERVICE ATTENDANT #2 [place] [address] Nurse Practitioner Advanced Practice Nurse 01/04/24
--- OUTSIDE RECORDS SUMMARY | 2024-11-10 15:18 | XMS_ITS | Encounter Summary ---
Author Organization [facility] Address [address] [place] [address] Phone Care Team Providers Care Bread Wrapper Name Role Phone David Roberts MD Primary Care Provider + Tico Mars MD Primary Care Provider [phone] Encounter Details Date Type Department Care Team (Late st Contact Info) Description 07/06/2017 Orders Only [facility] ProviderCherry [place] [address] Social History Tobacco Use Types Packs/Day Years Used Date Smoking Tobacco: Never Smokeless Tobacco: Never Alcohol Use Standard Drinks/Week Comments No 0 (1 standard drink = 0.6 oz pur e alcohol) Comments Unknown Sex and Gender Information Value Date Recorded Sex Assigned at Not on file Legal Sex Female 1:48 AM SHOPPER'S AIDE Gender Identity Not on file Sexual Orientation [...] COVID: Suspected 03/19/2023 03/19/2023 03/19/2023 11:31 PM SHOPPER'S AIDE COVID: Suspected 10/16/2023 10/16/2023 10/16/2023 3:46 PM CDT COVID19 10/16/2023 10/22/2023 11/01/2023 3:06 AM CDT COVID: Recovered Comment:Added based on recent COVID infection. 11/01/2023 11/01/2023 01/30/2024 3:05 AM C DT COVID: Suspected 03/28/2024 03/28/2024 03/28/2024 10:22 AM SHOPPER'S AIDE COVID: Suspected 06/03/2024 06/03/2024 06/03/2024 9:51 AM SHOPPER'S AIDE COVID: Suspected 06/03/2024 06/03/2024 06/03/2024 4:55 PM SHOPPER'S AIDE documented as of this encounter Care Teams Bread Wrapper Relationship Specialty Start Date End Date David Roberts MD [address] [facility] [address] [place] [address] PCP - General 07/21/16 12/25/17 Tico Masr MD [address] [place] [address] PCP - General Internal Medicine 01/14/18 documented as of this encounter
--- OUTSIDE RECORDS SUMMARY | 2024-11-10 15:18 | XMS_ITS | Encounter Summary ---
Author Organization [facility] Address [address] [place] [address] Phone Care Team Providers Care Railcar Switchman Name Role Phone Tico Mars MD Primary Care Provider [phone] Toribio Pinedo MD Unavailable Geri Nath MD Unavailable [phone] Tori Pinedo APRN, COMMUNICATIONS DIRECTOR Unavailable Sandi Hicks COAT JOINER LOCKSTITCH Unavailable Unavailab Lidia Cabrera MD Primary Care Provide r Tico Mars MD Primary Care Provider Reason for Visit * Reason Comments Medication Refill Encounter Details Date Type Department Care Team (Late st Contact Info) Description 02/02/2023 Refill [facility] - Internal Medicine - [place] [address] [place] [address] Tico Mars MD [address] [place] [address] Medication Refill Social History Tobacco [...] Dept 11/07/22 Office Visit [facility] [place] 08/[facility]22 [facility] Visit [facility] Showing recent visits within past 182 days and meeting all other requirements Future Appointments Date Type Provider Dept 02/08/23 Appointment Tico Mars MD [facility] Showing future appointments within next 90 days and meeting all other requirements documented in this encounter Plan of Treatment Upcoming Encounters Date Type Department Care Team (Late st Contact Info) Description 12/24/2024 7:00 AM CDT [facility] 1 [facility] [place] [address] Nasir Tang MD [address] [facility] [address] [facility] [address] [place] [address] 12/24/2024 7:00 AM CDT - 12/24/2024 7:30 AM CDT [facility] [address] [place] [address] Nasir Tang MD 2 [facility] [address] [place] [address] COLONOSCOPY 03/03/2025 2:00 PM ONCOLOGY NAVIGATOR Office Visit [facility] - Internal Medicine - [place] [address] [place] [address] Tico Mars MD [address] [place] [address] Scheduled Procedures Name Priority Associated Diagnoses Date/Ti me COLONOSCOPY DIARRHEA 12/24/2024 7:00 AM CDT documented as of this encounter Visit Diagnoses Not on filedocumented in this encounter Additional Health Concerns Assessment Noted Time PHQ-9 Depression Total Score: 0 01/13/20 22 2:58 PM CDT documented as of this encounter Care Teams Railcar Switchman Relationship Specialty Start Date End Date Tico Mars MD [address] [place] [address] PCP - General Internal Medicine 03/18/18 02/06/24 Lidia Srinivasan MD [address] [facility] [address] [place] [address] PCP - General Rheumatology 02/07/24 03/02/24 Tico Mars MD [address] [place] [address] PCP - General Internal Medicine 03/03/24 Toribio Pinedo MD #[address] [address] Consulting Physician Colon and Rectal Surgery 05/17/22 Geri Nath MD #2 [place] [address] Consulting Physician Gastroenterology 06/29/22 Tori Pinedo APRN, COMMUNICATIONS DIRECTOR #2 [place] [address] Nurse Practitioner Advanced Practice Nurse 01/04/24 Sandi Hicks LSW [place] Clothing Consultant Plant Culture Manager 01/24/24 02/01/24 documented as of this encounter
--- OUTSIDE RECORDS SUMMARY | 2024-11-10 15:18 | XMS_ITS | Encounter Summary ---
Author Organization [facility] Healthcare Address [address] [place] [address] Care Team Providers Care Paper Bag Press Operator Name Role Phone David Roberts MD Primary Care Provider + Encounter Details Date Type Department Care Team (Late st Contact Info) Description 04/13/2017 9:00 AM SUBSTATION OPERATOR HELPER GENERATION Hospital Encounter [facility] Procedure Holding [address] [place] [address] Ryan Farias MD [address] [facility] [address] [address] Social History Tobacco Use Types [...] on file Legal Sex Female 1:48 AM SUBSTATION OPERATOR HELPER GENERATION Gender Identity Not on file Sexual Orientation [...] COVID: Suspected 03/19/2023 03/19/2023 03/19/2023 11:31 PM SUBSTATION OPERATOR HELPER GENERATION COVID: Suspected 10/16/2023 10/16/2023 10/16/2023 3:46 PM CDT COVID19 10/16/2023 10/22/2023 11/01/2023 3:06 AM CDT COVID: Recovered Comment:Added based on recent COVID infection. 11/01/2023 11/01/2023 01/30/2024 3:05 AM C DT COVID: Suspected 03/28/2024 03/28/2024 03/28/2024 10:22 AM SUBSTATION OPERATOR HELPER GENERATION COVID: Suspected 06/03/2024 06/03/2024 06/03/2024 9:51 AM SUBSTATION OPERATOR HELPER GENERATION COVID: Suspected 06/03/2024 06/03/2024 06/03/2024 4:55 PM SUBSTATION OPERATOR HELPER GENERATION documented as of this encounter Care Teams Paper Bag Press Operator Relationship Specialty Start Date End Date David Roberts MD [address] [facility] [address] [place] [address] PCP - General 07/21/16 12/25/17 documented as of this encounter
--- OUTSIDE RECORDS SUMMARY | 2024-11-10 15:18 | XMS_ITS | Encounter Summary ---
Author Organization [facility] Address [address] [place] [address] Phone Care Team Providers Care Market Research Intern Name Role Phone Tico Mars MD Primary Care Provider [phone] Toribio Pinedo MD Unavailable Geri Nath MD Unavailable [phone] Tori Pinedo APRN, PALM GATHERER Unavailable Sandi Hicks WAREHOUSE LABORER Unavailable Unavailab Lidia Cabrera MD Primary Care Provide r Tico Mars MD Primary Care Provider Reason for Visit * Reason Comments Medication Refill Encounter Details Date Type Department Care Team (Late st Contact Info) Description 04/07/2022 Refill [facility] - Internal Medicine - [place] [address] [place] [address] Tico Mars MD [address] [place] [address] Medication Refill Social History Tobacco [...] [facility] [place] 11/24/21 Telemedicine [facility] [place] Showing recent visits within past 182 days and meeting all other requirements Future Appointments Date Type Provider Dept 04/11/22 Appointment Tico Mars MD [facility] [place] Showing future appointments within next 90 days and meeting all other requirements Passed - Patient has established therapy with Serotonin-Norepinephrine Reuptake Inhibitors for at least 6 months ATIONAL PROGRAMMING DIRECTOR documented in this encounter Plan of Treatment Upcoming Encounters Date Type Department Care Team (Late st Contact Info) Description 12/24/2024 7:00 AM CDT Hospital [facility] Gi Lab Periop [address] [place] [address] Nasir Tang MD [address] [place] [address] 12/24/2024 7:00 AM CDT - 12/24/2024 7:30 AM CDT [facility] [address] [place] [address] Nasir Tang MD [address] [facility] [address] [place] [address] COLONOSCOPY 03/03/2025 2:00 PM EDUCATIONAL PROGRAMMING DIRECTOR Office Visit [facility] Medical Group - Internal Medicine [place] [address] [place] [address] Tico Mars MD [address] [place] [address] Scheduled Procedures Name Priority Associated Diagnoses Date/Ti me COLONOSCOPY DIARRHEA 12/24/2024 7:00 AM CDT documented as of this encounter Visit Diagnoses Not on filedocumented in this encounter Additional Health Concerns Assessment Noted Time PHQ-9 Depression Total Score: 0 01/13/20 22 2:58 PM CDT documented as of this encounter Care Teams Market Research Intern Relationship Specialty Start Date End Date Tico Mars MD [address] [place] [address] PCP - General Internal Medicine 03/18/18 02/06/24 Lidia Srinivasan MD [address] [facility] [address] [place] [address] PCP - General Rheumatology 02/07/24 03/02/24 Tico Mars MD [address] [place] [address] PCP - General Internal Medicine 03/03/24 Toribio Pinedo MD [address] [place] [address] [address] Consulting Physician Colon and Rectal Surgery 05/17/22 Geri Nath MD #2 [place] [address] Consulting Physician Gastroenterology 06/29/22 Tori Pinedo APRN, PALM GATHERER #2 [place] [address] Nurse Practitioner Advanced Practice Nurse 01/04/24 Sandi Hicks LSW [place] Printing Table Hand Luncheonette Operator 01/24/24 02/01/24 documented as of this encounter
--- OUTSIDE RECORDS SUMMARY | 2024-11-10 15:19 | XMS_ITS | Encounter Summary ---
Author Organization [facility] Address [address] [place] [address] Phone Care Team Providers Care Meteorology Professor Name Role Phone Tico Mars MD Primary Care Provider Toribio Pinedo MD Unavailable Geri Nath MD Unavailable [phone] Tori Pinedo APRN, PHOTO TUBE ASSEMBLER Unavailable Sandi Hicks PATIENT AMBASSADOR Unavailable Unavailab Lidia Cabrera MD Primary Care Provide r Tico Mars MD Primary Care Provider Reason for Visit * Reason Comments Medication Refill Encounter Details Date Type Department Care Team (Late st Contact Info) Description 06/13/2020 Refill [facility] - Internal Medicine - [place] [address] [place] [address] Tico Mars MD [address] [place] [address] Medication Refill Social History Tobacco [...] 8:32 AM CST Please review and sign. CUTTING MACHINE OPERATOR * Telephone Encounter - Tori Murphy RN - 06/14/2020 8:32 AM CST Please review and sign. CUTTING MACHINE OPERATOR documented in this encounter Plan of Treatment Upcoming Encounters Date Type Department Care Team (Late st Contact Info) Description 12/24/2024 7:00 AM CDT [facility] 1 [facility] [place] [address] Nasir Tang MD [address] [facility] [address] [address] 12/24/2024 7:00 AM CDT - 12/24/2024 7:30 AM CDT [facility] 1 [facility] [place] [address] Nasir Tang MD [address] [facility] [address] [address] COLONOSCOPY 03/03/2025 2:00 PM FUR CUTTING MACHINE OPERATOR [facility] - [place] [address] [place] [address] [place] [address] Tico Mars MD [address] [place] [address] Scheduled Procedures Name Priority Associated Diagnoses Date/Ti me COLONOSCOPY DIARRHEA 12/24/2024 7:00 AM CDT documented as of this encounter Visit Diagnoses Not on filedocumented in this encounter Additional Health Concerns Assessment Noted Time PHQ-9 Depression Total Score: 2 03/22/20 20 1:00 PM FUR CUTTING MACHINE OPERATOR documented as of this encounter Care Teams Meteorology Professor Relationship Specialty Start Date End Date Tico Mars MD [address] [place] [address] PCP - General Internal Medicine 03/18/18 02/06/24 Lidia Srinivasan MD [address] [facility] [address] [place] [address] PCP - General Rheumatology 02/07/24 03/02/24 Tico Mars MD [address] [place] [address] PCP - General Internal Medicine 03/03/24 Toribio Pinedo MD #[address] [address] Consulting Physician Colon and Rectal Surgery 05/17/22 Geri Nath MD #2 [place] [address] Consulting Physician Gastroenterology 06/29/22 Tori Pinedo APRN, PHOTO TUBE ASSEMBLER #[address] [place] [address] Nurse Practitioner Advanced Practice Nurse 01/04/24 Sandi Hicks LSW [place] Sheeting Puller Glass Ribbon Machine Operator 01/24/24 02/01/24 documented as of this encounter
--- OUTSIDE RECORDS SUMMARY | 2024-11-10 15:19 | XMS_ITS | Encounter Summary ---
Author Organization [facility] Address [address] [place] [address] Phone Care Team Providers Care Marketing Writer Name Role Phone Tico Mars MD Primary Care Provider [phone] Toribio Pinedo MD Unavailable Geri Nath MD Unavailable [phone] Tori Pinedo APRN, CURING FINISHER Unavailable Sandi Hicks LUMBER YARD WORKER Unavailable Unavailab Lidia Cabrera MD Primary Care Provide r Tico Mars MD Primary Care Provider [phone] Reason for Visit * Reason Comments Medication Refill Encounter Details Date Type Department Care Team (Late st Contact Info) Description 02/10/2021 Refill [facility] Group - Internal Medicine - [place] [address] [place] [address] Tico Mars MD [address] [place] [address] Medication Refill Social History Tobacco [...] Description 12/24/2024 7:00 AM CDT [facility] [address] [place] [address] Nasir Tang MD 2 [facility] [address] [address] 12/24/2024 7:00 AM CDT - 12/24/2024 7:30 AM CDT [facility] 1 [facility] [place] [address] Nasir Tang MD 2 [facility] [address] [address] COLONOSCOPY 03/03/2025 2:00 PM RECONSTRUCTIVE SURGEON Office Visit [facility] Medical Group - Internal Medicine [place] [address] [place] [address] [place] [address] Tico aMrs MD [address] [place] [address] Scheduled Procedures Name Priority Associated Diagnoses Date/Ti me COLONOSCOPY DIARRHEA 12/24/2024 7:00 AM CDT documented as of this encounter Visit Diagnoses Not on filedocumented in this encounter Additional Health Concerns Assessment Noted Time PHQ-9 Depression Total Score: 2 03/22/20 20 1:00 PM RECONSTRUCTIVE SURGEON documented as of this encounter Care Teams Marketing Writer Relationship Specialty Start Date End Date Tico Mars MD [address] [place] [address] PCP - General Internal Medicine 03/18/18 02/06/24 Lidia Srinivasan MD [address] [facility] [address] [place] [address] PCP - General Rheumatology 02/07/24 03/02/24 Tico Mars MD [address] [facility] [facility] [place] [address] PCP - General Internal Medicine 03/03/24 Toribio Pinedo MD #[address] [address] Consulting Physician Colon and Rectal Surgery 05/17/22 Geri Nath MD #2 [place] [address] Consulting Physician Gastroenterology 06/29/22 Tori Pinedo APRN, CURING FINISHER #2 [place] [address] Nurse Practitioner Advanced Practice Nurse 01/04/24 Sandi Hicks LSW [place] Lab Support Tech Digital Sales Manager 01/24/24 02/01/24 documented as of this encounter
--- OUTSIDE RECORDS SUMMARY | 2024-11-10 15:19 | XMS_ITS | Encounter Summary ---
Author Organization [facility] Address [address] [place] [address] Care Team Providers Care Consumer Loan Manager Name Role Phone Iain Lowery MD Primary Care Provider [phone] Encounter Details Date Type Department Care Team (Latest Contact Info) Description 11/16/2006 Outpatient Historical [facility] Unspecified Anemia (Primary Dx) Social History Tobacco Use Types Packs/Day Years Used Date Smoking Tobacco: Never Assessed Comments Unknown Sex and Gender Information Value Date Recorded Sex Assigned at Not on file Legal Sex Female 4:26 AM CONVALESCENT SITTER Gender Identity Not on file Sexual Orientation [...] MD HEMATOLOGY ORDERABLES Edited Performing Organization Address [facility] Phone Number INTERFACE SYSTEM Refer to [...] MD CHEMISTRY ORDERABLES Edited Performing Organization Address [facility] Phone Number INTERFACE SYSTEM Refer to clinic/hospital department * FERRITIN (12/12/2006 3:18 PM CDT) Pathologist [facility] FERRITIN 124 13 - 150 ng/mL INTERFACE SYSTEM 12/12/2006 3:18 PM CDT Igor Aly MD CHEMISTRY ORDERABLES Edited Performing Organization Address [facility] Phone Number INTERFACE SYSTEM Refer to [...] MD HEMATOLOGY ORDERABLES Edited Performing Organization Address [facility] de Phone Number INTERFACE SYSTEM [...] MD HEMATOLOGY ORDERABLES Edited Performing Organization Address [facility] de Phone Number INTERFACE SYSTEM [...] % INTERFACE SYSTEM 11/16/2006 3:58 PM CDT Igro Aly MD HEMATOLOGY ORDERABLES Edited Performing Organization Address [facility] Phone Number INTERFACE SYSTEM Refer to clinic/hospital department * (ABNORMAL) HAPTOGLOBIN (11/16/2006 3:58 PM CDT) HAPTOGLOBIN 292(H) 30 - 200 mg/dL INTERFACE SYSTEM 11/16/2006 3:58 PM CDT Igor Aly MD CHEMISTRY ORDERABLES Edited Performing Organization Address [facility] Phone Number INTERFACE SYSTEM Refer to [...] MD CHEMISTRY ORDERABLES Edited Performing Organization Address [facility] Phone Number INTERFACE SYSTEM Refer to clinic/hospital department * RETICULOCYTES (11/16/2006 3:58 PM CDT) RETICULOCYTES 1.6 0.5 - 2.0 % INTERFACE SYSTEM IMMATURE RETIC FRACTION 16 0 - 16 % INTERFACE SYSTEM 11/16/2006 3:58 PM CDT Igor Aly MD HEMATOLOGY ORDERABLES Edited Performing Organization Address [facility] Phone Number INTERFACE SYSTEM Refer to clinic/hospital department * LACTATE DEHYDROGENASE (11/16/2006 3:58 PM CDT) LD (LACTATE DEHYDROGENASE) 149 135 - 214 U/L INTERFACE SYSTEM 11/16/2006 3:58 PM CDT us Igor Aly MD CHEMISTRY ORDERABLES Edited Performing Organization Address [facility] Phone Number INTERFACE SYSTEM Refer to [...] MD CHEMISTRY ORDERABLES Edited Performing Organization Address [facility] Phone Number INTERFACE SYSTEM Refer to clinic/hospital department * (ABNORMAL) FOLATE RBC AND HEMATOCRIT (11/16/2006 3:58 PM CDT) HEMATOCRIT, FOLATE 26.7(L) 35.5 - 44.0 % INTERFACE SYSTEM RBC FOLATE 1393 >=533 ng/mL INTERFACE SYSTEM Comment: RBC Folate Interpretation: Deficient <110 ng/mL 11/16/2006 3:58 PM CDT Igor Aly MD CHEMISTRY ORDERABLES Edited Performing Organization Address [facility] Phone Number INTERFACE SYSTEM Refer to clinic/hospital department * FERRITIN (11/16/2006 3:58 PM CDT) FERRITIN 15 13 - 150 ng/mL INTERFACE SYSTEM 11/16/2006 3:58 PM CDT Igor Aly MD CHEMISTRY ORDERABLES Edited Performing Organization Address City/[facility]/ZIP Co de Phone Number INTERFACE SYSTEM Refer [...] and non- Americans is available on the [facility] Intranet at: [email or web address] Select: Lab Policies and Procedures Select: Reference Ranges - GFR 11/16/2006 3:58 PM CDT Igor Aly MD CHEMISTRY ORDERABLES Edited INTERFACE SYSTEM Refer to clinic/hospital department documented in this encounter Visit Diagnoses Diagnosis Anemia, unspecified- Primary documented in this encounter Care Teams Consumer Loan Manager Relationship Specialty Start Date End Date Iain Lowery MD [address] [facility] [address] [place] [address] PCP - General 11/16/06 documented as of this encounter
--- OUTSIDE RECORDS SUMMARY | 2024-11-10 15:19 | XMS_ITS | Encounter Summary ---
Author Organization [facility] Address [address] [facility] [address] Care Team Providers Care Tender Labor Name Role Phone Tico Mars MD Primary Care Provider [phone] Encounter Details Date Type Department Care Team (Late st Contact Info) Description 09/27/2022 Lab Requisition [facility] - DermPath Lab [address] [facility] [place] [id number] Jose Alejandro Lopez MD [address] [place] [address] Social History Tobacco Use Types Packs/Day [...] on file Legal Sex Female 6:25 AM RUBBER PRESS TENDER Gender Identity Not on file Sexual Orientation Not on file documented as of this encounter Plan of Treatment Not on file documented as of this encounter Procedures Procedure Name Priority Date/Time Associated Diagnosis Comments DERMATOPATHOLOGY Routine 09/26/2022 12:0 0 AM CDT documented in this encounter Results * DERMATOPATHOLOGY (09/26/2022 12:00 AM CDT) Case Report Dermatopathology Report Case: [id number] Authorizing Provider: Jose Alejandro Lopez MD Collected: 09/26/2022 12:00 AM Ordering Location: [facility] DermPath Lab Received: 09/28/2022 06:38 AM [...] at 1304 CDT Clinical History A: [facility] Path#[id number] B: [facility]#[id number] 1:04 PM CDT DERMATOPATHOLOGY LABORATORY Gross Description [...] larger lesion, these findings may not be field representatives director of the entire lesion. Clinicopathologic correlation is [...] characteristic determined by the Dermatopathology Laboratory at [facility], directed by Dr. Nelia Schaeffer. These tests need not be, and therefore are not, approved by the [place] Food and Drug Administration. The tests are used for clinical purposes. Billing Codes Specimen Charges Stain Charges 97947 29665 1 1 3 1:04 PM CDT DERMATOPATHOLOGY LABORATORY Embedded Images 3 1:04 PM CDT DERMATOPATHOLOGY LABORATORY Pathology/Cytology TISSUE SPECIMEN FROM SKIN / Unknown 09/26/2022 09/28/2022 6:38 AM CDT Miscellaneous samples (specimen) TISSUE SPECIMEN FROM SKIN / Unknown 09/26/2022 09/28/2022 6:38 AM CDT us Jose Alejandro Lopez MD LAB - PATHOLOGY/CYTOLOGY ORDER LORENA Final Result DERMATOPATHOLOGY LABORATORY [facility] - Department of Dermatology [address], [address] [phone] documented in this encounter Visit Diagnoses Not on filedocumented in this encounter Care Teams Tender Labor Relationship Specialty Start Date End Date Tico Mars MD [address] [place] [address] PCP - General 01/20/19 documented as of this encounter
--- OUTSIDE RECORDS SUMMARY | 2024-11-10 15:19 | XMS_ITS | Clinical Summary ---
Author Organization [facility] Address [address] [facility] [place] [address] Care Team Providers Care Vault Maker Name Role Phone Tico Mars MD Primary Care Provider [phone] Source Comments [facility],non-owned Affiliates and Associated Physician Practices is amultiple site organization consisting of ambulatory clinics and hospital sitesin [place], [place], [place] and [place]. This disclosure is being madepursuant to the Care Everywhere program and may not contain all information available regarding this patient. Last updated 18.[facility] Allergies Active Allergy Reactions Criticality Noted [...] (02/07/2019): Added automatically from request for surgery [id number] Right ear pain 01/20/2019 DNS (deviated nasal [...] Breast cancer screening: No longer going to senior payroll manager 2/2 hysterectomy. Cervical cancer screening: No longer going to senior payroll manager due to hysterectomy. Osteoporosis screening: As above [...] saw a few years ago at [facility]. Memory loss 11/28/2016 Overview (01/20/2019): Last [...] to wean off amitriptyline. Rheumatoid arthritis of [facility] sites with negative rheumatoid factor 09/16/2015 [...] on file Legal Sex Female 6:25 AM AUTOMATIC DRILL OPERATOR Gender Identity Not on file Sexual [...] - 26 mg/dL 12/31/2021 2:19 AM CDT [facility] Creatinine 0.71 0.56 - 0.96 mg/dL 12/31/2021 2:19 AM CDMT. [facility] Sodium 137 136 - 145 mmol/L 12/31/2021 2:19 AM [facility] Potassium 3.7 3.5 - 4.5 mmol/L 12/31/2021 2:19 AM [facility] Chloride 107 98 - 107 mmol/L 12/31/2021 2:19 AM [facility] CO2 25 22 - 29 mmol/L 12/31/2021 2:19 AM [facility] Glucose 104 70 - 115 mg/dL 12/31/2021 2:19 AM [facility] Calcium 10.0 8.4 - 10.2 mg/dL 12/31/2021 2:19 AM [facility] Protein Total 5.9(L) 6.0 - 8.3 g/dL 12/31/2021 2:19 AM [facility] Albumin 3.2(L) 3.4 - 5.0 g/dL 12/31/2021 2:19 AM [facility] Bilirubin Total 0.8 0.2 - 1.2 mg/dL 12/31/2021 2:19 AM [facility] Alkaline Phosphatase 79 40 - 150 U/L 12/31/2021 2:19 AM [facility] ALT 45 5 - 55 U/L 12/31/2021 2:19 AM [facility] AST 29 5 - 34 U/L 12/31/2021 2:19 AM [facility] Anion Gap 9 8 - 18 12/31/2021 2:19 AM [facility] BUN/Creatinine Ratio 23 7 - 23 12/31/2021 2:19 AM [facility] Osmolality Calculated 285 270 - 300 mOsm/kg 12/31/2021 2:19 AM [facility] Albumin/Globulin Ratio 1.2 1.1 - 2.3 12/31/2021 2:19 AM [facility] eGFR by CKD-EPI >90 >=90 mL/min/1.7 3 m2 12/31/2021 2:19 AM [facility] Blood BLOOD SPECIMEN / Unknown Venipuncture / Unknown 12/31/2021 1:40 AM CDT 12/31/2021 1:47 AM CDT us Nasir Seymour MD LAB - CHEMISTRY ORDERABLES Fi nal Result [facility] [address] [place] [address], [facility] [phone] from Last 3 Months or Most Recently Relevant to Health Maintenance Insurance [employer] UHC MANAGED MEDICARE ADV [employer] AETNA MEDICARE ADV * Guarantor: BHARGAVI RADFORD Swathi Account Type Relation to Patient Date of Phone Billing Address Personal/Family 1955 [address] [place] [address] [employer] Care Teams Vault Maker Relationship Specialty Start Date End Date Tico Mars MD [address] [place] [address] PCP - General 01/20/19
--- OUTSIDE RECORDS SUMMARY | 2024-11-10 15:19 | XMS_ITS | Encounter Summary ---
Author Organization [facility] Address [address] [place] [address] Phone Care Team Providers Care Firearms Expert Name Role Phone Tico Mars MD Primary Care Provider Toribio Pinedo MD Unavailable Geri Nath MD Unavailable [phone] Tori Pinedo APRN, FROG SHAKER Unavailable Sandi Hicks BUILDING MAINTENANCE TECHNICIAN Unavailable Unavailab Lidia Cabrera MD Primary Care Provide r Tico Mars MD Primary Care Provider [phone] Reason for Visit * Reason Comments Medication Refill Encounter Details Date Type Department Care Team (Late st Contact Info) Description 08/19/2023 Refill [facility] - Internal Medicine - [place] [address] [place] [address] Tico Mars MD [address] [place] [address] Medication Refill Social History Tobacco Use Types Packs/Day Years Used Date Smoking Tobacco: Never Passive Smoke Exposure: Never Smokeless Tobacco: Never Alcohol Use Standard Drinks/Week Comments Not Currently 0 (1 standard drink = 0.6 oz pur e alcohol) [facility] Utilities Answer Date Recorded In the past 12 months has th e electric, gas, oil, or water [employer] threatened to shut off services in your [...] answer 05/24/2023 How often do you attend [facility] or jainism services? Patient unable to answer 05/24/2023 Do you belong to any clubs o r organizations such as buddhist groups, unions, fraternal or athletic groups, or [...] Score - Questions 1-9 0 05/0 04/2023 [facility] - Occupational [...] AM CDT Medication(s) [facility]illed and [facility] per [facility] Chronic Medication Refill Standing Order for [...] 05/24/23 Office Visit Tico Mars MD [facility] 02/19/23 Office Visit Tico Mars MD [facility] 11/07/22 Office Visit Tico Mars MD [facility] Showing recent visits within past 365 days and meeting all other requirements Future Appointments Date Type Provider Dept 08/22/23 Appointment Tico Mars MD [facility] Showing future appointments within next 90 days and meeting all other requirements documented in this encounter Plan of Treatment Upcoming Encounters Date Type Department Care Team (Late st Contact Info) Description 12/24/2024 7:00 AM CDT Hospital Encounter [facility] Gi Lab Periop [address] [facility] [place] [address] Nasir Tang MD [address] [facility] [address] [place] [address] 12/24/2024 7:00 AM CDT - 12/24/2024 7:30 AM CDT [facility] [address] [facility] [place] [address] Nasir Tang MD [address] [facility] [facility] [address] [place] [address] COLONOSCOPY 03/03/2025 2:00 PM LIGHT RAIL SIGNAL TECHNICIAN Office Visit [facility] Medical Group - Internal Medicine [facility] [address] [place] [address] Tico Mars MD [address] [place] [address] Scheduled Procedures Name Priority Associated Diagnoses Date/Ti me COLONOSCOPY DIARRHEA 12/24/2024 7:00 AM CDT documented as of this encounter Visit Diagnoses Not on filedocumented in this encounter Additional Health Concerns Assessment Noted Time PHQ-9 Depression Total Score: 0 05/24/19 9:59 AM LIGHT RAIL SIGNAL TECHNICIAN documented as of this encounter Care Teams Firearms Expert Relationship Specialty Start Date End Date Tico Mars MD [address] [place] [address] PCP - General Internal Medicine 03/18/18 02/06/24 Lidia Srinivasan MD [address] [facility] [address] [place] [address] PCP - General Rheumatology 02/07/24 03/02/24 Tico Mars MD [address] [place] [address] PCP - General Internal Medicine 03/03/24 Toribio Pinedo MD #[address] [address] Consulting Physician Colon and Rectal Surgery 05/17/22 Geri Nath MD [address] [place] [address] Consulting Physician Gastroenterology 06/29/22 Tori Pinedo APRN, FROG SHAKER [address] [place] [address] Nurse Practitioner Advanced Practice Nurse 01/04/24 Sandi Hicks LSW [place] Equipment Mechanic Specialist Instructor Business Education 01/24/24 02/01/24 documented as of this encounter
--- OUTSIDE RECORDS SUMMARY | 2024-11-10 15:19 | XMS_ITS | Encounter Summary ---
Author Organization [facility] Address [address] [place] [address] Phone Care Team Providers Care Electrical Assistant Name Role Phone Tico Mars MD Primary Care Provider Toribio Pinedo MD Unavailable Geri Nath MD Unavailable [phone] Tori Pinedo APRN, AUTOMATIC CENTRIFUGAL STATION OPERATOR Unavailable Sandi Hicks CERTIFIED SOCIAL WORKERS IN HEALTH CARE Unavailable Unavailab Lidia Cabrera MD Primary Care Provide r Tico Mars MD Primary Care Provider [phone] Reason for Visit * Reason Comments Medication Refill Encounter Details Date Type Department Care Team (Late st Contact Info) Description 10/03/2023 Refill [facility] Medical Group - Internal Medicine - [place] [address] [place] [address] Tico Mars MD [address] [place] [address] Medication Refill Social History Tobacco Use Types Packs/Day Years Used Date Smoking Tobacco: Never Passive Smoke Exposure: Never Smokeless Tobacco: Never Alcohol Use Standard Drinks/Week Comments Not Currently 0 (1 standard drink = 0.6 oz pur e alcohol) [facility] Utilities Answer Date Recorded In the past 12 months has th e electric, gas, oil, or water [employer] threatened to shut off services in your [...] answer 05/24/2023 How often do you attend [facility] or restorationist services? Patient unable to answer 05/24/2023 Do you belong to any clubs o r organizations such as religious groups, unions, fraternal or athletic groups, or [...] Score - Questions 1-9 0 05/0 04/2023 [facility] Occup[facility] ional Health - Occupational [...] 08/22/23 Office Visit Tico Mars MD [facility] 05/24/23 Office Visit Tico Mars MD [facility] [place] 02/19/23 Office Visit Tico Mars MD [facility] 11/07/22 Office Visit Tico Mars MD [facility] Showing recent visits within past 365 days and meeting all other requirements Future Appointments Date Type Provider Dept 11/22/23 Appointment Tico Mars MD [facility] Showing future appointments within next 90 days and meeting all other requirements documented in this encounter Plan of Treatment Upcoming Encounters Date Type Department Care Team (Late st Contact Info) Description 12/24/2024 7:00 AM CDT Hospital Encounter [facility] Gi Lab Periop 1 [place] [address] Nasir Tang MD [facility] [address] [place] [address] 12/24/2024 7:00 AM CDT - 12/24/2024 7:30 AM CDT Surgery [facility] Gi Lab Periop 1 [facility] [place] [address] Nasir Tang MD [address] [facility] [address] [place] [address] COLONOSCOPY 03/03/2025 2:00 PM REGISTERED NURSE FETAL Office Visit [facility] Medical Group - Internal Medicine - [place] [address] [place] [id number] Tico Mars MD [address] [place] [address] Scheduled Procedures Name Priority Associated Diagnoses Date/Ti me COLONOSCOPY DIARRHEA 12/24/2024 7:00 AM CDT documented as of this encounter Visit Diagnoses Not on filedocumented in this encounter Additional Health Concerns Assessment Noted Time PHQ-9 Depression Total Score: 0 08/22/19 11:35 AM CDT documented as of this encounter Care Teams Electrical Assistant Relationship Specialty Start Date End Date Tico Mars MD [address] [place] [address] PCP - General Internal Medicine 03/18/18 02/06/24 Lidia Srinivasan MD [address] [address] PCP - General Rheumatology 02/07/24 03/02/24 Tico Mars MD [address] [place] [address] PCP - General Internal Medicine 03/03/24 Toribio Pinedo MD #[address] [address] Consulting Physician Colon and Rectal Surgery 05/17/22 Geri Nath MD [address] [place] [address] Consulting Physician Gastroenterology 06/29/22 Tori Pinedo APRN, AUTOMATIC CENTRIFUGAL STATION OPERATOR [address] [place] [address] Nurse Practitioner Advanced Practice Nurse 01/04/24 Sandi Hicks LSW [place] Automobile Rental Representative Hair Specialist 01/24/24 02/01/24 documented as of this encounter
--- OUTSIDE RECORDS SUMMARY | 2024-11-10 15:19 | XMS_ITS | Encounter Summary ---
Author Organization [facility] Address [address] [place] [address] Phone Care Team Providers Care Fiber Optic Assembly Worker Name Role Phone Toribio Pinedo MD Unavailable Geri Nath MD Unavailable [phone] Tori Pinedo APRN, HOME CARE MANAGER Unavailable Tico Mars MD Primary Care Provider [phone] Reason for Visit * Reason Comments Medication Refill Encounter Details Date Type Department Care Team (Late st Contact Info) Description 11/02/2024 [facility]ill [facility] [address] [place] [address] Tori Pinedo APRN, HOME CARE MANAGER [address] [place] [address] Medication Refill Social History Tobacco Use Types Packs/Day Years Used Date Smoking Tobacco: Never Passive Smoke Exposure: Never Smokeless Tobacco: Never Alcohol Use Standard Drinks/Week Comments Not Currently 0 (1 standard drink = 0.6 oz pur e alcohol) [facility] Utilities Answer Date Recorded In the past 12 months has [employer] electric, gas, oil, or water company threatened [...] often do you attend chur ch or yazdanism services? 1 to 4 times per year 05/30/2024 Do you belong to any clubs o r organizations such as bahai groups, unions, fraternal or athletic groups, or [...] place to sleep or slept in a intermediate (including now)? Patient unable to answer 05/24/2023 [...] any time in the past 12 m [facility], were you homeless or living in a intermediate (including now)? No 05/30/2024 Sexually Active Control [...] Dept 08/27/24 Office Visit Tico Mars MD [facility] [place] 05/26/24 Office Visit Tico Mars, MD [facility] [place] 03/03/24 Office Visit Tico Mars MD [facility] [place] 01/17/24 Office Visit Tico Mars MD [facility] [place] 01/04/24 Office Visit Tori Pinedo APRN, HOME CARE MANAGER [facility] Showing recent visits within past 365 days and meeting all other requirements Today's Visits Date Type Provider Dept 11/04/24 Appointment Tori Pinedo APRN, HOME CARE MANAGER [facility] Showing today's visits and meeting all other requirements Future Appointments No visits were found meeting these conditions. Showing future appointments within next 90 days and meeting all other requirements documented in this encounter Plan of Treatment Upcoming Encounters Date Type Department Care Team (Late st Contact Info) Description 12/24/2024 7:00 AM CDT Hospital Encounter [facility] Gi Lab Periop 1 [place] [address] Nasir Tang MD 2 [facility] [address] [place] [address] 12/24/2024 7:00 AM CDT - 12/24/2024 7:30 AM CDT [facility] 1 [facility] [place] [address] Nasir Tang MD [facility] [address] [place] [address] COLONOSCOPY 03/03/2025 2:00 PM ANCILLARY SERVICES MANAGER THERAPY Office [facility] [address] [place] [address] Tico Mars MD [address] [place] [address] Scheduled Procedures Name Priority Associated Diagnoses Date/Ti me COLONOSCOPY DIARRHEA 12/24/2024 7:00 AM CDT documented as of this encounter Visit Diagnoses Not on filedocumented in this encounter Additional Health Concerns Assessment Noted Time PHQ-9 Depression Total Score: 0 08/28/19 7:24 AM CDT documented as of this encounter Care Teams Fiber Optic Assembly Worker Relationship Specialty Start Date End Date Tico Mars MD [address] [place] [address] PCP - General Internal Medicine 03/03/24 Toribio Pinedo MD [address] [address] Consulting Physician Colon and Rectal Surgery 05/17/22 Geri Nath MD [address] [place] [address] Consulting Physician Gastroenterology 06/29/22 Tori Pinedo APRN, HOME CARE MANAGER [address] [place] [address] Nurse Practitioner Advanced Practice Nurse 01/04/24 documented as of this encounter
--- OUTSIDE RECORDS SUMMARY | 2024-11-10 15:19 | XMS_ITS | Encounter Summary ---
Author Organization [facility] Address [address] [place] [address] Phone Care Team Providers Care District Gauger Name Role Phone Tico Mars MD Primary Care Provider [phone] Toribio Pinedo MD Unavailable Grei Nath MD Unavailable [phone] Tori Pinedo APRN, FRONT OFFICE CLERK Unavailable Sandi Hicks CRITICAL CARE TRANSPORT NURSE Unavailable Unavailab Lidia Cabrera MD Primary Care Provide r Tico Mars MD Primary Care Provider Reason for Visit * Reason Comments Medication Refill Encounter Details Date Type Department Care Team (Late st Contact Info) Description 09/12/2023 Refill [facility] - Internal Medicine - [place] [address] [place] [address] Tyra Higgins, [facility] [address] [place] [address] Medication Refill Social History Tobacco Use Types Packs/Day Years Used Date Smoking Tobacco: Never Passive Smoke Exposure: Never Smokeless Tobacco: Never Alcohol Use Standard Drinks/Week Comments Not Currently 0 (1 standard drink = 0.6 oz pur e alcohol) [facility] Utilities Answer Date Recorded In the past 12 months has th e electric, gas, oil, or water [employer] threatened to shut off services in your [...] answer 05/24/2023 How often do you attend [facility] or hoahaoism services? Patient unable to answer 05/24/2023 Do you belong to any clubs o r organizations such as denominational groups, unions, fraternal or athletic groups, or [...] Score - Questions 1-9 0 05/0 04/2023 [facility] Occupat ional Health - [...] place to sleep or slept in a skilled nursing (including now)? Patient unable to answer 05/24/2023 [...] Dept 08/22/23 Office Visit Tico Mars MD [facility] Jennifer García 05/24/23 Office Visit Tico Mars MD [facility] Raquel Showing recent visits within past 182 [...] Description 12/24/2024 7:00 AM CDT Hospital Encounter [facility] Periop 1 [place] [address] Nasir Tang MD [address] [address] 12/24/2024 7:00 AM CDT - 12/24/2024 7:30 AM CDT Surgery [facility] Periop 1 [facility] [place] [address] Nasir Tang MD 2 [facility] [address] [address] COLONOSCOPY 03/03/2025 2:00 PM CARPENTER LABOR SUPERVISOR Office Visit [facility] - Internal Medicine - [place] [address] [place] [phone] Tico Mars MD [address] [place] [address] Scheduled Procedures Name Priority Associated Diagnoses Date/Ti me COLONOSCOPY DIARRHEA 12/24/2024 7:00 AM CDT documented as of this encounter Visit Diagnoses Not on filedocumented in this encounter Additional Health Concerns Assessment Noted Time PHQ-9 Depression Total Score: 0 08/22/19 11:35 AM CDT documented as of this encounter Care Teams District Gauger Relationship Specialty Start Date End Date Tico Mars MD [address] [place] [address] PCP - General Internal Medicine 03/18/18 02/06/24 Lidia Srinivasan MD [address] [facility] [address] [place] [address] PCP - General Rheumatology 02/07/24 03/02/24 Tico Mars MD [address] [place] [address] PCP - General Internal Medicine 03/03/24 Toribio Pinedo MD #[address] [address] Consulting Physician Colon and Rectal Surgery 05/17/22 Geri Nath MD #2 [place] [address] Consulting Physician Gastroenterology 06/29/22 Tori Pinedo APRN, FRONT OFFICE CLERK [address]2 [place] [address] Nurse Practitioner Advanced Practice Nurse 01/04/24 Sandi Hicks, K[place] Gun Examiner [employer] 01/24/24 02/01/24 documented as of this encounter
--- OUTSIDE RECORDS SUMMARY | 2024-11-10 15:19 | XMS_ITS | Clinical Summary ---
Author Organization [facility] Address [address] [place] [address] Care Team Providers Care Relief Cook Name Role Phone Tico Mars MD Primary Care Provider [phone] Allergies Active Allergy Reactions Criticality Noted Date Comments Cefdinir Swelling Medium 09/03/2018 Fluticasone Itching Low 01/20/2019 Latex Blisters High 04/14/2019 Lifitegrast Unknown 12/19/2023 Penicillin G Rash Medium Penicillins Rash Medium 12/19/2023 Oxycodone-Acetaminophe n Other (See comments) Low 04/14/2019 Extreme sleepiness Tissue Adhesive Redness Low 06/13/2019 Medications vit D3-vit C-zvxenkbju-wn ps [id number] hfqw-whk-iq-mg tablet Take by mouth Active dicyclomine (BENTYL) [...] (04/14/2019): Added automatically from request for surgery [id number] Long-term use of high-risk medication 03/14/2019 Assessment & Plan (03/14/2019 12:29 AM CAGE CASHIER): Recent labs reviewed without sxs of toxicity Osteopenia 03/14/2019 Assessment & Plan (03/14/2019 12:30 AM CAGE CASHIER): Lifestyle modifications are important for the prevention [...] 03/14/2019 Assessment & Plan (03/14/2019 12:29 AM CAGE CASHIER): Hopefully you can develop an exercise regimen [...] (02/03/2019): Added automatically from request for surgery [id number] Assessment & Plan (03/14/2019 12:31 AM CAGE CASHIER): Scheduled for RTKR tomorrow with Dr. Gaines. Medications on hold. May resume same 2 weeks after surgery if healing as expected. Right ear pain 01/20/2019 DNS (deviated nasal septum) 05/02/2018 Maxillary sinusitis 04/19/2017 Assessment & Plan (04/19/2017 1:01 PM CAGE CASHIER): Doxycycline #20 sent to pharmacy. Pt does not want to get surgeries done that ENT has recommended at this time. Lung nodule 01/11/2017 Overview (01/11/2017): Diagnosed 01/11/[address] 6mm nodule left lung base. Assessment & Plan (04/19/2017 3:49 PM CAGE CASHIER): noncontrast CT scan of chest to be done in early June already ordered. Will have MA contact patient to make sure she has scheduled this. Assessment & Plan (01/11/2017 2:33 PM CDT): 6mm nodule L lung base. Repeat noncontrast chest CT ordered, told patient to schedule June 2017. Microscopic hematuria 01/11/2017 Assessment & Plan (04/19/2017 12:58 PM CAGE CASHIER): S/p evaluation by urology. Assessment & Plan (01/11/2017 11:39 PM CDT): CT scan abd / pelvis without stones. Continue urology eval. BMI 29.0-29.9,adult 11/28/2016 Assessment & Plan (04/19/2017 11:33 AM CAGE CASHIER): BMI Follow-up includes: nutrition counseling, exercise counseling [...] cancer screening: No longer going to physician gynecologist 2/2 hysterectomy. Cervical cancer screening: No longer going to physician gynecologist due to hysterectomy. Osteoporosis screening: As above Vaccinations: Influenza: Gets yearly. Pneumonia: 2012 Prevnar 13: At 66 Shingles: not indicated Tetanus: 07/11/13 Bleeding from the nose 11/28/2016 Assessment & Plan (11/28/2016 11:37 AM CDT): Will give [facility] ph # for her to see physician she saw a few years ago at [facility]. Age-related osteoporosis wit hout current pathological fracture 11/28/2016 Assessment & Plan (11/28/2016 11:38 PM CDT): Prolia today. Check Vitamin D. Due for bone density, ordered today. Memory loss 11/28/2016 Assessment & Plan (04/19/2017 1:00 PM CAGE CASHIER): No improvement by decreasing amitriptyline. Will try [...] refer to memory and aging department at [facility] for more detailed evaluation. Prediabetes 11/28/2016 Assessment & Plan (04/19/2017 12:58 PM CAGE CASHIER): Reassess Osteoporosis 11/28/2016 Assessment & Plan (04/19/2017 3:40 PM CAGE CASHIER): Prolia today Knee pain 08/08/2016 Overview (09/15/2016): Right knee pain, unspecified chronicity Arthralgia of hip 08/08/2016 Overview (09/15/2016): Pain of right hip joint Peptic ulcer 09/16/2015 Overview (07/28/2016): Peptic ulcer disease Rheumatoid arthritis of [facility] sites with negative rheumatoid factor 09/16/2015 Overview (07/28/2016): RHEUMATOID ARTHRITIS Assessment & Plan (03/14/2019 12:34 AM CAGE CASHIER): RA clinically stable. Scheduled for RTKR tomorrow [...] Dyslipidemia Assessment & Plan (04/19/2017 1:00 PM CAGE CASHIER): Reassess when she is feeling better. Discussed [...] - 11/05/2024 11:59 PM CDT Hospital Encounter [facility] [address] [place] [phone] Discharge Disposition: Discharge to home or self care 11/05/2024 2:30 PM CDT Office Visit [facility] Rheumatology at [facility] [address] [place] [phone] Lidia Srinivasan MD Rheumatoid arthritis of multiple sites with negative rheumatoid factor (HCC) (Primary Dx); Long-term use of high-risk medication; Chronic bilateral low back pain with sciatica, sciatica laterality unspecified 09/08/2024 1:15 PM CDT Office Visit [facility] Orthopaedic Surgery [address] [place] [address] 6th [place] [address] [place] [phone] Manjit Rangel MD Stress fracture of left fibula with routine healing, subsequent encounter (Primary Dx); Left ankle pain, unspecified chronicity 09/08/2024 1:04 PM CDT - 09/08/2024 11:59 PM CDT Hospital Encounter [facility] [address] [place] [address] Stress fracture of left fibula with routine healing, subsequent encounter Discharge Disposition: Discharge to home or self care 09/05/2024 6:00 PM CDT Office Visit [facility]ient [facility] at [address] [address] Diana Montero, BARREL LEVELER Herpes zoster without complication (Primary Dx) from Last 3 Months Immunizations Immunization Administration Dates Next Due COVID-19 mRNA (Validroid) 0.3 m L (30 mcg) vaccine (12 [...] Preservative Free, Intradermal 03/12/2015 Influenza, Unspecified 02/09/2023 [facility] SARS-CoV-2 Monovalent Vaccination (12+ Yrs) PURPLE 10/09/2022,06/24/2020,06/05/2020 [...] on file Legal Sex Female 1:48 AM CAGE CASHIER Gender Identity Not on file Sexual Orientation [...] 06/01/2021, 02/02/2008 Medical Devices Implanted Type Area Behavioral Health Rn Device Identifier Shelf Expiration Date Model / Serial / Lot Depuy Orth[employer] 3122-040 Smartset Medium Viscosity Cement 40gm Bone Sterile - Sn/A - [id number] Implanted:Qty: 1 on 03/13/2019 by Joes Gaines MD at [facility] Other - see comments Right: Knee [employer] 06/20/2020 3122-040 / N/A / [id number] Dep[employer] [id number] Smartset Medium Viscosity Cement 40gm Bone Gentamicin - Sn/A - [id number] Implanted:Qty: 1 on 03/13/2019 by Jose Gaines MD at [facility] Other - see comments Right: Knee [employer] 06/20/2020 [id number] / N/A / [id number] Isaacs & Nephew/Richco/O rtho [id number] Joanne Ii Base Right Total Knee 5 Baseplate Tibial Nonporous - Sn/A - [id number] Implanted:Qty: 1 on 03/13/2019 by Jose Gaines MD at [facility] Other - see comments Right: Knee [employer]/ Ortho [id number] 12/10/2028 [id number] / N/A / [id number] [employer]/Rich[employer]/O rtho [id number] Joanne Ii Legion Spc Cruciate Retain Knee Right 7 Component - Sn/A - [id number] Implanted:Qty: 1 on 03/13/2019 by Jose Gaines MD at [facility] Other - see comments Right: Knee [employer]/ Ortho [id number] 11/23/2028 [id number] / N/A / [id number] [employer]Rich[employer]/O rtho [id number] Legion 12mm Cruciate Retaining High Flexion Knee 5-6 Insert - Sn/A - [id number] Implanted:Qty: 1 on 03/13/2019 by Jose Gaines MD at [facility] Other - see comments Right: Knee [employer]/ Ortho [id number] 03/22/2026 [id number] / N/A / [id number] Nasal Plug Nose Procedures Procedure Name Priority [...] BLOOD ORDERABLES Final Result Performing Organization Address [facility] Co de Phone Number [facility] [address] [facility] [place] [address] * Erythrocyte sedimentation rate (11/05/2024 3:22 PM CDT) Pathologist [facility] Erythrocyte sedimentation rate 20 1 - 30 mm/hr Blood 11/05/2024 3:22 PM CDT 11/05/2024 6:22 PM CDT Lidia Srinivasan MD LAB BLOOD ORDERABLES Final Result Performing Organization Address [facility] de Phone Number [facility] [address] [facility] [place] [address] * (ABNORMAL) CBC without differential (11/05/2024 3:22 PM CDT) [facility] WBC 7.59 3.80 - 9.90 K/cumm Hgb 12.8 11.9 - 15.5 g/dL [facility] Hct 40.1 35.6 - 45.5 % [facility] Plt 186 150 - 400 K/cumm [facility] MPV 12.0 9.1 - 12.3 fL [facility] RBC 4.29 3.90 - 5.20 M/cumm [facility] MCV 93.5 81.3 - 96.4 fL [facility] MCH 29.8 27.1 - 33.3 pg [facility] MCHC 31.9(L) 32.3 - 35.7 g/dL [facility] RDW CV 15.9(H) 11.1 - 14.9 % [facility] RDW SD 53.7(H) 35.7 - 48.1 fL [facility] NRBC abs 0.00 0.00 - 0.01 K/cumm [facility] Blood 11/05/2024 3:22 PM CDT 11/05/2024 6:22 PM CDT Lidia Srinivasan MD LAB BLOOD ORDERABLES Final Result [facility] [address] Department [place] [address] * (ABNORMAL) Comprehensive metabolic panel (11/05/2024 3:22 PM CDT) Sodium 142 135 - 145 mmol/L Potassium, pl 4.0 3.3 - 4.9 mmol/L [facility] Chloride 107 97 - 110 mmol/L [facility] CO2 23 22 - 32 mmol/L [facility] Anion gap 12 2 - 15 mmol/L [facility] BUN 16 6 - 25 mg/dL [facility] Creatinine 0.54(L) 0.60 - 1.10 mg/dL [facility] Glucose 91 70 - 199 mg/dL [facility] Comment: Interpretive Data Fasting glucose >/= 126 [...] 2022. Calcium 9.9 8.5 - 10.3 mg/dL [facility] Bilirubin, total 0.4 0.1 - 1.2 mg/dL [facility] Protein, pl 6.7 6.5 - 8.5 g/dL [facility] Albumin 4.1 3.5 - 5.0 g/dL [facility] Alk phos 109 40 - 130 Units/L [facility] ALT 29 7 - 45 Units/L [facility] AST 26 10 - 45 Units/L [facility] Blood 11/05/2024 3:22 PM CDT 11/05/2024 6:22 PM CDT us Lidia Srinivasan MD LAB BLOOD ORDERABLES Final Result [facility] [address] Department [place] [address] * XR Foot Left 3 or More [...] Bone mineral density was performed on a HoloCognuse Discovery Densitometer. Based on machine cross-calibration and [...] by the International Society of Clinical Densitometry. [id number] us Juan Dent MD [facility] DXA PROCEDURES F inal Result * Screening Mammogram (11/29/2015 12:50 PM CDT) Anatomical Region Laterality Modality Breast N/A Mammography 11/29/2015 12:5 0 PM CDT Narrative 12/01/2015 4:10 PM CDT ROBERTO BECK M.D. FINAL REPORT ACC# Date Time Exam [id number] Nov 29, 2015 12:50:00 WMM [id number] Screening Mamm Bilat 2v Technologist(s): Iveth Martínez; ; EXAMINATION: Mammogram Technique: Bilateral Full-Field Digital Screening Mammogram was performed. Views obtained: bilateral craniocaudal and bilateral mediolateral oblique. Computer Aided Detection was performed with ProspX 1.3 version 9.3. Mammogram Findings: The present examination has been compared to prior imaging studies performed at [facility] on 09/28/2014, 07/11/2013 and 07/27/2011. There are [...] BECK M.D. on Dec 01 2015 4:10P [id number] Procedure Note Provider, MD Cherry - 08/19/2016 ROBERTO BECK M.D. FINAL REPORT ACC# Date Time Exam [id number] Nov 29, 2015 12:50:00 WMM [id number] Screening Mamm Bilat 2v Technologist(s): Iveth Martínez; ; EXAMINATION: Mammogram Technique: Bilateral Full-Field Digital Screening Mammogram was performed. Views obtained: bilateral craniocaudal and bilateral mediolateral oblique. Computer Aided Detection was performed with ProspX 1.3 version 9.3. Mammogram Findings: The present examination has been compared to prior imaging studies performed at [facility] on 09/28/2014, 07/11/2013 and 07/27/2011. There are [...] BECK M.D. on Dec 01 2015 4:10P [id number] Historical Provider MD LEHMAN MAMMO PROCEDURES Iva l Result from Last 3 Months or Most Recently Relevant to Health Maintenance Insurance [facility] MEDICARE FORMERLY [facility] MEDICARE AET[employer] MEDICARE Advance Directives For more information, please contact: [phone] * Full Code (Latest Code Status on File) Date Activated Date Inactivated Comments 04/14/2019 8:36 PM 04/15/2019 6:03 PM * Full Code Date Activated Date Inactivated Comments 03/13/2019 11:11 AM 03/14/2019 5:37 PM Care Teams Relief Cook Relationship Specialty Start Date End Date Tico Mars MD [address] [place] [address] PCP - General Internal Medicine 01/14/18
--- OUTSIDE RECORDS SUMMARY | 2024-11-10 15:19 | XMS_ITS | Encounter Summary ---
Author Organization [facility] Address [address] [place] [address] Phone Care Team Providers Care Diesel Engine Mechanic Name Role Phone Tico Mars MD Primary Care Provider Toribio Pinedo MD Unavailable Geri Nath MD Unavailable [phone] Tori Pinedo APRN, WEDDING DESIGNER Unavailable Sandi Hicks MANAGER OF PROGRAM Unavailable Unavailab Lidia Cabrera MD Primary Care Provide r Tico Mars MD Primary Care Provider Reason for Visit * Reason Comments Medication Refill Encounter Details Date Type Department Care Team (Late st Contact Info) Description 05/15/2023 Refill [facility] - Internal Medicine - [place] [address] [address] Tyra Higgins, [facility] [address] [place] [address] Medication Refill Social History Tobacco [...] Description 12/24/2024 7:00 AM CDT [facility] [place] [address] Nasir Tang MD 2 [facility] [address] [address] 12/24/2024 7:00 AM CDT - 12/24/2024 7:30 AM CDT [facility] [address] [place] [address] Nasir Tang MD 2 [facility] [address] [place] [address] COLONOSCOPY 03/03/2025 2:00 PM HAND SINGER Office Visit [facility] Group - Internal Medicine - [place] [address] [place] [phone] Tico Mars MD [address] [address] Scheduled Procedures Name Priority Associated Diagnoses Date/Ti me COLONOSCOPY DIARRHEA 12/24/2024 7:00 AM CDT documented as of this encounter Visit Diagnoses Not on filedocumented in this encounter Additional Health Concerns Assessment Noted Time PHQ-9 Depression Total Score: 0 02/20/20 23 9:40 AM CDT documented as of this encounter Care Teams Diesel Engine Mechanic Relationship Specialty Start Date End Date Tico Mars MD [address] [place] [address] PCP - General Internal Medicine 03/18/18 02/06/24 Lidia Srinivasan MD [address] [facility] [address] [place] [address] PCP - General Rheumatology 02/07/24 03/02/24 Tico Mars MD [address] [place] [address] PCP - General Internal Medicine 03/03/24 Toribio Pinedo MD #[address] [address] Consulting Physician Colon and Rectal Surgery 05/17/22 Geri Nath MD #[address] [place] [address] Consulting Physician Gastroenterology 06/29/22 Tori Pinedo APRN, WEDDING DESIGNER [address] [place] [address] Nurse Practitioner Advanced Practice Nurse 01/04/24 Sandi Hicks, KAY[place] Commercial Account Executive Grease Renderer 01/24/24 02/01/24 documented as of this encounter
--- OUTSIDE RECORDS SUMMARY | 2024-11-10 15:19 | XMS_ITS | Encounter Summary ---
Author Organization [facility] Address [address] [place] [address] Phone Care Team Providers Care Residential Sales Name Role Phone Tico Mars MD Primary Care Provider Toriibo Pinedo MD Unavailable Geri Nath MD Unavailable [phone] Tori Pinedo APRN, SHOE CLERK Unavailable Sandi Hicks NEGATIVE ASSEMBLER Unavailable Unavailab Lidia Cabrera MD Primary Care Provide r Tico Mars MD Primary Care Provider [phone] Reason for Visit * Reason Comments Medication Refill Encounter Details Date Type Department Care Team (Late st Contact Info) Description 09/12/2023 Refill [facility] - Internal Medicine - [place] [address] [address] Tico Mars MD [address] [place] [address] Medication Refill Social History Tobacco Use Types Packs/Day Years Used Date Smoking Tobacco: Never Passive Smoke Exposure: Never Smokeless Tobacco: Never Alcohol Use Standard Drinks/Week Comments Not Currently 0 (1 standard drink = 0.6 oz pur e alcohol) [facility] Utilities Answer Date Recorded In the past 12 months has th e electric, gas, oil, or water [employer] threatened to shut off services in your [...] answer 05/24/2023 How often do you attend [facility] or nondenominational services? Patient unable to answer 05/24/2023 Do you belong to any clubs o r organizations such as tenriism groups, unions, fraternal or athletic groups, or [...] Score - Questions 1-9 0 05/0 04/2023 [facility] of Occupat ional Health - Occupational [...] place to sleep or slept in a detention (including now)? Patient unable to answer 05/24/2023 [...] Office Visit Tico Mars MD [facility] [place] 05/24/23 Office Visit Tico Mars MD [facility] [place] 02/19/23 Office Visit Tico Mars MD [facility] [place] 11/07/22 Office Visit Tico Mars MD [facility] [place] Showing recent visits within past 365 days and meeting all other requirements Future Appointments Date Type Provider Dept 11/22/23 Appointment Tico Mars MD [facility] [place] Showing future appointments within next 90 days and meeting all other requirements documented in this encounter Plan of Treatment Upcoming Encounters Date Type Department Care Team (Late st Contact Info) Description 12/24/2024 7:00 AM CDT Hospital Encounter [facility] Gi Lab Periop 1 [facility] [place] [address] Nasir Tang MD [address] [address] 12/24/2024 7:00 AM CDT - 12/24/2024 7:30 AM CDT [facility] 1 [place] [address] Nasir Tang MD 2 [facility] [address] [address] COLONOSCOPY 03/03/2025 2:00 PM BUSINESS SERVICES INTERN Office Visit [facility] Group - Internal Medicine - [place] [address] [place] [place] [phone] Tico Mars MD [address] [place] [address] Scheduled Procedures Name Priority Associated Diagnoses Date/Ti me COLONOSCOPY DIARRHEA 12/24/2024 7:00 AM CDT documented as of this encounter Visit Diagnoses Not on filedocumented in this encounter Additional Health Concerns Assessment Noted Time PHQ-9 Depression Total Score: 0 08/22/19 11:35 AM CDT documented as of this encounter Care Teams Residential Sales Relationship Specialty Start Date End Date Tico Mars MD [address] [place] [address] PCP - General Internal Medicine 03/18/18 02/06/24 Lidia Srinivasan MD [address] [address] PCP - General Rheumatology 02/07/24 03/02/24 Tico Mars MD [address] [place] [address] PCP - General Internal Medicine 03/03/24 Toribio Pinedo MD #[address] [address] Consulting Physician Colon and Rectal Surgery 05/17/22 Geri Nath MD #2 [place] [address] Consulting Physician Gastroenterology 06/29/22 Tori Pinedo APRN, SHOE CLERK [address] [place] [address] Nurse Practitioner Advanced Practice Nurse 01/04/24 Sandi Hicks LSW [place] [employer]ilingual [employer] School Teacher Child Adolescent Care 01/24/24 02/01/24 documented as of this encounter
--- OUTSIDE RECORDS SUMMARY | 2024-11-10 15:19 | XMS_ITS | Encounter Summary ---
Author Organization [facility] Address [address] [place] [address] Care Team Providers Care Educational Therapy Teacher Name Role Phone Iain Lowery MD Primary Care Provider [phone] Encounter Details Date Type Department Care Team (Late st Contact Info) Description 12/18/2006 Outpatient Historical [facility] Unspecified Anemia (Primary Dx) Social History Tobacco Use Types Packs/Day Years Used Date Smoking Tobacco: Never Assessed Comments Unknown Sex and Gender Information Value Date Recorded Sex Assigned at Not on file Legal Sex Female 4:26 AM MACHINE II COREMAKER Gender Identity Not on file Sexual Orientation Not on file documented as of this encounter Plan of Treatment Not on file documented as of this encounter Visit Diagnoses Diagnosis Anemia, unspecified- Primary documented in this encounter Care Teams Educational Therapy Teacher Relationship Specialty Start Date End Date Iain Lowery MD [address] [phone] PCP - General 11/16/06 documented as of this encounter
--- OUTSIDE RECORDS SUMMARY | 2024-11-10 15:19 | XMS_ITS | Referral Summary ---
Author Organization [facility] Healthcare Address [address] [place] [address] Care Team Providers Care Central Supply Technician Supervisor Name Role Phone Tico Mars MD Primary Care Provider [phone] Encounters Date Type Department Care Team Description 11/05/2024 3:26 PM CDT - 11/05/2024 11:59 PM CDT Hospital Encounter [id number] [place] [address] Discharge Disposition: Discharge to home or self care 11/05/2024 2:30 PM CDT Office Visit [facility] Medical Group Rheumatology at [facility] [address] [facility] [address] [place] [address] Lidia Srinivasan MD Rheumatoid arthritis of multiple sites with negative rheumatoid factor (HCC) (Primary Dx); Long-term use of high-risk medication; Chronic bilateral low back pain with sciatica, sciatica laterality unspecified 09/08/2024 1:04 PM CDT - 09/08/2024 11:59 PM CDT Hospital Encounter [facility] [address] [place] [id number] Stress fracture of left fibula with routine healing, subsequent encounter Discharge Disposition: Discharge to home or self care 09/08/2024 1:15 PM CDT Office Visit [facility] Orthopaedic Surgery [facility] [facility] 6[address] [place] [address] [place] [phone] Manjit Rangel MD Stress fracture of left fibula with routine healing, subsequent encounter (Primary Dx); Left ankle pain, unspecified chronicity 09/05/2024 6:00 PM CDT Office Visit [facility] Medical Group [facility] Care at [address] [address] Diana Montero, CHUYITA Herpes zoster without complication (Primary Dx) from Last 3 Months Allergies Active Allergy Reactions Criticality Noted Date Comments Cefdinir Swelling Medium 09/03/2018 Fluticasone Itching Low 01/20/2019 Latex Blisters High 04/14/2019 Lifitegrast Unknown 12/19/2023 Penicillin G Rash Medium Penicillins Rash Medium 12/19/2023 Oxycodone-Acetaminophe n Other (See comments) Low 04/14/2019 Extreme sleepiness Tissue Adhesive Redness Low 06/13/2019 Medications vit D3-vit X-rumnwqcla-ym ps [id number] gssn-vpz-th-mg tablet Take by mouth Active dicyclomine (BENTYL) [...] (04/14/2019): Added automatically from request for surgery [id number] Long-term use of high-risk medication 03/14/2019 Assessment & Plan (03/14/2019 12:29 AM BOOKMOBILE DRIVER): Recent labs reviewed without sxs of toxicity Osteopenia 03/14/2019 Assessment & Plan (03/14/2019 12:30 AM BOOKMOBILE DRIVER): Lifestyle modifications are important for the prevention [...] 03/14/2019 Assessment & Plan (03/14/2019 12:29 AM BOOKMOBILE DRIVER): Hopefully you can develop an exercise regimen [...] (02/03/2019): Added automatically from request for surgery [id number] Assessment & Plan (03/14/2019 12:31 AM BOOKMOBILE DRIVER): Scheduled for RTKR tomorrow with Dr. Gaines. Medications on hold. May resume same 2 weeks after surgery if healing as expected. Right ear pain 01/20/2019 DNS (deviated nasal septum) 05/02/2018 Maxillary sinusitis 04/19/2017 Assessment & Plan (04/19/2017 1:01 PM BOOKMOBILE DRIVER): Doxycycline #20 sent to pharmacy. Pt does not want to get surgeries done that ENT has recommended at this time. Lung nodule 01/11/2017 Overview (01/11/2017): Diagnosed 01/11/[address] 6mm nodule left lung base. Assessment & Plan (04/19/2017 3:49 PM BOOKMOBILE DRIVER): noncontrast CT scan of chest to be done in early June already ordered. Will have MA contact patient to make sure she has scheduled this. Assessment & Plan (01/11/2017 2:33 PM CDT): 6mm nodule L lung base. Repeat noncontrast chest CT ordered, told patient to schedule June 2017. Microscopic hematuria 01/11/2017 Assessment & Plan (04/19/2017 12:58 PM BOOKMOBILE DRIVER): S/p evaluation by urology. Assessment & Plan (01/11/2017 11:39 PM CDT): CT scan abd / pelvis without stones. Continue urology eval. BMI 29.0-29.9,adult 11/28/2016 Assessment & Plan (04/19/2017 11:33 AM BOOKMOBILE DRIVER): BMI Follow-up includes: nutrition counseling, exercise counseling [...] Breast cancer screening: No longer going to cashier and waiter/waitress 2/2 hysterectomy. Cervical cancer screening: No longer going to cashier and waiter/waitress due to hysterectomy. Osteoporosis screening: As above Vaccinations: Influenza: Gets yearly. Pneumonia: 2012 Prevnar 13: At 66 Shingles: not indicated Tetanus: 07/11/13 Bleeding from the nose 11/28/2016 Assessment & Plan (11/28/2016 11:37 AM CDT): Will give [facility] ph # for her to see physician she saw a few years ago at [facility]. Age-related osteoporosis wit hout current pathological fracture 11/28/2016 Assessment & Plan (11/28/2016 11:38 PM CDT): Prolia today. Check Vitamin D. Due for bone density, ordered today. Memory loss 11/28/2016 Assessment & Plan (04/19/2017 1:00 PM BOOKMOBILE DRIVER): No improvement by decreasing amitriptyline. Will try [...] refer to memory and aging department at [facility] for more detailed evaluation. Prediabetes 11/28/2016 Assessment & Plan (04/19/2017 12:58 PM BOOKMOBILE DRIVER): Reassess Osteoporosis 11/28/2016 Assessment & Plan (04/19/2017 3:40 PM BOOKMOBILE DRIVER): Prolia today Knee pain 08/08/2016 Overview (09/15/2016): Right knee pain, unspecified chronicity Arthralgia of hip 08/08/2016 Overview (09/15/2016): Pain of right hip joint Peptic ulcer 09/16/2015 Overview (07/28/2016): Peptic ulcer disease Rheumatoid arthritis of [facility] [place] [facility] with negative rheumatoid factor 09/16/2015 Overview (07/28/2016): RHEUMATOID ARTHRITIS Assessment & Plan (03/14/2019 12:34 AM BOOKMOBILE DRIVER): RA clinically stable. Scheduled for RTKR tomorrow [...] Dyslipidemia Assessment & Plan (04/19/2017 1:00 PM BOOKMOBILE DRIVER): Reassess when she is feeling better. Discussed [...] Immunization Administration Dates Next Due COVID-19 mRNA ([facility]) 0.3 m L (30 mcg) vaccine (12 [...] Preservative Free, Intradermal 03/12/2015 Influenza, Unspecified 02/09/2023 [employer] SARS-CoV-2 Monovalent Vaccination (12+ Yrs) PURPLE 10/09/2022,06/24/2020,06/05/2020 [...] on file Legal Sex Female 1:48 AM BOOKMOBILE DRIVER Gender Identity Not on file Sexual Orientation [...] on file Medical Devices Implanted Type Area Blanket Inspector Device Identifier Shelf Expiration Date Model / Serial / Lot [employer] 3122-040 Smartset Medium Viscosity Cement 40gm Bone Sterile - Sn/A - [id number] Implanted:Qty: 1 on 03/13/2019 by Jose Gaines MD at [facility] Other - see comments Right: Knee [employer] 06/20/2020 3122-040 / N/A / [id number] [employer] [id number] Smartset Medium Viscosity Cement 40gm Bone Gentamicin - Sn/A - [id number] Implanted:Qty: 1 on 03/13/2019 by Jose Gaines MD at [facility] Other - see comments Right: Knee [employer] 06/20/2020 [id number] / N/A / [id number] [employer]/O rtho [id number] Joanne Ii Base Right Total Knee 5 Baseplate Tibial Nonporous - Sn/A - [id number] Implanted:Qty: 1 on 03/13/2019 by Jose Gaines MD at [facility] Other - see comments Right: Knee [employer]/ Ortho [id number] 12/10/2028 [id number] / N/A / [id number] [employer]/O rtho [id number] Joanne Ii Legion Spc Cruciate Retain Knee Right 7 Component - Sn/A - [id number] Implanted:Qty: 1 on 03/13/2019 by Jose Gaines MD at [facility] Other - see comments Right: Knee [employer]/ Ortho [id number] 11/23/2028 [id number] / N/A / [id number] [employer]/O rtho [id number] Legion 12mm Cruciate Retaining High Flexion Knee 5-6 Insert - Sn/A - [id number] Implanted:Qty: 1 on 03/13/2019 by Jose Gaines MD at [facility] Other - see comments Right: Knee [employer]/ Ortho [id number] 03/22/2026 [id number] / N/A / [id number] Nasal Plug Nose Procedures Procedure Name Priority [...] BLOOD ORDERABLES Final Result Performing Organization Address City/[facility]/ZIP Co de Phone Number [facility] [address] [facility] [place] [address] * Erythrocyte sedimentation rate (11/05/2024 3:22 PM CDT) Pathologist [facility] Erythrocyte sedimentation rate 20 1 - 30 mm/hr Blood 11/05/2024 3:22 PM CDT 11/05/2024 6:22 PM CDT Lidia Srinivasan MD LAB BLOOD ORDERABLES Final Result Performing Organization Address [facility] Co de Phone Number [facility] [address] [facility] [place] [address] * (ABNORMAL) CBC without differential (11/05/2024 3:22 PM CDT) Pathologist [facility] WBC 7.59 3.80 - 9.90 K/cumm Hgb 12.8 11.9 - 15.5 g/dL [facility] Hct 40.1 35.6 - 45.5 % [facility] Plt 186 150 - 400 K/cumm [facility] MPV 12.0 9.1 - 12.3 fL [facility] RBC 4.29 3.90 - 5.20 M/cumm [facility] MCV 93.5 81.3 - 96.4 fL [facility] MCH 29.8 27.1 - 33.3 pg [facility] MCHC 31.9(L) 32.3 - 35.7 g/dL [facility] RDW CV 15.9(H) 11.1 - 14.9 % [facility] RDW SD 53.7(H) 35.7 - 48.1 fL [facility] NRBC abs 0.00 0.00 - 0.01 K/cumm [facility] Blood 11/05/2024 3:22 PM CDT 11/05/2024 6:22 PM CDT Lidia Srinivasan MD LAB BLOOD ORDERABLES Final Result [facility] [address] Department [place] [address] * (ABNORMAL) Comprehensive metabolic panel (11/05/2024 3:22 PM CDT) Sodium 142 135 - 145 mmol/L Potassium, pl 4.0 3.3 - 4.9 mmol/L [facility] Chloride 107 97 - 110 mmol/L [facility] CO2 23 22 - 32 mmol/L [facility] Anion gap 12 2 - 15 mmol/L [facility] BUN 16 6 - 25 mg/dL [facility] Creatinine 0.54(L) 0.60 - 1.10 mg/dL [facility] Glucose 91 70 - 199 mg/dL [facility] Comment: Interpretive Data Fasting glucose [...] 2022. Calcium 9.9 8.5 - 10.3 mg/dL [facility] Bilirubin, total 0.4 0.1 - 1.2 mg/dL [facility] Protein, pl 6.7 6.5 - 8.5 g/dL [facility] Albumin 4.1 3.5 - 5.0 g/dL [facility] Alk phos 109 40 - 130 Units/L [facility] ALT 29 7 - 45 Units/L [facility] AST 26 10 - 45 Units/L [facility] Blood 11/05/2024 3:22 PM CDT 11/05/2024 6:22 PM CDT us Lidia Srinivasan MD LAB BLOOD ORDERABLES Final Result [facility] [address] Department [place] [address] * XR Foot Left 3 or More [...] Bone mineral density was performed on a HoloTalasim Discovery Densitometer. Based on machine cross-calibration and [...] mineral density scan were prepared by Lisa Reilly)([facility])who is accredited by the International Society of Clinical Densitometry. The overall patient assessment and scan interpretation were performed by Marva Napier M.D.who is certified by the International Society of Clinical Densitometry. [id number] Juan Dent MD [facility] DXA PROCEDURES F inal Result * Screening Mammogram (11/29/2015 12:50 PM CDT) Anatomical Region Laterality Modality Breast N/A Mammography 11/29/2015 12:5 0 PM CDT Narrative 12/01/2015 4:10 PM CDT ROBERTO BECK M.D. FINAL REPORT ACC# Date Time Exam [id number] Nov 29, 2015 12:50:00 WMM [id number] Screening Mamm Bilat 2v Technologist(s): Iveth Martínez; ; EXAMINATION: Mammogram Technique: Bilateral Full-Field Digital Screening Mammogram was performed. Views obtained: bilateral craniocaudal and bilateral mediolateral oblique. Computer Aided Detection was performed with [employer] 1.3 version 9.3. Mammogram Findings: The present examination has been compared to prior imaging studies performed at [facility] on 09/28/2014, 07/11/2013 and 07/27/2011. There [...] imaging evaluation. Requested By: Dictated By: ROBERTO BCEK M.D. on Dec 01 2015 4:10P This document has been electronically signed by: ROBERTO BECK M.D. on Dec 01 2015 4:10P [id number] Procedure Note Provider, MD Cherry - 08/19/2016 ROBERTO BECK M.D. FINAL REPORT ACC# Date Time Exam [id number] Nov 29, 2015 12:50:00 WMM [id number] Screening Mamm Bilat 2v Technologist(s): Iveth Martínez; ; EXAMINATION: Mammogram Technique: Bilateral Full-Field Digital Screening Mammogram was performed. Views obtained: bilateral craniocaudal and bilateral mediolateral oblique. Computer Aided Detection was performed with [employer] 1.3 version 9.3. Mammogram Findings: The present examination has been compared to prior imaging studies performed at [facility] on 09/28/2014, 07/11/2013 and 07/27/2011. There [...] BECK M.D. on Dec 01 2015 4:10P [id number] Historical Provider MD [facility] MAMMO PROCEDURES Iva l Result from Last 3 Months or Most Recently Relevant to Health Maintenance Insurance [employer] MEDICARE AETNA MEDICARE [address] [place] [id number] AET MEDICARE Advance Directives For more information, please contact: [phone] * Full Code (Latest Code Status on File) Date Activated Date Inactivated Comments 04/14/2019 8:36 PM 04/15/2019 6:03 PM * Full Code Date Activated Date Inactivated Comments 03/13/2019 11:11 AM 03/14/2019 5:37 PM Care Teams Central Supply Technician Supervisor Relationship Specialty Start Date End Date Tico Mars MD [address] [place] [address] PCP - General Internal Medicine 01/14/18
--- OUTSIDE RECORDS SUMMARY | 2024-11-10 15:19 | XMS_ITS | Encounter Summary ---
Author Organization [facility] Address [address] [place] [address] Care Team Providers Care Copywriter Name Role Phone Iain Lowery MD Primary Care Provider [phone] Encounter Details Date Type Department Care Team (Late st Contact Info) Description 12/18/2006 Outpatient Historical [facility] Social History Tobacco Use Types Packs/Day Years Used Date Smoking Tobacco: Never Assessed Comments Unknown Sex and Gender Information Value Date Recorded Sex Assigned at Not on file Legal Sex Female 4:26 AM FINISHING PAN OPERATOR Gender Identity Not on file Sexual Orientation Not on file documented as of this encounter Plan of Treatment Not on file documented as of this encounter Visit Diagnoses Not on filedocumented in this encounter Care Teams Copywriter Relationship Specialty Start Date End Date Iain Lowery MD [address] [address] PCP - General 11/16/06 documented as of this encounter
[2024-11-10 15:55] LABS: Hematocrit 39.2 % (37.0-47.0); Hemoglobin 12.6 g/dL (12.0-15.0); Mean Corpuscular HGB Conc 32.1 g/dl (32-36); Mean Corpuscular Hemoglobin 30.3 pg (26-34); Mean Corpuscular Volume 94.2 fl (80-100); Platelet Count Result 208 k/mm3 (150-375); Red Blood Count 4.16 M/mm3 (4.2-5.4); White Blood Count 7.5 K/mm3 (4.5-10.0)
[2024-11-10 16:13] LABS: Iron 71 ug/dL (37-170)
[2024-11-10 16:22] LABS: Percent Iron Saturation 24 % (20-50)
== END 2024-11-10 15:14 | disposition home or self-care (01) ==
PROVIDERS: PCP Internal Medicine; Visit Provider Nurse Practitioner Family
DX: M06.9 Rheumatoid arthritis, unspecified (principal); R53.83 Other fatigue; Z51.81 Encounter for therapeutic drug level monitoring; Z79.899 Other long term (current) drug therapy
CPT/HCPCS: 36415; 83540; 83550; 85027

== ENCOUNTER 2024-11-19 08:17 | Outpatient (NON) | payer MEDICARE, SELFPAY ==
--- OUTSIDE RECORDS SUMMARY | 2024-11-19 08:27 | XMS_ITS | Clinical Summary ---
Author Organization [facility] Address [address] [place] [address] Phone Care Team Providers Care Bottle Carrier Name Role Phone Toribio Pinedo MD Unavailable Geri Nath MD Unavailable [phone] Tori Piendo APRN, VARITYPE OPERATOR Unavailable Tico Mars MD Primary Care Provider [...] Varenicline Tartrate (Tyrvaya) 0.03 MG/ACT Solution 1 [place] by Nasal route every 12 hours. Active Multivitamin- Minerals (Hair Skin & Nails Advanced) Tablet Hair Skin & Nails Ac tive Misc. Devices Misc Lightweight wheelchair-1 DX- Impaired gait/mobility (M06.89); Rheumatoid arthritis (M06.89) 1 Each 01/21/20 24 Active colestipol (Colestid) 1 GM Tablet Take 1 g by mouth 2 times daily. Active buPROPion (WELLBUTRIN) 300 MG TABLET SR 24 HR XL tablet Take 300 mg by mouth every morning. Active propranolol (INDERAL) 10 MG Tablet Take 10 mg by mouth 2 times daily. Active amLODIPine (NORVASC) 5 MG Tablet TAKE 1 TABLET BY MOUTH EVERY DAY 90 Tablet 09/13/19 25 Active DULoxetine (CYMBALTA) [address] Particles take 1 capsule by mouth every day for 90 days 10/14/19 25 Active omeprazole (PriLOSEC) 40 MG CAPSULE DELAYED RELEASE TAKE 1 CAPSULE DAILY IN THE MORNING ON EMPTY STOMACH AND WAIT 15 MINUTES TO EAT OR DRINK Active predniSONE (DELTASONE) 5 MG Tablet TAKE 1 TABLET BY MOUTH EVERY DAY 90 Tablet 11/18/19 25 Active predniSONE (DELTASONE) 5 MG Tablet TAKE 1 TABLET BY MOUTH EVERY DAY 90 Tablet 08/22/19 25 2024 Discontinued Active Problems Problem Noted Date [...] Encounters Date Type Department Care Team Description 11/18/2024 [facility]phone [facility] [place] [address] [place] [address] Tori Pinedo APRN, VARITYPE OPERATOR 11/17/2024 [facility] [address] [place] [address] Tico Mars MD Medication Refill 11/04/2024 2:30 PM CDT [facility] [place] [address] [place] [phone] Tori Pinedo APRN, VARITYPE OPERATOR Irritable bowel syndrome with both constipation and diarrhea (Primary Dx); Diarrhea, unspecified type Discharge Disposition: Discharged to home or Selfcare 11/04/2024 [facility] [place] [address] Tori Pinedo APRN, VARITYPE OPERATOR 11/04/2024 Travel 11/02/2024 Refill [facility] [place] [phone] Tori Pinedo APRN, VARITYPE OPERATOR Medication Refill 09/23/2024 [facility]phone [facility] [address] [place] [address] Tico Mars MD 09/12/2024 [facility] [address] [place] [phone] Tico Mars MD Medication Refill 08/27/2024 11:15 AM CDT [facility] [address] [place] [phone] Tico Mars MD Essential hypertension, benign (Primary Dx); Chronic diarrhea; Hyperglycemia; Other specified rheumatoid arthritis, multiple sites (HCC) Discharge Disposition: Discharged to home or Selfcare 08/27/2024 Results Follow-Up [facility] [address] [place] [address] Tico Mars MD POCT GLUCOSE 08/27/2024 Travel 08/21/2024 Refill [facility] [address] [place] [address] Tico Mars MD Medication Refill from [...] Valent 2 Pneumococcal conjugate PCV20 , polysaccharide BXV300 conjugate, adjuvant, PF 03/13/2023 RSV, Recombinant, Protein [...] drink = 0.6 oz pur e alcohol) [facility] Utilities Answer Date Recorded In the past 12 months has th e [employer], gas, oil, or water [employer] threatened to shut off services in your home? No 05/30/2024 Social Connection and Isolation Panel Answer Date Recorded In a typical week, how many times do you talk on the phone with family, friends, or neighbors? Once a week 05/30/2024 How often do you get togethe r with friends or relatives? Once a week 05/30/2024 How often do you attend [facility] or hoahaoism services? 1 to 4 times per year 05/30/2024 Do you belong to any clubs o r organizations such as rastafarian groups, unions, fraternal or athletic groups, or [...] Score - Questions 1-9 0 05/0 10/2024 [facility] of Occupat ional Health - Occupational Stress [...] place to sleep or slept in a alf (including now)? Patient unable to answer 05/24/2023 [...] in the past 12 m [facility], were you homeless or living in a alf (including now)? No 05/30/2024 Sexually Active Control [...] Care Team (Late st Contact Info) Description 03/03/2025 2:00 PM OIL FIELD EQUIPMENT MECHANIC SUPERVISOR Office Visit [facility] [place] [address] [place] [phone] Tico Mars MD [address] [place] [address] Health Maintenance Due Date Last Done Comments [...] Procedure Name Priority Date/Time Associated Diagnosis Comments EXTERNAL GASTROENTEROLOGY REFERRAL Routine 11/10/2024 12:00 AM CDT IRON,TRANSFERN,CALC.TIBC ,%SAT 11/10/2024 12:00 AM CDT COMPLETE BLOOD COUNT (CBC) WITH DIFF 11/10/2024 12:00 AM CDT POCT GLUCOSE Routine 08/27/2024 11:34 AM CDT Hyperglycemia [facility] BONE DENSITOMETRY AXIAL SKELETON Routine 02/07/2024 1:21 PM CDT Screening for osteoporosis [facility] SCREENING BILATERAL DIGITAL W CAD W CHELY Routine 01/28/2024 12:28 PM CDT Encounter for screening mammogram for breast cancer from Last 3 Months or Most Recently Relevant to Health Maintenance Results * IRON,TRANSFERN,CALC.TIBC,%SAT (11/10/2024 12:00 AM CDT) 11/10/2024 us Provider Scan CHEMISTRY ORDERABLES Final Resul t SCAN * EXTERNAL GASTROENTEROLOGY REFERRAL (11/10/2024 12:00 AM CDT) 11/10/2024 Tico Mars MD OUTPT REFERRALS EXT/INT Fin al Result SCAN * COMPLETE BLOOD COUNT (CBC) WITH DIFF (11/10/2024 12:00 AM CDT) 11/10/2024 Provider Scan HEMATOLOGY ORDERABLES Final Resu lt SCAN * (ABNORMAL) POCT GLUCOSE (08/27/2024 11:34 AM CDT) GLUCOSE 105(A) 70 - 99 mg/dL 08/27/2024 11:3 4 AM CDT Result [facility] Tico Mars MD POINT OF CARE TESTING (MANU AL) Final Result * ELLIE BONE DENSITOMETRY AXIAL SKELETON (02/07/2024 1:21 PM [...] Narrative 02/07/2024 4:38 PM CDT EXAM DESCRIPTION: [facility] BONE DENSITOMETRY AXIAL SKELETON REASON FOR STUDY: 68 y/o year old F with given history of: Post menopausal status. History glucocorticoid use and rheumatoid arthritis. 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 TW: TW Report ID: [id number] Reading Location: [id number] Procedure Note Minerva Avitia MD - 02/07/2024 EXAM DESCRIPTION: [facility] BONE DENSITOMETRY AXIAL SKELETON REASON FOR STUDY: 68 y/o year old F with given history of: Post menopausal status. History glucocorticoid use and rheumatoid arthritis. 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 TW: TW Report ID: [id number] Reading Location: [place] [address] IMPRESSION: Osteoporosis. REFERENCE: Bone mineral density: T-Score: [...] copy. Current study was also evaluated with Soundvamp version 7.2. 2D digital mammographic views, as [...] dated: 10/05/2022, 09/30/2021, 03/07/2021, 08/24/2020, and [facility] BREAST TISSUE:There are scattered areas of fibroglandular [...] exam. Electronically signed by: Luis naranjo/raul:01/28/2024 16:57:24 Director Student Union(s): RT Willie(R)(M), [facility] letter sent: Normal Exam Reading location: [place] [...] dated: 10/05/2022, 09/30/2021, 03/07/2021, 08/24/2020, and 08/11/2020 [facility]. BREAST TISSUE:There are scattered areas of fibroglandular [...] exam. Electronically signed by: Luis naranjo/raul:01/28/2024 16:57:24 Director Student Union(s): RT Willie(R)(M), [facility] letter sent: Normal Exam Reading location: [place] Mammogram BI-RADS: Category 1: Negative Tico Mars MD IMG MAMMO ORDERABLES Final Result from Last 3 Months or Most Recently Relevant to Health Maintenance Insurance MEDICARE C [employer] Care Teams Bottle Carrier Relationship Specialty Start Date End Date Tico Mars MD [address] [place] [address] PCP - General Internal Medicine 03/03/24 Toribio Pinedo MD [address] [place] [address] Consulting Physician Colon and Rectal Surgery 05/17/22 Geri Nath MD [address] [place] [id number] Consulting Physician Gastroenterology 06/29/22 Tori Pinedo APRN, VARITYPE OPERATOR [address] [place] [address] Nurse Practitioner Advanced Practice Nurse 01/04/24
--- OUTSIDE RECORDS SUMMARY | 2024-11-19 08:27 | XMS_ITS | Encounter Summary ---
Author Organization [facility] Address [address] [place] [address] Phone Care Team Providers Care Poultry Debeaker Name Role Phone Tico Mars MD Primary Care Provider Toribio Pinedo MD Unavailable Geri Nath MD Unavailable [phone] Tori Pinedo APRN, SEED LABORATORY ASSISTANT Unavailable Sandi Hicks SHELL WORKER Unavailable Unavailab Lidia Cabrera MD Primary Care Provide r Tico Mars MD Primary Care Provider Reason for Visit * Reason Comments Medication Refill Encounter Details Date Type Department Care Team (Late st Contact Info) Description 08/19/2023 Refill [facility] - [place] [address] [place] [address] Tico Mars MD [address] [place] [address] Medication Refill Social History Tobacco Use Types Packs/Day Years Used Date Smoking Tobacco: Never Passive Smoke Exposure: Never Smokeless Tobacco: Never Alcohol Use Standard Drinks/Week Comments Not Currently 0 (1 standard drink = 0.6 oz pur e alcohol) [facility] Utilities Answer Date Recorded In the past 12 months has th e electric, gas, oil, or water [employer] threatened to shut off services in your [...] attend [facility] or mosque services? Patient unable to answer 05/24/2023 Do you belong to any clubs o r organizations such as caodaism groups, unions, fraternal or athletic groups, or [...] Score - Questions 1-9 0 05/0 04/2023 [facility] of Occupat ional Health - Occupational [...] place to sleep or slept in a care home (including now)? Patient unable to answer [...] AM CDT Medication(s) [facility] Refill Standing Order [...] Visit Tico Mars MD [facility] 11/07/22 Office Visit Tico Mars MD [facility] Showing recent visits within past 365 days and meeting all other requirements Future Appointments Date Type Provider Dept 08/22/23 Appointment Tico Mars MD [facility] Showing future appointments within next 90 days and meeting all other requirements documented in this encounter Plan of Treatment Upcoming Encounters Date Type Department Care Team (Late st Contact Info) Description 03/03/2025 2:00 PM BOW MAKING MACHINE OPERATOR [facility] [place] [address] [place] [address] Tico Mars MD [address] [place] [address] documented as of this encounter Visit Diagnoses Not on filedocumented in this encounter Additional Health Concerns Assessment Noted Time PHQ-9 Depression Total Score: 0 05/24/19 9:59 AM BOW MAKING MACHINE OPERATOR documented as of this encounter Care Teams Poultry Debeaker Relationship Specialty Start Date End Date Tico Mars MD [address] [place] [address] PCP - General Internal Medicine 03/18/18 02/06/24 Lidia Srinivasan MD [address] [place] [address] PCP - General Rheumatology 02/07/24 03/02/24 Tico Mars MD [address] [place] [address] PCP - General Internal Medicine 03/03/24 Toribio Pinedo MD [address] [address] Consulting Physician Colon and Rectal Surgery 05/17/22 Geri Nath MD [address] [place] [address] Consulting Physician Gastroenterology 06/29/22 Tori Pinedo APRN, SEED LABORATORY ASSISTANT [address] [place] [address] Nurse Practitioner Advanced Practice Nurse 01/04/24 Sandi Hicks LSW [place] Kaitara Taraka Rubberizing Mechanic 01/24/24 02/01/24 documented as of this encounter
--- OUTSIDE RECORDS SUMMARY | 2024-11-19 08:27 | XMS_ITS | Encounter Summary ---
Author Organization [facility] Address [address] [place] [address] Phone Care Team Providers Care Division Order Technician Name Role Phone Toribio Pinedo MD Unavailable Geri Nath MD Unavailable [phone] Tori Pinedo APRN, SOUND RECORDING TECHNICIAN Unavailable Tico Mars MD Primary Care Provider [phone] Encounter Details Date Type Department Care Team (Late st Contact Info) Description 11/18/2024 Telephone [facility] [place] [address] [place] [address] Tori Pinedo APRN, SOUND RECORDING TECHNICIAN [address] [place] [address] Social History Tobacco Use Types Packs/Day Years Used Date Smoking Tobacco: Never Passive Smoke Exposure: Never Smokeless Tobacco: Never Alcohol Use Standard Drinks/Week Comments Not Currently 0 (1 standard drink = 0.6 oz pur e alcohol) [facility] Utilities Answer Date Recorded In the past 12 months has e electric, gas, oil, or water company threatened [...] often do you attend chur ch or episcopal services? 1 to 4 times per year [...] Score - Questions 1-9 0 05/0 10/2024 [facility] of Occupat ional Health - Occupational Stress [...] any time in the past 12 m [facility], were you homeless or living in [...] encounter Miscellaneous Notes * Telephone Encounter - Bassam Herrera CMA - 11/18/2024 11:17 AM CDT error documented in this encounter Plan of Treatment Upcoming Encounters Date Type Department Care Team (Late st Contact Info) Description 03/03/2025 2:00 PM CHECK AIRMAN Office Visit [facility] - [place] [address] [place] [address] Tico Mars MD [address] [place] [address] documented as of this encounter Visit Diagnoses Not on filedocumented in this encounter Additional Health Concerns Assessment Noted Time PHQ-9 Depression Total Score: 0 08/28/19 25 7:24 AM CDT documented as of this encounter Care Teams Division Order Technician Relationship Specialty Start Date End Date Tico Mars MD [address] [place] [address] PCP - General Internal Medicine 03/03/24 Toribio Pinedo MD [address] [address] Consulting Physician Colon and Rectal Surgery 05/17/22 Geri Nath MD [address]2 [place] [address] Consulting Physician Gastroenterology 06/29/22 Tori Pinedo APRN, SOUND RECORDING TECHNICIAN [address] [place] [address] Nurse Practitioner Advanced Practice Nurse 01/04/24 documented as of this encounter
--- OUTSIDE RECORDS SUMMARY | 2024-11-19 08:27 | XMS_ITS | Clinical Summary ---
Author Organization Formerly [facility] Address [address] [place] [address] Care Team Providers Care Reverse Unit Operator Fisherman Name Role Phone Tico aMrs MD Primary Care Provider [phone] Allergies Active Allergy Reactions Criticality Noted Date Comments Cefdinir Swelling Medium 09/03/2018 Fluticasone Itching Low 01/20/2019 Latex Blisters High 04/14/2019 Lifitegrast Unknown 12/19/2023 Penicillin G Rash Medium Penicillins Rash Medium 12/19/2023 Oxycodone-Acetaminophe n Other (See comments) Low 04/14/2019 Extreme sleepiness Tissue Adhesive Redness Low 06/13/2019 Medications vit D3-vit W-usagsksnj-u ops [id number] [phone] wnet-jvg-bh-m g tablet Take by mouth Active dicyclomine (BENTYL) 10 mg capsule Take 1 capsule (10 mg total) by mouth daily 06/16/19 21 Active Besivance 0.6 % drops,suspens ion 3 (three) times a day 06/17/19 22 [...] Miebo 100 % drops 07/09/19 24 Active tobramycin-de xAMETHasone (TOBRADEX) ophthalmic solution USE 1 DROP INTO [...] (two) times a day 12/12/19 24 Active buPROPion XL (WELLBUTRIN XL) 300 mg 24 hr tablet 1 tablet in the morning Orally Once a day for 90 days Active Tyrvaya 0.03 mg/spray spray, metered, non-aerosol SPRAY 1 SPRAY PER NOSTRIL TWICE A DAY 03/24/20 24 Active predniSONE (DELTASONE) 5 mg tablet TAKE 1 TABLET BY MOUTH EVERY DAY 30 tablet 2 05/26/19 25 Active methotrexate 2.5 mg tablet TAKE 6 TABLETS BY MOUTH EVERY 7 DAYS. 72 tablet 2 06/16/19 25 Active leflunomide (ARAVA) 20 mg tablet TAKE 1 TABLET BY MOUTH EVERY DAY 90 tablet 1 07/18/19 25 Active busPIRone (BUSPAR) 5 mg tablet Take 1 tablet (5 mg total) by mouth 3 (three) times a day 08/05/19 25 Active omeprazole (PriLOSEC) 40 mg capsule TAKE 1 CAPSULE EVERY DAY AM ON EMPTY STOMACH AND WAIT 15 MINUTES TO EAT OR DRINK 06/17/19 25 Active vit-iron fum-folic ac ( Vitamin) 27 mg iron- 800 mcg tablet Take by mouth daily Active folic acid (FOLVITE) 1 mg tablet TAKE 1 TABLET BY MOUTH EVERY DAY 90 tablet 3 09/14/19 25 Active ascorbic acid/vitamin E/biotin (HAIR, SKIN, NAILS WITH BIOTIN ORAL) Hair Skin & Nails Active pseudoephedri ne ER (SUDAFED) 120 mg 12 hr tablet Take 1 tablet (120 mg total) by mouth every 12 (twelve) hours Active fluorometholo ne (FML Forte) 0.25 % ophthalmic suspension Administer 1 drop into affected eye(s) every 12 hours 06/19/19 25 Active Humira,CF, Pen 40 mg/0.4 mL pen injector kit INJECT 1 PEN SUBCUTANEOUSLY EVERY OTHER WEEK 2 each 2 11/20/19 25 Active Humira,CF, Pen 40 mg/0.4 mL pen injector kit INJECT 1 PEN SUBCUTANEOUSLY EVERY OTHER WEEK 2 each 2 08/27/19 25 2024 Discontinued Active Problems Problem Noted [...] (04/14/2019): Added automatically from request for surgery [id number] Long-term use of high-risk medication 03/14/2019 Assessment & Plan (03/14/2019 12:29 AM DEPENDENCY COUNSELOR): Recent labs reviewed without sxs of toxicity Osteopenia 03/14/2019 Assessment & Plan (03/14/2019 12:30 AM DEPENDENCY COUNSELOR): Lifestyle modifications are important for the prevention [...] 03/14/2019 Assessment & Plan (03/14/2019 12:29 AM DEPENDENCY COUNSELOR): Hopefully you can develop an exercise regimen [...] (02/03/2019): Added automatically from request for surgery [id number] Assessment & Plan (03/14/2019 12:31 AM DEPENDENCY COUNSELOR): Scheduled for RTKR tomorrow with Dr. Gaines. Medications on hold. May resume same 2 weeks after surgery if healing as expected. Right ear pain 01/20/2019 DNS (deviated nasal septum) 05/02/2018 Maxillary sinusitis 04/19/2017 Assessment & Plan (04/19/2017 1:01 PM DEPENDENCY COUNSELOR): Doxycycline #20 sent to pharmacy. Pt does not want to get surgeries done that ENT has recommended at this time. Lung nodule 01/11/2017 Overview (01/11/2017): Diagnosed 01/11/[address] 6mm nodule left lung base. Assessment & Plan (04/19/2017 3:49 PM DEPENDENCY COUNSELOR): noncontrast CT scan of chest to be done in early June already ordered. Will have MA contact patient to make sure she has scheduled this. Assessment & Plan (01/11/2017 2:33 PM CDT): 6mm nodule L lung base. Repeat noncontrast chest CT ordered, told patient to schedule June 2017. Microscopic hematuria 01/11/2017 Assessment & Plan (04/19/2017 12:58 PM DEPENDENCY COUNSELOR): S/p evaluation by urology. Assessment & Plan (01/11/2017 11:39 PM CDT): CT scan abd / pelvis without stones. Continue urology eval. BMI 29.0-29.9,adult 11/28/2016 Assessment & Plan (04/19/2017 11:33 AM DEPENDENCY COUNSELOR): BMI Follow-up includes: nutrition counseling, exercise counseling [...] Breast cancer screening: No longer going to [facility] 2/2 hysterectomy. Cervical cancer screening: No longer going to [employer] [facility] due to hysterectomy. Osteoporosis screening: As above Vaccinations: Influenza: Gets yearly. Pneumonia: 2012 Prevnar 13: At 66 Shingles: not indicated Tetanus: 07/11/13 Bleeding from the nose 11/28/2016 Assessment & Plan (11/28/2016 11:37 AM CDT): Will give [facility] ph # for her to see physician she saw a few years ago at [facility]. Age-related osteoporosis wit hout current pathological fracture 11/28/2016 Assessment & Plan (11/28/2016 11:38 PM CDT): Prolia today. Check Vitamin D. Due for bone density, ordered today. Memory loss 11/28/2016 Assessment & Plan (04/19/2017 1:00 PM DEPENDENCY COUNSELOR): No improvement by decreasing amitriptyline. Will try [...] refer to memory and aging department at [facility] for more detailed evaluation. Prediabetes 11/28/2016 Assessment & Plan (04/19/2017 12:58 PM DEPENDENCY COUNSELOR): Reassess Osteoporosis 11/28/2016 Assessment & Plan (04/19/2017 3:40 PM DEPENDENCY COUNSELOR): Prolia today Knee pain 08/08/2016 Overview (09/15/2016): Right knee pain, unspecified chronicity Arthralgia of hip 08/08/2016 Overview (09/15/2016): Pain of right hip joint Peptic ulcer 09/16/2015 Overview (07/28/2016): Peptic ulcer disease Rheumatoid arthritis of [facility] with negative rheumatoid factor 09/16/2015 Overview (07/28/2016): RHEUMATOID ARTHRITIS Assessment & Plan (03/14/2019 12:34 AM DEPENDENCY COUNSELOR): RA clinically stable. Scheduled for RTKR tomorrow [...] Dyslipidemia Assessment & Plan (04/19/2017 1:00 PM DEPENDENCY COUNSELOR): Reassess when she is feeling better. Discussed [...] - 11/05/2024 11:59 PM CDT Hospital Encounter [facility] [address] [place] [id number] Discharge Disposition: Discharge to home or self care 11/05/2024 2:30 PM CDT Office Visit [facility] at [facility] [address] [facility] [address] [place] [id number] Lidia Srinivasan MD Rheumatoid arthritis of multiple sites with negative rheumatoid factor (HCC) (Primary Dx); Long-term use of high-risk medication; Chronic bilateral low back pain with sciatica, sciatica laterality unspecified 09/08/2024 1:15 PM CDT Office Visit [facility] [address] [place] [address] 6[address] [place] [address] [place] [address] Manjit Rangel MD Stress fracture of left fibula with routine healing, subsequent encounter (Primary Dx); Left ankle pain, unspecified chronicity 09/08/2024 1:04 PM CDT - 09/08/2024 11:59 PM CDT Hospital Encounter [facility] [address] [place] [id number] Stress fracture of left fibula with routine healing, subsequent encounter Discharge Disposition: Discharge to home or self care 09/05/2024 6:00 PM CDT Office Visit [facility] at [address] [address] Diana Montero, CRANE HELPER Herpes zoster without complication (Primary Dx) from Last 3 Months Immunizations Immunization Administration Dates Next Due COVID-19 mRNA ([employer] Urja) 0.3 m L (30 mcg) vaccine (12 [...] Preservative Free, Intradermal 03/12/2015 Influenza, Unspecified 02/09/2023 [facility] SARS-CoV-2 Monovalent Vaccination (12+ Yrs) PURPLE 10/09/2022,06/24/2020,06/05/2020 [...] on file Legal Sex Female 1:48 AM DEPENDENCY COUNSELOR Gender Identity Not on file Sexual Orientation [...] 06/01/2021, 02/02/2008 Medical Devices Implanted Type Area Labeling Machine Operator Device Identifier Shelf Expiration Date Model / Serial / Lot [employer] 3122-040 Smartset Medium Viscosity Cement 40gm Bone Sterile - Sn/A - [id number] Implanted:Qty: 1 on 03/13/2019 by Jose Gaines MD at [facility] Other - see comments Right: Knee [employer] 06/20/2020 3122-040 / N/A / [id number] [employer] [id number] Smartset Medium Viscosity Cement 40gm Bone Gentamicin - Sn/A - [id number] Implanted:Qty: 1 on 03/13/2019 by Jose Gaines MD at [facility] Other - see comments Right: Knee [employer] 06/20/2020 [id number] / N/A / [id number] [employer]/O rtho [id number] Joanne Ii Base Right Total Knee 5 Baseplate Tibial Nonporous - Sn/A - [id number] Implanted:Qty: 1 on 03/13/2019 by Jose Gaines MD at [facility] Other - see comments Right: Knee [employer]/ Ortho [id number] 12/10/2028 [id number] / N/A / [id number] [employer]/O rtho [id number] Joanne Ii Legion Spc Cruciate Retain Knee Right 7 Component - Sn/A - [id number] Implanted:Qty: 1 on 03/13/2019 by Jose Gaines MD at [facility] Other - see comments Right: Knee [employer]/ Ortho [id number] 11/23/2028 [id number] / N/A / [id number] [employer]/O rtho [id number] Legion 12mm Cruciate Retaining High Flexion Knee 5-6 Insert - Sn/A - [id number] Implanted:Qty: 1 on 03/13/2019 by Jose Gaines MD at [facility] Other - see comments Right: Knee [employer]/ Ortho [id number] 03/22/2026 [id number] / N/A / [id number] Nasal Plug Nose Procedures Procedure Name Priority [...] Inclusion of Race in Diagnosing Kidney Disease, KIELN 2020). The CKD-EPI equation should not be used for patients with unstable renal function and has not been validated in children and those over 70. Current interpretive data was last reviewed 2021. Blood 11/05/2024 3:22 PM CDT 11/05/2024 6:22 PM CDT Lidia Srinivasan MD LAB BLOOD ORDERABLES Final Result Performing Organization Address City/[facility]/ZIP Co de Phone Number [facility] [address] [facility] [place] [address] * Erythrocyte sedimentation rate (11/05/2024 3:22 PM CDT) Pathologist [facility] Erythrocyte sedimentation rate 20 1 - 30 mm/hr Blood 11/05/2024 3:22 PM CDT 11/05/2024 6:22 PM CDT Lidia Srinivasan MD LAB BLOOD ORDERABLES Final Result Performing Organization Address City/[facility] Co de Phone Number [facility] [address] [employer] [place] [address] * (ABNORMAL) CBC without differential (11/05/2024 3:22 PM CDT) Pathologist [facility] WBC 7.59 3.80 - 9.90 K/cumm Hgb 12.8 11.9 - 15.5 g/dL [facility] Hct 40.1 35.6 - 45.5 % [facility] Plt 186 150 - 400 K/cumm [facility] MPV 12.0 9.1 - 12.3 fL [facility] RBC 4.29 3.90 - 5.20 M/cumm [facility] MCV 93.5 81.3 - 96.4 fL [facility] MCH 29.8 27.1 - 33.3 pg [facility] MCHC 31.9(L) 32.3 - 35.7 g/dL [facility] RDW CV 15.9(H) 11.1 - 14.9 % [facility] RDW SD 53.7(H) 35.7 - 48.1 fL [facility] NRBC abs 0.00 0.00 - 0.01 K/cumm [facility] Blood 11/05/2024 3:22 PM CDT 11/05/2024 6:22 PM CDT Lidia Srinivasan MD LAB BLOOD ORDERABLES Final Result [facility] [address] Department [place] [address] * (ABNORMAL) Comprehensive metabolic panel (11/05/2024 3:22 PM CDT) Sodium 142 135 - 145 mmol/L Potassium, pl 4.0 3.3 - 4.9 mmol/L [facility] Chloride 107 97 - 110 mmol/L [facility] CO2 23 22 - 32 mmol/L [facility] Anion gap 12 2 - 15 mmol/L [facility] BUN 16 6 - 25 mg/dL [facility] Creatinine 0.54(L) 0.60 - 1.10 mg/dL [facility] Glucose 91 70 - 199 mg/dL [facility] Comment: Interpretive Data Fasting glucose >/= [...] 2022. Calcium 9.9 8.5 - 10.3 mg/dL [facility] Bilirubin, total 0.4 0.1 - 1.2 mg/dL [facility] Protein, pl 6.7 6.5 - 8.5 g/dL [facility] Albumin 4.1 3.5 - 5.0 g/dL [facility] Alk phos 109 40 - 130 Units/L [facility] ALT 29 7 - 45 Units/L [facility] AST 26 10 - 45 Units/L [facility] Blood 11/05/2024 3:22 PM CDT 11/05/2024 6:22 PM CDT us Lidia Srinivasan MD LAB BLOOD ORDERABLES Final Result [facility] [address] Department [place] [address] * XR Foot Left 3 or More Views (09/08/2024 1:17 PM CDT) Anatomical Region Laterality Modality Lower Extremities, Foot Left Computed Radiography 09/08/2024 2:13 PM CDT Impressions 09/08/2024 2:24 PM CDT 1. Chronic left distal fibular shaft fracture. Dictated by: Vanesa Cabrone MD PHD The radiology attending physician has [...] Bone mineral density was performed on a [employer] Discovery Densitometer. Based on machine cross-calibration and [...] by the International Society of Clinical Densitometry. [id number] us Juan Dent MD IMG DXA PROCEDURES F inal Result * Screening Mammogram (11/29/2015 12:50 PM CDT) Anatomical Region Laterality Modality Breast N/A Mammography 11/29/2015 12:5 0 PM CDT Narrative 12/01/2015 4:10 PM CDT ROBERTO BECK M.D. FINAL REPORT ACC# Date Time Exam [id number] Nov 29, 2015 12:50:00 WMM [id number] Screening Mamm Bilat 2v Technologist(s): Iveth Martínez; ; EXAMINATION: Mammogram Technique: Bilateral Full-Field Digital Screening Mammogram was performed. Views obtained: bilateral craniocaudal and bilateral mediolateral oblique. Computer Aided Detection was performed with [employer].3 version 9.3. Mammogram Findings: The present examination has been compared to prior imaging studies performed at [facility] on 09/28/2014, 07/11/2013 and 07/27/2011. There [...] BECK M.D. on Dec 01 2015 4:10P [id number] Procedure Note Provider, MD Cherry - 08/19/2016 ROBERTO BECK M.D. FINAL REPORT ACC# Date Time Exam [id number] Nov 29, 2015 12:50:00 WMM [id number] Screening Mamm Bilat 2v Technologist(s): Iveth Martínez; ; EXAMINATION: Mammogram Technique: Bilateral Full-Field Digital Screening Mammogram was performed. Views obtained: bilateral craniocaudal and bilateral mediolateral oblique. Computer Aided Detection was performed with [employer] 1.3 version 9.3. Mammogram Findings: The present examination has been compared to prior imaging studies performed at [facility] on 09/28/2014, 07/11/2013 and 07/27/2011. There [...] BECK M.D. on Dec 01 2015 4:10P [id number] Historical Provider MD LEHMAN MAMMO PROCEDURES Iva l Result from Last 3 Months or Most Recently Relevant to Health Maintenance Insurance AETNA MEDICARE AETNA MEDICARE [facility] MEDICARE Advance Directives For more information, please contact: [phone] * Full Code (Latest Code Status on File) Date Activated Date Inactivated Comments 04/14/2019 8:36 PM 04/15/2019 6:03 PM * Full Code Date Activated Date Inactivated Comments 03/13/2019 11:11 AM 03/14/2019 5:37 PM Care Teams Reverse Unit Operator Fisherman Relationship Specialty Start Date End Date Tico Mars MD [address] [address] PCP - General Internal Medicine 01/14/18
--- OUTSIDE RECORDS SUMMARY | 2024-11-19 08:27 | XMS_ITS | Patient Health Record ---
Author Organization [facility] [place] Address [address] [facility] [address] [place] [address] Care Team Providers Care Nuclear Scientist Name Role Phone Jerad CHRISTOPHER, [place] Primary Care Provider Edita Luong Unavailable [phone] Raymond Sauer Unavailable [phone] Paris Thenjuan Unavailable [phone] Jay Linda Unavailable [phone] Allergies Allergen (clinical drug ingredient) Drug/Non Drug [...] Oxazepam (BZO) Neg 0 - 300 ng/ml 4-nfeurhisxh-7,8-fzykycou-6,3-diphenylpyrrolidine (MICHAEL P) Neg 0 - 300 ng/ml Methamphetamine (MET) Neg 0 - 1000 ng/ml Methylenedioxymethamphetamine (MDMA) Neg 0 - 500 ng/ml Morphine (MOP 300/HRQ8654) Neg 0 - 300 ng/ml Methadone (MTD) [...] MG 1 tablet Orally Once a day chronis steroid treatment Active tiZANidine HCl 2 MG 1 capsule at bedtime as needed Orally Once a day Active Methotrexate take 6 tablets once a week Active Folic Acid 1 MG 1 tablet Orally Once a day Active Miebo Active DULoxetine HCl 30 MG 1 capsule Orally Once a day; Duration: 90 days 10/13/2024 Active Apple Cider Vinegar Active Propranolol HCl 10 MG 1 tablet Orally twice a day; Duration: 90 days Active buPROPion HCl ER (XL) 300 MG 1 tablet every morning Oral Once a day; Duration: 90 days Active Leflunomide 20 MG 1 tablet Orally Once a day Active Humira Pen 40 mg sub q twic e a month Active amLODIPine Besylate 5 MG 1 tablet Orally Once a day Active Active Hair Skin & Nails Ac tive Tyrvaya Active Social History Tobacco Use: Social History [...] Problem Status W/U Status Risk Notes Problem Severe recurrent major depression with psychotic features (28642696) Major depressive disorder, recurrent, 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) Active confirmed Problem Generalized anxiety disorder (68803663) TUCKER (generalized anxiety disorder) (F41.1) Active confirmed Problem Anxiety (80586907) Anxiety (F41.9) Active confirmed Vital Signs Heart Rate 77 /min 10/13/2024 Blood pressure diastolic 75 mm Hg 10/13/2024 Weight-kg 68.04 kg 10/13/2024 Blood pressure systolic 147 mm Hg 10/13/2024 Weight 150 lbs 10/13/2024 Encounters Encounter Location Date Provider Diagnosis [employer] [facility] [address] [place] [address] 11/28/2023 Jay Linda Major depressive disorder, recurrent, severe with psychotic symptoms F33.[address] [facility] [employer] [facility] [address] [place] [address] 12/12/2023 Jay Clubb Major depressive disorder, recurrent, severe with psychotic symptoms F33.[address] [facility] [employer] [facility] [address] [place] [address] 01/16/2024 Edita Kurilla Major depressive disorder, recurrent, severe with psychotic symptoms F33.3 and TUCKER (generalized anxiety disorder) F41.[address] [address] 02/15/2024 Edita Kurilla Major depressive disorder, recurrent, severe with psychotic symptoms F33.3 and TUCKER (generalized anxiety disorder) F41.[address] [address] 03/17/2024 Edita Kurilla Major depressive disorder, recurrent, severe with psychotic symptoms F33.3 and TUCKER (generalized anxiety disorder) F41.[address] [address] 05/05/2024 Edita Kurilla Major depressive disorder, recurrent, severe with psychotic symptoms F33.3 and TUCKER (generalized anxiety disorder) F41.[address] [address] 08/04/2024 Editatorrie Kennedy Encounter for screen ing for depression Z13.31 ; Major depressive disorder, recurrent, severe with psychotic symptoms F33.3 ; TUCKER (generalized anxiety disorder) F41.1 ; Encounter for screening for cardiovascular disorders Z13.6 and Dietary counseling and surveillance Z71.[address] [address] 09/03/2024 Edita Kurilla Major depressive disorder, recurrent, severe with psychotic symptoms F33.3 ; TUCKER (generalized anxiety disorder) F41.1 ; Encounter for screening for depression Z13.31 ; Benign essential HTN I10 ; Encounter for screening for cardiovascular disorders Z13.6 and Dietary counseling and surveillance Z71.[address] [address] 10/13/2024 Edita Kurilla Major depressive disorder, recurrent, severe with psychotic symptoms F33.3 ; TUCKER (generalized anxiety disorder) F41.1 ; Encounter for screening for cardiovascular disorders Z13.6 ; Encounter for screening for depression Z13.31 ; Benign essential HTN I10 and Dietary counseling and surveillance Z71.[address] [address] 10/13/2024 Raymond Sauer Major depressive disorder, recurrent severe without psychotic features F33.2 ; Generalized anxiety disorder F41.1 and Encounter for screening for depression Z13.31 [facility] [address] [place] [address] 10/28/2024 Raymond Sauer Major depressive disorder, recurrent severe without psychotic features F33.2 and Generalized anxiety disorder F41.1 [facility] [address] [facility] [address] [place] [address] 11/11/2024 Raymond Sauer Major depressive disorder, recurrent severe without psychotic features F33.2 and Generalized anxiety disorder F41.1 [facility] [address] [facility] [address] [place] [address] 10/16/[address] [facility] [address] [facility] [address] [place] [address] 10/28/[address] [facility] [address] [facility] [address] [place] [address] 11/28/2023 Terrance Toledo Major depressive disorder, recurrent, severe with psychotic symptoms F33.3 [facility] [address] [facility] [address] [place] [address] 09/03/2024 Edita Kennedy Assessments Encounter Date Diagnosis (ICD Code) Assessment [...] aripiprazole and overall mental health status 11/28/2023 Major depressive disorder, recurrent, severe with psychotic symptoms (ICD-10 - F33.3) 12/12/2023 Major depressive disorder, recurrent, severe with [...] services. a list of therapists in the [place] area was provided to the patient. 3. [...] If they persist please contact the office. 03/17/2024 Major depressive disorder, recurrent, severe with psychotic symptoms (ICD-10 - F33.3) 05/05/2024 Major depressive disorder, recurrent, severe with psychotic symptoms (ICD-10 - F33.3) 10/13/2024 Major depressive disorder, recurrent severe without psychotic features (ICD-10 - F33.2) 10/13/2024 Generalized anxiety disorder (ICD-10 - F41.1) 10/13/2024 Major depressive disorder, recurrent, severe with psychotic symptoms (ICD-10 - F33.3) 11/11/2024 Major depressive disorder, recurrent severe without psychotic features (ICD-10 - F33.2) 11/11/2024 Generalized anxiety disorder (ICD-10 - F41.1) 10/28/2024 Major depressive disorder, recurrent severe without psychotic features (ICD-10 - F33.2) 10/28/2024 Generalized anxiety disorder (ICD-10 - F41.1) 09/03/2024 Major depressive disorder, recurrent, severe with psychotic symptoms (ICD-10 - F33.3) 10/13/2024 TUCKER (generalized anxiety disorder) (ICD-10 - F41.1) 09/03/2024 TUCKER (generalized anxiety disorder) (ICD-10 - F41.1) 08/04/2024 Encounter for screening for depression (ICD-10 - Z13.31) 08/04/2024 Major depressive disorder, recurrent, severe with psychotic symptoms (ICD-10 - F33.3) 09/03/2024 Encounter for screening for depression (ICD-10 - Z13.31) 10/13/2024 Encounter for screening for cardiovascular disorders (ICD-10 - Z13.6) 05/05/2024 TUCKER (generalized anxiety disorder) (ICD-10 - F41.1) 03/17/2024 TUCKER (generalized anxiety disorder) (ICD-10 - [...] not found. Contact Pharmacy by other means 02/15/2024 TUCKER (generalized anxiety disorder) (ICD-10 - [...] services. a list of therapists in the [place] area was provided to the patient. 3. [...] about the interaction between propranolol and tizanidine 10/13/2024 Encounter for screening for depression (ICD-10 - Z13.31) 10/13/2024 Encounter for screening for depression (ICD-10 - Z13.31) 09/03/2024 Benign essential HTN (ICD-10 - I10) 08/04/2024 TUCKER (generalized anxiety disorder) (ICD-10 - F41.1) 08/04/2024 Encounter for screening for cardiovascular disorders (ICD-10 - Z13.6) 10/13/2024 Benign essential HTN (ICD-10 - I10) 09/03/2024 Encounter for screening for cardiovascular disorders (ICD-10 - Z13.6) 09/03/2024 Dietary counseling and surveillance (ICD-10 - Z71.3) 08/04/2024 Dietary counseling and surveillance (ICD-10 - Z71.3) 10/13/2024 Dietary counseling and surveillance (ICD-10 - Z71.3) 11/28/2023 Other Learning About Depression Screening material [...] and importance of compliance. 02/15/2024 Other Stop fluoxetine-cou ld be contributing to diarrhea. Appears to be responding well to Wellbutrin-inc rease to 300mg daily. Continue propranolol 10mg qHS [...] effects of psychotropic medications. -Crisis prevention hotline 988. 08/04/2024 Other Start Buspar 5mg TID for anxiety Patient educated on all medications including potential benefits, side effects, risks. Educated on proper dosing schedule and importance of compliance. referral to the local chapter or national office of the Alzheimer's Association (8-641-143-008 0; http://www.alz .org), the Alzheimer's Disease Education and Referral Center (ADEAR) (4-227-189-172 0; http://www.kvng .nih.gov/Alzhe imers/), -Assessment and treatment plan reviewed with patient. -Compliance with treatment plan importance discussed. -Discussed the risks/benefits of this medication -Discussed medication side effects. -Contact office if symptoms worsen. -Discussed that it can take up to 6-8 weeks to see full therapeutic effects of psychotropic medications. -Crisis prevention hotline 988. 09/03/2024 Other Discontinue Buspar per patient Continue all other medication for now, feels current symptoms are situational. Patient educated on all medications including potential benefits, side effects, risks. Educated on proper dosing schedule and importance of compliance. Referred to counseling -Assessment and treatment plan reviewed with patient. -Compliance with treatment plan importance discussed. -Discussed the risks/benefits of this medication -Discussed medication side effects. -Contact office if symptoms worsen. -Discussed that it can take up to 6-8 weeks to see full therapeutic effects of psychotropic medications. -Crisis prevention hotline 988. 10/13/2024 Other Start duloxetine 30mg daily for mood Patient educated on all medications including potential benefits, side effects, risks. Educated on proper dosing schedule and importance of compliance. Cont counseling with Raymond Jaramillo CECILE, needs 12 sessions of CBT per medicare requirements -Assessment and treatment plan reviewed with patient. -Compliance with treatment plan importance discussed. -Discussed the risks/benefits of this medication -Discussed medication side effects. -Contact office if symptoms worsen. -Discussed that it can take up to 6-8 weeks to see full therapeutic effects of psychotropic medications. -Crisis prevention hotline 988. 10/28/2024 Other Client participated in individual psychotherapy (CBT/Supportive ) related to her hx of depression and anxiety. Based on today's session continued psychotherapy is recommended wt no changes to treatmnent plan. Client presented to session well groomed and fully oriented with no risk of harm to self or others. Client verbal engaged and tearful throughout session. Reported upon presentation that she has been okay and about the same since last seen on 10.13.2024. Added however that she has some concerns about medication she is on and how it makes her feel in the mornings. Client encouraged to speak with Edita about her concerns during next appointment with. Focus of session on establishing rapport, building trust, issue(s) identification and her expectations from therapy. Client tearful as she spoke about feeling lost and being excluded from some of groups she had been involved in. Admitted that she has a high need to belong and is afraid of being alone. Further shared that she is afraid to ask reason for being excluded from group,[employer] group. Client further spoke about 34 year old son and relationship he has with her . Noted that she often feels caught in the middle of their conflict. Client receptive to session feedback. Next session in two weeks. 11/11/2024 Other Client participated in individual psychotherapy (CBT/Supportive ) related to her hx of depression and anxiety. Based on today's session continued psychotherapy is recommended [facility] no changes to treatmnent plan. Client presented to session well groomed and fully oriented with no risk of harm to self or others. Client verbal engaged and tearful throughout session. Reported upon presentation that she has been okay since last seen on 10.28.2024. Added that she has been taking her anti-depressant eariler in the evening due to having felt groggy the next day. Further shared that she has been trying harder to set boundaries with but struggles saying no due to how it makes her feel. Admitted that he has always had problems saying no to people for fear that she would not be accepted. Client conceded that she is angry and bitter and swore she would never be bitter. Stated that she needs to let go of first marriage, how it ended and relationship she had with ex mother in law. Mentioned at ex was a serial cheater but his mother could see no wrong in him and that he ever did anything wrong. Noted that when she divorce him she walked away from a million dollars and her two children never accpeted her current . Client's issues with loneliness also addressed. Client receptive to session feedback. Next session in twe weeks. Plan Of Treatment Next Appt Details Provider Name:Edita major, 12/01/2024 02:45:00 PM, [facility] [facility], [address], [address], Provider Name:Raymond martinez, 12/02/2024 02:00:00 PM, [facility], [address], [address], Provider Name:Raymond martinez, 12/19/2024 02:00:00 PM, [facility] [address], [address], [address], Provider Name:Raymond martinez, 01/02/2025 11:00:00 AM, [facility] [address], [address], [address], Insurance Providers Payer Name Payer Address Payer Phone Subscriber Number Group Number Insured Name Patient Relationship to Insured Coverage Start Date Coverage End Date Aetna - Prime Medicare Replacemen t/Advantag e - Hmo [address] [place] [address] [id number] BHARGAVI HANSON Self - patient is the insured Medical (General) History Medical History History ICD Code HTN RA OA Dry eyes Chronic pain Surgical History Surgery Date(Month/Year) hysterectomy Right knee replacement Hospitalization History Reason Date(Month/Year) no hx [facility] admissions
--- OUTSIDE RECORDS SUMMARY | 2024-11-19 08:27 | XMS_ITS | Encounter Summary ---
Author Organization [facility] Healthcare Address [address] [place] [address] Care Team Providers Care Coat Joiner Lockstitch Name Role Phone David Roberts MD Primary Care Provider + Encounter Details Date Type Department Care Team (Late st Contact Info) Description 04/13/2017 9:00 AM VERIFYING SPECIALIST Hospital Encounter [facility] Hospital Procedure Holding [address] [place] [id number] Ryan Farias MD [address] [facility] [address], [place] [address] Social History Tobacco Use Types [...] on file Legal Sex Female 1:48 AM VERIFYING SPECIALIST Gender Identity Not on file Sexual Orientation [...] COVID: Suspected 03/19/2023 03/19/2023 03/19/2023 11:31 PM VERIFYING SPECIALIST COVID: Suspected 10/16/2023 10/16/2023 10/16/2023 3:46 PM CDT COVID19 10/16/2023 10/22/2023 11/01/2023 3:06 AM CDT COVID: Recovered Comment:Added based on recent COVID infection. 11/01/2023 11/01/2023 01/30/2024 3:05 AM C DT COVID: Suspected 03/28/2024 03/28/2024 03/28/2024 10:22 AM VERIFYING SPECIALIST COVID: Suspected 06/03/2024 06/03/2024 06/03/2024 9:51 AM VERIFYING SPECIALIST COVID: Suspected 06/03/2024 06/03/2024 06/03/2024 4:55 PM VERIFYING SPECIALIST documented as of this encounter Care Teams Coat Joiner Lockstitch Relationship Specialty Start Date End Date David Roberts MD [address] [facility] [address] [place] [address] PCP - General 07/21/16 12/25/17 documented as of this encounter
--- OUTSIDE RECORDS SUMMARY | 2024-11-19 08:27 | XMS_ITS | Clinical Summary ---
Author Organization [facility] Address [address] [facility] Attn: Epic Prelude ADT [place] [address] Care Team Providers Care Agent Broker Name Role Phone Iain Lowery MD Primary Care Provider Social History Tobacco Use Types Packs/Day Years Used Date Smoking Tobacco: Never Assessed Comments Unknown Sex and Gender Information Value Date Recorded Sex Assigned at Not on file Legal Sex Female 4:26 AM PROPOSAL WRITER Gender Identity Not on file Sexual Orientation [...] - 1-dose 75+ series) 2031 Care Teams Agent Broker Relationship Specialty Start Date End Date Iain Lowery MD [address] [id number] PCP - General 11/16/06
--- OUTSIDE RECORDS SUMMARY | 2024-11-19 08:27 | XMS_ITS | Encounter Summary ---
Author Organization [facility] Address [address] [place] [address] Phone Care Team Providers Care Heat Regulator Name Role Phone Tico Mars MD Primary Care Provider [phone] Toribio Pinedo MD Unavailable Geri Nath MD Unavailable [phone] Tori Pinedo APRN, CALL CENTER COORDINATOR Unavailable Sandi Hicks HOT DIPPER Unavailable Unavailab Lidia Cabrera MD Primary Care Provide r Tico Mars MD Primary Care Provider Reason for Visit * Reason Comments Medication Refill Encounter Details Date Type Department Care Team (Late st Contact Info) Description 04/07/2022 Refill [facility] - Internal Medicine - [place] [address] [place] [address] Tico Mars MD [address] [place] [address] Medication Refill Social History Tobacco [...] Im [place] 11/24/21 Telemedicine [facility] Mars MD [facility] Showing recent visits within past 182 days and meeting all other requirements Future Appointments Date Type Provider Dept 04/11/22 Appointment Tico Mars MD [facility] Showing future appointments within next 90 days and meeting all other requirements Passed - Patient has established therapy with Serotonin-Norepinephrine Reuptake Inhibitors for at least 6 months UCE TEAM LEAD documented in this encounter Plan of Treatment Upcoming Encounters Date Type Department Care Team (Late st Contact Info) Description 03/03/2025 2:00 PM PRODUCE TEAM LEAD Office Visit [facility] - Internal Medicine - [place] [address] [place] [phone] Tico Mars MD [address] [place] [address] documented as of this encounter Visit Diagnoses Not on filedocumented in this encounter Additional Health Concerns Assessment Noted Time PHQ-9 Depression Total Score: 0 01/13/20 22 2:58 PM CDT documented as of this encounter Care Teams Heat Regulator Relationship Specialty Start Date End Date Tico Mars MD [address] [place] [address] PCP - General Internal Medicine 03/18/18 02/06/24 Lidia Srinivasan MD [address] [facility] [address] [place] [address] PCP - General Rheumatology 02/07/24 03/02/24 Tico Mars MD [address] [place] [address] PCP - General Internal Medicine 03/03/24 Toribio Pinedo MD [address] [address] Consulting Physician Colon and Rectal Surgery 05/17/22 Geri Nath MD [address] [place] [address] Consulting Physician Gastroenterology 06/29/22 Tori Pinedo APRN, CALL CENTER COORDINATOR [address] [place] [address] Nurse Practitioner Advanced Practice Nurse 01/04/24 Sandi Hicks LSW [place] Photographic Laboratory Supervisor Forest Technician 01/24/24 02/01/24 documented as of this encounter
--- OUTSIDE RECORDS SUMMARY | 2024-11-19 08:27 | XMS_ITS | Encounter Summary ---
Author Organization [facility] Address [address] [place] [address] Care Team Providers Care Trauma Manager Name Role Phone Iain Lowery MD Primary Care Provider [phone] Encounter Details Date Type Department Care Team (Late st Contact Info) Description 12/18/2006 Outpatient Historical [facility] Unspecified Anemia (Primary Dx) Social History Tobacco Use Types Packs/Day Years Used Date Smoking Tobacco: Never Assessed Comments Unknown Sex and Gender Information Value Date Recorded Sex Assigned at Not on file Legal Sex Female 4:26 AM REGIONAL AIRLINE PILOT Gender Identity Not on file Sexual Orientation Not on file documented as of this encounter Plan of Treatment Not on file documented as of this encounter Visit Diagnoses Diagnosis Anemia, unspecified- Primary documented in this encounter Care Teams Trauma Manager Relationship Specialty Start Date End Date Iain Lowery MD [address] [phone] PCP - General 11/16/06 documented as of this encounter
--- OUTSIDE RECORDS SUMMARY | 2024-11-19 08:27 | XMS_ITS | Encounter Summary ---
Author Organization [facility] Address [address] [place] [address] Care Team Providers Care Defensive Fire Control Systems Operator Name Role Phone Iain Lowery MD Primary Care Provider [phone] Encounter Details Date Type Department Care Team (Latest Contact Info) Description 11/16/2006 Outpatient Historical [facility] Unspecified Anemia (Primary Dx) Social History Tobacco Use Types Packs/Day Years Used Date Smoking Tobacco: Never Assessed Comments Unknown Sex and Gender Information Value Date Recorded Sex Assigned at Not on file Legal Sex Female 4:26 AM TOBACCO PRIZER Gender Identity Not on file Sexual Orientation [...] MD HEMATOLOGY ORDERABLES Edited Performing Organization Address [facility] Phone Number INTERFACE SYSTEM Refer to clinic/hospital department * (ABNORMAL) IRON PANEL (12/12/2006 3:18 PM CDT) IRON 38 37 - 160 ug/dL INTERFACE SYSTEM TRANSFERRIN 219 200 - 360 mg/dL INTERFACE SYSTEM IRON % SATURATION 14(L) 15 - 50 % INTERFACE SYSTEM TIBC 278 250 - 450 ug/dL INTERFACE SYSTEM 12/12/2006 3:18 PM CDT Igor Aly MD CHEMISTRY ORDERABLES Edited Performing Organization Address [facility] Phone Number INTERFACE SYSTEM Refer to clinic/hospital department * FERRITIN (12/12/2006 3:18 PM CDT) Pathologist [facility] FERRITIN 124 13 - 150 ng/mL INTERFACE SYSTEM 12/12/2006 3:18 PM CDT Igor Aly MD CHEMISTRY ORDERABLES Edited Performing Organization Address [facility] Phone Number INTERFACE SYSTEM Refer to clinic/hospital [...] MD HEMATOLOGY ORDERABLES Edited Performing Organization Address [facility] de Phone Number INTERFACE [...] MD HEMATOLOGY ORDERABLES Edited Performing Organization Address [facility] de Phone Number INTERFACE [...] MD HEMATOLOGY ORDERABLES Edited Performing Organization Address [facility] Phone Number INTERFACE SYSTEM Refer to clinic/hospital department * (ABNORMAL) HAPTOGLOBIN (11/16/2006 3:58 PM CDT) HAPTOGLOBIN 292(H) 30 - 200 mg/dL INTERFACE SYSTEM 11/16/2006 3:58 PM CDT Igor Aly MD CHEMISTRY ORDERABLES Edited Performing Organization Address [facility] Phone Number INTERFACE SYSTEM Refer to clinic/hospital [...] MD CHEMISTRY ORDERABLES Edited Performing Organization Address [facility] Phone Number INTERFACE SYSTEM Refer to clinic/hospital department * RETICULOCYTES (11/16/2006 3:58 PM CDT) RETICULOCYTES 1.6 0.5 - 2.0 % INTERFACE SYSTEM IMMATURE RETIC FRACTION 16 0 - 16 % INTERFACE SYSTEM 11/16/2006 3:58 PM CDT Igor Aly MD HEMATOLOGY ORDERABLES Edited Performing Organization Address [facility] Phone Number INTERFACE SYSTEM Refer to clinic/hospital department * LACTATE DEHYDROGENASE (11/16/2006 3:58 PM CDT) LD (LACTATE DEHYDROGENASE) 149 135 - 214 U/L INTERFACE SYSTEM 11/16/2006 3:58 PM CDT us Igor Aly MD CHEMISTRY ORDERABLES Edited Performing Organization Address [facility] Phone Number INTERFACE SYSTEM Refer to clinic/hospital department * (ABNORMAL) IRON PANEL (11/16/2006 3:58 PM CDT) IRON 351(H) 37 - 160 ug/dL INTERFACE SYSTEM TRANSFERRIN 286 200 - 360 mg/dL INTERFACE SYSTEM IRON % SATURATION 97(H) 15 - 50 % INTERFACE SYSTEM TIBC 363 250 - 450 ug/dL INTERFACE SYSTEM 11/16/2006 3:58 PM CDT Igor Aly MD CHEMISTRY ORDERABLES Edited Performing Organization Address [facility] Phone Number INTERFACE SYSTEM Refer to clinic/hospital department * (ABNORMAL) FOLATE RBC AND HEMATOCRIT (11/16/2006 3:58 PM CDT) HEMATOCRIT, FOLATE 26.7(L) 35.5 - 44.0 % INTERFACE SYSTEM RBC FOLATE 1393 >=533 ng/mL INTERFACE SYSTEM Comment: RBC Folate Interpretation: Deficient <110 ng/mL 11/16/2006 3:58 PM CDT Igor Aly MD CHEMISTRY ORDERABLES Edited Performing Organization Address [facility] Phone Number INTERFACE SYSTEM Refer to clinic/hospital department * FERRITIN (11/16/2006 3:58 PM CDT) FERRITIN 15 13 - 150 ng/mL INTERFACE SYSTEM 11/16/2006 3:58 PM CDT Igor Aly MD CHEMISTRY ORDERABLES Edited Performing Organization Address City/[facility]/ZIP Co de Phone Number INTERFACE SYSTEM [...] is available on the [facility] Intranet at: [email or web address] Select: Lab Policies and Procedures Select: Reference Ranges - GFR 11/16/2006 3:58 PM CDT Igor Aly MD CHEMISTRY ORDERABLES Edited INTERFACE SYSTEM Refer to clinic/hospital department documented in this encounter Visit Diagnoses Diagnosis Anemia, unspecified- Primary documented in this encounter Care Teams Defensive Fire Control Systems Operator Relationship Specialty Start Date End Date Iain Lowery MD [address] [facility] [address] [place] [address] PCP - General 11/16/06 documented as of this encounter
--- OUTSIDE RECORDS SUMMARY | 2024-11-19 08:27 | XMS_ITS | Encounter Summary ---
Author Organization [facility] Address [address] [facility] [address] [place] [address] Phone Care Team Providers Care Furniture Lumber Production Worker Name Role Phone David Roberts MD Primary Care Provider + Tico Mars MD Primary Care Provider [phone] Encounter Details Date Type Department Care Team (Late st Contact Info) Description 07/06/2017 Orders Only [facility] ProviderCherry MD [place] [address] Social History Tobacco Use Types Packs/Day Years Used Date Smoking Tobacco: Never Smokeless Tobacco: Never Alcohol Use Standard Drinks/Week Comments No 0 (1 standard drink = 0.6 oz pur e alcohol) Comments Unknown Sex and Gender Information Value Date Recorded Sex Assigned at Not on file Legal Sex Female 1:48 AM WAFER PRODUCTION LEAD WORKER Gender Identity Not on file Sexual [...] COVID: Suspected 03/19/2023 03/19/2023 03/19/2023 11:31 PM WAFER PRODUCTION LEAD WORKER COVID: Suspected 10/16/2023 10/16/2023 10/16/2023 3:46 PM CDT COVID19 10/16/2023 10/22/2023 11/01/2023 3:06 AM CDT COVID: Recovered Comment:Added based on recent COVID infection. 11/01/2023 11/01/2023 01/30/2024 3:05 AM C DT COVID: Suspected 03/28/2024 03/28/2024 03/28/2024 10:22 AM WAFER PRODUCTION LEAD WORKER COVID: Suspected 06/03/2024 06/03/2024 06/03/2024 9:51 AM WAFER PRODUCTION LEAD WORKER COVID: Suspected 06/03/2024 06/03/2024 06/03/2024 4:55 PM WAFER PRODUCTION LEAD WORKER documented as of this encounter Care Teams Furniture Lumber Production Worker Relationship Specialty Start Date End Date David Roberts MD [address] [facility] [address] [place] [address] PCP - General 07/21/16 12/25/17 Tico Mars MD [address] [place] [address] PCP - General Internal Medicine 01/14/18 documented as of this encounter
--- OUTSIDE RECORDS SUMMARY | 2024-11-19 08:27 | XMS_ITS | Encounter Summary ---
Author Organization [facility] Address [address] [place] [address] Phone Care Team Providers Care Video Machines Mechanic Name Role Phone Tico Mars MD Primary Care Provider [phone] Toribio Pinedo MD Unavailable Geri Nath MD Unavailable [phone] Tori Pinedo APRN, PSYCH THERAPIST Unavailable Sandi Hicks HYDROLOGIC MODELER Unavailable Unavailab Lidia Cabrera MD Primary Care Provide r Tico Mars MD Primary Care Provider [phone] Reason for Visit * Reason Comments Medication Refill Encounter Details Date Type Department Care Team (Late st Contact Info) Description 06/13/2020 Refill [facility] - Internal Medicine - [place] [address] [place] [address] Tico Mars MD [address] [place] [address] Medication Refill Social History Tobacco [...] 8:32 AM CST Please review and sign. CAL REVIEWER * Telephone Encounter - Tori Murphy RN - 06/14/2020 8:32 AM CST Please review and sign. CAL REVIEWER documented in this encounter Plan of Treatment Upcoming Encounters Date Type Department Care Team (Late st Contact Info) Description 03/03/2025 2:00 PM MEDICAL REVIEWER Office Visit [facility] - Internal Medicine - [place] [address] [place] [id number] Tico Mars MD [address] [place] [address] documented as of this encounter Visit Diagnoses Not on filedocumented in this encounter Additional Health Concerns Assessment Noted Time PHQ-9 Depression Total Score: 2 03/22/20 20 1:00 PM MEDICAL REVIEWER documented as of this encounter Care Teams Video Machines Mechanic Relationship Specialty Start Date End Date Tico Mars MD [address] [place] [address] PCP - General Internal Medicine 03/18/18 02/06/24 Lidia Srinivasan MD [address] [facility] [address] [place] [address] PCP - General Rheumatology 02/07/24 03/02/24 Tico Mars MD [address] [facility] [facility] [address] [place] [address] PCP - General Internal Medicine 03/03/24 Toribio Pinedo MD [address] [address] Consulting Physician Colon and Rectal Surgery 05/17/22 Geri Nath MD [address] [place] [address] Consulting Physician Gastroenterology 06/29/22 Tori Pinedo APRN, PSYCH THERAPIST [address] [place] [address] Nurse Practitioner Advanced Practice Nurse 01/04/24 Sandi Hicks, KAYY [place] Photographic Platemaker Terrazzo Worker Apprentice 01/24/24 02/01/24 documented as of this encounter
--- OUTSIDE RECORDS SUMMARY | 2024-11-19 08:27 | XMS_ITS | Encounter Summary ---
Author Organization [facility] Address [address] [place] [address] Phone Care Team Providers Care Graphite Grinder Name Role Phone Tico Mars MD Primary Care Provider Toribio Pinedo MD Unavailable Geri Nath MD Unavailable [phone] Tori Pinedo APRN, BRIDGE WORKER APPRENTICE Unavailable Sandi Hicks ENGINEER SPECIALIST Unavailable Unavailab Lidia Cabrera MD Primary Care Provide r Tico Mars MD Primary Care Provider [phone] Reason for Visit * Reason Comments Medication Refill Encounter Details Date Type Department Care Team (Late st Contact Info) Description 02/02/2023 Refill [facility] Medical [facility] - Internal Medicine - [place] [address] [place] [address] Tico Mars MD [address] [place] [address] Medication Refill Social History Tobacco [...] [place] 08/07/22 Office Visit [facility] [place] Showing recent visits within past 182 days and meeting all other requirements Future Appointments Date Type Provider Dept 02/08/23 Appointment Tico [facility] MD [facility] [place] Showing future appointments within next 90 days and meeting all other requirements documented in this encounter Plan of Treatment Upcoming Encounters Date Type Department Care Team (Late st Contact Info) Description 03/03/2025 2:00 PM BUCKLE AND BUTTON MAKER Office Visit [facility] Medical Group - Internal Medicine - [place] [address] [place] [phone] Tico Mars MD [address] [place] [address] documented as of this encounter Visit Diagnoses Not on filedocumented in this encounter Additional Health Concerns Assessment Noted Time PHQ-9 Depression Total Score: 0 01/13/20 22 2:58 PM CDT documented as of this encounter Care Teams Graphite Grinder Relationship Specialty Start Date End Date Tico Mars MD [address] [place] [address] PCP - General Internal Medicine 03/18/18 02/06/24 Lidia Srinivasan MD [address] [facility] [address] [place] [address] PCP - General Rheumatology 02/07/24 03/02/24 Tico Mars MD [address] [place] [address] PCP - General Internal Medicine 03/03/24 Toribio Pinedo MD [address] [address] Consulting Physician Colon and Rectal Surgery 05/17/22 Geri Nath MD [address] [place] [address] Consulting Physician Gastroenterology 06/29/22 Tori Pinedo APRN, BRIDGE WORKER APPRENTICE [address] [place] [address] Nurse Practitioner Advanced Practice Nurse 01/04/24 Sandi Hicks LSW [place] Seed Yeast Operator Manager Human Resources 01/24/24 02/01/24 documented as of this encounter
--- OUTSIDE RECORDS SUMMARY | 2024-11-19 08:27 | XMS_ITS ---
[...] Bone mineral density was performed on a HoloSpring Discovery Densitometer. Based on machine cross-calibration and [...] by the International Society of Clinical Densitometry. [id number] Juan Dent MD IMG DXA PROCEDURES F inal Result * Screening Mammogram (11/29/2015 12:50 PM CDT) Anatomical Region Laterality Modality Breast N/A Mammography 11/29/2015 12:5 0 PM CDT Narrative 12/01/2015 4:10 PM CDT ROBERTO BECK M.D. FINAL REPORT ACC# Date Time Exam [id number] Nov 29, 2015 12:50:00 WMM [id number] Screening Mamm Bilat 2v Technologist(s): Iveth Martínez; ; EXAMINATION: Mammogram Technique: Bilateral Full-Field Digital Screening Mammogram was performed. Views obtained: bilateral craniocaudal and bilateral mediolateral oblique. Computer Aided Detection was performed with [employer]3 version 9.3. Mammogram Findings: The present examination has been compared to prior imaging studies performed at [facility] on 09/28/2014, 07/11/2013 and 07/27/2011. There [...] BECK M.D. on Dec 01 2015 4:10P [id number] Procedure Note Provider, MD Cherry - 08/19/2016 ROBERTO BECK M.D. FINAL REPORT ACC# Date Time Exam [id number] Nov 29, 2015 12:50:00 WMM [id number] Screening Mamm Bilat 2v Technologist(s): Iveth Martínez; ; EXAMINATION: Mammogram Technique: Bilateral Full-Field Digital Screening Mammogram was performed. Views obtained: bilateral craniocaudal and bilateral mediolateral oblique. Computer Aided Detection was performed with [employer]3 version 9.3. Mammogram Findings: The present examination has been compared to prior imaging studies performed at [facility] on 09/28/2014, 07/11/2013 and 07/27/2011. There [...] BECK M.D. on Dec 01 2015 4:10P [id number] Historical Provider MD [facility]HMAN MAMMO PROCEDURES Iva ceja Result from Last 3 Months or Most Recently Relevant to Health Maintenance Insurance [facility] MED[facility] [place] [address] Advance Directives For more information, please contact: [phone] * Full Code (Latest Code Status on File) Date Activated Date Inactivated Comments 04/14/2019 8:36 PM 04/15/2019 6:03 PM * Full Code Date Activated Date Inactivated Comments 03/13/2019 11:11 AM 03/14/2019 5:37 PM Care Teams Cashier General Relationship Specialty Start Date End Date Tico Mars MD [address] [place] [address] PCP - General Internal Medicine 01/14/18
--- OUTSIDE RECORDS SUMMARY | 2024-11-19 08:27 | XMS_ITS | Encounter Summary ---
Author Organization [facility] Address [address] [place] [address] Phone Care Team Providers Care Emergency Management Coordinator Name Role Phone Tico Mars MD Primary Care Provider [phone] Toribio Pinedo MD Unavailable Geri Nath MD Unavailable [phone] Tori Pinedo APRN, COMBINATION BUILDING INSPECTOR Unavailable Sandi Hicks FILM COLOR TESTER Unavailable Unavailab Lidia Cabrera MD Primary Care Provide r Tico Mars MD Primary Care Provider Reason for Visit * Reason Comments Medication Refill Encounter Details Date Type Department Care Team (Late st Contact Info) Description 10/03/2023 Refill [facility] - Internal Medicine - [place] [address] [place] [address] Tico Mars MD [address] [place] [address] Medication Refill Social History Tobacco Use Types Packs/Day Years Used Date Smoking Tobacco: Never Passive Smoke Exposure: Never Smokeless Tobacco: Never Alcohol Use Standard Drinks/Week Comments Not Currently 0 (1 standard drink = 0.6 oz pur e alcohol) [facility] Utilities Answer Date Recorded In the past 12 months has th e electric, gas, oil, or water [employer] threatened to shut off services in your [...] you attend [facility] or voodoo services? Patient unable to answer 05/24/2023 Do you belong to any clubs o r organizations such as congregation groups, unions, fraternal or athletic groups, or [...] Score - Questions 1-9 0 05/0 04/2023 [facility] - Occupational [...] 08/22/23 Office Visit Tico Mars MD [facility] [place] 05/24/23 Office Visit Tico Mars MD [facility] [place] 02/19/23 Office Visit Tico Mars MD [facility] [place] 11/07/22 Office Visit Tico Mars MD [facility] [place] Showing recent visits within past 365 days and meeting all other requirements Future Appointments Date Type Provider Dept 11/22/23 Appointment Tico Mars MD [facility] [place] Showing future appointments within next 90 days and meeting all other requirements documented in this encounter Plan of Treatment Upcoming Encounters Date Type Department Care Team (Late st Contact Info) Description 03/03/2025 2:00 PM BRICK CHIMNEY BUILDER [facility] [place] [address] [place] [address] Tico Mars MD [address] [place] [address] documented as of this encounter Visit Diagnoses Not on filedocumented in this encounter Additional Health Concerns Assessment Noted Time PHQ-9 Depression Total Score: 0 08/22/19 11:35 AM CDT documented as of this encounter Care Teams Emergency Management Coordinator Relationship Specialty Start Date End Date Tico Mars MD [address] [place] [address] PCP - General Internal Medicine 03/18/18 02/06/24 Lidia Srinivasan MD [address] [facility] [address] [place] [address] PCP - General Rheumatology 02/07/24 03/02/24 Tico Mars MD [address] [place] [address] PCP - General Internal Medicine 03/03/24 Toribio Pinedo MD [address] [address] Consulting Physician Colon and Rectal Surgery 05/17/22 Geri Nath MD [address] [place] [address] Consulting Physician Gastroenterology 06/29/22 Tori Pinedo APRN, COMBINATION BUILDING INSPECTOR [address] [place] [address] Nurse Practitioner Advanced Practice Nurse 01/04/24 Sandi Hicks, KAYY [place] Finish Machine Tender Leadite Man 01/24/24 02/01/24 documented as of this encounter
--- OUTSIDE RECORDS SUMMARY | 2024-11-19 08:27 | XMS_ITS | Encounter Summary ---
Author Organization [facility] Address [address] [place] [address] Phone Care Team Providers Care Sign Carpenter Name Role Phone Tico Mars MD Primary Care Provider Toribio Pinedo MD Unavailable Geri Nath MD Unavailable [phone] Tori Pinedo APRN, ADDICTIONS RECOVERY SPECIALIST Unavailable Sandi Hicks LOOM CLEANER Unavailable Unavailab Lidia Cabrera MD Primary Care Provide r Tico Mars MD Primary Care Provider Reason for Visit * Reason Comments Medication Refill Encounter Details Date Type Department Care Team (Late st Contact Info) Description 09/12/2023 Refill [facility] - Internal Medicine - [place] [address] [place] [address] Tico Mars MD [address] [place] [address] Medication Refill Social History Tobacco Use Types Packs/Day Years Used Date Smoking Tobacco: Never Passive Smoke Exposure: Never Smokeless Tobacco: Never Alcohol Use Standard Drinks/Week Comments Not Currently 0 (1 standard drink = 0.6 oz pur e alcohol) [facility] Utilities Answer Date Recorded In the past 12 months has th e electric, gas, oil, or water [employer] threatened to shut off services in your [...] often do you attend [facility] or anglican services? Patient unable to answer 05/24/2023 Do [...] Score - Questions 1-9 0 05/0 04/2023 [facility] - Occupational [...] 08/22/23 Office Visit Tico Mars MD [facility] [place] 05/24/23 Office Visit Tico Mars MD [facility] [place] 02/19/23 Office Visit Tico Mars MD [facility] [place] 11/07/22 Office Visit Tico Mars MD [facility] [place] Showing recent visits within past 365 days and meeting all other requirements Future Appointments Date Type Provider Dept 11/22/23 Appointment Tico Mars MD [facility] [place] Showing future appointments within next 90 days and meeting all other requirements documented in this encounter Plan of Treatment Upcoming Encounters Date Type Department Care Team (Late st Contact Info) Description 03/03/2025 2:00 PM SUPERINTENDENT RENTING MANAGING Office Visit [facility] - [facility] Medicine - [place] [address] [place] [id number] Tico Mars MD [address] [place] [address] documented as of this encounter Visit Diagnoses Not on filedocumented in this encounter Additional Health Concerns Assessment Noted Time PHQ-9 Depression Total Score: 0 08/22/19 11:35 AM CDT documented as of this encounter Care Teams Sign Carpenter Relationship Specialty Start Date End Date Tico Mars MD [address] [place] [address] PCP - General Internal Medicine 03/18/18 02/06/24 Lidia Srinivasan MD [address] [facility] [address] [place] [address] PCP - General Rheumatology 02/07/24 03/02/24 Tico Mars MD [address] [place] [address] PCP - General Internal Medicine 03/03/24 Toribio Pinedo MD [address] [address] Consulting Physician Colon and Rectal Surgery 05/17/22 Geri Nath MD [address] [place] [address] Consulting Physician Gastroenterology 06/29/22 Tori Pinedo APRN, ADDICTIONS RECOVERY SPECIALIST [address] [place] [address] Nurse Practitioner Advanced Practice Nurse 01/04/24 Sandi Hicks, KAYY [place] Position Classification Manager Occupational Safety And Health Manager 01/24/24 02/01/24 documented as of this encounter
--- OUTSIDE RECORDS SUMMARY | 2024-11-19 08:27 | XMS_ITS | Encounter Summary ---
Author Organization [facility] Address [address] [place] [address] Phone Care Team Providers Care Bakery Pastry Internship Name Role Phone Tico aMrs MD Primary Care Provider [phone] Toribio Pinedo MD Unavailable Geri Nath MD Unavailable [phone] Tori Pinedo APRN, CASKET TRIMMER Unavailable Sandi Hicks INFANT CAREGIVER Unavailable Unavailab Lidia Cabrera MD Primary Care Provide r Tico Mars MD Primary Care Provider Reason for Visit * Reason Comments Medication Refill Encounter Details Date Type Department Care Team (Late st Contact Info) Description 09/12/2023 Refill [facility] Medical Group - Internal Medicine - [place] [address] [address] Tyra Higgins, [facility] [address] [place] [address] Medication Refill Social History Tobacco Use Types Packs/Day Years Used Date Smoking Tobacco: Never Passive Smoke Exposure: Never Smokeless Tobacco: Never Alcohol Use Standard Drinks/Week Comments Not Currently 0 (1 standard drink = 0.6 oz pur e alcohol) [facility] Utilities Answer Date Recorded In the past 12 months has th e electric, gas, oil, or water [employer] threatened to shut off services in your [...] attend [facility] or faith services? Patient unable to answer 05/24/2023 Do you belong to any clubs o r organizations such as protestant groups, unions, fraternal or athletic groups, or [...] Score - Questions 1-9 0 05/0 04/2023 [facility] - Occupational [...] 08/22/23 Office Visit Tico Mars MD Osshelly García 05/24/23 Office Visit Tico [...] st Contact Info) Description 03/03/2025 2:00 PM HEALTHCARE RECEPTIONIST Office Visit [facility] Medical Group - Internal Medicine [place] [address] [place] [address] Tico Mars MD [address] [place] [address] documented as of this encounter Visit Diagnoses Not on filedocumented in this encounter Additional Health Concerns Assessment Noted Time PHQ-9 Depression Total Score: 0 08/22/19 11:35 AM CDT documented as of this encounter Care Teams Bakery Pastry Internship Relationship Specialty Start Date End Date Tico Mars MD [address] [place] [address] PCP - General Internal Medicine 03/18/18 02/06/24 Lidia Srinivasan MD [address] [facility] [address] [place] [address] PCP - General Rheumatology 02/07/24 03/02/24 Tico Mars MD [address] [place] [address] PCP - General Internal Medicine 03/03/24 Toribio Pinedo MD #[address] [address] Consulting Physician Colon and Rectal Surgery 05/17/22 Geri Nath MD [address] [place] [address] Consulting Physician Gastroenterology 06/29/22 Tori Pinedo APRN, CASKET TRIMMER [address] [place] [address] Nurse Practitioner Advanced Practice Nurse 01/04/24 Sandi Hicks LSW [place] Milking Machine Mechanic Rigging Up Man 01/24/24 02/01/24 documented as of this encounter
--- OUTSIDE RECORDS SUMMARY | 2024-11-19 08:27 | XMS_ITS | Encounter Summary ---
Author Organization [facility] Address [address] [place] [address] Phone Care Team Providers Care Welt Pocket Machine Operator Name Role Phone Tico Mars MD Primary Care Provider Toribio Pinedo MD Unavailable Geri Nath MD Unavailable [phone] Tori Pinedo APRN, PIPE FITTER GAS PIPE Unavailable Sandi Hicks EXHIBITION SPECIALIST Unavailable Unavailab Lidia Cabrera MD Primary Care Provide r Tico Mars MD Primary Care Provider Reason for Visit * Reason Comments Medication Refill Encounter Details Date Type Department Care Team (Late st Contact Info) Description 05/15/2023 Refill [facility] Medical Group - Internal Medicine - [place] [address] [address] Tyra Higgins, [facility] [address] [address] Medication Refill Social History Tobacco [...] st Contact Info) Description 03/03/2025 2:00 PM DATABASE ADMINISTRATOR Office Visit [facility] - Internal Medicine [place] [address] [place] [address] Tico Mars MD [address] [place] [address] documented as of this encounter Visit Diagnoses Not on filedocumented in this encounter Additional Health Concerns Assessment Noted Time PHQ-9 Depression Total Score: 0 02/20/20 23 9:40 AM CDT documented as of this encounter Care Teams Welt Pocket Machine Operator Relationship Specialty Start Date End Date Tico Mars MD [address] [place] [address] PCP - General Internal Medicine 03/18/18 02/06/24 Lidia Srinivasan MD [address] [facility] [address] [place] [address] PCP - General Rheumatology 02/07/24 03/02/24 Tico Mars MD [address] [place] [address] PCP - General Internal Medicine 03/03/24 Toribio Pinedo MD #[address] [address] Consulting Physician Colon and Rectal Surgery 05/17/22 Geri Nath MD [address] [place] [address] Consulting Physician Gastroenterology 06/29/22 Tori Pinedo APRN, CAMILO [address] [place] [address] Nurse Practitioner Advanced Practice Nurse 01/04/24 Sandi Hicks LSW [place] Kiln Placer Area Captain 01/24/24 02/01/24 documented as of this encounter
--- OUTSIDE RECORDS SUMMARY | 2024-11-19 08:27 | XMS_ITS | Encounter Summary ---
Author Organization [facility] Address [address] [place] [address] Phone Care Team Providers Care Internet Site Designer Name Role Phone Tico Mars MD Primary Care Provider Toriboi Pinedo MD Unavailable Geri Nath MD Unavailable [phone] Tori Pinedo APRN, FOOD AND NUTRITION TEACHER Unavailable Sandi Hicks PRODUCT OWNER Unavailable Unavailab Lidia Cabrera MD Primary Care Provide r Tico Mars MD Primary Care Provider [phone] Reason for Visit * Reason Comments Medication Refill Encounter Details Date Type Department Care Team (Late st Contact Info) Description 02/10/2021 Refill [facility] Medical Group - Internal Medicine - [place] [address] [address] Tico Mars MD [address], [place] [address] Medication Refill Social History Tobacco [...] st Contact Info) Description 03/03/2025 2:00 PM POURER OFF Office Visit [facility] - Internal Medicine [place] [address] [address] Tico Mars MD [address] [place] [address] documented as of this encounter Visit Diagnoses Not on filedocumented in this encounter Additional Health Concerns Assessment Noted Time PHQ-9 Depression Total Score: 2 03/22/20 20 1:00 PM POURER OFF documented as of this encounter Care Teams Internet Site Designer Relationship Specialty Start Date End Date Tico Mars MD [address], [place] [address] PCP - General Internal Medicine 03/18/18 02/06/24 Lidia Srinivasan MD [address] [facility] [address] [place] [address] PCP - General Rheumatology 02/07/24 03/02/24 Tico Mars MD [address] [place] [address] PCP - General Internal Medicine 03/03/24 Toribio Pinedo MD [address] [address] Consulting Physician Colon and Rectal Surgery 05/17/22 Geri Nath MD [address] [place] [address] Consulting Physician Gastroenterology 06/29/22 Tori Pinedo APRN, FOOD AND NUTRITION TEACHER [address] [place] [address] Nurse Practitioner Advanced Practice Nurse 01/04/24 Sandi Hicks LSW [place] Obiee Lead Developer Etl Manager 01/24/24 02/01/24 documented as of this encounter
--- OUTSIDE RECORDS SUMMARY | 2024-11-19 08:27 | XMS_ITS | Encounter Summary ---
Author Organization [facility] Address [address] [place] [address] Care Team Providers Care Senior Technical Support Analyst Name Role Phone Tico Mars MD Primary Care Provider [phone] Encounter Details Date Type Department Care Team (Late st Contact Info) Description 11/06/[address] [facility] Health Information Management [address] [place] [address] Scanning, Provider Social History Tobacco Use Types Packs/Day Years Used Date Smoking Tobacco: Never Smokeless Tobacco: Never Alcohol Use Standard Drinks/Week Comments No 0 (1 standard drink = 0.6 oz pur e alcohol) AUDIT-C Answer Date Recorded Q1: How often do you have a drink containing alc ohol? Never 07/27/2022 Average Number of Drinks Not on file 023 Frequency of Binge Drinking Not on file 09/2022 PHQ-2 Answer Date Recorded PHQ-2 Score 0 12/14/2018 Comments No Sex and Gender Information Value Date Recorded Sex Assigned at Not on file Legal Sex Female 1:48 AM OUTDOOR POWER EQUIPMENT MECHANIC Gender Identity Not on file Sexual Orientation Choose not to disclose 2018 12:47 PM CDT documented as of this encounter Plan of Treatment Not on file documented as of this encounter Procedures Procedure Name Priority Date/Time Associated Diagnosis Comments SCAN - RADIOLOGY/IMAGING 11/06/2023 documented in this encounter Results * SCAN - RADIOLOGY/IMAGING (11/06/2023) Anatomical Region Laterality Modality Other us Provider Scanning Final Result documented in this encounter Visit Diagnoses Not on filedocumented in this encounter Additional Health Concerns Infection Onset Date Last Indicated Resolved Time COVID: Recovered Comment:Added based on recent COVID infection. 11/01/2023 11/01/2023 01/30/2024 3:05 AM C DT COVID: Suspected 03/28/2024 03/28/2024 03/28/2024 10:22 AM OUTDOOR POWER EQUIPMENT MECHANIC COVID: Suspected 06/03/2024 06/03/2024 06/03/2024 9:51 AM OUTDOOR POWER EQUIPMENT MECHANIC COVID: Suspected 06/03/2024 06/03/2024 06/03/2024 4:55 PM OUTDOOR POWER EQUIPMENT MECHANIC documented as of this encounter Care Teams Senior Technical Support Analyst Relationship Specialty Start Date End Date Tico Mars MD [address] [place] [address] PCP - General Internal Medicine 01/14/18 documented as of this encounter
--- OUTSIDE RECORDS SUMMARY | 2024-11-19 08:27 | XMS_ITS | Encounter Summary ---
Author Organization [facility] Address [address] [facility] [place] [address] Care Team Providers Care Rn Med Surg Name Role Phone Tico Mars MD Primary Care Provider Encounter Details Date Type Department Care Team (Late st Contact Info) Description 09/27/2022 Lab Requisition [facility] - DermPath Lab [address] [facility] [place] [address] Jose Alejandro Lopez MD [address] [place] [address] Social History Tobacco Use Types Packs/Day [...] on file Legal Sex Female 6:25 AM MINING ENGINEERING TECHNOLOGIST Gender Identity Not on file Sexual Orientation Not on file documented as of this encounter Plan of Treatment Not on file documented as of this encounter Procedures Procedure Name Priority Date/Time Associated Diagnosis Comments DERMATOPATHOLOGY Routine 09/26/2022 12:0 0 AM CDT documented in this encounter Results * DERMATOPATHOLOGY (09/26/2022 12:00 AM CDT) Case Report Dermatopathology Report Case: [id number] Authorizing Provider: Jose Alejandro Lopez MD Collected: 09/26/2022 12:00 AM Ordering Location: [facility] DermPath Lab Received: 09/28/2022 06:38 AM Pathologist: [...] at 1304 CDT Clinical History A: [facility] Path#[id number] B: [facility] Path#[id number] 1:04 PM CDT DERMATOPATHOLOGY LABORATORY Gross Description [...] larger lesion, these findings may not be aircraft sales representative of the entire lesion. Clinicopathologic [...] characteristic determined by the Dermatopathology Laboratory at [facility], directed by Dr. Nelia Schaeffer. These tests need not be, and therefore are not, approved by the [place] Food and Drug Administration. The tests are used for clinical purposes. Billing Codes Specimen Charges Stain Charges 58990 04718 1 1 3 1:04 PM CDT DERMATOPATHOLOGY LABORATORY Embedded Images 3 1:04 PM CDT DERMATOPATHOLOGY LABORATORY Pathology/Cytology TISSUE SPECIMEN FROM SKIN / Unknown 09/26/2022 09/28/2022 6:38 AM CDT Miscellaneous samples (specimen) TISSUE SPECIMEN FROM SKIN / Unknown 09/26/2022 09/28/2022 6:38 AM CDT us Jose Alejandro Lopez MD LAB - PATHOLOGY/CYTOLOGY ORDER LORENA Final Result DERMATOPATHOLOGY LABORATORY [facility] - Department of Dermatology [address], [address] [phone] documented in this encounter Visit Diagnoses Not on filedocumented in this encounter Care Teams Rn Med Surg Relationship Specialty Start Date End Date Tico Mars MD [address] [place] [address] PCP - General 01/20/19 documented as of this encounter
--- OUTSIDE RECORDS SUMMARY | 2024-11-19 08:27 | XMS_ITS | Encounter Summary ---
Author Organization [facility] [employer] Address [address] [place] [address] Care Team Providers Care Guard Range Name Role Phone Iain Lowery MD Primary Care Provider [phone] Encounter Details Date Type Department Care Team (Late st Contact Info) Description 12/18/2006 Outpatient Historical [facility] Social History Tobacco Use Types Packs/Day Years Used Date Smoking Tobacco: Never Assessed Comments Unknown Sex and Gender Information Value Date Recorded Sex Assigned at Not on file Legal Sex Female 4:26 AM HOME ENERGY RATER Gender Identity Not on file Sexual Orientation Not on file documented as of this encounter Plan of Treatment Not on file documented as of this encounter Visit Diagnoses Not on filedocumented in this encounter Care Teams Guard Range Relationship Specialty Start Date End Date Iain Lowery MD [address] [address] PCP - General 11/16/06 documented as of this encounter
--- OUTSIDE RECORDS SUMMARY | 2024-11-19 08:28 | XMS_ITS | Encounter Summary ---
Author Organization [facility] Address [address] [place] [address] Phone Care Team Providers Care Granulator Machine Operator Name Role Phone Toribio Pinedo MD Unavailable Geri Nath MD Unavailable [phone] Tori Pinedo APRN, NURSING AGENCY MANAGER Unavailable Tico Mars MD Primary Care Provider [phone] Reason for Visit * Reason Comments Medication Refill Encounter Details Date Type Department Care Team (Late st Contact Info) Description 11/02/2024 Refill [facility] [address] [place] [address] Tori Pinedo APRN, NURSING AGENCY MANAGER [address] [place] [address] Medication Refill Social History Tobacco Use Types Packs/Day Years Used Date Smoking Tobacco: Never Passive Smoke Exposure: Never Smokeless Tobacco: Never Alcohol Use Standard Drinks/Week Comments Not Currently 0 (1 standard drink = 0.6 oz pur e alcohol) [facility] Utilities Answer Date Recorded In the past 12 months has [employer] ? electric, gas, oil, or water company threatened [...] often do you attend chur ch or mandaeism services? 1 to 4 times per year 05/30/2024 Do you belong to any clubs o r organizations such as restoration groups, unions, fraternal or athletic groups, or [...] Score - Questions 1-9 0 05/0 10/2024 [facility] - Occupational Stress [...] place to sleep or slept in a group home (including now)? Patient unable to answer [...] any time in the past 12 m [facility], were you homeless or living in a group home (including now)? No 05/30/2024 Sexually Active Control [...] Dept 08/27/24 [facility] 05/26/24 Office Visit Tico [facility] MD [facility] 03/03/24 Office Visit Tico Mars MD [facility] 01/17/24 Office Visit Tico Mars MD [facility] 01/04/24 Office Visit Tori Pinedo APRN, NURSING AGENCY MANAGER [facility] [place] Showing recent visits within past 365 days and meeting all other requirements Today's Visits Date Type Provider Dept 11/04/24 Appointment Tori Pinedo APRN, NURSING AGENCY MANAGER [facility] [place] Showing today's visits and meeting all other requirements Future Appointments No visits were found meeting these conditions. Showing future appointments within next 90 days and meeting all other requirements documented in this encounter Plan of Treatment Upcoming Encounters Date Type Department Care Team (Late st Contact Info) Description 03/03/2025 2:00 PM GROUNDMAN Office Visit [facility] Medical Group - Internal Medicine [facility] [address] [place] [place] [address] Tico Mars MD [address] [place] [address] documented as of this encounter Visit Diagnoses Not on filedocumented in this encounter Additional Health Concerns Assessment Noted Time PHQ-9 Depression Total Score: 0 08/28/19 25 7:24 AM CDT documented as of this encounter Care Teams Granulator Machine Operator Relationship Specialty Start Date End Date Tico Mars MD [address] [place] [place] [address] PCP - General Internal Medicine 03/03/24 Toribio Pinedo MD #[address] [address] Consulting Physician Colon and Rectal Surgery 05/17/22 Geri Nath MD [address] [place] [address] Consulting Physician Gastroenterology 06/29/22 Tori Pinedo APRN, NURSING AGENCY MANAGER [address] [place] [address] Nurse Practitioner Advanced Practice Nurse 01/04/24 documented as of this encounter
--- OUTSIDE RECORDS SUMMARY | 2024-11-19 08:28 | XMS_ITS | Clinical Summary ---
Author Organization [facility] Address [address] [facility] [place] [address] Care Team Providers Care Horse Rancher Name Role Phone Tico Mars MD Primary Care Provider Source Comments [facility],non-owned Affiliates and Associated Physician Practices is amultiple site organization consisting of ambulatory clinics and hospital sitesin [place], [place], [place] and [place]. This disclosure is being madepursuant to the Care Everywhere program and may not contain all information available regarding this patient. Last updated 18.[facility] Allergies Active Allergy Reactions Criticality Noted Date [...] (02/07/2019): Added automatically from request for surgery [id number] Right ear pain 01/20/2019 DNS (deviated nasal [...] Breast cancer screening: No longer going to [facility] 2/2 hysterectomy. Cervical cancer screening: No longer going to [facility] due to hysterectomy. Osteoporosis screening: As [...] she saw a few years ago at [facility]. Memory loss 11/28/2016 Overview (01/20/2019): Last [...] wean off amitriptyline. Rheumatoid arthritis of [facility] sites with negative rheumatoid factor 09/16/2015 [...] on file Legal Sex Female 6:25 AM HITCHER Gender Identity Not on file Sexual Orientation [...] - 26 mg/dL 12/31/2021 2:19 AM CDT [facility] Creatinine 0.71 0.56 - 0.96 mg/dL 12/[facility] Sodium 137 136 - 145 mmol/L 12/31/2021 2:19 AM [facility] Potassium 3.7 3.5 - 4.5 mmol/L 12/31/2021 2:19 AM [facility] Chloride 107 98 - 107 mmol/L 12/31/2021 2:19 AM [facility] CO2 25 22 - 29 mmol/L 12/31/2021 2:19 AM [facility] Glucose 104 70 - 115 mg/dL 12/31/2021 2:19 AM [facility] Calcium 10.0 8.4 - 10.2 mg/dL 12/31/2021 2:19 AM [facility] Protein Total 5.9(L) 6.0 - 8.3 g/dL 12/31/2021 2:19 AM [facility] Albumin 3.2(L) 3.4 - 5.0 g/dL 12/31/2021 2:19 AM [facility] Bilirubin Total 0.8 0.2 - 1.2 mg/dL 12/31/2021 2:19 AM [facility] Alkaline Phosphatase 79 40 - 150 U/L 12/31/2021 2:19 AM [facility] ALT 45 5 - 55 U/L 12/31/2021 2:19 AM [facility] AST 29 5 - 34 U/L 12/31/2021 2:19 AM [facility] Anion Gap 9 8 - 18 12/31/2021 2:19 AM [facility] BUN/Creatinine Ratio 23 7 - 23 12/31/2021 2:19 AM [facility] Osmolality Calculated 285 270 - 300 mOsm/kg 12/31/2021 2:19 AM [facility] Albumin/Globulin Ratio 1.2 1.1 - 2.3 12/31/2021 2:19 AM [facility] eGFR by CKD-EPI >90 >=90 mL/min/1.7 3 m2 12/31/2021 2:19 AM [facility] Blood BLOOD SPECIMEN / Unknown Venipuncture / Unknown 12/31/2021 1:40 AM CDT 12/31/2021 1:47 AM CDT us Nasir Seymour MD LAB - CHEMISTRY ORDERABLES Fi nal Result [facility] [address] [place] [address], [facility] [phone] from Last 3 Months or Most Recently Relevant to Health Maintenance Insurance [employer] MANAGED MEDICARE ADV [employer] MEDICARE ADV * Guarantor: BHARGAVI RADFORD Swathi Account Type Relation to Patient Date of Phone Billing Address Personal/Family 1955 [address] [place] [address] [employer] Care Teams Horse Rancher Relationship Specialty Start Date End Date Tico Mars MD [address] [address] PCP - General 01/20/19
[2024-11-21 12:08] LABS: Pancreatic Elastase, Fecal >800 (>200)
[2024-11-21 14:08] LABS: Calprotectin, Fecal 267 ug/g (0-120)
== END 2024-11-19 08:18 | disposition home or self-care (01) ==
PROVIDERS: PCP Internal Medicine; Visit Provider Nurse Practitioner Family
DX: R19.7 Diarrhea, unspecified (principal)
CPT/HCPCS: 82653; 83993

== ENCOUNTER 2025-01-05 01:00 | Day surgery (SDC) | payer MEDICARE, SELFPAY ==
--- OUTSIDE RECORDS SUMMARY | 2017-04-13 10:00 | XMS_ITS | Encounter Summary ---
Author Organization [facility] Healthcare Address [address] [place] [address] Care Team Providers Care Apron Cleaner Name Role Phone David Roberts MD Primary Care Provider + Encounter Details Date Type Department Care Team (Late st Contact Info) Description 04/13/2017 9:00 AM SHOP TAILOR Hospital Encounter [facility] Procedure Holding [address] [place] [address] Ryan Farias MD [address] [facility] [address], [place] [address] Social History Tobacco Use Types Packs/Day Years Used Date Smoking Tobacco: Never Smokeless Tobacco: Never Alcohol Use Standard Drinks/Week Comments No 0 (1 standard drink = 0.6 oz pur e alcohol) AUDIT-C Answer Date Recorded Q1: How often do you have a drink containing alcohol? Never 11/05/2024 Q2: How many drinks containi ng alcohol do you have on a typical day when you are drinking? Patient does not drink Q3: How often do you have si x or more drinks on one occasion? Never 11/05/2024 PHQ-2 Answer Date Recorded PHQ-2 Total Score (If total score is 3 or more points, staff should administer the PHQ-9) 6 03/26/2024 PHQ-9 Answer Date Recorded PHQ-9 Total Score 12 03/26/2024 Comments No Sex and Gender Information Value Date Recorded Sex Assigned at Not on file Legal Sex Female 1:48 AM SHOP TAILOR Gender Identity Not on file Sexual Orientation Choose not to disclose 2018 12:47 PM CDT COVID-19 Exposure Response Date Recorded In the last month, have you been in contact with someone who was confirmed or suspected to have Coronavirus / COVID-19? No / Unsure 07/21/2019 2:04 PM CDT documented as of this encounter Functional Status * AUDIT-C Score Answer Date of Assessment Author 0 11/05/2024 2:12 PM CDT Divina Cabrera MA * Question Answer Date of Assessment Author Q1: How often do you have a drink containing alcohol? Never 11/05/2024 2:12 PM CDT Divina Mei MA Q2: How many drinks containing alcohol do you have on a typical day when you are drinking? Patient does not drink 11/05/2024 2:12 PM CDT Divina Mei MA Q3: How often do you have six or more drinks on one occasion? Never 11/05/2024 2:12 PM CDT Divina Mei MA documented as of this encounter Plan of Treatment Not on file documented as of this encounter Visit Diagnoses Not on filedocumented in this encounter Additional Health Concerns Infection Onset Date Last Indicated Resolved Time Exposure, COVID-19 Comment:Added automatically based on COVID19 lab answers indicating exposure risk 11/25/2021 11/25/2021 11/26/2021 1:10 AM C DT COVID: Suspected 11/25/2021 11/25/2021 11/26/2021 1:10 AM CDT COVID19 11/25/2021 11/25/2021 12/05/2021 3:05 AM CDT COVID: Recovered Comment:Added based on recent COVID infection. 12/05/2021 02/14/2022 04/04/2022 3:[address] COVID: Suspected 12/29/2022 12/29/2022 12/29/2022 10:09 AM CDT COVID: Suspected 12/29/2022 12/29/2022 12/29/2022 3:50 PM CDT COVID: Suspected 03/19/2023 03/19/2023 03/19/2023 11:31 PM SHOP TAILOR COVID: Suspected 10/16/2023 10/16/2023 10/16/2023 3:46 PM CDT COVID19 10/16/2023 10/22/2023 11/01/2023 3:06 AM CDT COVID: Recovered Comment:Added based on recent COVID infection. 11/01/2023 11/01/2023 01/30/2024 3:05 AM C DT COVID: Suspected 03/28/2024 03/28/2024 03/28/2024 10:22 AM SHOP TAILOR COVID: Suspected 06/03/2024 06/03/2024 06/03/2024 9:51 AM SHOP TAILOR COVID: Suspected 06/03/2024 06/03/2024 06/03/2024 4:55 PM SHOP TAILOR documented as of this encounter Care Teams Apron Cleaner Relationship Specialty Start Date End Date David Roberts MD [address] [facility] [address] [place] [address] PCP - General 07/21/16 12/25/17 documented as of this encounter
[2024-12-24 15:00] VITALS: BMI 28.4
--- OUTSIDE RECORDS SUMMARY | 2025-01-05 01:03 | XMS_ITS | Encounter Summary ---
Author Organization [facility] Address [address] [place] [address] Phone Care Team Providers Care Assistant Fitness Manager Name Role Phone Tico Mars MD Primary Care Provider [phone] Toribio Pinedo MD Unavailable Geri Nath MD Unavailable [phone] Tori Pinedo APRN, CHILLING HOOD OPERATOR Unavailable Sandi Hicks PROBATE CLERK Unavailable Unavailab Lidia Cabrera MD Primary Care Provide r Tico Mars MD Primary Care Provider [phone] Manjit Rangel MD Unavailable [phone] Reason for Visit * Reason Comments Medication Refill Encounter Details Date Type Department Care Team (Late st Contact Info) Description 09/12/2023 [facility]ill [facility] - Internal Medicine - [place] [address] [place] [id number] Tyra Higgins, [facility] [address] [place] [address] Medication Refill Social History Tobacco Use Types Packs/Day Years Used Date Smoking Tobacco: Never Passive Smoke Exposure: Never Smokeless Tobacco: Never Alcohol Use Standard Drinks/Week Comments Not Currently 0 (1 standard drink = 0.6 oz pur e alcohol) [facility] Utilities Answer Date Recorded In [...] 05/24/2023 How often do you attend chur ch or scientologist services? Patient unable to answer 05/24/2023 Do you belong to any clubs o r organizations such as catholic groups, unions, fraternal or athletic groups, or [...] Score - Questions 1-9 0 05/0 04/2023 [facility] - Occupational Stress [...] place to sleep or slept in a mcc (including now)? Patient unable to answer 05/24/2023 [...] Dept 08/22/23 Office Visit Tico Mars MD [facility] 05/24/23 Office Visit Tico Mars MD [facility] Showing recent visits within past 182 days and meeting all other requirements Future Appointments Date Type Provider Dept 11/22/23 Appointment [facility] Showing future appointments within next 90 days and meeting all other requirements Passed - Has an encounter in the past 6 months with a depression or anxiety visit diagnosis documented in this encounter Plan of Treatment Upcoming Encounters Date Type Department Care Team (Late st Contact Info) Description 04/24/2025 1:00 PM CASHIER AND SALESPERSON Office Visit [facility] - Primary Care - [place] [address] [place] [address] Tico Mars MD [address] [place] [address] documented as of this encounter Visit Diagnoses Not on filedocumented in this encounter Additional Health Concerns Assessment Noted Time PHQ-9 Depression Total Score: 0 08/22/19 11:35 AM CDT documented as of this encounter Care Teams Assistant Fitness Manager Relationship Specialty Start Date End Date Tico Mars MD PCP - General Internal Medicine 03/18/18 02/06/24 Lidia Srinivasan MD [address] [address] PCP - General Rheumatology 02/07/24 03/02/24 Tico Mars MD PCP - General Internal Medicine 03/03/24 Toribio Pinedo MD [address] [address] Consulting Physician Colon and Rectal Surgery 05/17/22 Geri Nath MD [address] [place] [address] Consulting Physician Gastroenterology 06/29/22 11/23/24 Tori Pinedo APRN, CHILLING HOOD OPERATOR [address] [place] [address] Nurse Practitioner Gastroenterology 01/04/24 Sandi Hicks LSW [place] Putter In Animal Rehabilitator 01/24/24 02/01/24 Manjit Rangel MD [address] [place] [address] Consulting Physician Orthopaedic Surgery 11/24/24 Jay Linda, [employer] Nurse Practitioner Psychiatry 11/24/24 documented as of this encounter
--- OUTSIDE RECORDS SUMMARY | 2025-01-05 01:03 | XMS_ITS | Encounter Summary ---
Author Organization [facility] Address [address] [place] [address] Phone Care Team Providers Care Steam Gigger Name Role Phone Tico Mars MD Primary Care Provider [phone] Toribio Pinedo MD Unavailable Geri Nath MD Unavailable [phone] Tori Pinedo APRN, PINION STAKER Unavailable Sandi Hicks HEALTH PROMOTER Unavailable Unavailab Lidia Cabrera MD Primary Care Provide r Tico Mars MD Primary Care Provider [phone] Manjit Rangel MD Unavailable [phone] Reason for Visit * Reason Comments Medication Refill Encounter Details Date Type Department Care Team (Late st Contact Info) Description 05/15/2023 Refill [facility] - Internal Medicine - [place] [address] [place] [phone] Tyra Higgins, [facility] [address] [place] [address] Medication Refill Social History Tobacco Use Types Packs/Day Years Used Date Smoking Tobacco: Never Passive Smoke Exposure: Never Smokeless Tobacco: Never Alcohol Use Standard Drinks/Week Comments Not Currently 0 (1 standard drink = 0.6 oz pur e alcohol) PHQ-2 Answer Date Recorded Total Score - Questions 1-9 0 01/23 Sexually Active Control Partners Comments Not Currently [...] st Contact Info) Description 04/24/2025 1:00 PM PINION STAKER Office Visit [facility] - Primary Care - [place] [address] [place] [id number] Tico Mars MD [address] [place] [address] documented as of this encounter Visit Diagnoses Not on filedocumented in this encounter Additional Health Concerns Assessment Noted Time PHQ-9 Depression Total Score: 0 02/20/20 23 9:40 AM CDT documented as of this encounter Care Teams Steam Gigger Relationship Specialty Start Date End Date Tico Mars MD PCP - General Internal Medicine 03/18/18 02/06/24 Lidia Srinivasan MD [address] [facility] [address] [place] [address] PCP - General Rheumatology 02/07/24 03/02/24 Tico Mars MD PCP - General Internal Medicine 03/03/24 Toribio Pinedo MD [address] [address] Consulting Physician Colon and Rectal Surgery 05/17/22 Geri Nath MD [address] [place] [address] Consulting Physician Gastroenterology 06/29/22 11/23/24 Tori Pinedo APRN, PINION STAKER [address] [place] [address] Nurse Practitioner Gastroenterology 01/04/24 Sandi Hicks LSW [place] Shorthand Reporter Healthcare Account Manager 01/24/24 02/01/24 Manjit Rangel MD [address] [address] Consulting Physician Orthopaedic Surgery 11/24/24 Jay Linda, VISION TEACHER Nurse Practitioner Psychiatry 11/24/24 documented as of this encounter
--- OUTSIDE RECORDS SUMMARY | 2025-01-05 01:03 | XMS_ITS | Clinical Summary ---
Author Organization [facility] Address [address] [place] [address] Care Team Providers Care Napping Machine Operator Name Role Phone Tico Mars MD Primary Care Provider [phone] Allergies Active Allergy Reactions Criticality Noted Date Comments Cefdinir Swelling Medium 09/03/2018 Fluticasone Itching Low 01/20/2019 Latex Blisters High 04/14/2019 Lifitegrast Unknown 12/19/2023 Penicillin G Rash Medium Penicillins Rash Medium 12/19/2023 Oxycodone-Acetaminophe n Other (See comments) Low 04/14/2019 Extreme sleepiness Tissue Adhesive Redness Low 06/13/2019 Medications vit D3-vit P-lorvilxuc-oc ps [phone] hrdn-yvd-os-mg tablet Take by mouth Active dicyclomine (BENTYL) [...] EVERY DAY 90 tablet 1 5 Active busPIRone (BUSPAR) 5 mg tablet [...] affected eye(s) every 12 hours 5 Active Humira,CF, Pen 40 mg/0.4 mL pen injector kit INJECT 1 PEN SUBCUTANEOUSLY EVERY OTHER WEEK 2 each 2 5 Active acetaminophen (TYLENOL) 500 mg tablet Take 1 tablet (500 mg total) by mouth every 6 (six) hours as needed for pain Active Active Problems Problem Noted Date Diagnosed [...] (04/14/2019): Added automatically from request for surgery [id number] Long-term use of high-risk medication 03/14/2019 Assessment & Plan (03/14/2019 12:29 AM DEPUTY BRAND INSPECTOR): Recent labs reviewed without sxs of toxicity Osteopenia 03/14/2019 Assessment & Plan (03/14/2019 12:30 AM DEPUTY BRAND INSPECTOR): Lifestyle modifications are important for the prevention [...] 03/14/2019 Assessment & Plan (03/14/2019 12:29 AM DEPUTY BRAND INSPECTOR): Hopefully you can develop an exercise regimen [...] (02/03/2019): Added automatically from request for surgery [id number] Assessment & Plan (03/14/2019 12:31 AM DEPUTY BRAND INSPECTOR): Scheduled for RTKR tomorrow with Dr. Gaines. Medications on hold. May resume same 2 weeks after surgery if healing as expected. Right ear pain 01/20/2019 DNS (deviated nasal septum) 05/02/2018 Maxillary sinusitis 04/19/2017 Assessment & Plan (04/19/2017 1:01 PM DEPUTY BRAND INSPECTOR): Doxycycline #20 sent to pharmacy. Pt does not want to get surgeries done that ENT has recommended at this time. Lung nodule 01/11/2017 Overview (01/11/2017): Diagnosed 01/11/[address] 6mm nodule left lung base. Assessment & Plan (04/19/2017 3:49 PM DEPUTY BRAND INSPECTOR): noncontrast CT scan of chest to be done in early June already ordered. Will have MA contact patient to make sure she has scheduled this. Assessment & Plan (01/11/2017 2:33 PM CDT): 6mm nodule L lung base. Repeat noncontrast chest CT ordered, told patient to schedule June 2017. Microscopic hematuria 01/11/2017 Assessment & Plan (04/19/2017 12:58 PM DEPUTY BRAND INSPECTOR): S/p evaluation by urology. Assessment & Plan (01/11/2017 11:39 PM CDT): CT scan abd / pelvis without stones. Continue urology eval. BMI 29.0-29.9,adult 11/28/2016 Assessment & Plan (04/19/2017 11:33 AM DEPUTY BRAND INSPECTOR): BMI Follow-up includes: nutrition counseling, exercise counseling [...] Breast cancer screening: No longer going to career technology [employer] 2/2 hysterectomy. Cervical cancer screening: No longer going to career technology teacher due to hysterectomy. Osteoporosis screening: As above Vaccinations: Influenza: Gets yearly. Pneumonia: 2012 Prevnar 13: At 66 Shingles: not indicated Tetanus: 07/11/13 Bleeding from the nose 11/28/2016 Assessment & Plan (11/28/2016 11:37 AM CDT): Will give [facility] ENT ph # for her to see physician she saw a few years ago at [facility]. Age-related osteoporosis wit hout current pathological fracture 11/28/2016 Assessment & Plan (11/28/2016 11:38 PM CDT): Prolia today. Check Vitamin D. Due for bone density, ordered today. Memory loss 11/28/2016 Assessment & Plan (04/19/2017 1:00 PM DEPUTY BRAND INSPECTOR): No improvement by decreasing amitriptyline. Will try [...] to memory and aging department at [facility] for more detailed evaluation. 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 Scheduled for RTKR tomorrow [...] Dyslipidemia Assessment & Plan (04/19/2017 1:00 PM DEPUTY BRAND INSPECTOR): Reassess when she is feeling better. Discussed [...] Encounters Date Type Department Care Team Description 01/01/2025 2:38 PM CDT - 01/01/2025 11:59 PM CDT Hospital Encounter [facility] - Imaging [address] [place] [id number] Stress fracture of left fibula, initial encounter Discharge Disposition: Discharge to home or self care 01/01/2025 Telephone [facility] [address] [facility] Medical Office Building [address] [place] [address] Kae Echeverria MD 12/31/2024 2:10 PM CDT Lab [address] [place], [place] [id number] Age-related osteoporosis without current pathological fracture; Hypercalcemia; History of compression fracture of spine; Other osteoporosis without current pathological fracture; Current chronic use of systemic steroids; shelter current use of systemic steroids; Rheumatoid arthritis, involving unspecified site, unspecified whether rheumatoid factor present ([facility]) 12/31/2024 12:00 PM CDT [facility] [address] [place], [place] [address] [address] [place] [address] Kae Echeverria MD Other osteoporosis without current pathological fracture (Primary Dx); Age-related osteoporosis without current pathological fracture; Hypercalcemia; History of compression fracture of spine; Current chronic use of systemic steroids; salvage determiner current use of systemic steroids; Rheumatoid arthritis, involving unspecified site, unspecified whether rheumatoid factor present ([facility]) 12/31/2024 11:30 AM CDT Clinical Support [facility] [address] [facility] [address] [facility] [address] [place] [address] Age-related osteoporosis without current pathological fracture 12/10/2024 Documentation [facility] Orthopaedic Surgery [address] 2[address] [place] [address] Roc Basurto ATC 12/09/2024 1:50 PM CDT Office Visit [facility] Orthopaedic Surgery [address] [facility] Medical Office Building [address] [place] [phone] Lori Orozco MD Stress fracture of left fibula, initial encounter (Primary Dx); Acquired pes planovalgus of left foot 12/09/2024 1:16 PM CDT - 12/09/2024 11:59 PM CDT Hospital Encounter [facility] [address] [facility] [address] [place] [address] Stress fracture of left fibula, initial encounter Discharge Disposition: Discharge to home or self care 11/19/2024 11:25 AM CDT Ancillary Procedure [facility] at [address] [address] Pain in left foot; Left ankle injury, initial encounter 11/19/2024 11:20 AM CDT Ancillary Procedure [facility] at [address] [address] Pain in left foot 11/19/2024 11:15 AM CDT Office Visit [facility] at [address] [address] Crystal Baca NP Pain in left foot (Primary Dx); Left ankle injury, initial encounter 11/19/2024 Results Follow-Up [facility] at [address] [address] Crystal Baca, CHUYITA XR Foot Left 3 or More Views 11/05/2024 3:26 PM CDT - 11/05/2024 11:59 PM CDT Hospital Encounter [facility] [address] [place] [address] Discharge Disposition: Discharge to home or self care 11/05/2024 2:30 PM CDT Office Visit [facility] at [facility] [address] [facility] [address] [place] [address] Lidia Srinivasan MD Rheumatoid arthritis of multiple sites with negative rheumatoid factor (HCC) (Primary Dx); Long-term use of high-risk medication; Chronic bilateral low back pain with sciatica, sciatica laterality unspecified from Last 3 Months Immunizations Immunization Administration Dates Next Due COVID-19 mRNA (Flipiture) 0.3 m L (30 mcg) vaccine (12 [...] Preservative Free, Intradermal 03/12/2015 Influenza, Unspecified 02/09/2023 [employer] SARS-CoV-2 Monovalent Vaccination (12+ Yrs) PURPLE 10/09/2022,06/24/2020,06/05/2020 [...] Hypertension Mother Hypertension; Hyperlipidemia Sister Hyperlipidemi a; Hip fracture Neg Hx Osteoporosis Neg Hx Relation Name Status Comments Brother 1 (Age [...] on file Legal Sex Female 1:48 AM DEPUTY BRAND INSPECTOR Gender Identity Not on file Sexual Orientation Choose not to disclose 2018 12:47 PM CDT Obstetrics History Last Filed Vital Signs Vital Sign Reading Time Taken Comments Blood Pressure 148/88 11/19/2024 10:56 AM CDT Pulse 75 11/19/2024 10:56 AM CDT Temperature 36.4 C (97.5 F) 11/19/2024 10:56 AM CDT Respiratory Rate 20 11/19/2024 10:56 AM CDT Oxygen Saturation 96% 11/19/2024 10:56 AM CDT Inhaled Oxygen Concentration - - Weight 68 kg (150 lb) 12/09/2024 1:55 PM CDT Height 160 cm (5' 3) 12/09/2024 1:55 PM CDT Body Mass Index 26.57 12/09/2024 1:55 PM CDT Plan of Treatment Health Maintenance [...] 03/26/2024, 03/26/2024, 08/02/2018 Osteoporosis Screening-Bone Density Scan 12/31/2026 12/31/2024, 02/07/2024, 02/07/2024, Additional history exists DTaP/Tdap/Td Vaccine (3 - Td or Tdap) 02/08/2030 02/09/2020, 01/19/2014 Pneumococcal vaccine 65+ Completed 023, 06/01/2021, 02/02/2008 Medical Devices Implanted Type Area Pulverizer Feeder Device Identifier Shelf Expiration Date Model / Serial / Lot [employer] 3122-040 Smartset Medium Viscosity Cement 40gm Bone Sterile - Sn/A - [id number] Implanted:Qty: 1 on 03/13/2019 by Jose Gaines MD at [facility] Other - see comments Right: Knee [employer] 06/20/2020 3122-040 / N/A / [id number] [employer] [id number] Smartset Medium Viscosity Cement 40gm Bone Gentamicin - Sn/A - [id number] Implanted:Qty: 1 on 03/13/2019 by Jose Gaines MD at [facility] Other - see comments Right: Knee [employer] 06/20/2020 [id number] / N/A / [id number] [employer]/O rtho [id number] Joanne Ii Base Right Total Knee 5 Baseplate Tibial Nonporous - Sn/A - [id number] Implanted:Qty: 1 on 03/13/2019 by Jose Gaines MD at [facility] Other - see comments Right: Knee [employer]/ Ortho [id number] 12/10/2028 [id number] / N/A / [id number] [employer]/O rtho [id number] Joanne Ii Legion Spc Cruciate Retain Knee Right 7 Component - Sn/A - [id number] Implanted:Qty: 1 on 03/13/2019 by Jose Gaines MD at [facility] Other - see comments Right: Knee [employer]/ Ortho [id number] 11/23/2028 [id number] / N/A / [id number] [employer]/O rtho [id number] Legion 12mm Cruciate Retaining High Flexion Knee 5-6 Insert - Sn/A - [id number] Implanted:Qty: 1 on 03/13/2019 by Jose Gaines MD at [facility] Other - see comments Right: Knee [employer]/ Ortho [id number] 03/22/2026 [id number] / N/A / [id number] Nasal Plug Nose Procedures Procedure Name Priority Date/Time Associated Diagnosis Comments MRI LEG CALF TIBFIB LEFT W WO CONTRAST Schedule Routine, Read Routine (OP Routine) 01/01/2025 4:25 PM CDT Stress fracture of left fibula, initial encounter CALCIUM, IONIZED POC - [facility] Routine 12/31/2024 4:04 PM CDT EGFR Routine 12/31/2024 2:22 PM CDT Age-related osteoporosis without current pathological fracture Hypercalcemia History of compression fracture of spine Other osteoporosis without current pathological fracture Current chronic use of systemic steroids salvage determiner current use of systemic steroids Rheumatoid arthritis, involving unspecified site, unspecified whether rheumatoid factor present (HCC) PTH Routine 12/31/2024 2:22 PM CDT Age-related osteoporosis without current pathological fracture Hypercalcemia History of compression fracture of spine Other osteoporosis without current pathological fracture Current chronic use of systemic steroids salvage determiner current use of systemic steroids Rheumatoid arthritis, involving unspecified site, unspecified whether rheumatoid factor present (HCC) PHOSPHORUS Routine 12/31/2024 2:22 PM CDT Age-related osteoporosis without current pathological fracture Hypercalcemia History of compression fracture of spine Other osteoporosis without current pathological fracture Current chronic use of systemic steroids salvage determiner current use of systemic steroids Rheumatoid arthritis, involving unspecified site, unspecified whether rheumatoid factor present (HCC) VITAMIN D 25 HYDROXY Routine 12/31/2024 2:22 PM CDT Age-related osteoporosis without current pathological fracture Hypercalcemia History of compression fracture of spine Other osteoporosis without current pathological fracture Current chronic use of systemic steroids shelter current use of systemic steroids Rheumatoid arthritis, involving unspecified site, unspecified whether rheumatoid factor present (HCC) OSTEOCALCIN Routine 12/31/2024 2:22 PM CDT Age-related osteoporosis without current pathological fracture Hypercalcemia History of compression fracture of spine Other osteoporosis without current pathological fracture Current chronic use of systemic steroids salvage determiner current use of systemic steroids Rheumatoid arthritis, involving unspecified site, unspecified whether rheumatoid factor present (HCC) PROTEIN ELECTROPHORESIS, WITH REFLEX, SERUM Routine 12/31/2024 2:22 PM CDT Age-related osteoporosis without current pathological fracture Hypercalcemia History of compression fracture of spine Other osteoporosis without current pathological fracture Current chronic use of systemic steroids shelter current use of systemic steroids Rheumatoid arthritis, involving unspecified site, unspecified whether rheumatoid factor present (HCC) COMPREHENSIVE METABOLIC PANEL Routine 12/31/2024 2:22 PM CDT Age-related osteoporosis without current pathological fracture Hypercalcemia History of compression fracture of spine Other osteoporosis without current pathological fracture Current chronic use of systemic steroids salvage determiner current use of systemic steroids Rheumatoid arthritis, involving unspecified site, unspecified whether rheumatoid factor present (HCC) BETA-CROSSLAPS (BETA-CTX) Routine 12/31/2024 2:22 PM CDT Age-related osteoporosis without current pathological fracture Hypercalcemia History of compression fracture of spine Other osteoporosis without current pathological fracture Current chronic use of systemic steroids shelter current use of systemic steroids Rheumatoid arthritis, involving unspecified site, unspecified whether rheumatoid factor present (HCC) DEXA TBS AXIAL SKELETON BONE DENSITY 1 OR MORE SITES Schedule Routine, Read Routine (OP Routine) 12/31/2024 11:51 AM CDT Age-related osteoporosis without current pathological fracture MD CAST SUP SHRT LEG FIBERGLASS Routine 12/09/2024 4:16 PM CDT Acquired pes planovalgus of left foot MD APPLICATION SHORT LEG CAST WALKING/AMBULATORY Routine 12/09/2024 4:16 PM CDT Acquired pes planovalgus of left foot XR ANKLE LEFT 3 OR MORE VIEWS Schedule Routine, Read Routine (OP Routine) 12/09/2024 1:49 PM CDT Stress fracture of left fibula, initial encounter XR FOOT LEFT 3 OR MORE VIEWS Schedule Routine, Read Routine (OP Routine) 12/09/2024 1:49 PM CDT Stress fracture of left fibula, initial encounter XR FOOT LEFT 3 OR MORE VIEWS Schedule LINDA, Read LINDA (Appt Today, Awaiting Results) 11/19/2024 11:27 AM CDT Pain in left foot XR ANKLE LEFT 3 OR MORE VIEWS Schedule LINDA, Read LINDA (Appt Today, Awaiting Results) 11/19/2024 11:27 AM CDT Pain in left foot Left ankle injury, initial encounter EGFR Routine 11/05/2024 3:22 PM CDT Long-term use of high-risk medication CBC WITHOUT DIFFERENTIAL Routine 11/05/2024 3:22 PM CDT Long-term use of high-risk medication COMPREHENSIVE METABOLIC PANEL Routine 11/05/2024 3:22 PM CDT Long-term use of high-risk medication ERYTHROCYTE SEDIMENTATION RATE Routine 11/05/2024 3:22 PM CDT Rheumatoid arthritis of multiple sites with negative rheumatoid factor (HCC) SCREENING MAMMOGRAM Routine 11/29/2015 1 2:50 PM CDT from Last 3 Months or Most Recently Relevant to Health Maintenance Results * MRI Leg Calf Left W WO Contrast (01/01/2025 4:25 PM CDT) Anatomical Region Laterality Modality Lower Extremities Left Magnetic Reson ance 01/02/2025 6:40 AM CDT Impressions 01/02/2025 6:40 AM CDT Stress fracture of the distal tibia diaphysis and the distal fibular diaphysis, likely subacute. There is some evidence of bone reaction/healing although the fracture lines are still well seen. There is moderate bone edema suggesting ongoing pain associated with the fractures. Electronically signed by: Cruz Thomas M.D. Narrative 01/02/2025 6:40 AM CDT MRI leg calf left without and with contrast HISTORY: Stress fracture. Lower leg pain. Concern for tibial stress fracture. TECHNIQUE: MRI of the leg calf left was done without and with contrast 13 mL intravenous gadolinium material. FINDINGS: No recent prior studies for correlation. The partially included knee show severe degenerative arthritis. There is at least mild to moderate degenerative arthritis of the ankle incompletely included. The knee is incompletely included and incompletely characterized. There is stress fracture of the distal fibula with some cortical thickening and bone reaction suggesting subacute fracture. There is nondisplaced fracture of the distal tibial diaphysis with marked bone edema and some bone reaction and bony healing although the fracture line is still well seen in both the tibia and fibula. The fractures are likely subacute with ongoing features given the edema. There is no muscle tear. There is some mild generalized soft tissue swelling and edema including the posterior compartment musculature without significant atrophy or tear. There are no abnormal enhancing masses appreciated. Procedure Note Cruz Thomas MD - 01/02/2025 MRI leg calf left without and with contrast HISTORY: Stress fracture. Lower leg pain. Concern for tibial stress fracture. TECHNIQUE: MRI of the leg calf left was done without and with contrast 13 mL intravenous gadolinium material. FINDINGS: No recent prior studies for correlation. The partially included knee show severe degenerative arthritis. There is at least mild to moderate degenerative arthritis of the ankle incompletely included. The knee is incompletely included and incompletely characterized. There is stress fracture of the distal fibula with some cortical thickening and bone reaction suggesting subacute fracture. There is nondisplaced fracture of the distal tibial diaphysis with marked bone edema and some bone reaction and bony healing although the fracture line is still well seen in both the tibia and fibula. The fractures are likely subacute with ongoing features given the edema. There is no muscle tear. There is some mild generalized soft tissue swelling and edema including the posterior compartment musculature without significant atrophy or tear. There are no abnormal enhancing masses appreciated. IMPRESSION: Stress fracture of the distal tibia diaphysis and the distal fibular diaphysis, likely subacute. There is some evidence of bone reaction/healing although the fracture lines are still well seen. There is moderate bone edema suggesting ongoing pain associated with the fractures. Electronically signed by: Cruz Thomas M.D. Lori Orozco MD IM MRI PROCEDURES Final R esult * Calcium, Ionized POC - [facility] (12/31/2024 4:04 PM CDT) Calcium, Ionized 4.60 4.50 - 5.10 mg/dL Comment:Testing performed at [facility]. Blood 12/31/2024 4:04 PM CDT 12/31/2024 4:04 PM CDT Kae Echeverria MD LAB BLOOD ORDERABLES Final Result [facility] [place] [address] * eGFR (12/31/2024 2:22 PM CDT) eGFR 85 >=60 mL/min/1. 73 m2 Comment: Interpretive Data [...] interpretive data was last reviewed 2021. Blood 12/31/2024 2:22 PM CDT 12/31/2024 7:07 PM CDT us Kae Echeverria MD LAB BLOOD ORDERABLES Final Result [facility] [place] [address] * Beta-CrossLaps (Beta-CTx) (12/31/2024 2:22 PM CDT) Pathologist [facility] Beta-CTx 832 pg/mL Comment: Interpretive Data Female: Premenopausal: 136 - 689 pg/mL Postmenopausal: 177 - 1015 pg/mL Male: 30 - 50 years: 131 - 670 pg/mL 51 - 70 years: 171 - 1060 pg/mL > 70 years: 152 - 858 pg/mL Current interpretive data was last revised on 2023. Blood 12/31/2024 2:22 PM CDT 12/31/2024 3:46 PM CDT Kae Echeverria MD LAB BLOOD ORDERABLES Final Result Performing Organization Address City/[facility] Co de Phone Number [facility] [place] [address] * Osteocalcin (12/31/2024 2:22 PM CDT) [facility] Osteocalcin 56.4 ng/mL Comment: Interpretive Data Female: Premenopausal: 7.6 - 35.1 ng/mL Postmenopausal: 7.3 - 38.5 ng/mL Male: 30 - 50 years: 8.4 - 36.7 ng/mL > 50 years: 9.9 - 35.6 ng/mL Current interpretive data was last revised on 2021. Blood 12/31/2024 2:22 PM CDT 12/31/2024 3:46 PM CDT Kae Echeverria MD LAB BLOOD ORDERABLES Final Result [facility] [place] [address] * Vitamin D 25 hydroxy (12/31/2024 2:22 PM CDT) [facility] Vitamin D 25-OH 39 30 - 80 ng/mL Blood 12/31/2024 2:22 PM CDT 12/31/2024 6:54 PM CDT Kae Echeverria MD LAB BLOOD ORDERABLES Final Result Performing Organization Address City/[facility] Co de Phone Number [facility] [place] [address] * Protein electrophoresis with reflex, serum with interpretation (12/31/2024 2:22 PM CDT) Pathologist [facility] Protein, sr 7.0 6.2 - 8.2 g/dL Albumin 4.1 3.2 - 5.0 g/dL [facility] Alpha-1 globulin 0.3 0.2 - 0.4 g/dL [facility] Alpha-2 globulin 0.8 0.5 - 1.0 g/dL [facility] Beta-1 globulin 0.4 0.3 - 0.6 g/dL [facility] Beta-2 globulin 0.6 0.2 - 0.6 g/dL [facility] Gamma globulin 0.8 0.5 - 1.7 g/dL [facility] SPEP interp Please see comment [facility] Comment: No apparent monoclonal peak Reviewed and signed by Juan Sharp MD, PhD 01/01/2025 Blood 12/31/2024 2:22 PM CDT 12/31/2024 3:46 PM CDT Kae Echeverria MD LAB BLOOD ORDERABLES Final Result Performing Organization Address [facility] Co de Phone Number [facility] [place] [address] * Phosphorus (12/31/2024 2:22 PM CDT) Pathologist [facility] Phosphorus, pl 2.3 2.3 - 4.5 mg/dL Blood 12/31/2024 2:22 PM CDT 12/31/2024 6:54 PM CDT Kae Echeverria MD LAB BLOOD ORDERABLES Final Result Performing Organization Address City/[facility] Co de Phone Number [facility] [place] [address] * (ABNORMAL) PTH (12/31/2024 2:22 PM CDT) Pathologist [facility] PTH 83(H) 15 - 65 pg/mL Blood 12/31/2024 2:22 PM CDT 12/31/2024 3:46 PM CDT Kae Echeverria MD LAB BLOOD ORDERABLES Final Result Performing Organization Address [facility] Co de Phone Number [facility] [place] [address] * (ABNORMAL) Comprehensive metabolic panel (12/31/2024 2:22 PM CDT) [facility] Sodium 142 135 - 145 mmol/L Potassium, pl 4.1 3.3 - 4.9 mmol/L [facility] Chloride 105 97 - 110 mmol/L [facility] CO2 27 22 - 32 mmol/L [facility] Anion gap 10 2 - 15 mmol/L [facility] BUN 17 6 - 25 mg/dL [facility] Creatinine 0.76 0.60 - 1.10 mg/dL [facility] Glucose 88 70 - 199 mg/dL [facility] Comment: Interpretive Data Fasting glucose [...] interpretive data was last revised 2022. Calcium 11.2(H) 8.5 - 10.3 mg/dL [facility] Bilirubin, total 0.6 0.1 - 1.2 mg/dL [facility] Protein, pl 7.6 6.5 - 8.5 g/dL [facility] Albumin 4.2 3.5 - 5.0 g/dL [facility] Alk phos 137(H) 40 - 130 Units/L [facility] ALT 33 7 - 45 Units/L [facility] AST 34 10 - 45 Units/L [facility] Blood 12/31/2024 2:22 PM CDT 12/31/2024 6:54 PM CDT us Kae Echeverria MD LAB BLOOD ORDERABLES Final Result [facility] [place] [address] * Dexa TBS Axial Skeleton Bone Density 1 or more sites (12/31/2024 11:51 AM CDT) Anatomical Region Laterality Modality Wrist, Body N/A Radiographic Mireya ging Narrative 12/31/2024 9:57 PM CDT Patient Name: Claire Bond Date of : 1955 Date of scan: 12/31/2024 Bone mineral density was performed on a [employer] Densitometer. Based on machine cross-calibration and precision studies the least significant changes of this densitometer is 0.024 g/cm2 at the spine, 0.020 g/cm2 at the total proximal femur, and 0.014g/cm2 at the forearm. HISTORY: This is a 69 y.o. postmenopausal female with a history of osteoporosis and rheumatoid arthritis. She reports that she has never smoked. She has never used smokeless tobacco. Currently on treatment with calcium, vitamin D, and glucocorticoids, previously treated with alendronate (Fosamax) and hormone replacement therapy, and current complaint of back pain and leg pain. INDICATIONS: Menopause status, treatment monitoring, history of prior vertebral fracture, currently on 5 mg of glucocorticoids for the past +/-21 year(s) with dosage variations, and history of osteoporosis. FINDINGS: BONE MINERAL DENSITY OF THE LUMBAR SPINE Bone Mineral Density (BMD) of the lumbar spine was measured from L1-L4 and the average density was calculated to be 0.926 gm/cm2. This corresponds to a T-score (standard deviations from the mean of young adults) of -1.1. When compared to the previous study of 11/06/2023 there has been no significant changes in bone density. BONE MINERAL DENSITY OF THE PROXIMAL FEMUR Bone Mineral Density (BMD) of the left hip total was found to be 0.568 gm/cm2. This corresponds to a T-score standard deviations from the mean of young adults of -3.1. Femoral neck is 0.622 gm/cm2 with a T-score (standard deviations from the mean of young adults) of -2.0. When compared to the previous study of 11/06/2023 there has been a -0.047 gm/cm (-7.7%) decrease in bone density that is considered significant. BONE MINERAL DENSITY OF THE FOREARM Bone Mineral density (BMD) of the left proximal 1/3 of the radius measures 0.497 gm/cm2. This corresponds to a T-score (standard deviations from the mean of young adults) of -3.3. When compared to the previous study of 11/06/2023 there has been no significant changes in bone density. A forearm bone density study was performed in addition to the routine study due to physician request. SUMMARY: Bone mineral density shows evidence of osteoporosis and marked increase risk of fracture. There has been a significant decrease in bone density since previous measurement. The lumbar spine Trabecular Bone Score is 1.267 which suggests partially degraded bone microarchitecture compared to the general population. Final decisions regarding diagnostic or therapeutic recommendations should include BMD, TBS, additional clinical risk factors as well the clinical context of the patient. Please see attached TBS results for further details. ADDITIONAL COMMENTS: Postmenopausal Women and Men Over [...] bone mineral density scan were prepared by Amanda Angeles) ROSE who is accredited by the International Society of Clinical Densitometry. The overall patient assessment and scan interpretation were performed by Kae Lowe, M.D. who is certified by the International Society of Clinical Densitometry. [id number] us Kae Echeverria MD IMG DXA PROCEDURES Final R esult * MD APPLICATION SHORT LEG CAST WALKING/AMBULATORY, MD CAST SUP SHRT LEG FIBERGLASS (12/09/2024 4:16 PM CDT) Narrative Deo Brooke - 12/09/2024 4:16 PM CDT Deo Brooke 12/10/2024 6:33 PM Ortho Casting/Splinting Documentation Date/Time: 12/09/2024 4:16 PM Performed by: Deo Brooke Authorized by: Lori Orozco MD Cast Applied: Yes Location: Foot Foot: L foot Cast type: Short leg weightbearing cast Supplies: Fiberglass Additional Supplies: Cotton padding and cotton stocking/sleeve Number of fiberglass rolls used: 5 Capillary Refill: Normal Patient tolerance of procedure: Tolerated well, no immediate complications us Lori Orozco MD IN CLINIC/BEDSIDE ORDERABL ES Final Result * XR Foot Left 3 or More Views (12/09/2024 1:49 PM CDT) Anatomical Region Laterality Modality Lower Extremities, Foot Left Computed Radiography 12/09/2024 1:53 PM CDT Impressions 12/09/2024 1:53 PM CDT 1. Healing distal left fibular fracture in unchanged alignment. 2. 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 Electronically signed by: Anthony Amezquita MD Narrative 12/09/2024 1:53 PM CDT EXAMINATION: XR FOOT LEFT 3 OR MORE VIEWS, XR ANKLE LEFT 3 OR MORE VIEWS HISTORY: Left fibular fracture, left foot pain FINDINGS: 3 views of the left ankle and 3 views of the left foot are compared to the examination dated 11/19/2024. Healing distal left fibular fracture in unchanged alignment. There remains mild lateral angulation. There is moderate soft tissue swelling about the left ankle. Ankle mortise is intact. The talar dome is normal. Mild talocrural osteoarthritis. Moderate midfoot osteoarthritis. Moderate pes planovalgus. Diffuse demineralization. No fracture. Moderate 1st metatarsophalangeal osteoarthritis. Mild to moderate osteoarthritis throughout the interphalangeal joints. Mild to moderate hallux valgus and metatarsus primus varus with a prominent bunion deformity. Procedure Note Anthony Amezquita MD - 12/09/2024 EXAMINATION: XR FOOT LEFT 3 OR MORE VIEWS, XR ANKLE LEFT 3 OR MORE VIEWS HISTORY: Left fibular fracture, left foot pain FINDINGS: 3 views of the left ankle and 3 views of the left foot are compared to the examination dated 11/19/2024. Healing distal left fibular fracture in unchanged alignment. There remains mild lateral angulation. There is moderate soft tissue swelling about the left ankle. Ankle mortise is intact. The talar dome is normal. Mild talocrural osteoarthritis. Moderate midfoot osteoarthritis. Moderate pes planovalgus. Diffuse demineralization. No fracture. Moderate 1st metatarsophalangeal osteoarthritis. Mild to moderate osteoarthritis throughout the interphalangeal joints. Mild to moderate hallux valgus and metatarsus primus varus with a prominent bunion deformity. IMPRESSION: 1. Healing distal left fibular fracture in unchanged alignment. 2. 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 Electronically signed by: Anthony Amezquita MD Lori Orozco MD IMG XR PROCEDURES Final Re sult * XR Ankle Left 3 or More Views (12/09/2024 1:49 PM CDT) Anatomical Region Laterality Modality Lower Extremities, Ankle Left Compute d Radiography 12/09/2024 1:53 PM CDT Impressions 12/09/2024 1:53 PM CDT 1. Healing distal left fibular fracture in unchanged alignment. 2. 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 Electronically signed by: Anthony Amezquita MD Narrative 12/09/2024 1:53 PM CDT EXAMINATION: XR FOOT LEFT 3 OR MORE VIEWS, XR ANKLE LEFT 3 OR MORE VIEWS HISTORY: Left fibular fracture, left foot pain FINDINGS: 3 views of the left ankle and 3 views of the left foot are compared to the examination dated 11/19/2024. Healing distal left fibular fracture in unchanged alignment. There remains mild lateral angulation. There is moderate soft tissue swelling about the left ankle. Ankle mortise is intact. The talar dome is normal. Mild talocrural osteoarthritis. Moderate midfoot osteoarthritis. Moderate pes planovalgus. Diffuse demineralization. No fracture. Moderate 1st metatarsophalangeal osteoarthritis. Mild to moderate osteoarthritis throughout the interphalangeal joints. Mild to moderate hallux valgus and metatarsus primus varus with a prominent bunion deformity. Procedure Note Anthony Amezquita MD - 12/09/2024 EXAMINATION: XR FOOT LEFT 3 OR MORE VIEWS, XR ANKLE LEFT 3 OR MORE VIEWS HISTORY: Left fibular fracture, left foot pain FINDINGS: 3 views of the left ankle and 3 views of the left foot are compared to the examination dated 11/19/2024. Healing distal left fibular fracture in unchanged alignment. There remains mild lateral angulation. There is moderate soft tissue swelling about the left ankle. Ankle mortise is intact. The talar dome is normal. Mild talocrural osteoarthritis. Moderate midfoot osteoarthritis. Moderate pes planovalgus. Diffuse demineralization. No fracture. Moderate 1st metatarsophalangeal osteoarthritis. Mild to moderate osteoarthritis throughout the interphalangeal joints. Mild to moderate hallux valgus and metatarsus primus varus with a prominent bunion deformity. IMPRESSION: 1. Healing distal left fibular fracture in unchanged alignment. 2. 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 Electronically signed by: Anthony Amezquita MD Lori Orozco MD IMG XR PROCEDURES Final Re sult * XR Foot Left 3 or More Views (11/19/2024 11:27 AM CDT) Anatomical Region Laterality Modality Lower Extremities, Foot Left Digital Radiography 11/19/2024 11:5 4 AM CDT Narrative 11/19/2024 11:59 AM CDT EXAM DESCRIPTION: XR FOOT LEFT 3 OR MORE VIEWS; XR ANKLE LEFT 3 OR MORE VIEWS REASON FOR STUDY: Pain in Foot, Left, lateral foot pain, left chronic pain worsening over the last few weeks now radiating in ankle. Pt complains of chronic ankle and foot pain. No recent injury or prior surgery. Chronic stress fx of ankle ; Ankle pain, neg xray, left lateral ankle pain x 2 weeks. previously fractured 2 years ago. Pt complains of chronic ankle and foot pain. No recent injury or prior surgery. Chronic stress fx of ankle TECHNIQUE: Three views left foot. Three views left ankle. COMPARISON: Prior exam 09/08/2024 and 06/16/2024 FINDINGS: Left foot: No acute fracture or dislocation. Fairly moderate hallux valgus great toe with mild osteoarthritis as was previously seen. Mild osteoarthritis midfoot tarsals pes planus. Left ankle: Again seen is a healing fracture of the distal diaphysis of the left fibula centered 7 cm proximal to the tip of the fibula with fairly prominent callus formation. Callus has increased from the 06/16/2024 exam with smooth margins seen along the cortical surface at this time. No change in alignment or positioning. No other fracture seen. Talar dome is smooth. There is spurring of the distal dorsal talus. Small enthesophyte Achilles tendon insertion. Tiny plantar calcaneal spur. IMPRESSION: 1. Again seen is a healing fracture of the distal diaphysis of the left fibula with fairly prominent callus formation. No change in alignment or positioning. 2. No acute fracture. 3. Moderate hallux valgus great toe with mild osteoarthritis as was previously seen. 4. Mild osteoarthritis midfoot tarsals. THIS IS AN ELECTRONICALLY VERIFIED FINAL REPORT 11/19/2024 11:59 AM - Electronically signed by Alessio Avina M.D. MJ T: Report ID: [id number] Reading Location: [id number] Procedure Note lAessio Avina MD - 11/19/2024 EXAM DESCRIPTION: XR FOOT LEFT 3 OR MORE VIEWS; XR ANKLE LEFT 3 OR MOREVIEWS REASON FOR STUDY: Pain in Foot, Left, lateral foot pain, left chronic pain worsening over the last few weeks now radiating in ankle. Pt complains of chronic ankle and foot pain. No recent injury or prior surgery. Chronic stress fx of ankle ; Ankle pain, neg xray, left lateral ankle pain x 2 weeks. previously fractured 2 years ago. Pt complains of chronic ankle and foot pain. No recent injury or prior surgery. Chronic stress fx of ankle TECHNIQUE: Three views left foot. Three views left ankle. COMPARISON: Prior exam 09/08/2024 and 06/16/2024 FINDINGS: Left foot: No acute fracture or dislocation. Fairly moderate hallux valgus great toe with mild osteoarthritis as was previously seen. Mild osteoarthritismidfoot tarsals pes planus. Left ankle: Again seen is a healing fracture of the distal diaphysis of the leftfibula centered 7 cm proximal to the tip of the fibula with fairly prominentcallus formation. Callus has increased from the 06/16/2024 exam with smoothmargins seen along the cortical surface at this time. No change in alignment or positioning. No other fracture seen. Talar dome is smooth. There is spurring of the distal dorsal talus. Small enthesophyte Achilles tendon insertion. Tiny plantar calcaneal spur. IMPRESSION: 1. Again seen is a healing fracture of the distal diaphysis of the left fibula with fairly prominent callus formation. No change in alignment or positioning. 2. No acute fracture. 3. Moderate hallux valgus great toe with mild osteoarthritis as was previously seen. 4. Mild osteoarthritis midfoot tarsals. THIS IS AN ELECTRONICALLY VERIFIED FINAL REPORT 11/19/2024 11:59 AM - Electronically signed by Alessio Avina M.D. MJ T: Report ID: [id number] Reading Location: [id number] Crystal Baca NP IMG XR PROCEDURES Final Re sult * XR Ankle Left 3+ Vw (11/19/2024 11:27 AM CDT) Anatomical Region Laterality Modality Lower Extremities, Ankle Left Digital Radiography 11/19/2024 11:5 4 AM CDT Narrative 11/19/2024 11:59 AM CDT EXAM DESCRIPTION: XR FOOT LEFT 3 OR MORE VIEWS; XR ANKLE LEFT 3 OR MORE VIEWS REASON FOR STUDY: Pain in Foot, Left, lateral foot pain, left chronic pain worsening over the last few weeks now radiating in ankle. Pt complains of chronic ankle and foot pain. No recent injury or prior surgery. Chronic stress fx of ankle ; Ankle pain, neg xray, left lateral ankle pain x 2 weeks. previously fractured 2 years ago. Pt complains of chronic ankle and foot pain. No recent injury or prior surgery. Chronic stress fx of ankle TECHNIQUE: Three views left foot. Three views left ankle. COMPARISON: Prior exam 09/08/2024 and 06/16/2024 FINDINGS: Left foot: No acute fracture or dislocation. Fairly moderate hallux valgus great toe with mild osteoarthritis as was previously seen. Mild osteoarthritis midfoot tarsals pes planus. Left ankle: Again seen is a healing fracture of the distal diaphysis of the left fibula centered 7 cm proximal to the tip of the fibula with fairly prominent callus formation. Callus has increased from the 06/16/2024 exam with smooth margins seen along the cortical surface at this time. No change in alignment or positioning. No other fracture seen. Talar dome is smooth. There is spurring of the distal dorsal talus. Small enthesophyte Achilles tendon insertion. Tiny plantar calcaneal spur. IMPRESSION: 1. Again seen is a healing fracture of the distal diaphysis of the left fibula with fairly prominent callus formation. No change in alignment or positioning. 2. No acute fracture. 3. Moderate hallux valgus great toe with mild osteoarthritis as was previously seen. 4. Mild osteoarthritis midfoot tarsals. THIS IS AN ELECTRONICALLY VERIFIED FINAL REPORT 11/19/2024 11:59 AM - Electronically signed by Alessio CANAS T: Report ID: [id number] Reading Location: [place] [address] Procedure Note Alessio Avina MD - 11/19/2024 EXAM DESCRIPTION: XR FOOT LEFT 3 OR MORE VIEWS; XR ANKLE LEFT 3 OR MOREVIEWS REASON FOR STUDY: Pain in Foot, Left, lateral foot pain, left chronic pain worsening over the last few weeks now radiating in ankle. Pt complains of chronic ankle and foot pain. No recent injury or prior surgery. Chronic stress fx of ankle ; Ankle pain, neg xray, left lateral ankle pain x 2 weeks. previously fractured 2 years ago. Pt complains of chronic ankle and foot pain. No recent injury or prior surgery. Chronic stress fx of ankle TECHNIQUE: Three views left foot. Three views left ankle. COMPARISON: Prior exam 09/08/2024 and 06/16/2024 FINDINGS: Left foot: No acute fracture or dislocation. Fairly moderate hallux valgus great toe with mild osteoarthritis as was previously seen. Mild osteoarthritismidfoot tarsals pes planus. Left ankle: Again seen is a healing fracture of the distal diaphysis of the leftfibula centered 7 cm proximal to the tip of the fibula with fairly prominentcallus formation. Callus has increased from the 06/16/2024 exam with smoothmargins seen along the cortical surface at this time. No change in alignment or positioning. No other fracture seen. Talar dome is smooth. There is spurring of the distal dorsal talus. Small enthesophyte Achilles tendon insertion. Tiny plantar calcaneal spur. IMPRESSION: 1. Again seen is a healing fracture of the distal diaphysis of the left fibula with fairly prominent callus formation. No change in alignment or positioning. 2. No acute fracture. 3. Moderate hallux valgus great toe with mild osteoarthritis as was previously seen. 4. Mild osteoarthritis midfoot tarsals. THIS IS AN ELECTRONICALLY VERIFIED FINAL REPORT 11/19/2024 11:59 AM - Electronically signed by Alessio Avina M.D. MJ T: Report ID: [id number] Reading Location: [place] [address] Crystal Baca NP IMG XR PROCEDURES Final Re sult * eGFR (11/05/2024 3:22 PM CDT) eGFR [...] BLOOD ORDERABLES Final Result Performing Organization Address City/[facility]/ZIP Co de Phone Number [facility] [address] [facility] [place] [address] * Erythrocyte sedimentation rate (11/05/2024 3:22 PM CDT) Pathologist [facility] Erythrocyte sedimentation rate 20 1 - 30 mm/hr Blood 11/05/2024 3:22 PM CDT 11/05/2024 6:22 PM CDT Lidia Srinivasan MD LAB BLOOD ORDERABLES Final Result Performing Organization Address City/[facility] Co de Phone Number [facility] [address] [employer] [place], [place] [id number] * (ABNORMAL) CBC without differential (11/05/2024 3:22 PM CDT) [facility] WBC 7.59 3.80 - 9.90 K/cumm Hgb 12.8 11.9 - 15.5 g/dL [facility] Hct 40.1 35.6 - 45.5 % [facility] Plt 186 150 - 400 K/cumm [facility] MPV 12.0 9.1 - 12.3 fL [facility] RBC 4.29 3.90 - 5.20 M/cumm [facility] MCV 93.5 81.3 - 96.4 fL [facility] MCH 29.8 27.1 - 33.3 pg [facility] MCHC 31.9(L) 32.3 - 35.7 g/dL [facility] RDW CV 15.9(H) 11.1 - 14.9 % [facility] RDW SD 53.7(H) 35.7 - 48.1 fL [facility] NRBC abs 0.00 0.00 - 0.01 K/cumm [facility] Blood 11/05/2024 3:22 PM CDT 11/05/2024 6:22 PM CDT Lidia Srinivasan MD LAB BLOOD ORDERABLES Final Result [facility] [address] [place] [address] * (ABNORMAL) Comprehensive metabolic panel (11/05/2024 3:22 PM CDT) Sodium 142 135 - 145 mmol/L Potassium, pl 4.0 3.3 - 4.9 mmol/L [facility] Chloride 107 97 - 110 mmol/L [facility] CO2 23 22 - 32 mmol/L [facility] Anion gap 12 2 - 15 mmol/L [facility] BUN 16 6 - 25 mg/dL [facility] Creatinine 0.54(L) 0.60 - 1.10 mg/dL [facility] Glucose 91 70 - 199 mg/dL [facility] Comment: Interpretive Data Fasting glucose [...] 2022. Calcium 9.9 8.5 - 10.3 mg/dL [facility] Bilirubin, total 0.4 0.1 - 1.2 mg/dL [facility] Protein, pl 6.7 6.5 - 8.5 g/dL [facility] Albumin 4.1 3.5 - 5.0 g/dL [facility] Alk phos 109 40 - 130 Units/L [facility] ALT 29 7 - 45 Units/L [facility] AST 26 10 - 45 Units/L [facility] Blood 11/05/2024 3:22 PM CDT 11/05/2024 6:22 PM CDT us Lidia Srinivasan MD LAB BLOOD ORDERABLES Final Result [facility] [address] [place] [address] * Screening Mammogram (11/29/2015 12:50 PM CDT) Anatomical Region Laterality Modality Breast N/A Mammography 11/29/2015 12:5 0 PM CDT Narrative 12/01/2015 4:10 PM CDT ROBERTO BECK M.D. FINAL REPORT ACC# Date Time Exam [id number] Nov 29, 2015 12:50:00 WMM [id number] Screening Mamm Bilat 2v Technologist(s): Iveth Martínez; ; EXAMINATION: Mammogram Technique: Bilateral Full-Field Digital Screening Mammogram was performed. Views obtained: bilateral craniocaudal and bilateral mediolateral oblique. Computer Aided Detection was performed with [employer].3 version 9.3. Mammogram Findings: The present examination has been compared to prior imaging studies performed at [facility] on 09/28/2014, 07/11/2013 and 07/27/2011. [...] BECK M.D. on Dec 01 2015 4:10P [id number] Procedure Note Provider, MD Cherry - 08/19/2016 ROBERTO BECK M.D. FINAL REPORT ACC# Date Time Exam [id number] Nov 29, 2015 12:50:00 WMM [id number] Screening Mamm Bilat 2v Technologist(s): Iveth Martínez; ; EXAMINATION: Mammogram Technique: Bilateral Full-Field Digital Screening Mammogram was performed. Views obtained: bilateral craniocaudal and bilateral mediolateral oblique. Computer Aided Detection was performed with [employer].3 version 9.3. Mammogram Findings: The present examination has been compared to prior imaging studies performed at [facility] on 09/28/2014, 07/11/2013 and 07/27/2011. [...] BECK M.D. on Dec 01 2015 4:10P [id number] Historical Provider MD [facility] PROCEDURES Iva ceja Result from Last 3 Months or Most Recently Relevant to Health Maintenance Insurance [facility] [place] [address] [employer] MEDICARE A[employer] MEDICARE Advance Directives For more information, please contact: [phone] * Full Code (Latest Code Status on File) Date Activated Date Inactivated Comments 04/14/2019 8:36 PM 04/15/2019 6:03 PM * Full Code Date Activated Date Inactivated Comments 03/13/2019 11:11 AM 03/14/2019 5:37 PM Care Teams Napping Machine Operator Relationship Specialty Start Date End Date Tico Mars MD [address] [address] PCP - General Internal Medicine 01/14/18
--- OUTSIDE RECORDS SUMMARY | 2025-01-05 01:03 | XMS_ITS | Encounter Summary ---
Author Organization [facility] Address [address] [place] [address] Phone Care Team Providers Care Acoustical Tile Patternmaker Name Role Phone Tico Mars MD Primary Care Provider [phone] Toribio Pinedo MD Unavailable Geri Nath MD Unavailable [phone] Tori Pinedo APRN, SHIRT IRONER SUPERVISOR Unavailable Sandi Hicks BUCKRAM SEWER Unavailable Unavailab Lidia Cabrera MD Primary Care Provide r Tico Mars MD Primary Care Provider [phone] Manjit Rangel MD Unavailable [phone] Reason for Visit * Reason Comments Medication Refill Encounter Details Date Type Department Care Team (Late st Contact Info) Description 02/02/2023 [facility]ill [facility] - [place] [address] [place] [address] Tico Mars MD [address] [place] [address] Medication Refill Social History Tobacco [...] Tico Mars MD [facility] [place] 08/07/22 Office Visit [facility] [place] Showing recent visits within past 182 days and meeting all other requirements Future Appointments Date Type Provider Dept 02/08/23 Appointment T[facility] Mars MD [facility] [place] Showing future appointments within next 90 days and meeting all other requirements documented in this encounter Plan of Treatment Upcoming Encounters Date Type Department Care Team (Late st Contact Info) Description 04/24/2025 1:00 PM MARKETING CLERK Office Visit [facility] - [place] Care - [place] [address] [place] [phone] Tico Mars MD [address] [place] [address] documented as of this encounter Visit Diagnoses Not on filedocumented in this encounter Additional Health Concerns Assessment Noted Time PHQ-9 Depression Total Score: 0 01/13/20 22 2:58 PM CDT documented as of this encounter Care Teams Acoustical Tile Patternmaker Relationship Specialty Start Date End Date Tico Mars MD PCP - General Internal Medicine 03/18/18 02/06/24 Lidia Srinivasan MD [address] [facility] [address] [place] [address] PCP - General Rheumatology 02/07/24 03/02/24 Tico Mars MD PCP - General Internal Medicine 03/03/24 Toribio Pinedo MD [address] [facility] [address] [place] [address] Consulting Physician Colon and Rectal Surgery 05/17/22 Geri Nath MD #2 [place] [address] Consulting Physician Gastroenterology 06/29/22 11/23/24 Tori Pinedo APRN, SHIRT IRONER SUPERVISOR #2 [place] [address] Nurse Practitioner Gastroenterology 01/04/24 Sandi Hicks LSW [place] Service Parts Coordinator Sheltered Workshop Executive Director 01/24/24 02/01/24 Manjit Rangel MD [address] [place] [address] Consulting Physician Orthopaedic Surgery 11/24/24 Jay Linda, WEATHER FORECASTER Nurse Practitioner Psychiatry 11/24/24 documented as of this encounter
--- OUTSIDE RECORDS SUMMARY | 2025-01-05 01:03 | XMS_ITS | Encounter Summary ---
Author Organization [facility] Address [address] [place] [address] Phone Care Team Providers Care Manager Stars Name Role Phone Toribio Pinedo MD Unavailable Geri Nath MD Unavailable [phone] Tori Pinedo APRN, CNP Unavailable Tico Mars MD Primary Care Provider Manjit Rangel MD Unavailable [phone] Reason for Visit * Reason Comments Medication Refill Encounter Details Date Type Department Care Team (Late st Contact Info) Description 11/02/2024 [facility]ill [facility] [address] [place] [address] Tori Pinedo APRN, COVER CUTTER [address] [place] [address] Medication Refill Social History Tobacco Use Types Packs/Day Years Used Date Smoking Tobacco: Never Passive Smoke Exposure: Never Smokeless Tobacco: Never Alcohol Use Standard Drinks/Week Comments Not Currently 0 (1 standard drink = 0.6 oz pur e alcohol) [facility] Utilities Answer Date Recorded In the past 12 months has [employer] electric, gas, oil, or water company threatened [...] often do you attend chur ch or mu-ism services? 1 to 4 times per year 05/30/2024 Do you belong to any clubs o r organizations such as jew groups, unions, fraternal or athletic groups, or [...] Score - Questions 1-9 0 05/0 10/2024 [facility] - Occupational Stress Questionnaire Answer Date [...] any time in the past 12 m [facility], were you homeless or living in a long-term (including now)? No 05/30/2024 Sexually Active Control [...] Dept 08/27/24 Office Visit Tico Mars MD [facility] [place] 05/26/24 Office Visit Tico Mars, MD [facility] [place] 03/03/24 Office Visit [facility] [place] 01/17/24 Office Visit Tico Mars MD [facility] [place] 01/04/24 Office Visit Tori Pinedo APRN, COVER CUTTER [facility] [place] Showing recent visits within past 365 days and meeting all other requirements Today's Visits Date Type Provider Dept 11/04/24 Appointment Tori Pinedo APRN, COVER CUTTER [facility] [place] Showing today's visits and meeting all other requirements Future Appointments No visits were found meeting these conditions. Showing future appointments within next 90 days and meeting all other requirements documented in this encounter Plan of Treatment Upcoming Encounters Date Type Department Care Team (Late st Contact Info) Description 04/24/2025 1:00 PM EDM OPERATOR Office Visit [facility] - Primary Care - [place] [address] [place] [phone] Tico Mars MD [address] [place] [address] documented as of this encounter Visit Diagnoses Not on filedocumented in this encounter Additional Health Concerns Assessment Noted Time PHQ-9 Depression Total Score: 0 08/28/19 7:24 AM CDT documented as of this encounter Care Teams Manager Stars Relationship Specialty Start Date End Date Tico Mars MD [address]2 [place] [address] PCP - General Internal Medicine 03/03/24 Toribio Pinedo MD #[address] [address] Consulting Physician Colon and Rectal Surgery 05/17/22 Geri Nath MD #2 [place] [address] Consulting Physician Gastroenterology 06/29/22 11/23/24 Tori Pinedo APRN, COVER CUTTER [address] [place] [address] Nurse Practitioner Gastroenterology 01/04/24 Manjit Rangel MD [address] [address] Consulting Physician Orthopaedic Surgery 11/24/24 Jay Linda, SITE RELIABILITY ENGINEER Nurse Practitioner Psychiatry 11/24/24 documented as of this encounter
--- OUTSIDE RECORDS SUMMARY | 2025-01-05 01:03 | XMS_ITS | Encounter Summary ---
Author Organization [facility] Address [address] [place] [address] Phone Care Team Providers Care Counter Weigher Name Role Phone Tico Mars MD Primary Care Provider [phone] Toribio Pinedo MD Unavailable Geri Nath MD Unavailable [phone] Tori Pinedo APRN, PUBLIC HEALTH DENTIST Unavailable Sandi Hicks DEDENTER Unavailable Unavailab Lidia Cabrera MD Primary Care Provide r Tico Mars MD Primary Care Provider [phone] Manjit Rangel MD Unavailable [phone] Reason for Visit * Reason Comments Medication Refill Encounter Details Date Type Department Care Team (Late st Contact Info) Description 02/10/2021 [facility]ill [facility] - [place] [address] [place] [address] Tico Mars MD [address] [place] [address] Medication Refill Social History Tobacco [...] st Contact Info) Description 04/24/2025 1:00 PM NEGATIVE CUTTER Office Visit [facility] - Primary Care - [place] [address] [place] [id number] Tico Mars MD [address] [place] [address] documented as of this encounter Visit Diagnoses Not on filedocumented in this encounter Additional Health Concerns Assessment Noted Time PHQ-9 Depression Total Score: 2 03/22/20 20 1:00 PM NEGATIVE CUTTER documented as of this encounter Care Teams Counter Weigher Relationship Specialty Start Date End Date Tico Mars MD PCP - General Internal Medicine 03/18/18 02/06/24 Lidia Srinivasan MD [address] [facility] [address] [place] [address] PCP - General Rheumatology 02/07/24 03/02/24 Tico Mars MD PCP - General Internal Medicine 03/03/24 Toribio Pinedo MD #[address] [address] Consulting Physician Colon and Rectal Surgery 05/17/22 Geri Nath MD #2 [place] [address] Consulting Physician Gastroenterology 06/29/22 11/23/24 Tori Pinedo APRN, PUBLIC HEALTH DENTIST #2 [place] [address] Nurse Practitioner Gastroenterology 01/04/24 Sandi Hicks LSW [place] Control Clerk [employer] Flatwork Catcher 01/24/24 02/01/24 Manjit Rangel MD [address] [address] Consulting Physician Orthopaedic Surgery 11/24/24 Jay Linda, LICSW Nurse Practitioner Psychiatry 11/24/24 documented as of this encounter
--- OUTSIDE RECORDS SUMMARY | 2025-01-05 01:03 | XMS_ITS | Encounter Summary ---
Author Organization [facility] Address [address] [place] [address] Phone Care Team Providers Care Bit Sander Name Role Phone Tico Mars MD Primary Care Provider [phone] Toribio Pinedo MD Unavailable Geri Nath MD Unavailable [phone] Tori Pinedo APRN, DOWEL INSPECTOR Unavailable Sandi Hicks SHIFT SUPERVISOR FILM PROCESSING Unavailable Unavailab Lidia Cabrera MD Primary Care Provide r Tico Mars MD Primary Care Provider [phone] Manjit Rangel MD Unavailable [phone] Reason for Visit * Reason Comments Medication Refill Encounter Details Date Type Department Care Team (Late st Contact Info) Description 10/03/2023 [facility]ill [facility] - [place] [address] [place] [address] Tico Mars MD [address] [place] [address] Medication Refill Social History Tobacco Use Types Packs/Day Years Used Date Smoking Tobacco: Never Passive Smoke Exposure: Never Smokeless Tobacco: Never Alcohol Use Standard Drinks/Week Comments Not Currently 0 (1 standard drink = 0.6 oz pur e alcohol) [facility] Utilities Answer Date Recorded In the [...] How often do you attend chur or baptism services? Patient unable to answer 05/24/2023 Do you belong to any clubs o r organizations such as alevism groups, unions, fraternal or athletic groups, or [...] Score - Questions 1-9 0 05/0 04/2023 [facility] [...] place to sleep or slept in a fpc (including now)? Patient unable to answer 05/24/2023 [...] Office Visit Tico Mars MD [facility] [place] 05/24/23 Office Visit Tcio aMrs MD [facility] [place] 02/19/23 Office Visit Tico Mars MD [facility] [place] 11/07/22 Office Visit Tico Mars MD [facility] [place] Showing recent visits within past 365 days and meeting all other requirements Future Appointments Date Type Provider Dept 11/22/23 Appointment Tico Mars MD [facility] [place] Showing future appointments within next 90 days and meeting all other requirements documented in this encounter Plan of Treatment Upcoming Encounters Date Type Department Care Team (Late st Contact Info) Description 04/24/2025 1:00 PM MAKING MACHINE OPERATOR Office Visit [facility] - Primary Care - [place] [address] [place] [address] Tico Mars MD [address] [place] [address] documented as of this encounter Visit Diagnoses Not on filedocumented in this encounter Additional Health Concerns Assessment Noted Time PHQ-9 Depression Total Score: 0 08/22/19 11:35 AM CDT documented as of this encounter Care Teams Bit Sander Relationship Specialty Start Date End Date Tico Mars MD PCP - General Internal Medicine 03/18/18 02/06/24 Lidia Srinivasan MD [address] [facility] [address] [place] [address] PCP - General Rheumatology 02/07/24 03/02/24 Tico Mars MD PCP - General Internal Medicine 03/03/24 Toribio Pinedo MD #[address] [address] Consulting Physician Colon and Rectal Surgery 05/17/22 Geri Nath MD #2 [place] [address] Consulting Physician Gastroenterology 06/29/22 11/23/24 Tori Pinedo APRN, DOWEL INSPECTOR [address] [place] [address] Nurse Practitioner Gastroenterology 01/04/24 Sandi Hicks, SHIFT SUPERVISOR FILM PROCESSING [place] Video Journalist [employer]raw[employer] [place] 01/24/24 02/01/24 Manjit Rangel MD [address] [place] [address] Consulting Physician Orthopaedic Surgery 11/24/24 Jay Linda, PMO PROJECT MANAGER Nurse Practitioner Psychiatry 11/24/24 documented as of this encounter
--- OUTSIDE RECORDS SUMMARY | 2025-01-05 01:03 | XMS_ITS | Encounter Summary ---
Author Organization [facility] Address [address] [place] [address] Phone Care Team Providers Care Experimental Display Builder Name Role Phone Toribio Pinedo MD Unavailable Tori Pinedo APRN, CNP Unavailable Tico Mars MD Primary Care Provider [phone] Manjit Rangel MD Unavailable [phone] Reason for Visit * Reason Onset Date Comments Advice Only 11/24/2024 Encounter Details Date Type Department Care Team (Late st Contact Info) Description 11/24/2024 Telephone [facility] [address] [place] [address] Tico Mars MD [address] [place] [address] Advice Only Social History Tobacco Use Types Packs/Day Years Used Date Smoking Tobacco: Never Passive Smoke Exposure: Never Smokeless Tobacco: Never Alcohol Use Standard Drinks/Week Comments Not Currently 0 (1 standard drink = 0.6 oz pur e alcohol) [facility] Utilities Answer Date Recorded In the past [...] often do you attend chur ch or scientology services? 1 to 4 times per year [...] Recorded Total Score - Questions 1-9 0 /0 10/2024 [facility] - Occupational [...] time in the past 12 m [facility], were you homeless or living in [...] encounter Miscellaneous Notes * Telephone Encounter - Itzel Carlton CNA - 11/24/2024 10:05 AM CDT Symptoms: Weakness, Numbness Outcome: Warm transfer to an emergent RN NOW! Reason: Weakness on only one side of body or face The caller accepted this outcome. documented in this encounter Plan of Treatment Upcoming Encounters Date Type Department Care Team (Late st Contact Info) Description 04/24/2025 1:00 PM ASPHALT PLANT LABORER Office Visit [facility] - Primary Care - [place] [address] [place] [address] Tico Mars MD [address] [place] [address] documented as of this encounter Visit Diagnoses Not on filedocumented in this encounter Additional Health Concerns Assessment Noted Time PHQ-9 Depression Total Score: 0 08/28/19 7:24 AM CDT documented as of this encounter Care Teams Experimental Display Builder Relationship Specialty Start Date End Date Tico Mars MD [address] [place] [address] PCP - General Internal Medicine 03/03/24 Toribio Pinedo MD #[address] [address] Consulting Physician Colon and Rectal Surgery 05/17/22 Tori Pinedo APRN, METAL FURNACE OPERATOR [address] [place] [address] Nurse Practitioner Gastroenterology 01/04/24 Manjit Rangel MD [address] [place] [address] Consulting Physician Orthopaedic Surgery 11/24/24 Jay Linda, REPAIR MILLER Nurse Practitioner Psychiatry 11/24/24 documented as of this encounter
--- OUTSIDE RECORDS SUMMARY | 2025-01-05 01:03 | XMS_ITS | Encounter Summary ---
Author Organization [facility] Address [address] [place] [address] Phone Care Team Providers Care Audit Analyst Name Role Phone Tico Mars MD Primary Care Provider [phone] Toribio Pinedo MD Unavailable Geri Nath MD Unavailable [phone] Tori Pinedo APRN, SENIOR INFORMATION SYSTEMS ARCHITECT Unavailable Sandi Hicks OB/GYN DOCTOR Unavailable Unavailab Lidia Cabrera MD Primary Care Provide r Tico Mars MD Primary Care Provider [phone] Manjit Rangel MD Unavailable [phone] Reason for Visit * Reason Comments Medication Refill Encounter Details Date Type Department Care Team (Late st Contact Info) Description 09/12/2023 Refill [facility] - Internal Medicine - [place] [address] [address] Tico Mars MD [address] [place] [address] Medication Refill Social History Tobacco Use Types Packs/Day Years Used Date Smoking Tobacco: Never Passive Smoke Exposure: Never Smokeless Tobacco: Never Alcohol Use Standard Drinks/Week Comments Not Currently 0 (1 standard drink = 0.6 oz pur e alcohol) [facility] Utilities Answer Date Recorded In the [...] How often do you attend chur or tenriism services? Patient unable to answer 05/24/2023 Do you belong to any clubs o r organizations such as yazidism groups, unions, fraternal or athletic groups, or [...] Office Visit Tico Mars MD [facility] [place] 05/24/23 Office Visit Tico Mars MD [facility] [place] 02/19/23 Office Visit Tico Mars MD [facility] [place] 11/07/22 Office Visit Tico Mars MD [facility] [place] Showing recent visits within past 365 days and meeting all other requirements Future Appointments Date Type Provider Dept 11/22/23 Appointment Tico Mars MD [facility] [place] Showing future appointments within next 90 days and meeting all other requirements documented in this encounter Plan of Treatment Upcoming Encounters Date Type Department Care Team (Late st Contact Info) Description 04/24/2025 1:00 PM BAKER HELPER Office Visit [facility] - Primary Care - [place] [address] [place] [address] Tico Mars MD [address] [place] [address] documented as of this encounter Visit Diagnoses Not on filedocumented in this encounter Additional Health Concerns Assessment Noted Time PHQ-9 Depression Total Score: 0 08/22/19 11:35 AM CDT documented as of this encounter Care Teams Audit Analyst Relationship Specialty Start Date End Date Tico Mars MD PCP - General Internal Medicine 03/18/18 02/06/24 Lidia Srinivasan MD [address] [place] [address] PCP - General Rheumatology 02/07/24 03/02/24 Tico Mars MD PCP - General Internal Medicine 03/03/24 Toribio Pinedo MD #[address] [address] Consulting Physician Colon and Rectal Surgery 05/17/22 Geri Nath MD #2 [place] [address] Consulting Physician Gastroenterology 06/29/22 11/23/24 Tori Pinedo APRN, SENIOR INFORMATION SYSTEMS ARCHITECT [address] [place] [address] Nurse Practitioner Gastroenterology 01/04/24 Sandi Hicks, OB/GYN DOCTOR [place] Stack Attendant Facility Assistant 01/24/24 02/01/24 Manjit Rangel MD [address] [place] [address] Consulting Physician Orthopaedic Surgery 11/24/24 Jay Linda, NETSUITE DEVELOPER Nurse Practitioner Psychiatry 11/24/24 documented as of this encounter
--- OUTSIDE RECORDS SUMMARY | 2025-01-05 01:03 | XMS_ITS | Patient Health Record ---
Author Organization [facility] Address [address] [facility] [address] [place] [address] Care Team Providers Care French Teacher Name Role Phone Jerad CHRISTOPHER, [place] Primary Care Provider Edita Luong Unavailable [phone] Raymond Sauer Unavailable [phone] Allergies Allergen (clinical drug ingredient) Drug/Non Drug Allergy documented on EMR Reaction Allergy Type Onset Date Status Penicillin Unknown Drug Allergy Active Reason For Referral No Information Medications Medication SIG (Take, Route, Frequency, Duration) Notes Start Date End Date Status Miebo Active Omeprazole 40 MG Capsule Delayed Release Oral; Duration: 90 Days Active Apple Cider Vinegar Active Hair Skin & Nails Ac tive Tyrvaya Active amLODIPine Besylate 5 MG Tablet 1 tablet Orally Once a day Active tiZANidine HCl 2 MG Capsule 1 capsule at bedtime as needed Orally Once a day Active DULoxetine HCl 30 MG Capsule Delayed Release Particles 1 capsule every evening Orally Once a day; Duration: 90 days Active Leflunomide 20 MG Tablet 1 tablet Orally Once a day Active Humira Pen 40 mg sub q twic e a month Active Active Methotrexate take 6 tablets once a week Active Folic Acid 1 MG Tablet 1 tablet Orally Once a day Active predniSONE 5 MG Tablet 1 tablet Orally Once a day chronic steroid treatment Active Social History Tobacco Use: Social History Observation Description Date Details (start date - stop date) Never Smoker NA - NA Sex Assigned At : Social History Observation Description Sex Assigned At Female Social History Miscellaneous: Social Info Question Answer Notes Advance Care Planning Advance Directive FULL CODE Household: Social Info Question Answer Notes Household Marital status: Drug/Alcohol: Social Info Question Answer Notes Drugs Have you used drugs other than those for medical reasons in the past 12 months? 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) Active confirmed Problem Generalized anxiety disorder (68796195) TUCKER (generalized anxiety disorder) (F41.1) Active confirmed Problem Anxiety (79879641) Anxiety (F41.9) Active confirmed Vital Signs Heart Rate 102 /min 12/01/2024 Blood pressure diastolic 91 mm Hg 12/01/2024 Weight-kg 67.86 kg 12/01/2024 Blood pressure systolic 143 mm Hg 12/01/2024 Weight 149.6 lbs 12/01/2024 Encounters Encounter Location Date Provider Diagnosis [facility] [email or web address] [address] [address] 01/16/2024 Edita Kennedy Major depressive disorder, recurrent, severe with psychotic symptoms F33.3 and TUCKER (generalized anxiety disorder) F41.1 [facility] [email or web address] [address] [address] 02/15/2024 Edita Kurilla Major depressive disorder, recurrent, severe with psychotic symptoms F33.3 and TUCKER (generalized anxiety disorder) F41.1 [facility] [email or web address] [address] [address] 03/17/2024 Edita Kurilla Major depressive disorder, recurrent, severe with psychotic symptoms F33.3 and TUCKER (generalized anxiety disorder) F41.1 [facility] [email or web address] [address] [address] 05/05/2024 Edita Kurilla Major depressive disorder, recurrent, severe with psychotic symptoms F33.3 and TUCKER (generalized anxiety disorder) F41.[address] [facility] [address] [address] 08/04/2024 Edita Kennedy Encounter for screen ing for depression Z13.31 ; Major depressive disorder, recurrent, severe with psychotic symptoms F33.3 ; TUCKER (generalized anxiety disorder) F41.1 ; Encounter for screening for cardiovascular disorders Z13.6 and Dietary counseling and surveillance Z71.3 [facility] [email or web address] [address] [address] 09/03/2024 Edita Kurilla Major depressive disorder, recurrent, severe with psychotic symptoms F33.3 ; TUCKER (generalized anxiety disorder) F41.1 ; Encounter for screening for depression Z13.31 ; Benign essential HTN I10 ; Encounter for screening for cardiovascular disorders Z13.6 and Dietary counseling and surveillance Z71.3 [facility] [address] [facility] [address] [place] [address] 10/13/2024 Edita Kurilla Major depressive disorder, recurrent, severe with psychotic symptoms F33.3 ; TUCKER (generalized anxiety disorder) F41.1 ; Encounter for screening for cardiovascular disorders Z13.6 ; Encounter for screening for depression Z13.31 ; Benign essential HTN I10 and Dietary counseling and surveillance Z71.3 [facility] [address] [facility] [address] [place] [address] 10/13/2024 Raymond Sauer Major depressive disorder, recurrent severe without psychotic features F33.2 ; Generalized anxiety disorder F41.1 and Encounter for screening for depression Z13.31 [place] [address] [facility] [address] [place] [address] 10/28/2024 Raymond Sauer Major depressive disorder, recurrent severe without psychotic features F33.2 and Generalized anxiety disorder F41.1 [place] [address] [facility] [address] [place] [address] 11/11/2024 Raymond Sauer Major depressive disorder, recurrent severe without psychotic features F33.2 and Generalized anxiety disorder F41.1 [place] [address] [facility] [address] [place] [address] 12/01/2024 Edita Kurilla Major depressive disorder, recurrent, severe with psychotic symptoms F33.3 and TUCKER (generalized anxiety disorder) F41.1 [facility] [address] [place] [address] 12/02/2024 Raymond Sauer Major depressive disorder, recurrent severe without psychotic features F33.2 and Generalized anxiety disorder F41.1 [place] [address] [place] [address] 12/19/2024 Raymond Sauer Major depressive disorder, recurrent severe without psychotic features F33.2 and Generalized anxiety disorder F41.1 [place] [address] [facility] [address] [place] [address] 01/02/2025 Raymond Sauer Major depressive disorder, recurrent severe without psychotic features F33.2 and Generalized anxiety disorder F41.1 [place] [id number] [facility] [address] [facility] [address] [place] [address] 10/16/2024 Edita Kennedy [place] [id number] [facility] [address] [facility] [address] [place] [address] 10/28/2024 Edita Kennedy [place] [address] [facility] [address] [facility] [address] [place] [address] 09/03/2024 Edita Kennedy Assessments Encounter Date Diagnosis (ICD Code) Assessment Notes Treatment Notes Treatment Clinical Notes Section Notes 12/02/2024 Major depressive disorder, recurrent severe without psychotic features (ICD-10 - F33.2) 12/02/2024 Generalized anxiety disorder (ICD-10 - F41.1) 12/01/2024 Major depressive disorder, recurrent, severe with psychotic symptoms (ICD-10 - F33.3) 09/03/2024 Major depressive disorder, recurrent, severe with psychotic symptoms (ICD-10 - F33.3) 09/03/2024 TUCKER (generalized anxiety disorder) (ICD-10 - F41.1) 01/02/2025 Major depressive disorder, recurrent severe without psychotic features (ICD-10 - F33.2) 01/02/2025 Generalized anxiety disorder (ICD-10 - F41.1) 12/19/2024 Major depressive disorder, recurrent severe without psychotic features (ICD-10 - F33.2) 12/19/2024 Generalized anxiety disorder (ICD-10 - F41.1) 11/11/2024 Major depressive disorder, recurrent severe without psychotic features (ICD-10 - F33.2) 11/11/2024 Generalized anxiety disorder (ICD-10 - F41.1) 10/28/2024 Major depressive disorder, recurrent severe without psychotic features (ICD-10 - F33.2) 10/28/2024 Generalized anxiety disorder (ICD-10 - F41.1) 10/13/2024 Major depressive disorder, recurrent, severe with psychotic symptoms (ICD-10 - F33.3) 10/13/2024 TUCKER (generalized anxiety disorder) (ICD-10 - F41.1) 08/04/2024 Encounter for screening for depression (ICD-10 - Z13.31) 05/05/2024 Major depressive disorder, recurrent, severe with psychotic symptoms (ICD-10 - F33.3) 03/17/2024 Major depressive disorder, recurrent, severe with psychotic symptoms (ICD-10 - F33.3) 01/16/2024 Major depressive disorder, recurrent, severe with [...] side effects persist, please contact the office. 10/13/2024 Major depressive disorder, recurrent severe without psychotic features (ICD-10 - F33.2) 10/13/2024 Generalized anxiety disorder (ICD-10 - F41.1) 02/15/2024 Major depressive disorder, recurrent, severe with [...] side effects persist, please contact the office. 03/17/2024 TUCKER (generalized anxiety disorder) (ICD-10 - [...] (generalized anxiety disorder) (ICD-10 - F41.1) 08/04/2024 Major depressive disorder, recurrent, severe with psychotic symptoms (ICD-10 - F33.3) 09/03/2024 Encounter for screening for depression (ICD-10 - Z13.31) 10/13/2024 Encounter for screening for cardiovascular disorders (ICD-10 - Z13.6) 12/01/2024 TUCKER (generalized anxiety disorder) (ICD-10 - F41.1) 09/03/2024 Benign essential HTN (ICD-10 - I10) 10/13/2024 Encounter for screening for depression (ICD-10 - Z13.31) 08/04/2024 TUCKER (generalized anxiety disorder) (ICD-10 - F41.1) 10/13/2024 Encounter for screening for depression (ICD-10 - Z13.31) 08/04/2024 Encounter for screening for cardiovascular disorders (ICD-10 - Z13.6) 10/13/2024 Benign essential HTN (ICD-10 - I10) 09/03/2024 Encounter for screening for cardiovascular disorders (ICD-10 - Z13.6) 09/03/2024 Dietary counseling and surveillance (ICD-10 - Z71.3) 10/13/2024 Dietary counseling and surveillance (ICD-10 - Z71.3) 08/04/2024 Dietary counseling and surveillance (ICD-10 - Z71.3) 01/16/2024 Other Decrease fluoxetine to 10mg daily Start Wellbutrin 150mg daily for mood, motivation. Continue propranolol 10mg qd Patient educated on all medications including potential benefits, side effects, risks. Educated on proper dosing schedule and importance of compliance. 02/15/2024 Other Stop fluoxetine-could be contributing to [...] or national office of the Alzheimer's Association ( ; http://www.alz.or g), the Alzheimer's Disease Education and Referral Center (ADEAR) ( ; http://www.kvng.ni h.gov/Alzheimers/ ), -Assessment and treatment plan reviewed with patient. [...] importance of compliance. Cont counseling with Raymond Clint HUBER, needs 12 sessions of CBT per medicare [...] 10/28/2024 Other Client participated in individual psychotherapy (CBT/Supportive) related to her hx of depression and anxiety. Based on today's session continued psychotherapy is recommended [facility] no changes to treatmnent plan. Client [...] to ask reason for being excluded from group,[facility] group. Client further spoke about 34 year old son and relationship he has with her . Noted that she often feels caught in the middle of their conflict. Client receptive to session feedback. Next session in two weeks. 11/11/2024 Other Client participated in individual psychotherapy (CBT/Supportive) related to her hx of depression and anxiety. Based on today's session continued psychotherapy is recommended [facility] no changes to treatmnent plan. Client [...] session feedback. Next session in twe weeks. 12/01/2024 Other Discontinue propranolol due to side effects Continue duloxetine at current doses. -wants to wait until next visit to evalaute need for increase Patient educated on all medications including potential benefits, side effects, risks. Educated on proper dosing schedule and importance of compliance. Cont counseling with Raymond -Assessment and treatment plan reviewed with patient. -Compliance with treatment plan importance discussed. -Discussed the risks/benefits of this medication -Discussed medication side effects. -Contact office if symptoms worsen. -Discussed that it can take up to 6-8 weeks to see full therapeutic effects of psychotropic medications. -Crisis prevention hotline 988. 12/02/2024 Other Client participated in individual psychotherapy (CBT/Supportive) related to her hx of depression and anxiety. Based on today's session continued psychotherapy is recommended [facility] no changes to treatmnent plan. Client presented to session well groomed and fully oriented with no risk of harm to self or others. Client verbal engaged and tearful throughout session. Reported upon presentation that she has been doing okay since last seen on 11.11.2024. Added that she has been having more phsyical problems after falling a week ago. Believes she has reaggravated old injuries and had an xray of her left ankle as she thought she might have broken it again. X-ray came back negative. Focus of session centered on her beliefs which have caused her to struggle letting go of the past especially first marriage. Admitted that she has lived in a F.O.G for most of her life. Fear based life characterized by false obligations and guilt. Conceded that she has been afraid of being alone. Admitted that she has created a lot of bitterness as a result of always being obligated. Believes she has let her two children down and subsequently feels guilt inspite of no evidence that she has let them down. Conceded that she has let her self down by never making herself a priroity in her own life. Client receptive to session feedback. Next session in two weeks. 12/19/2024 Other Gait, Strength, and Balance Training ExercisesThis handout provides simple exercises to improve your gait, strength, and balance. Theseexercises can help prevent falls, improve mobility, and enhance overall function. Perform them in asafe space, use support if needed, and stop if you feel pain or dizziness.1. Gait Training Exercises- Walk in a straight line for 10-20 feet, heel-to-toe.- Step over small objects (cones or rolled towels).- Practice walking sideways and backwards.- Use a treadmill if available, under supervision.2. Balance Exercises- Stand on one foot for 10-30 seconds; switch legs.- Walk heel-to-toe in a straight line.- Use a balance board or cushion to challenge stability.- Practice rising from a chair without using your hands.3. Strength Training Exercises- [id number]: rise from a chair repeatedly.- Wall push-ups: stand at arm's length from a wall and push.- Step-ups on a low step or stairs.- Leg lifts while seated or lying down.Consult your primary care provider (PCP) before starting these exercises, especially if you havemedical conditions or difficulty performing them Clinical Notes: Client participated in individual psychotherapy (CBT/Supportive) related to her hx of depression and anxiety. Based on today's session continued psychotherapy is recommended wtih no changes to treatmnent plan. Client presented to session well groomed and fully oriented with no risk of harm to self or others. Client verbal and engaged throughout session with appropriate mood and affect. Reported upon presentation that she has been doing okay since last seen on 12.02.2024. Presented to session using a walker and wearing a cast on left leg. Stated that he broke her tibia while trimming a steinberg at her home two days after last session. Stated that he first X-ray did not show a break. Surgery is a possibility in the near future. Scheduled visit to see daughter and her family had to be postponed as a result of her break. Focus of session centered on client's relationships and the impact on her depression and anxiety. Stated that she has a hx of engaging in emotional reasoning with regard to relationships in her life. Conceded that she needs to do a better job or balancing emotions with logic. Client receptive to session feedback. Next session in two weeks. 01/02/2025 Other Client participated in individual psychotherapy (CBT/Supportive) related to her hx of depression and anxiety. Based on today's session continued psychotherapy is recommended wtih no changes to treatmnent plan. Client presented to session well groomed and fully oriented with no risk of harm to self or others. Client verbal, engaged and tearful throughout session. Reported upon presentation that it has been rough since last seen on 12.19.2024 due to ex-'s dementia symptoms getting worse. Noted that he has been extremely implusive and argumentive since last seen. Added that she has been doing more then she needs to be doing and has had a lot of medical appointments. Admitted that he has felt trapped and having a lot of guilt over past bad decisions he made. Further shared that she has been confused about her medications and not being sure which medication is for what. Added as well that she has been overly emotional with frequent crying spells. Stated that she has always done a better job of being in control of her emotions. Client encouaged to seek out a support group to help deal with 's cognitive deteroriation and feeling trapped and alone. Client receptive to session feedback. Next session in two weeks. Plan Of Treatment Next Appt Details Provider Name:Edita major, 01/08/2025 02:30:00 PM, [address], [place], [address], Provider Name:Raymond martinez, 01/23/2025 09:00:00 AM, [address], [address], [place], [address], Provider Name:Raymond martinez, 02/06/2025 10:00:00 AM, [address], [facility] [address], [place], [address], Provider Name:Raymond martinez, 02/20/2025 10:00:00 AM, [address], [facility] [address], [place], [address], Provider Name:Raymond martinez, 03/06/2025 10:00:00 AM, [address] [facility] [address] [place] [address], [place], [address], Insurance Providers Payer Name Payer Address Payer Phone Subscriber Number Group Number Insured Name Patient Relationship to Insured Coverage Start Date Coverage End Date [employer] - Prime Medicare Replacemen t/Advantag e - Hmo [address] [place] [address] [id number] BHARGAVI HANSON Self - patient is the insured Medical (General) History Medical History History ICD Code HTN RA OA Dry eyes Chronic pain Surgical History Surgery Date(Month/Year) hysterectomy Right knee replacement Hospitalization History Reason Date(Month/Year) no hx [facility] admissions
--- OUTSIDE RECORDS SUMMARY | 2025-01-05 01:03 | XMS_ITS | Encounter Summary ---
Author Organization [facility] Address [address] [place] [address] Phone Care Team Providers Care Proposal Director Name Role Phone Tico Mars MD Primary Care Provider [phone] Toribio Pinedo MD Unavailable Geir Nath MD Unavailable [phone] Tori Pinedo APRN, COMPENSATION CONSULTING MANAGER Unavailable Sandi Hicks BARKER OPERATOR Unavailable Unavailab Lidia Cabrera MD Primary Care Provide r Tico Masr MD Primary Care Provider [phone] Manjit Rangel MD Unavailable [phone] Reason for Visit * Reason Comments Medication Refill Encounter Details Date Type Department Care Team (Late st Contact Info) Description 04/07/2022 Refill [facility] - [facility] - [place] [address] [address] Tico Mars MD [address] [place] [address] Medication Refill Social History Tobacco [...] 01/12/22 Office Visit Tico Mars MD [facility] [place] 11/24/21 Telemedicine Tico Mars MD [facility] Showing recent visits within past 182 days and meeting all other requirements Future Appointments Date Type Provider Dept 04/11/22 Appointment Tico Mars MD [facility] Showing future appointments within next 90 days and meeting all other requirements Passed - Patient has established therapy with Serotonin-Norepinephrine Reuptake Inhibitors for at least 6 months ENTIONAL MORTGAGE UNDERWRITER documented in this encounter Plan of Treatment Upcoming Encounters Date Type Department Care Team (Late st Contact Info) Description 04/24/2025 1:00 PM CONVENTIONAL MORTGAGE UNDERWRITER Office Visit [facility] - [place] [address] [place] [address] Tico Mars MD [address] [place] [address] documented as of this encounter Visit Diagnoses Not on filedocumented in this encounter Additional Health Concerns Assessment Noted Time PHQ-9 Depression Total Score: 0 01/13/20 22 2:58 PM CDT documented as of this encounter Care Teams Proposal Director Relationship Specialty Start Date End Date Tico Mars MD PCP - General Internal Medicine 03/18/18 02/06/24 Lidia Srinivasan MD [address] [facility] [address] [place] [address] PCP - General Rheumatology 02/07/24 03/02/24 Tico Mars MD PCP - General Internal Medicine 03/03/24 Toribio Pinedo MD [address] [facility] [address] [place] [address] Consulting Physician Colon and Rectal Surgery 05/17/22 Geri Nath MD [address] [place] [address] Consulting Physician Gastroenterology 06/29/22 11/23/24 Tori Pinedo APRN, COMPENSATION CONSULTING MANAGER [address] [place] [address] Nurse Practitioner Gastroenterology 01/04/24 Sandi Hicks LSW [place] Hand Tube Winder Rail Car Driver 01/24/24 02/01/24 Manjit Rangel MD [address] [place] [address] Consulting Physician Orthopaedic Surgery 11/24/24 Jay Linda, SENIOR MASTER SCHEDULER Nurse Practitioner Psychiatry 11/24/24 documented as of this encounter
--- OUTSIDE RECORDS SUMMARY | 2025-01-05 01:03 | XMS_ITS | Encounter Summary ---
Author Organization [facility] Address [address] [place] [address] Phone Care Team Providers Care Guest House Manager Name Role Phone Tico Mars MD Primary Care Provider [phone] Toribio Pinedo MD Unavailable Geri Nath MD Unavailable [phone] Tori Pinedo APRN, WORKDAY FINANCIALS CONSULTANT Unavailable Sandi Hicks FLOWER ARRANGER Unavailable Unavailab Lidia Cabrera MD Primary Care Provide r Tico Mars MD Primary Care Provider [phone] Manjit Rangel MD Unavailable [phone] Reason for Visit * Reason Comments Medication Refill Encounter Details Date Type Department Care Team (Late st Contact Info) Description 08/19/2023 Refill [facility] - [facility] - [place] [address] [place] [address] Tico Mars MD [address] [place] [address] Medication Refill Social History Tobacco Use Types Packs/Day Years Used Date Smoking Tobacco: Never Passive Smoke Exposure: Never Smokeless Tobacco: Never Alcohol Use Standard Drinks/Week Comments Not Currently 0 (1 standard drink = 0.6 oz pur e alcohol) [facility] Utilities Answer Date Recorded In the past [...] any clubs o r organizations such as presybeterian groups, unions, fraternal or athletic groups, or [...] Score - Questions 1-9 0 05/0 04/2023 [facility] Occupat ional Health - Occupational [...] Questionnaire -2 Score 0 08/22/2023 11:35 AM Kirtsen Rascon CMA documented as of this encounter Miscellaneous Notes * Telephone Encounter - Yoanna Rush RN - 08/20/2023 10:57 AM CDT Medication(s) refilled and signed per [facility] Chronic Medication Refill Standing Order for Pediatricand [...] 05/24/23 Office Visit Tico Mars MD [facility] [place] 02/19/23 Office Visit Tico Mars MD [facility] [place] 11/07/22 Office Visit Tico Mars MD [facility] [place] Showing recent visits within past 365 days and meeting all other requirements Future Appointments Date Type Provider Dept 08/22/23 Appointment Tico Mars MD [facility] [place] Showing future appointments within next 90 days and meeting all other requirements documented in this encounter Plan of Treatment Upcoming Encounters Date Type Department Care Team (Late st Contact Info) Description 04/24/2025 1:00 PM DATA ENTRY SUPERVISOR Office Visit [facility] - Primary Care - [place] [address] [place] [address] Tico Mars MD [address] [place] [address] documented as of this encounter Visit Diagnoses Not on filedocumented in this encounter Additional Health Concerns Assessment Noted Time PHQ-9 Depression Total Score: 0 05/24/19 9:59 AM DATA ENTRY SUPERVISOR documented as of this encounter Care Teams Guest House Manager Relationship Specialty Start Date End Date Tico Mars MD PCP - General Internal Medicine 03/18/18 02/06/24 Lidia Srinivasan MD [address] [facility] [address] [place] [address] PCP - General Rheumatology 02/07/24 03/02/24 Tico Mars MD PCP - General Internal Medicine 03/03/24 Toribio Pinedo MD [address] [address] Consulting Physician Colon and Rectal Surgery 05/17/22 Geri Nath MD [address]2 [place] [address] Consulting Physician Gastroenterology 06/29/22 11/23/24 Tori Pinedo APRN, WORKDAY FINANCIALS CONSULTANT [address] [place] [address] Nurse Practitioner Gastroenterology 01/04/24 Sandi Hicks, KAYY [place] Wood Finisher Apprentice Payroll Specialist 01/24/24 02/01/24 Manjit Rangel MD [address] [place] [address] Consulting Physician Orthopaedic Surgery 11/24/24 Jay Linda, PENSIONHOLDER INFORMATION CLERK Nurse Practitioner Psychiatry 11/24/24 documented as of this encounter
--- OUTSIDE RECORDS SUMMARY | 2025-01-05 01:04 | XMS_ITS | Encounter Summary ---
Author Organization [facility] Address 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 Gender Identity Not on file Sexual Orientation [...] ORDERABLES Edited Performing Organization Address [facility] Phone Number INTERFACE SYSTEM Refer to clinic/hospital [...] ORDERABLES Edited Performing Organization Address [facility] Phone Number INTERFACE SYSTEM Refer to clinic/hospital department * FERRITIN (12/12/2006 3:18 PM CDT) Pathologist [facility] FERRITIN 124 13 - 150 ng/mL INTERFACE SYSTEM 12/12/2006 3:18 PM CDT Igor Aly MD CHEMISTRY ORDERABLES Edited Performing Organization Address [facility] Phone Number INTERFACE SYSTEM Refer to clinic/hospital [...] ORDERABLES Edited Performing Organization Address [facility] de Phone Number INTERFACE SYSTEM Refer to [...] ORDERABLES Edited Performing Organization Address [facility] de Phone Number INTERFACE SYSTEM Refer to [...] ORDERABLES Edited Performing Organization Address [facility] Phone Number INTERFACE SYSTEM Refer to clinic/hospital department * (ABNORMAL) HAPTOGLOBIN (11/16/2006 3:58 PM CDT) HAPTOGLOBIN 292(H) 30 - 200 mg/dL INTERFACE SYSTEM 11/16/2006 3:58 PM CDT Igor Aly MD CHEMISTRY ORDERABLES Edited Performing Organization Address [facility] Phone Number INTERFACE SYSTEM Refer to clinic/hospital [...] ORDERABLES Edited Performing Organization Address [facility] Phone Number INTERFACE SYSTEM Refer to clinic/hospital department * RETICULOCYTES (11/16/2006 3:58 PM CDT) RETICULOCYTES 1.6 0.5 - 2.0 % INTERFACE SYSTEM IMMATURE RETIC FRACTION 16 0 - 16 % INTERFACE SYSTEM 11/16/2006 3:58 PM CDT Igor Aly MD HEMATOLOGY ORDERABLES Edited Performing Organization Address [facility] Phone Number INTERFACE SYSTEM Refer to clinic/hospital department * LACTATE DEHYDROGENASE (11/16/2006 3:58 PM CDT) LD (LACTATE DEHYDROGENASE) 149 135 - 214 U/L INTERFACE SYSTEM 11/16/2006 3:58 PM CDT us Igor Aly MD CHEMISTRY ORDERABLES Edited Performing Organization Address [facility] Phone Number INTERFACE SYSTEM Refer to clinic/hospital [...] ORDERABLES Edited Performing Organization Address [facility] Phone Number INTERFACE SYSTEM Refer to clinic/hospital department * (ABNORMAL) FOLATE RBC AND HEMATOCRIT (11/16/2006 3:58 PM CDT) HEMATOCRIT, FOLATE 26.7(L) 35.5 - 44.0 % INTERFACE SYSTEM RBC FOLATE 1393 >=533 ng/mL INTERFACE SYSTEM Comment: RBC Folate Interpretation: Deficient <110 ng/mL 11/16/2006 3:58 PM CDT Igor Aly MD CHEMISTRY ORDERABLES Edited Performing Organization Address [facility] Phone Number INTERFACE SYSTEM Refer to clinic/hospital department * FERRITIN (11/16/2006 3:58 PM CDT) FERRITIN 15 13 - 150 ng/mL INTERFACE SYSTEM 11/16/2006 3:58 PM CDT Igor Aly MD CHEMISTRY ORDERABLES Edited Performing Organization Address City/[facility]/ZIP Co de Phone Number INTERFACE SYSTEM Refer [...] the [facility] Intranet at: [email or web address] Select: Lab Policies and Procedures Select: Reference Ranges - GFR 11/16/2006 3:58 PM CDT Igor Aly MD CHEMISTRY ORDERABLES Edited INTERFACE SYSTEM Refer to clinic/hospital department documented in this encounter Visit Diagnoses Diagnosis Anemia, unspecified- Primary documented in this encounter Care Teams Fans Clerk Relationship Specialty Start Date End Date Iain Lowery MD [address] [facility] [address] [place] [address] PCP - General 11/16/06 documented as of this encounter
--- OUTSIDE RECORDS SUMMARY | 2025-01-05 01:04 | XMS_ITS | Encounter Summary ---
Author Organization [facility] Address [address] [facility] [address] [place] [address] Phone Care Team Providers Care Casting Chipper Name Role Phone David Roberts MD Primary Care Provider + Tico Mars MD Primary Care Provider [phone] Encounter Details Date Type Department Care Team (Late st Contact Info) Description 07/06/2017 Orders Only [facility] ProviderCherry [place] [address] Social History Tobacco Use Types Packs/Day Years Used Date Smoking Tobacco: Never Smokeless Tobacco: Never Alcohol Use Standard Drinks/Week Comments No 0 (1 standard drink = 0.6 oz pur e alcohol) Comments Unknown Sex and Gender Information Value Date Recorded Sex Assigned at Not on file Legal Sex Female 1:48 AM SAFETY COMPANION Gender Identity Not on file Sexual Orientation [...] COVID: Suspected 03/19/2023 03/19/2023 03/19/2023 11:31 PM SAFETY COMPANION COVID: Suspected 10/16/2023 10/16/2023 10/16/2023 3:46 PM CDT COVID19 10/16/2023 10/22/2023 11/01/2023 3:06 AM CDT COVID: Recovered Comment:Added based on recent COVID infection. 11/01/2023 11/01/2023 01/30/2024 3:05 AM C DT COVID: Suspected 03/28/2024 03/28/2024 03/28/2024 10:22 AM SAFETY COMPANION COVID: Suspected 06/03/2024 06/03/2024 06/03/2024 9:51 AM SAFETY COMPANION COVID: Suspected 06/03/2024 06/03/2024 06/03/2024 4:55 PM SAFETY COMPANION documented as of this encounter Care Teams Casting Chipper Relationship Specialty Start Date End Date David Roberts MD [address] [facility] [address] [place] [address] PCP - General 07/21/16 12/25/17 Tico Mars MD [address] [place] [address] PCP - General Internal Medicine 01/14/18 documented as of this encounter
--- OUTSIDE RECORDS SUMMARY | 2025-01-05 01:04 | XMS_ITS | Encounter Summary ---
Author Organization [facility] Address 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
--- OUTSIDE RECORDS SUMMARY | 2025-01-05 01:04 | XMS_ITS | Encounter Summary ---
Author Organization [facility] Address [address] [place] [address] Care Team Providers Care Boiler Blower Name Role Phone Tico Mars MD Primary Care Provider [phone] Encounter Details Date Type Department Care Team (Late st Contact Info) Description 11/19/2024 Results Follow-Up [facility] at [address] [address] Crystal Baca, ACCOUNT MANAGER TRAINEE [address] [place] [address] [address] [place] [address] XR Foot Left 3 or More Views Social History Tobacco Use Types Packs/Day Years [...] on file 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
--- OUTSIDE RECORDS SUMMARY | 2025-01-05 01:04 | XMS_ITS | Clinical Summary ---
Author Organization [facility] Address [address] [place] [address] Phone Care Team Providers Care Dielectric Testing Machine Operator Name Role Phone Toribio Pinedo MD Unavailable Tori Pinedo APRN, CAR REPAIRER Unavailable Tico Mars MD Primary Care Provider [phone] Manjit Rangel MD Unavailable [phone] Allergies Active Allergy Reactions Criticality Noted Date [...] once every two weeks. 11/20/19 20 Active folic acid (FOLVITE) 1 MG Tablet 08/28/19 22 Active cycloSPORINE (RESTASIS) 0.05 % Emulsion INSTILL 1 DROP INTO BOTH EYES TWICE A DAY 09/16/19 23 Active leflunomide (ARAVA) 20 MG Tablet Take 20 mg by mouth daily. 09/12/19 23 Active Miebo 1.338 GM/ML Solution 05/12/19 24 Active FML Forte 0.25 % Suspension Place 1 Drop in affected eye(s) every 12 hours. Active Varenicline Tartrate (Tyrvaya) 0.03 MG/ACT Solution 1 [place] by Nasal route every 12 hours. Active Misc. Devices Misc Lightweight wheelchair-1 DX- Impaired gait/mobility (M06.89); Rheumatoid arthritis (M06.89) 1 Each 01/21/20 24 Active DULoxetine (CYMBALTA) [address] [...] EVERY DAY 90 Tablet 11/18/19 25 Active buPROPion (WELLBUTRIN) 300 MG TABLET SR 24 HR XL tablet Take 300 mg by mouth every morning. Active colestipol (COLESTID) 1 GM Tablet TAKE 1 TABLET BY MOUTH TWICE A DAY 180 Tablet 1 12/03/19 25 Active amLODIPine (NORVASC) 5 MG Tablet TAKE 1 TABLET BY MOUTH EVERY DAY 90 Tablet 12/09/19 25 Active meloxicam (MOBIC) 15 MG TabletIndicat ions:Chronic pain of left ankle Take 1 Tablet by mouth daily. 90 Tablet 1 12/24/19 25 Active amLODIPine (NORVASC) 5 MG Tablet TAKE 1 TABLET BY MOUTH EVERY DAY 90 Tablet 09/13/19 25 2024 Discontinued meloxicam (MOBIC) 15 MG TabletIndicat ions:Chronic pain of left ankle Take 1 Tablet by mouth daily for 30 days. Anti-inflamatory 30 Tablet 11/25/19 25 2024 Discontinued Active Problems Problem Noted [...] Encounters Date Type Department Care Team Description 12/24/2024 [facility]phone [facility] [address] [place] [phone] Tico Mars MD Advice Only 12/21/2024 [facility] [place] [address] [place] [phone] Isac Cespedes MD Medication Refill 12/17/2024 Telephone [facility] [address] [place] [address] Tico Mars MD Advice Only 12/07/2024 Refill [facility] Internal [facility] [address] [place] [phone] Tico Mars MD Medication Refill 12/02/2024 [facility] [place] [address] [place] [phone] Tori Pinedo APRN, CAMILO Medication Refill 11/24/2024 2:00 PM CDT Office Visit [facility] [place] [address] [place] [phone] Isac Cespedes MD Chronic pain of left ankle (Primary Dx) Discharge Disposition: Discharged to home or Selfcare 11/24/2024 Travel 11/24/2024 Nurse Triage [facility] [address] [place] [phone] Tico Mars MD Extremity Weakness (/) 11/24/2024 Telephone [facility] [address] [place] [phone] Tico Mars MD Advice Only 11/18/2024 Telephone [facility] - Gastroenterology - [place] [address] [place] [address] Tori Pinedo APRN, CNP 11/17/2024 [facility] [address] [place] [address] Tico Mars MD Medication Refill 11/04/2024 2:30 PM CDT [facility] [place] [address] Tori Pinedo APRN, CAMILO Irritable bowel syndrome with both constipation and diarrhea (Primary Dx); Diarrhea, unspecified type Discharge Disposition: Discharged to home or Selfcare 11/04/2024 Telephone [facility] [address] [place] [address] Tori Pinedo APRN, CNP 11/04/2024 Travel 11/02/2024 [facility] [place] [address] Tori Pinedo APRN, CAMILO Medication Refill from Last 3 Months Immunizations [...] 23 Valent Pneumococcal conjugate PCV20 , polysaccharide XNC587 conjugate, adjuvant, PF 03/13/2023 RSV, Recombinant, Protein [...] = 0.6 oz pur e alcohol) [facility] Utilities Answer Date Recorded In the past 12 months has iMER, gas, oil, or water Trumaker threatened to shut off services in your home? No 05/30/2024 Social Connection and Isolation Panel Answer Date Recorded In a typical week, how many times do you talk on the phone with family, friends, or neighbors? Once a week 05/30/2024 How often do you get togethe r with friends or relatives? Once a week 05/30/2024 How often do you attend chur ch or confucianist services? 1 to 4 times per year [...] Total Score - Questions 1-9 0 10/2024 [facility] of Occupat ional Health - Occupational Stress [...] place to sleep or slept in a half-way (including now)? Patient unable to answer 05/24/2023 [...] any time in the past 12 m [facility], were you homeless or living in a half-way (including now)? 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 Office Visit [facility] - Primary Care - [place] [address] [place] [address] Tico Mars MD [address] [place] [phone] Health Maintenance Due Date Last Done Comments Hepatitis C Virus (HCV) Screening 1955 Cologuard 2001 Immunochemical Fecal Occult Blood 2001 Influenza Immunization (#1) 2024 09/0 11/2023, 02/09/2023, 02/02/2023, Additional history exists SARS-COV-2 Immunization (9 - Pfizer risk season) [...] (CBC) WITH DIFF 11/10/2024 12:00 AM CDT ELLIE BONE DENSITOMETRY AXIAL SKELETON Routine 02/07/2024 1:21 PM CDT Screening for osteoporosis ELLIE SCREENING BILATERAL DIGITAL W CAD W CHELY Routine 01/28/2024 12:28 PM CDT Encounter for screening mammogram for breast cancer from Last 3 Months or Most Recently Relevant to Health Maintenance Results * IRON,TRANSFERN,CALC.TIBC,%SAT (11/10/2024 12:00 AM CDT) 11/10/2024 us Provider Scan CHEMISTRY ORDERABLES Final Resul t Performing Organization Address [facility] Phone Number SCAN * EXTERNAL GASTROENTEROLOGY REFERRAL (11/10/2024 12:00 AM CDT) 11/10/2024 Tico Mars MD OUTPT REFERRALS EXT/INT Fin al Result Performing Organization Address [facility] de Phone Number SCAN * COMPLETE BLOOD COUNT (CBC) WITH DIFF (11/10/2024 12:00 AM CDT) 11/10/2024 us Provider Scan HEMATOLOGY ORDERABLES Final Resu lt Performing Organization Address [facility] Phone Number SCAN * ELLIE BONE DENSITOMETRY AXIAL SKELETON (02/07/2024 [...] Narrative 02/07/2024 4:38 PM CDT EXAM DESCRIPTION: [facility] BONE DENSITOMETRY AXIAL SKELETON REASON FOR STUDY: 68 y/o year old F with given history of: Post menopausal status. History glucocorticoid use and rheumatoid arthritis. Patient has taken/is taking multivitamin, vitamin-D, methotrexate and prednisone Juvenile Corrections Officer/Model: Vixlo (S/N [id number]) CLINICAL INFORMATION: Current height: 63.75 inches Maximum [...] Minerva Avitia M.D. TW: TW Report ID: [id number] Reading Location: [id number] Procedure Note Minerva Avitia MD - 02/07/2024 EXAM DESCRIPTION: [facility] BONE DENSITOMETRY AXIAL SKELETON REASON FOR STUDY: 68 y/o year old F with given history of: Post menopausal status. History glucocorticoid use and rheumatoid arthritis. Patient has taken/is taking multivitamin, vitamin-D, methotrexate and prednisone Juvenile Corrections Officer/Model: Vixlo (S/N [id number]) CLINICAL INFORMATION: Current height: 63.75 inches Maximum [...] Electronically signed by Minerva Avitia M.D. TW: OLIMPIA Report ID: [id number] Reading Location: [place] [address] IMPRESSION: Osteoporosis. REFERENCE: Bone mineral density: T-Score: [...] and Treatment of Osteoporosis (http://www.nof.org/professionals/clinical-guidelines) us Tico Lashonda Mars MD IMG DEXA ORDERABLES Final R [...] copy. Current study was also evaluated with BeisenD version 7.2. 2D digital mammographic views, as [...] dated: 10/05/2022, 09/30/2021, 03/07/2021, 08/24/2020, and 08/11/2020 [facility]. BREAST TISSUE:There are scattered areas of [...] exam. Electronically signed by: Luis naranjo/raul:01/28/2024 16:57:24 Sand Slinger(s): RT Willie(R)(M), [facility] letter sent: Normal Exam Reading location: [...] dated: 10/05/2022, 09/30/2021, 03/07/2021, 08/24/2020, and [facility]11/2020 [facility]. BREAST TISSUE:There are scattered areas of [...] exam. Electronically signed by: Luis naranjo/raul:01/28/2024 16:57:24 Sand Slinger(s): RT Willie(R)(M), [facility] letter sent: Normal Exam Reading location: [facility] Mammogram BI-RADS: Category 1: Negative Tico Mars MD IMG MAMMO ORDERABLES Final Result from Last 3 Months or Most Recently Relevant to Health Maintenance Insurance MEDICARE C AET[employer] Care Teams Dielectric Testing Machine Operator Relationship Specialty Start Date End Date Tico Mars MD [address] [place] [address] PCP - General Internal Medicine 03/03/24 Toribio Pinedo MD #[address] [address] Consulting Physician Colon and Rectal Surgery 05/17/22 Tori Pinedo APRN, CAR REPAIRER [address] [place] [address] Nurse Practitioner Gastroenterology 01/04/24 Manjit Rangel MD [address] [place] [address] Consulting Physician Orthopaedic Surgery 11/24/24 Jay Linda PROGRAMMER ANALYST CONSULTANT Nurse Practitioner Psychiatry 11/24/24
--- OUTSIDE RECORDS SUMMARY | 2025-01-05 01:04 | XMS_ITS | Clinical Summary ---
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
--- OUTSIDE RECORDS SUMMARY | 2025-01-05 01:04 | XMS_ITS | Encounter Summary ---
Author Organization [facility] Address [address] [facility] [place] [address] Care Team Providers Care Coil Winder Repair Name Role Phone Tico Mars MD Primary Care Provider Encounter Details Date Type Department Care Team (Late st Contact Info) Description 09/27/2022 Lab Requisition [facility] - DermPath Lab [address] [facility] [place] [address] Jose Alejandro Loepz MD [address] [place] [address] Social History Tobacco Use Types Packs/Day [...] on file Legal Sex Female 6:25 AM FIELD RADIO OPERATOR Gender Identity Not on file Sexual Orientation Not on file documented as of this encounter Plan of Treatment Not on file documented as of this encounter Procedures Procedure Name Priority Date/Time Associated Diagnosis Comments DERMATOPATHOLOGY Routine 09/26/2022 12:0 0 AM CDT documented in this encounter Results * DERMATOPATHOLOGY (09/26/2022 12:00 AM CDT) Case Report Dermatopathology Report Case: [id number] Authorizing Provider: Jose Alejandro Lopez MD Collected: 09/26/2022 12:00 AM Ordering Location: [facility] Derm[facility] Lab Received: 09/28/2022 06:38 AM [...] at 1304 CDT Clinical History A: nevus Path#[id number] B: nevus Path#[id number] 1:04 PM CDT DERMATOPATHOLOGY LABORATORY Gross Description [...] larger lesion, these findings may not be resources representative of the entire lesion. Clinicopathologic correlation [...] characteristic determined by the Dermatopathology Laboratory at [facility], directed by Dr. Nelia Schaeffer. These tests need not be, and therefore are not, approved by the [place] Food and Drug Administration. The tests are used for clinical purposes. Billing Codes Specimen Charges Stain Charges 65224 61311 1 1 3 1:04 PM CDT DERMATOPATHOLOGY LABORATORY Embedded Images 3 1:04 PM CDT DERMATOPATHOLOGY LABORATORY Pathology/Cytology TISSUE SPECIMEN FROM SKIN / Unknown 09/26/2022 09/28/2022 6:38 AM CDT Miscellaneous samples (specimen) TISSUE SPECIMEN FROM SKIN / Unknown 09/26/2022 09/28/2022 6:38 AM CDT us Jose Alejandro Lopez MD LAB - PATHOLOGY/CYTOLOGY ORDER LORENA Final Result DERMATOPATHOLOGY LABORATORY [facility] - Department of Dermatology [facility] Medicine [address] [place] [address], [address]rd [address] [phone] documented in this encounter Visit Diagnoses Not on filedocumented in this encounter Care Teams Coil Winder Repair Relationship Specialty Start Date End Date Tico Mars MD [address] [place] [address] PCP - General 01/20/19 documented as of this encounter
--- OUTSIDE RECORDS SUMMARY | 2025-01-05 01:04 | XMS_ITS | Encounter Summary ---
Author Organization [facility] Address [address] [place] [address] Care Team Providers Care Automatic Dispenser Mechanic Name Role Phone Iain Lowery MD Primary Care Provider [phone] Encounter Details Date Type Department Care Team (Late st Contact Info) Description 12/18/2006 Outpatient Historical [facility] Unspecified Anemia (Primary Dx) Social History Tobacco Use Types Packs/Day Years Used Date Smoking Tobacco: Never Assessed Comments Unknown Sex and Gender Information Value Date Recorded Sex Assigned at Not on file Legal Sex Female 4:26 AM CAPTAIN FISHING VESSEL Gender Identity Not on file Sexual Orientation Not on file documented as of this encounter Plan of Treatment Not on file documented as of this encounter Visit Diagnoses Diagnosis Anemia, unspecified- Primary documented in this encounter Care Teams Automatic Dispenser Mechanic Relationship Specialty Start Date End Date Iain Lowery MD [address] [phone] PCP - General 11/16/06 documented as of this encounter
--- OUTSIDE RECORDS SUMMARY | 2025-01-05 01:04 | XMS_ITS | Clinical Summary ---
Author Organization [facility] Address [address] [place] [address] Care Team Providers Care Process Control Specialist Name Role Phone Tico Mars MD Primary Care Provider [phone] Source Comments [facility],non-owned Affiliates and Associated Physician Practices is amultiple site organization consisting of ambulatory clinics and hospital sitesin [place], [place], [place] and [place]. This disclosure is being madepursuant to the Care Everywhere program and may not contain all information available regarding this patient. Last updated 18.[facility] Allergies Active Allergy Reactions Criticality Noted Date [...] (02/07/2019): Added automatically from request for surgery [id number] Right ear pain 01/20/2019 DNS (deviated nasal [...] Breast cancer screening: No longer going to validation manager 2/2 hysterectomy. Cervical cancer screening: No longer going to validation manager due to hysterectomy. Osteoporosis screening: As [...] she saw a few years ago at [facility]. Memory loss 11/28/2016 Overview (01/20/2019): Last Assessment [...] to wean off amitriptyline. Rheumatoid arthritis of 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 Gender Identity Not on file Sexual Orientation [...] - Risk 60-74 years 1-dose series) 2016 DEPRESSION SCREENING 04/23/2024 MEDICARE AWV CALENDAR YEAR 2024 COVID-19 VACCINE ( season) 2024 08/10/2021, 02/02/2021, 06/24/2020, Additional history exists INFLUENZA VACCINE (#1) 2024 , 02/09/2020, 04/26/2016, [...] - 26 mg/dL 12/31/2021 2:19 AM CDT [facility] Creatinine 0.71 0.56 - 0.96 mg/dL 12/31[facility]20[facility] Sodium 137 136 - 145 mmol/L 12/31/2021 2:19 AM [facility] Potassium 3.7 3.5 - 4.5 mmol/L 12/31/2021 2:19 AM [facility] Chloride 107 98 - 107 mmol/L 12/31/2021 2:19 AM [facility] CO2 25 22 - 29 mmol/L 12/31/2021 2:19 AM [facility] Glucose 104 70 - 115 mg/dL 12/31/2021 2:19 AM [facility] Calcium 10.0 8.4 - 10.2 mg/dL 12/31/2021 2:19 AM [facility] Protein Total 5.9(L) 6.0 - 8.3 g/dL 12/31/2021 2:19 AM [facility] Albumin 3.2(L) 3.4 - 5.0 g/dL 12/31/2021 2:19 AM [facility] Bilirubin Total 0.8 0.2 - 1.2 mg/dL 12/31/2021 2:19 AM [facility] Alkaline Phosphatase 79 40 - 150 U/L 12/31/2021 2:19 AM [facility] ALT 45 5 - 55 U/L 12/31/2021 2:19 AM [facility] AST 29 5 - 34 U/L 12/31/2021 2:19 AM [facility] Anion Gap 9 8 - 18 12/31/2021 2:19 AM [facility] BUN/Creatinine Ratio 23 7 - 23 12/31/2021 2:19 AM [facility] Osmolality Calculated 285 270 - 300 mOsm/kg 12/31/2021 2:19 AM [facility] Albumin/Globulin Ratio 1.2 1.1 - 2.3 12/31/2021 2:19 AM [facility] eGFR by CKD-EPI >90 >=90 mL/min/1.7 3 m2 12/31/2021 2:19 AM [facility] Blood BLOOD SPECIMEN / Unknown Venipuncture / Unknown 12/31/2021 1:40 AM CDT 12/31/2021 1:47 AM CDT us Nasir Seymour MD LAB - CHEMISTRY ORDERABLES Fi nal Result [facility] [address] [place] [address], [facility] [phone] from Last 3 Months or Most Recently Relevant to Health Maintenance Insurance [employer] U[employer] MANAGED MEDICARE ADV [employer] AETNA MEDICARE ADV * Guarantor: BHARGAVI RADFORD Swathi Account Type Relation to Patient Date of Phone Billing Address Personal/Family 1955 [address] [place] [address] [employer] Care Teams Process Control Specialist Relationship Specialty Start Date End Date Tico Mars MD [address] [address] PCP - General 01/20/19
--- OUTSIDE RECORDS SUMMARY | 2025-01-05 01:04 | XMS_ITS | Encounter Summary ---
Author Organization [facility] Address [address] [place] [address] Phone Care Team Providers Care Box Spinner Name Role Phone Tico Mars MD Primary Care Provider [phone] Toribio Pinedo MD Unavailable Geri Nath MD Unavailable [phone] Tori Pinedo APRN, JAVA PROGRAMMING PROFESSOR Unavailable Sandi Hicks SCREEN PRINT OPERATOR Unavailable Unavailab Lidia Cabrera MD Primary Care Provide r Tico Mars MD Primary Care Provider [phone] Manjit Rangel MD Unavailable [phone] Reason for Visit * Reason Comments Medication Refill Encounter Details Date Type Department Care Team (Late st Contact Info) Description 06/13/2020 Refill [facility] - [place] [address] [place] [address] Tico Mars MD [address] [place] [address] Medication Refill Social History Tobacco [...] 8:32 AM CST Please review and sign. SALESPERSON * Telephone Encounter - Tori Murphy RN - 06/14/2020 8:32 AM CST Please review and sign. SALESPERSON documented in this encounter Plan of Treatment Upcoming Encounters Date Type Department Care Team (Late st Contact Info) Description 04/24/2025 1:00 PM WIGS SALESPERSON Office Visit [facility] - [facility] - [place] [address] [place] [address] Tico Mars MD [address] [place] [address] documented as of this encounter Visit Diagnoses Not on filedocumented in this encounter Additional Health Concerns Assessment Noted Time PHQ-9 Depression Total Score: 2 03/22/20 20 1:00 PM WIGS SALESPERSON documented as of this encounter Care Teams Box Spinner Relationship Specialty Start Date End Date Tico Mars MD PCP - General Internal Medicine 03/18/18 02/06/24 Lidia Srinivasan MD [address] [address] PCP - General Rheumatology 02/07/24 03/02/24 Tico Mars MD PCP - General Internal Medicine 03/03/24 Toribio Pinedo MD [address] [address] Consulting Physician Colon and Rectal Surgery 05/17/22 Geri Nath MD [address] [place] [address] Consulting Physician Gastroenterology 06/29/22 11/23/24 Tori Pinedo APRN, JAVA PROGRAMMING PROFESSOR [address] [place] [address] Nurse Practitioner Gastroenterology 01/04/24 Sandi Hicks, SCREEN PRINT OPERATOR [place] Outpatient Admitting Clerk Demand Manager 01/24/24 02/01/24 Manjit aRngel MD [address] [place] [address] Consulting Physician Orthopaedic Surgery 11/24/24 Jay Linda, BIOMEDICAL ANALYTICAL SCIENTIST Nurse Practitioner Psychiatry 11/24/24 documented as of this encounter
[2025-01-05 12:38] VITALS: BP 121/66; PULSE 91; RESP 18; TEMP 36.5; O2SAT 98
[2025-01-05] MEDS: LACTATED RINGERS 1,000 ML 150 ML IV CONT (12:52)
[2025-01-05] MEDS: SIMETHICONE ORAL SUSPENSION 20 MG/0.3 ML 30 ML BOTTLE 1.8 ML PO (12:53)
--- NOTE | 2025-01-05 13:17 | WPDANESEPPF ---
Anes - Initial Pre Proc Eval Procedure: Operation Date: 01/05/25 13:30 Proposed Procedures p EGD & Diagnostic Colonoscopy - Zeke Morris MD Date/Time: 01/05/25 13:17 Surgeon: Zeke Morris MD Pre Op Diagnosis: Gastro-esophageal reflux disease without esophagit Patient Data Age: 69 Gender: F Height: 1.55 m Weight: 66.4 kg Last Vital Signs Temp 97.7 F 01/05/25 12:38 Pulse 91 01/05/25 12:38 Resp 18 01/05/25 12:38 BP 121/66 01/05/25 12:38 Pulse Ox 98 01/05/25 12:38 O2 Del Method Room Air 01/05/25 12:38 Allergies Allergy/AdvReac Type Severity Reaction Status Date / Time acetaminophen Allergy Severe Unknown Verified 01/05/25 12:33 cefdinir Allergy Severe Itching Verified 01/05/25 12:33 fluticasone Allergy Severe Itching Verified 01/05/25 12:33 Latex, Natural Rubber Allergy Severe Itching Verified 01/05/25 12:33 oxycodone (From Percocet) Allergy Severe itch Verified 01/05/25 12:33 Penicillins Allergy Mild Unknown Verified 01/05/25 12:33 codeine AdvReac Itching Verified 01/05/25 12:33 Home Medications ?Medication ?Instructions ?Recorded ?Confirmed ?Type folic acid 1 mg tablet 1 mg PO DAILY 09/19/19 12/24/24 History methotrexate sodium 2.5 mg tablet 2.5 mg PO WEEKLY 09/19/19 12/24/24 History prednisone 5 mg tablet 5 mg PO DAILY 09/19/19 12/24/24 History adalimumab 40 mg/0.8 mL 40 mg subcut Q14D 12/03/23 12/24/24 History subcutaneous syringe kit (Humira) amlodipine 5 mg tablet 5 mg PO DAILY 12/03/23 12/24/24 History leflunomide 20 mg tablet 20 mg PO DAILY 12/03/23 12/24/24 History fluorometholone 0.25 % eye 1 drp ophthalmic (eye) Q12H 06/17/24 12/24/24 History drops,suspension (FML Forte) perfluorohexyloctane (PF) 100 % 1 drp ophthalmic (eye) BID 06/17/24 12/24/24 History eye drops (Miebo (PF)) varenicline tartrate 0.03 mg/spray 1 spray intranasal Q12H 06/17/24 12/24/24 History metered nasal spray (Tyrvaya) omeprazole 40 mg capsule,delayed 40 mg PO DAILY laryngopharyngeal 09/12/24 12/24/24 Rx release reflux #30 caps bupropion HCl 300 mg 24 hr tablet, 300 mg PO HS 12/24/24 12/24/24 History extended release colestipol 1 gram tablet 1 g PO BID 12/24/24 12/24/24 History duloxetine 30 mg capsule,delayed 30 mg PO HS 12/24/24 12/24/24 History release meloxicam 15 mg tablet 15 mg PO DAILY 12/24/24 12/24/24 History tizanidine 2 mg capsule 2 mg PO HS PRN sleep 12/24/24 12/24/24 History Patient hx anesthesia problems: none Family hx anesthesia problems: none Results Review: All pre-operative results and documents have been reviewed as part of the pre-operative evaluation. [facility] Past Medical History Medical History Rheumatoid arthritis Surgical History Surgical History H/O knee surgery Family History Family History Father Heart disease Cerebrovascular accident Mother Diabetes mellitus Hypertension Depression Sibling Alcoholism Cancer Grandparent Diabetes mellitus Social History Social History Smoking status: Never smoker Alcohol intake: never Substance use: never Substance use type: does not use Do You Feel Safe in your Home?: Yes Lack of Transportation: No Lack of Food: Never True Current Housing: I Have Housing Concerned About Future Housing: No Difficulty Paying Gas/Electric Bills: No Difficulty Paying for Meds: No Currently Unemployed: No Education: Master's Degree or Higher Difficulty w/ Childcare or Family Care: No Gender identity (if verbalized by the patient): Female Anes - Eval Final PreProcedure Day of Procedure 01/05/25 13:17 Patient weight: normal Lungs: normal air movement Airway: Mallampati scale class II Neurological: alert and oriented Last oral intake: >/= 8 hours ASA classification: II Emergent: no Anesthetic plan: proceed Anesthesia type and monitoring: general GIVS and standard monitoring Results Review: All pre-operative results and documents have been reviewed as part of the pre-operative evaluation. HTN, RA. Informed Consent: The patient's anesthetic plan and its attendant risks and benefits were discussed with the patient/family/POA. Questions were solicited and answers provided to the satisfaction of the patient/family/POA.
--- NOTE | 2025-01-05 13:19 | PM.IMHP ---
H&P: HPI History of Present Illness Date/Time: 01/05/25 13:19 Chief Complaint: GERD- history of colon polyps-chronic diarrhea Narrative: the patient has a history of colonic polyps and her last colonoscopy was about 5 years ago. In addition, she has been having intermittent diarrhea for which she is referred for colonoscopy. In addition, she has longstanding GERD, for which she takes omeprazole 40 mg q.d.. She is also referred for EGD. Review of Systems Review of Systems: All systems reviewed & are unremarkable except as noted in HPI and below PMFSH Past Medical History Medical History Rheumatoid arthritis Surgical History Surgical History H/O knee surgery Family History Family History Father Heart disease Cerebrovascular accident Mother Diabetes mellitus Hypertension Depression Sibling Alcoholism Cancer Grandparent Diabetes mellitus Social History Social History Smoking status: Never smoker Alcohol intake: never Substance use: never Substance use type: does not use Do You Feel Safe in your Home?: Yes Lack of Transportation: No Lack of Food: Never True Current Housing: I Have Housing Concerned About Future Housing: No Difficulty Paying Gas/Electric Bills: No Difficulty Paying for Meds: No Currently Unemployed: No Education: Master's Degree or Higher Difficulty w/ Childcare or Family Care: No Gender identity (if verbalized by the patient): Female Meds Home Medications and Allergies Home Medications ?Medication ?Instructions ?Recorded ?Confirmed ?Type folic acid 1 mg tablet 1 mg PO DAILY 09/19/19 12/24/24 History methotrexate sodium 2.5 mg tablet 2.5 mg PO WEEKLY 09/19/19 12/24/24 History prednisone 5 mg tablet 5 mg PO DAILY 09/19/19 12/24/24 History adalimumab 40 mg/0.8 mL 40 mg subcut Q14D 12/03/23 12/24/24 History subcutaneous syringe kit (Humira) amlodipine 5 mg tablet 5 mg PO DAILY 12/03/23 12/24/24 History leflunomide 20 mg tablet 20 mg PO DAILY 12/03/23 12/24/24 History fluorometholone 0.25 % eye 1 drp ophthalmic (eye) Q12H 06/17/24 12/24/24 History drops,suspension (FML Forte) perfluorohexyloctane (PF) 100 % 1 drp ophthalmic (eye) BID 06/17/24 12/24/24 History eye drops (Miebo (PF)) varenicline tartrate 0.03 mg/spray 1 spray intranasal Q12H 06/17/24 12/24/24 History metered nasal spray (Tyrvaya) omeprazole 40 mg capsule,delayed 40 mg PO DAILY laryngopharyngeal 09/12/24 12/24/24 Rx release reflux #30 caps bupropion HCl 300 mg 24 hr tablet, 300 mg PO HS 12/24/24 12/24/24 History extended release colestipol 1 gram tablet 1 g PO BID 12/24/24 12/24/24 History duloxetine 30 mg capsule,delayed 30 mg PO HS 12/24/24 12/24/24 History release meloxicam 15 mg tablet 15 mg PO DAILY 12/24/24 12/24/24 History tizanidine 2 mg capsule 2 mg PO HS PRN sleep 12/24/24 12/24/24 History Allergies Allergy/AdvReac Type Severity Reaction Status Date / Time acetaminophen Allergy Severe Unknown Verified 01/05/25 12:33 cefdinir Allergy Severe Itching Verified 01/05/25 12:33 fluticasone Allergy Severe Itching Verified 01/05/25 12:33 Latex, Natural Rubber Allergy Severe Itching Verified 01/05/25 12:33 oxycodone (From Percocet) Allergy Severe itch Verified 01/05/25 12:33 Penicillins Allergy Mild Unknown Verified 01/05/25 12:33 codeine AdvReac Itching Verified 01/05/25 12:33 Vital Signs Vital Signs - 24 hr 01/05/25 12:38 Temperature 97.7 F Pulse Rate 91 Respiratory Rate 18 Blood Pressure 121/66 Pulse Oximetry 98 Oxygen Delivery Room Air Exam Const: General: cooperative and healthy appearing Resp: Effort & Inspection: normal respiratory effort and able to speak in complete sentences Auscultation: clear to auscultation bilaterally Cardio: Rate: regular rate Rhythm: regular rhythm GI: Inspection: normal to inspection GI Palp: No No hepatosplenomegaly present Auscultation: normal bowel sounds Rectal Exam: deferred Skin: General skin exam: normal color Psych: Appearance: grossly normal Mental Status: mental status grossly normal Assessment and Plan Assessment and plan (1) GERD (gastroesophageal reflux disease): Qualifiers: Esophagitis presence: esophagitis presence not specified Qualified Code(s): K21.9 - Gastro-esophageal reflux disease without esophagitis Code(s): K21.9 - Gastro-esophageal reflux disease without esophagitis Status: Acute Assessment and Plan: The patient is deemed a good candidate for the procedure. Consent signed. Will proceed. Differential diagnosis includes microscopic colitis for which we will take colonic biopsies. Longstanding use of omeprazole might be a predisposing factor for this condition. (2) Personal history of colon polyps, unspecified: Code(s): Z86.0100 - Personal history of colon polyps, unspecified Status: Acute
--- NOTE | 2025-01-05 13:46 | SUR.OPER ---
EGD ended at 1340, colon began at 1349.
--- NOTE | 2025-01-05 14:27 | S_PTH ---
PATIENT: Claire Lucas LOC: [facility] #:[id number] AGE/SX: 69/F ROOM: RE01/05/[address]: Zeke Morris MD : 1955 BED: DIS: 01/05/2025 SPEC #: [id number] RECD: 01/06/25 08:37 STATUS: KT RESpencer #: [id number] FANG: 01/05/25 14:[address]: Zeke Morris DEPT: [facility] Surgical RECD BY: Renée Hussein MLT, ([facility]) ENTERED: 01/06/25 08:39 SP TYPE: Surgical OTHR DR: Tico Mars, Tissues: A - Colon Polypectomy B - Colon Biopsy C - Colon Biopsy D - Gastric Biopsy E - Gastric Biopsy Procedures: Hematoxylin and Eosin Stain Gross and Microscopic Level 4
[2025-01-05 14:32] VITALS: BP 125/44; PULSE 69; RESP 18; O2SAT 100
[2025-01-05 14:42] VITALS: BP 136/73; PULSE 68; RESP 17; O2SAT 99
[2025-01-05 14:52] VITALS: BP 151/59; PULSE 65; RESP 19; O2SAT 99
== END 2025-01-05 15:09 | disposition home or self-care (01) ==
PROVIDERS: PCP Internal Medicine; Referring Provider Nurse Practitioner Family; Visit Provider Internal Medicine Gastroenterology
PROC: 0DJ08ZZ Inspection of Upper Intestinal Tract, Via Natural or Artificial Opening Endoscopic (ICD-10-PCS; CPT 45378; principal; 2025-01-05 13:30)
DX: Z12.11 Encounter for screening for malignant neoplasm of colon (principal); K21.9 Gastro-esophageal reflux disease without esophagitis; K51.40 Inflammatory polyps of colon without complications; K57.30 Diverticulosis of large intestine without perforation or abscess without bleeding; M06.9 Rheumatoid arthritis, unspecified; Z79.52 Long term (current) use of systemic steroids; Z79.620 Long term (current) use of immunosuppressive biologic; Z98.890 Other specified postprocedural states; Z80.9 Family history of malignant neoplasm, unspecified; Z82.49 Family history of ischemic heart disease and other diseases of the circulatory system
CPT/HCPCS: 43239; 45390; 45380; 88305; J2003; J2704; J7120